=== PATIENT | female | born 1945 | race Caucasian/White ===

== ENCOUNTER 2017-11-10 22:49 | Inpatient (IN) ==
[2017-11-10] MEDS ORDERED: KETOROLAC 30 MG/ML INJECTION IVP ONE (22:56)
[2017-11-10] MEDS ORDERED: NS 1,000 ML IV ONE (22:57)
[2017-11-10] MEDS: SALINE FLUSH 10ml SYRINGE IVF PRN (23:38)
[2017-11-11] MEDS ORDERED: NS 100 ML ONE (00:04)
[2017-11-11] MEDS ORDERED: IOHEXOL 300mg/ml 75ml INJECTION ONE (00:04)
[2017-11-11] MEDS ORDERED: SALINE FLUSH 10ml SYRINGE ONE (00:05)
--- NOTE | 2017-11-11 00:33 | Emergency Department Report ---
General Adult HPI - General Chief complaint: Shortness of Breath/Dyspnea Stated complaint: sob, congestion Time Seen by Provider: 11/10/17 22:55 Source: patient Mode of arrival: ambulatory Limitations: no limitations - History of Present Illness HPI narrative: Mrs. Perez has been seen twice in the last 48 hours for sinusitis and generalized viral syndrome. Patient was seen by myself less than 24 hours ago, and was encouraged to drink plenty of fluids at home which she thought she could do. Patient admits that she has not been able to drink, decreased appetite , worsening body aches fatigue, and fevers and chills. Patient also presents for evaluation of abnormal chest x-ray as read by in has radiologist today as possible right perihilar mass. - Related Data Home Medications Medication Instructions Recorded Confirmed Ibuprofen [Advil] 3 tab PO Q4H PRN 11/10/17 11/10/17 Previous Rx's Medication Instructions Recorded amoxicillin 500 mg tablet 500 mg PO Q8H 10 Days #30 tab 11/08/17 Allergies Allergy/AdvReac Type Severity Reaction Status Date / Time amoxicillin [From Augmentin] Allergy Mild Nausea and Verified 11/10/17 23:13 Vomiting clavulanic acid Allergy Mild Nausea and Verified 11/10/17 23:13 [From Augmentin] Vomiting Review of Systems All systems: reviewed and negative except as stated PFSH Surgical History: *Teeth and gums removed. *D&C x7. *Total Abdominal Hysterectomy with Bilateral Salpingo-Oophorectomy with incidental Appendectomy due to prolapsed uterus at age 28. *Cyst Excision. *Colonoscopy. *Tubal Ligation Family History: Family History (Last Reviewed 11/08/17 @ 16:41 by JOE Trivedi) Father Cancer Brother Cancer Sister Cancer Paternal Grandmother Diabetes - Social History Smoking status: Current every day smoker Physical Exam - Limitations Limitations: no limitations - General General appearance: alert - Normal Exams: Head:: Normocephalic without trauma Eyes:: Pupils are PERRLA w/ EOMI, No scleral icterus, irritation, or foreign bodies noted ENMT:: No facial trauma (dry mouth), nasal exudates, pharyngeal erythema, or exudates are noted Neck:: Full range of motion, without adenopathy, JVD, bruits or thyromegaly Chest/Respirations:: Clear all [place], with good airflow, and symmetry bilaterally Cardiovascular:: Regular rate and rhythm, without murmur or gallop, Pulses 2+ all extremities, capillary refill, <2 seconds all extremities Abdomen:: Bowel sounds positive, soft, non-tender, non-distended, no hepatosplenomegaly, masses or bruits noted Lymphatic:: No lymphadenopathy, or lymphedema noted Musculoskeletal:: No tenderness, or deformity noted, good range of motion, all extremities Integumentary:: No rashes, hives, or bruising noted, hair and nails, without abnormality Neurological:: Patient is alert, and oriented, cranial nerves, motor/sensory/ cerebellar, exams w/o gross deficits, to observation Psychiatric:: Patient exhibits, appropriate attention, emotion and affect - ENT ENT exam: Present: other (patient has dry mouth, mild puffiness to the in the maxillas, and coarse breath sounds bilaterally.) Course Vital Signs Temperature 98.0 F 11/10/17 23:04 Pulse Rate 89 11/10/17 23:04 Respiratory Rate 20 11/10/17 23:04 Blood Pressure 172/79 H 11/10/17 23:04 Pulse Oximetry 96 11/10/17 23:04 Temperature 98.0 F 11/10/17 23:04 Pulse Rate 78 11/11/17 02:04 Respiratory Rate 20 11/10/17 23:04 Blood Pressure 171/79 H 11/11/17 02:04 Pulse Oximetry 94 11/11/17 02:04 Medical Decision Making - MDM Narrative Medical decision making narrative: Patient given Toradol IV with 1 L normal saline IV fluid bolus - CBC - n CMP - n CT sinuses/chest - CT is pending, chest CT shows 2 right upper and right middle lobe nodules one point for similar 2.0 cm respectively. Changes consistent with COPD, as well as extensive pulmonary lymphadenopathy including right paratracheal mass 7 x 5.5 cm, pericarinal soft tissue mass 4.5 x 5 cm, subcarinal soft tissue mass 4.5 x 6 in mirrors, and right hilar mass 5.4 x 4.8 cm most consistent with significant metastatic adenopathy lymphoma or sarcoid. Recheck of the patient reveals that she continues to have significant headache, cough, and still "feels like shit." Patient is given one albuterol treatment, and also morphine 4 mg to help with pain and cough. Case is discussed with Dr. Abdias Siddiqui will admit the patient observation for dehydration so seen with viral syndrome syndrome, we'll plan on CT abdomen and pelvis with contrast to further delineate the patient's static disease, and oncology consultation. - Lab Data Result diagrams: 11/10/17 23:35 11/10/17 23:35 Lab Results 11/10/17 11/10/17 11/10/17 Range/Units 23:35 23:35 23:35 WBC 3.7 L (4.5-11.0) T/MM3 RBC 4.24 (4.00-5.20) M/MM3 Hgb 12.6 (12-16) GM/DL Hct 37.9 (36-46) % MCV 89.4 (80-100) UM3 MCH 29.7 (26-34) UUG MCHC 33.2 (31-37) GM/DL RDW Std Deviation 43.8 (36.9-50.2) FL Plt Count 258 (130-400) T/MM3 MPV 9.0 L (9.4-12.4) UM3 Immature Gran % (Auto) 0.3 (0.0-0.5) % Neut % (Auto) 63.7 (33-66) % Lymph % (Auto) 27.9 (23-45) % Coal % (Auto) 6.8 (0-9.0) % Eos % (Auto) 0.5 (0-4) % Baso % (Auto) 0.8 (0-2) % Neut # (Auto) 2.3 (1.8-7.7) T/MM3 Lymph # (Auto) 1.0 (1-4.8) T/MM3 Coal # (Auto) 0.3 (0-0.8) T/MM3 Eos # (Auto) 0.0 (0-0.5) T/MM3 Baso # (Auto) 0.0 (0-0.2) T/MM3 Abs Immat Gran (auto) 0.01 (0.00-0.03) T/MM3 Turbidity < 20 (0-20) Sodium 141 (134-144) MEQ/L Potassium 4.1 (3.6-5) MEQ/L Chloride 107 (98-107) MEQ/L Carbon Dioxide 23 (22-30) MEQ/L Anion Gap 11 (5-15) MEQ/L BUN 9.0 (7-17) MG/DL Creatinine 0.8 (0.7-1.2) MG/DL GFR Calculation 71 BUN/Creatinine Ratio 11 (6-26) RATIO Glucose 90 (65-110) MG/DL Calculated Osmolality 270 (261-280) MOSM/KG Calcium 9.0 (8.4-10.2) MG/DL Total Bilirubin 0.50 (0.20-1.30) MG/DL Conjugated Bilirubin 0.00 (0.00-0.30) MG/DL Unconjugated Bilirubin 0.20 (0.00-1.1) MG/DL Icterus Index < 2 (0-7) AST 20 (14-36) U/L ALT 20 (9-52) U/L Alkaline Phosphatase 72 (38-126) U/L Total Protein 7.9 (6.3-8.2) G/DL Albumin 4.3 (3.5-5.0) G/DL Globulin 3.6 (2.4-3.6) G/DL Albumin/Globulin Ratio 1.2 (1.1-2.2) RATIO Plasma Lactate 1.0 (0.6-2.2) MMOL/L Procalcitonin < 0.05 NG/ML Specimen Hemolysis < 15 (0-25) Disposition Clinical Impression: Dehydration, Viral syndrome, Lung mass Disposition: [address] [facility] [place] Condition: Stable Prescriptions: No Action Ibuprofen [Advil] 3 tab PO Q4H PRN PRN Reason: Pain amoxicillin 500 mg tablet 500 mg PO Q8H 10 Days #30 tab Referrals: Nicholas Fernandez MD [Family Provider] - - Seen By: physician
[2017-11-11] MEDS ORDERED: MORPHINE SULFATE 4mg INJECTION IVP ONE (02:04)
[2017-11-11] MEDS ORDERED: ALBUTEROL 2.5mg/3ml (0.083%) NEB AEROSOL ONE (02:11)
[2017-11-11] MEDS ORDERED: HYDRALAZINE 20 MG/ML INJECTION IVP PRN (02:18)
[2017-11-11] MEDS: SALINE FLUSH 10ml SYRINGE IVF PRN ×3 (02:34→13:25)
[2017-11-11] MEDS ORDERED: DiphenhydrAMINE 50 MG/ML INJECTION IVP ONE ×2 (02:47→03:16)
[2017-11-11] MEDS ORDERED: ALBUTEROL 2.5mg/3ml (0.083%) NEB AEROSOL PRN (03:16)
[2017-11-11] MEDS ORDERED: DOCUSATE SODIUM 100 MG CAPSULE PO PRN (03:16)
[2017-11-11] MEDS ORDERED: MORPHINE SULFATE 2mg INJECTION IVP PRN (03:16)
[2017-11-11] MEDS: NS 1,000 ML IV SCH ×3 (03:18→23:21)
--- NOTE | 2017-11-11 04:10 | History & Physical Report ---
History of Present Illness Date: 11/11/17 Chief complaint: congestion HPI: This is a 71 y/o female who has no described past medical problems. The patient noticed about 1 week ago feeling bad with sinus congestion and right ear fullness. She went to an urgent care center this past Friday and was started on Amoxicillin. The patient continued to feel bad with dizziness, light headedness and mild shortness of breath. She presented to the ED yesterday and had a CXR that was thought to be unremarkable. She was treated with NsAID, felt better and was discharged to continue her Amoxicillin. The patient's CXR was over-read by radiologist and he contacted ED concerned that there was something going on in this patient's hilar regions bilaterally. The radiologist thought the patient should have a CT of her chest to better assess. The patient was contacted and she felt worse over the past 24 hours. The patient described a dry cough that was worse just after waking up. The patient continued with dizziness with any movement of her head. She had sinus congestion. The ED provider brought the patient back. Her labs were essentially reassuring. The patient was noted to be hypertensive. (no previous dx of this). A CT of the chest with IV contrast demonstrated remarkable hilar masses and pulm nodules. At this time the working diagnosis is metastatic lung tumor. The patient is brought into the hospital for dehydration, hypertension and further assessment of her presumed lung carcinoma. Of note the patient does not report weight loss recently. Generally not felt well with acute worsening over the past week Review of Systems Review of systems: patient describes frontal headache that is worse with coughing, no change in vision, no double vision, fullness to her right ear, sinus congestion. clear rhinorrhea. no sore throat. a dry cough that is worse after she wakes up. "dizziness" when she opens her eyes or turns her head. no fever but has had chills and sweats recently. Denies any weight loss. Decreased energy, VAZQUEZ, no PND, no orthopnea, no heart palpitations, no neck or jaw pain, no chest pain, no abdomen pain, slight nausea without emesis, no change in bm with no blood, no edema to legs, no focal neuro complaints. 12 point ROS otherwise neg except for outlined above. Past Medical History Patient Stated Medical History Bronchitis Yes Hx Urinary Tract Infection Yes: 2017 Surgical History: *Teeth and gums removed. *D&C x7. *Total Abdominal Hysterectomy with Bilateral Salpingo-Oophorectomy with incidental Appendectomy due to prolapsed uterus at age 28. *Cyst Excision. *Colonoscopy. *Tubal Ligation Family History: Family History (Last Reviewed 11/08/17 @ 16:41 by JOE Trivedi) Father Cancer Brother Cancer Sister Cancer Paternal Grandmother Diabetes Family History Updates: reviewed. mother from CAD. father from stomach cancer. brother from lung cancer - Social History Smoking status: Current every day smoker Substance use type: does not use Alcohol intake frequency: does not drink Housing: house Household members: none Current occupational status: retired Current residence: Apartment/Private Home Medications Home Medications Medication Instructions Recorded Confirmed Type Ibuprofen [Advil] 3 tab PO Q4H PRN 11/10/17 11/10/17 History Allergies Allergy/AdvReac Type Severity Reaction Status Date / Time amoxicillin [From Augmentin] Allergy Mild Nausea and Verified 11/10/17 23:13 Vomiting clavulanic acid Allergy Mild Nausea and Verified 11/10/17 23:13 [From Augmentin] Vomiting Exam Vital Signs: Temperature 97.9 F 11/11/17 03:06 Pulse Rate 71 11/11/17 03:53 Respiratory Rate 18 11/11/17 03:06 Blood Pressure 151/82 H 11/11/17 03:53 Pulse Oximetry 98 11/11/17 03:53 Telemetry Rhythm: Sinus Rhythm Height/Weight/BMI: Height 1.68 m Weight 56.4 kg Body Mass Index 20.0 - Constitutional Present: mild distress, average body habitus, cooperative - Routine HEENT Exam Head: Present: normocephalic, atraumatic Eye: Present: EOMI, conjunctivae pink ENT: Present: mucous membranes moist - Routine Neck Exam Present: supple, full ROM - Routine Respiratory Exam Comments: diminished breath sounds, no discrete wheezes, rhonchi. equal ant and posterior - Routine Cardiovascular Exam Present: RRR, no murmur - Routine Abdominal Exam Present: soft, normoactive bowel sounds, non distended - Routine Extremities Exam Present: no edema, non tender, full ROM - Routine Back/Spine/Pelvis Exam Back/Spine: Present: full ROM - Routine Skin Exam Present: intact, warm, normal turgor. Absent: cyanosis, erythema - Routine Neurological Exam Present: alert, oriented X3, CN II-XII intact, normal tone, vision grossly intact, hearing grossly intact, normal speech. Absent: motor deficit, altered mental status, facial asymmetry, tremors - Routine Psychiatric Exam Present: normal affect, normal thought process Results - Labs CBC & Chem 7: 11/10/17 23:35 11/10/17 23:35 Labs: reviewed and not significantly abnormal - Imaging and Cardiology CT scan - chest Additional comments: please see official report. verbal from ED describes pulm nodule right lung. hilar bilaterally abnormal with ? mass extending into abdomen cavity Assessment and Plan (1) Lung mass Current visit: Yes Status: Acute (2) Maxillary sinusitis Current visit: No Status: Acute (3) Dehydration Current visit: Yes Status: Acute (4) Tobacco abuse Current visit: No Status: Acute (5) Eustachian tube dysfunction Current visit: No Status: Acute Assessment and Plan: 1. lung mass acute POA: CT very abnormal. see report. pulm nodules reported right lung with bilateral hilar masses. This is tumor until proven otherwise. I have made the patient NPO in case a bx can be organized with radiology today. added INR. with tobacco history and family hx it is tumor most likely. Once tissue dx can cx oncology but in reality not worth cx until tissue is obtained. 2. maxillary sinusitis acute POA: continue keflex for now. additional coverage not indicated at this time. await results of CT sinus for further discussions. 3. HTN acute POA: pt never been told in the past but doesn't go to MD. hydralazine iv prn for starters. Might benefit from lam inhib with a diuretic 4. tobacco abuse chronic POA: counseling services manager to stop 5. dVT ppx; SCD 6. dehydration acute POA: hydrate and reassess 7. general disability acute POA: patient with dizziness. 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 if continue would r/c mri to exclude a metastatic process. DVT Prophylaxis: SCD's Resuscitation Status: Full Code - Time spent with patient Time with patient PN: 30 minutes - Physician Narrative Narrative: Date: 11/11/17 Time: 0405 Hospital Course Summary Disclaimer: The visit summary below is not to be considered part of the above Progress Note.
--- NOTE | 2017-11-11 07:57 | CT Scan Report ---
Indication: abnormal chest xray PROCEDURE: CT chest w con: Encounter: Initial Comparison: Chest x-ray from November 09, 2017 Technique: Axial CT images were performed through the chest after the administration of intravenous contrast. Coronal and sagittal two-dimensional reformats. Automated Exposure Control and Iterative Reconstruction dose reducing techniques were utilized. Contrast: Omnipaque 300 74 mL Findings: Chest: Emphysema. Irregular 1 cm right upper lobe nodule on image #30. There is a right hilar mass measuring 6 x 3 cm on axial image #33. Lobulated nodule along the minor fissure on image #40 measuring 2.1 cm in diameter. Smaller right upper lobe nodule on image #36 measuring 1.5 cm in diameter. There is also right paratracheal adenopathy with a bulky vanita mass on image #26 measuring 3.6 cm in short axis dimension. There is a precarinal node on image #32 measuring 3.9 cm in short axis and a subcarinal node on image #39 measuring 3.1 cm in short axis. There is a small right effusion. No axillary adenopathy. No pneumothorax. Heart size is normal. The right-sided masses cause mass effect upon the right middle lobe pulmonary artery and vein with possible occlusion. There is also significant mass effect upon the superior vena cava which is nearly occluded over a short segment. Subcutaneous edema. Bone windows show no obvious lytic or blastic bony lesions. Degenerative change in the spine with scoliosis in the lumbar spine. Upper abdomen: The liver shows no focal enhancing masses on this late arterial phase of contrast. The spleen, pancreas are within normal limits. Nodularity and slight enlargement of both adrenal glands. Right renal cyst. Kidneys are otherwise unremarkable. No abdominal adenopathy. Scattered arterial atherosclerotic plaque. No evidence of a bowel obstruction. Impression: Right hilar mass with associated mediastinal adenopathy and pulmonary nodularity could be due to primary lung malignancy, metastatic disease or lymphoma. Sarcoidosis and tuberculosis are possible but less likely. Bronchoscopic biopsy would probably be the easiest route to obtain a tissue diagnosis. There is a preliminary report by [email or web address]. .
--- NOTE | 2017-11-11 07:59 | CT Scan Report ---
Indication: "sinusitis" with questionable lung CA PROCEDURE: CT sinus w con: Encounter: Initial Comparison: None Technique: Axial CT images were performed through the sinuses after the administration of intravenous contrast. Coronal and sagittal two-dimensional reformats. Automated Exposure Control and Iterative Reconstruction dose reducing techniques were utilized. Contrast: Omnipaque 300 74 mL Findings: Small mucous retention cyst in the right maxillary sinus. Paranasal sinuses are otherwise clear. No acute air-fluid levels. Small right mastoid effusion. Small bilateral bullosa. Soft tissues are grossly unremarkable. Globes are intact. Lenses are located. No acute fractures. Impression: Negative sinus CT. There is a preliminary report by [employer] radiologic. .
[2017-11-11] MEDS ORDERED: ENOXAPARIN 40 MG/0.4 ML INJECTION SQ SCH (09:00)
[2017-11-11] MEDS: ACETAMINOPHEN 325 MG TABLET PO PRN (09:34)
[2017-11-11] MEDS: NICOTINE 14 MG PATCH TD SCH (12:07)
--- NOTE | 2017-11-11 13:25 | Pulmonology Consult Note ---
<Ishan,Erica Sinai - Last Filed: 11/11/17 13:17> History of Present Illness Consult date: 11/11/17 Reason for consult: cough, lung mass Chief complaint: cough, facial fullness History of present illness: This is a 71 yo female with no past medical Hx noted, likely with COPD secondary to Hx of smoking with 100pyh. the patient states that she noticed facial fullness a week ago with sinus congestion. She was seen at an urgent care and treated with amoxicilin. She states she continued to feel bad with dizziness, light headedness and mild shortness of breath but statesshe has had her dizziness from vertigo for several years. She presented to the ED on 11/10 due to her continued symptoms, CXR was thought to be unremarkable and she was treated with NSAID and her Amoxicillin and sent home. Her CXR was over-read by radiologist and there was thought to be bilat hilar mass. The ED contacted the patient who still felt bad at that time and was instructed to come back. CT on admit showed Right hilar mass obstructing the SVC and right main bronchus. We have been consulted for her mass which is likely cancerous in nature and appreciate the consult. Patient currently feels less facial congestion today but still noted with facial swelling and redness. Review of Systems - Constitutional Constitutional: Present: headache(s) - EENT Ears: Present: ear pain Nose: Present: other Mouth/Throat: Absent: mucosa moist, mucosa dry, normal dentition, poor dentition , enlarged tonsils, exudative tonsils, surgically absent tonsils, post-nasal discharge, other Additional comments: nasal congestion/fullness - Cardiovascular Cardiovascular: Present: dyspnea on exertion - Respiratory Respiratory: Present: cough, dyspnea on exertion - Gastrointestinal Gastrointestinal: Present: as per HPI - Genitourinary Genitourinary: Present: as per HPI - Musculoskeletal Musculoskeletal: Present: as per HPI - Integumentary/Breasts Integumentary: Present: as per HPI Breasts: as per HPI - Neurological Neurological: Present: as per HPI - Psychiatric Psychiatric: Present: as per HPI - Endocrine Endocrine: Present: as per HPI - Hematologic/Lymphatic Hematologic/Lymphatic: Present: as per HPI - Allergic/Immunologic Allergic/Immunologic: Present: as per HPI PFSH Patient Stated Medical History Bronchitis Yes Hx Urinary Tract Infection Yes: 2017 Surgical History: *Teeth and gums removed. *D&C x7. *Total Abdominal Hysterectomy with Bilateral Salpingo-Oophorectomy with incidental Appendectomy due to prolapsed uterus at age 28. *Cyst Excision. *Colonoscopy. *Tubal Ligation Family History: Family History (Last Reviewed 11/08/17 @ 16:41 by JOE Trivedi) Father Cancer Brother Cancer Sister Cancer Paternal Grandmother Diabetes - Social History Smoking status: Current every day smoker Packs per day: 2 Packs-years: 51 Housing: house Current residence: Apartment/Private Home Medications Home Medications Medication Instructions Recorded Confirmed Type Ibuprofen [Advil] 3 tab PO Q4H PRN 11/10/17 11/10/17 History Allergies Allergy/AdvReac Type Severity Reaction Status Date / Time amoxicillin [From Augmentin] Allergy Mild Nausea and Verified 11/10/17 23:13 Vomiting clavulanic acid Allergy Mild Nausea and Verified 11/10/17 23:13 [From Augmentin] Vomiting Exam Vital signs: Temperature 96.6 F L 11/11/17 08:00 Pulse Rate 63 11/11/17 10:10 Respiratory Rate 22 11/11/17 10:10 Blood Pressure 143/66 H 11/11/17 08:00 Pulse Oximetry 96 11/11/17 10:10 - Constitutional no acute distress, average body habitus - Routine HEENT Exam Head: Present: normocephalic, atraumatic Eye: Present: EOMI, PERRL ENT: Present: mucous membranes moist Nose: moist mucous membranes Comments: facial swelling and redness noted - Routine Neck Exam Present: supple, full ROM, trachea midline - Routine Respiratory Exam Present: decreased breath sounds - Routine Cardiovascular Exam Present: RRR, S1, S2, no murmur - Routine Abdominal Exam Present: soft, normoactive bowel sounds - Routine Extremities Exam Present: no edema, non tender, full ROM - Routine Back/Spine/Pelvis Exam Back/Spine: Present: full ROM - Routine Skin Exam Present: intact, dry - Routine Neurological Exam Present: alert, oriented X3, CN II-XII intact - Routine Psychiatric Exam Present: normal affect, normal thought process Results - Laboratory Findings CBC and BMP: 11/10/17 23:35 11/10/17 23:35 PT/INR, D-dimer INR 1.09 (0.99-1.21) 11/11/17 05:06 - Diagnostic Findings Chest x-ray: image reviewed (as noted in HPI) Assessment and Plan - Assessment and Plan Abnormal CT with R hilar mass obstructing SVC and R bronchus 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 CT reviewed, will need a bronchoscopy with biopsy for further evaluation. Unfortunately she had already recieved her lovenox today. Will stop the lovenox and proceed with the bronch as soon as we can. No infiltrates on CT noted on a/a QID prn. Some facial swelling and redness noted likely 2/2 SVC syndrome, onc already consulted. - Time Spent With Patient Total time spent is greater than 50% in coordination of care (as documented) at patient's floor/unit and/or counseling patient: less than 15 minutes <Ephraim Riggs - Last Filed: 11/11/17 16:29> [facility] Patient Stated Medical History Bronchitis Yes Hx Urinary Tract Infection Yes: 2016 Family History: Family History (Last Reviewed 11/08/17 @ 16:41 by JOE Trivedi) Father Cancer Brother Cancer Sister Cancer Paternal Grandmother Diabetes Exam Vital signs: Temperature 97.3 F 11/11/17 15:05 Pulse Rate 66 11/11/17 15:05 Respiratory Rate 16 11/11/17 15:05 Blood Pressure 149/73 H 11/11/17 15:05 Pulse Oximetry 97 11/11/17 15:05 Results - Laboratory Findings CBC and BMP: 11/10/17 23:35 11/10/17 23:35 PT/INR, D-dimer INR 1.09 (0.99-1.21) 11/11/17 05:06 Assessment and Plan (1) Abnormal finding on lung imaging Status: Acute Assessment and plan: RUL lung mass and mediastinal mass that appears to obstruct the SVC. 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 She will be made NPO after MN and will undergo bronchoscopy in AM with Biopsy, BAL, Brushing for diagnosis. Current Visit: Yes (2) SVC syndrome Status: Acute Assessment and plan: CT with contrast does show a mass in the superior mediastinum that appears to obstruct the SVC. This would explain her head and neck symptoms. Obviously malignant tumor is high on the list for this patient. Current Visit: Yes - Time Spent With Patient Total time spent is greater than 50% in coordination of care (as documented) at patient's floor/unit and/or counseling patient: 25 - 35 minutes
--- NOTE | 2017-11-11 14:09 | History & Physical Report ---
History of Present Illness Date: 11/11/17 HPI: Overnight HPI This is a 71 y/o female who has no described past medical problems. The patient noticed about 1 week ago feeling bad with sinus congestion and right ear fullness. She went to an urgent care center this past Friday and was started on Amoxicillin. The patient continued to feel bad with dizziness, light headedness and mild shortness of breath. She presented to the ED yesterday and had a CXR that was thought to be unremarkable. She was treated with NsAID, felt better and was discharged to continue her Amoxicillin. The patient's CXR was over-read by radiologist and he contacted ED concerned that there was something going on in this patient's hilar regions bilaterally. The radiologist thought the patient should have a CT of her chest to better assess. The patient was contacted and she felt worse over the past 24 hours. The patient described a dry cough that was worse just after waking up. The patient continued with dizziness with any movement of her head. She had sinus congestion. The ED provider brought the patient back. Her labs were essentially reassuring. The patient was noted to be hypertensive. (no previous dx of this). A CT of the chest with IV contrast demonstrated remarkable hilar masses and pulm nodules. At this time the working diagnosis is metastatic lung tumor. The patient is brought into the hospital for dehydration, hypertension and further assessment of her presumed lung carcinoma. Of note the patient does not report weight loss recently. Generally not felt well with acute worsening over the past week Follow up HPI Pt reports she feels "head fullness" and light headedness that has come on in the last few days to a week. Denies any fevers but does report some chills on and off. Denies any weight loss, reports some nausea but no vomiting. Reports sob that has also gotten worse in the last few days to a week. Denies any cp. Denies cough or any other URI type sx's. Denies sinus tenderness or ear ache/ discharge. Pt reports she smokes but otherwise is healthy and takes no chronic meds. She was seen recently in ER for these sx's and was thought to have sinus infection and was given amoxicillin which hasn't helped much. Past Medical History Patient Stated Medical History Bronchitis Yes Hx Urinary Tract Infection Yes: 2017 Surgical History: *Teeth and gums removed. *D&C x7. *Total Abdominal Hysterectomy with Bilateral Salpingo-Oophorectomy with incidental Appendectomy due to prolapsed uterus at age 28. *Cyst Excision. *Colonoscopy. *Tubal Ligation Family History: Family History (Last Reviewed 11/08/17 @ 16:41 by JOE Trivedi) Father Cancer Brother Cancer Sister Cancer Paternal Grandmother Diabetes Family History Updates: Reviewed - Social History Smoking status: Current every day smoker Current residence: Apartment/Private Home Medications Home Medications Medication Instructions Recorded Confirmed Type Ibuprofen [Advil] 3 tab PO Q4H PRN 11/10/17 11/10/17 History Allergies Allergy/AdvReac Type Severity Reaction Status Date / Time amoxicillin [From Augmentin] Allergy Mild Nausea and Verified 11/10/17 23:13 Vomiting clavulanic acid Allergy Mild Nausea and Verified 11/10/17 23:13 [From Augmentin] Vomiting Exam Vital Signs: Temperature 96.6 F L 11/11/17 08:00 Pulse Rate 63 11/11/17 10:10 Respiratory Rate 22 11/11/17 10:10 Blood Pressure 143/66 H 11/11/17 08:00 Pulse Oximetry 96 11/11/17 10:10 Height/Weight/BMI: Height 5 ft 6 in Weight 111.9 kg Body Mass Index 20.0 - Constitutional Present: no acute distress - Routine HEENT Exam Head: Present: facial swelling Eye: Present: EOMI, PERRL - Routine Neck Exam Present: supple, full ROM - Routine Respiratory Exam Present: CTA bilaterally. Absent: wheezes - Routine Cardiovascular Exam Present: RRR, no murmur - Routine Abdominal Exam Present: soft, non distended, non tender - Routine Skin Exam Present: intact, dry. 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 Lung cancer -Consult pulm for possible bonch with biopsy HTN -BPs in 170s systolic on admission -Pt has not been to MD in 6 years -Will start amlodipine 5mg Tobacco abuse -Nicotine patch Ppx -SCDs - Physician Narrative Narrative: Date: 11/11/17 Time: 1404 Hospital Course Summary Disclaimer: The visit summary below is not to be considered part of the above Progress Note.
[2017-11-11] MEDS: AMLODIPINE 5 MG TABLET PO SCH (15:41)
--- NOTE | 2017-11-12 08:08 | Consultation ---
DATE OF CONSULTATION 11/11/2017 CHIEF COMPLAINT Headache and sinus pressure. HISTORY OF PRESENT ILLNESS This is a 71-year-old female patient who has not been seen by a doctor for at least 6 years. She is not on any long-term medications. She is a heavy smoker. The patient presented with sinus congestion, right ear fullness and dull headache for a couple of weeks. Also, she has been dizzy with lightheadedness. She has chronic shortness of breath and cough. No hemoptysis. Her chest x-ray showed some hilar fullness. CT scan of the chest on 11/11/2017 with IV contrast showed a 6 x 3 cm right hilar mass and bulky paratracheal adenopathy 3.6 cm in size. Also, there is a precarinal lymph node 3.9 cm in size and a subcarinal lymph node 3.1 cm in size. There are lung nodules in the minor fissure 2.1 cm in size and a nodule in the right upper lobe 1.5 cm in size. There is a small right pleural effusion. The right-sided masses cause mass effect upon the right middle lobe pulmonary artery and vein with possible occlusion. There is also significant mass effect upon the superior vena cava which is nearly occluded over a short segment. Upper abdomen unremarkable. CT scan of the sinus negative. Lab unremarkable with CBC with white count of 3.7 and neutrophils 63%. Hemoglobin 12.6 and platelet count 258,000. Chemistry with a creatinine of 0.8 and normal liver enzymes. REVIEW OF SYSTEMS GENERAL: The patient denies fever. RESPIRATORY: Shortness of breath and cough, chronic. She denied hemoptysis. CARDIOVASCULAR: No chest pain. No history of heart disease. GI: No nausea or vomiting. Bowel habits normal. 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 She has headaches and dizziness. : No urinary symptoms. MUSCULOSKELETAL: No back pain. No joint pain. SKIN: No skin rash. ENDOCRINE: No history of diabetes or thyroid disease. PAST MEDICAL HISTORY 1. Bronchitis. 2. History of UTI. SOCIAL HISTORY She is a chronic smoker. PAST SURGICAL HISTORY Hysterectomy with bilateral salpingo-oophorectomy. FAMILY HISTORY Father with cancer. Brother with cancer. Sister with cancer - unknown kind of cancer. PHYSICAL EXAM VITAL SIGNS: Stable. Not in acute distress. HEAD AND NECK: The head is _puffy?_, slightly congested. CHEST: Upper chest with distended veins in the upper chest. LUNGS: Diminished air entry at the lung bases with a few crackles. Trachea is central. CARDIOVASCULAR: Normal sinus rhythm. No JVD. No murmur. ABDOMEN: Benign. No organomegaly. No masses. Bowel sounds positive. MUSCULOSKELETAL: Unremarkable. EXTREMITIES: No edema. LYMPH SYSTEM: No cervical, supraclavicular or axillary adenopathy. No inguinal adenopathy. BREAST EXAM: Normal breast exam. No breast masses. No nipple discharge. No nipple retraction. EXTREMITIES: No edema. SKIN: No rash. ASSESSMENT 1. Right hilar mass with bulky mediastinal adenopathy. Differential diagnosis includes: bronchogenic carcinoma, especially small cell lung cancer versus lymphoma. 2. Clinic picture of SVC syndrome. 3. Longstanding history of smoking. RECOMMENDATION AND PLAN 1. The patient already seen by Dr. Riggs, design painter, with the plan for bronchoscopy with transbronchial biopsy. 2. Await the biopsy result. 3. Further recommendations after the biopsy result. Thank you for allowing me to participate in the management and care of your patient. ZACK
[2017-11-12] MEDS ORDERED: LR 1,000 ML IV SCH (09:00)
--- NOTE | 2017-11-12 09:00 | Anesthesia Preoperative Report ---
Anesthesia Preoperative Record - Date and Time Date: 11/12/17 Preoperative Diagnosis: dehydration,weakness new pulonary tumor NPO Since Date: 11/11/17 NPO Since Time: 23:00 Allergies/Adverse Reactions: Allergies Allergy/AdvReac Type Severity Reaction Status Date / Time amoxicillin [From Augmentin] Allergy Mild Nausea and Verified 11/11/17 22:50 Vomiting clavulanic acid Allergy Mild Nausea and Verified 11/11/17 22:50 [From Augmentin] Vomiting - Vital Signs Vital Signs: Temperature 97.5 F 11/12/17 08:32 Pulse Rate 71 11/12/17 08:40 Respiratory Rate 15 11/12/17 08:32 Blood Pressure 169/77 H 11/12/17 08:32 Pulse Oximetry 96 11/12/17 08:32 Height and Weight: Height 1.68 m Weight 58.8 kg Body Mass Index 20.0 - Medications Inpatient Medications: Current Medications Acetaminophen (Tylenol) 325 - 650 mg PO Q5H PRN PRN Reason: Discomfort Last Admin: 11/11/17 09:34 Dose: 650 mg Hydrocodone Bitart/Acetaminophen ([place] 5/325) 1 tab PO Q6H PRN PRN Reason: Pain Albuterol Sulfate (Proventil Neb (0.083%)) 2.5 mg AEROSOL RTQID PRN Amlodipine Besylate (Norvasc) 5 mg PO DAILY [facility] Last Admin: 11/11/17 15:41 Dose: 5 mg Docusate Sodium (Colace) 100 mg PO BID PRN Hydralazine HCl (Apresoline) 10 mg IVP Q4H PRN PRN Reason: Hypertension Sodium Chloride (Normal Saline) 1,000 mls @ 100 mls/hr IV .Q10H [facility] Last Admin: 11/11/17 23:21 Dose: 100 mls/hr Lactated Ringer's (Lactated Ringers) 1,000 mls @ 50 mls/hr IV .Q20H [facility] Morphine Sulfate (Morphine Sulfate Inj) 1 - 2 mg IVP Q2H PRN PRN Reason: Pain Nicotine (Nicoderm) 14 mg TD DAILY [facility] Last Admin: 11/11/17 12:07 Dose: 14 mg Ondansetron HCl (Zofran) 4 mg IVP Q6H PRN PRN Reason: Nausea &/or vomiting Sodium Chloride (Iv Flush) 10 - 80 ml IVF PRN PRN PRN Reason: Flushing Last Admin: 11/11/17 13:25 Dose: 10 ml Home Medications: Home Medications Medication Instructions Recorded Confirmed Type Ibuprofen [Advil] 3 tab PO Q4H PRN 11/10/17 11/10/17 History - Medical History Respiratory: Reports: Bronchitis, Chronic Obstructive Pulmonary Disease (COPD) ( pressumptive with long history of tobacco abuse), Sleep Apnea, Other (lung mass) Cardiovascular: Reports: Hypertension Neuro/Musculoskeletal: Reports: Other (Redness and swelling of face) - Surgical History GI Surgery/Treatments: Reports: Appendectomy Reproductive Surgery/Treatment: Reports: Dilation and Curettage, Hysterectomy Anesthesia Reactions: None Hx Family Anesthesia Reaction: No History of Motion Sickness: No - Social History Smoking Status: Current every day smoker Packs per day: 2 Pack-years: 50 Hx Chewing Tobacco Use: No Second Hand Exposure: Yes Substance Use Type: does not use Alcohol Intake: never Alcohol Intake Frequency: does not drink - Pertinent Findings EKG: Sinus Rhythm - Physical Exam Respiratory Exam: Present: lungs clear Cardiovascular Exam: Present: regular rate and rhythm - Airway Assessment Mallampati Score: II TMD: 3 Fingerbreadths Neck Extension: fair Teeth: upper dentures, lower dentures Overall Assessment: no airway concerns - ASA ASA Score: 3 - Plan Anesthesia: General TIVA, General Inhalation Gases, MAC - Discussion Discussion: Discussed risks/options/alternatives of anesthesia and questions answered. Patient consents. Nursing pain assessment noted. Present for Discussion: family member Attestation Statement: Prior to the delivery of any anesthetic medication, I examined the patient, developed the plan, obtained the patient's consent and discussed the risk and benefits of the procedure with the patient/guardian. - Additional Information Seen by Anesthesia: Yes
[2017-11-12] MEDS ORDERED: KETAMINE 500 MG/10 ML INJECTION ONE (09:07)
[2017-11-12] MEDS ORDERED: MIDAZOLAM 2mg/2ml INJECTION ONE (09:07)
[2017-11-12] MEDS ORDERED: FentaNYL 100 MCG/2 ML INJECTION ONE (09:07)
[2017-11-12] MEDS ORDERED: PROPOFOL 500 MG/50 ML VIAL IV ONE (09:08)
[2017-11-12] MEDS ORDERED: LIDOCAINE 4% Laryng-O-Jet (160mg/4mL) KIT MM ONE ×2 (09:09→10:30)
[2017-11-12] MEDS ORDERED: LACRI-LUBE EYE OINT 3.5gm ONE (09:10)
[2017-11-12] MEDS ORDERED: PROPOFOL 20 ML ONE (10:09)
[2017-11-12] MEDS ORDERED: EPINEPHrine 1mg/ml PF INJ AMP OPSITE ONE (10:31)
--- NOTE | 2017-11-12 10:47 | Procedure Note ---
Date of procedure: 11/12/17 Pre-op diagnosis: lung mass, SVC syndrome Post-op diagnosis: same Procedure: bronchoscopy via LMA See anesthesia notes for detail Scope was passed to the larynx. laryngeal mucosa and true vocal cords were edematous and narrowed the airway significantly. With spontaneous respirations the patient's airway was patent and not critically obstructed. The scope was passed to the trachea. No tracheal lesions were noted. The scope was passed to the left main, IRIS, LLL. These structures were normal Main awa was mildly widened without mucosal abnormality Scope was passed to R main, RUL, BI, RML, RLL bronchi. There was a polypoid obstructing lesion in the RUL bronchus consistent with bronchogenic CA Endobronchial biopsies were performed from the mass in the RUL. Bleeding prevented further biopsies after #2, and endobronchial EPI, 2 ML was instilled into the airway and flushed with saline. The bleeding was controlled. RUL brush and BAL were sent for cytology. The scope was removed. Anesthesia: MAC Surgeon: Ephraim Riggs MD Estimated blood loss (mL): 5 Pathology: other (endobronchial biopsies RUL, [place] RUL for cytology, BAL RUL for cytology) Condition: Stable Disposition: ICU (for airway management and precautions. Dexamethasone given, 8 mg IV x 1)
[2017-11-12] MEDS: AMLODIPINE 5 MG TABLET PO SCH ×2 (11:53→16:01)
--- NOTE | 2017-11-12 11:54 | Anesthesia Postoperative Note ---
- Date and Time Date: 11/12/17 Time: 11:53 - Status Patient Participated in Evaluation: Patient Participated in Person Vital Signs: Temperature 97.3 F 11/12/17 11:48 Pulse Rate 80 11/12/17 11:45 Respiratory Rate 18 11/12/17 11:45 Blood Pressure 137/68 11/12/17 11:45 Pulse Oximetry 100 11/12/17 11:45 Respiratory Function: Airway Patent, Regular Respirations Cardiovascular Function: Regular Pulse Mental Status: Alert and Oriented Pain Intensity: 0 Hydration: IV Infusing Complications During Recover: None Apparent - Follow-Up Instructions Instructions: Per Surgeon
[2017-11-12] MEDS: NICOTINE 14 MG PATCH TD SCH (12:04)
--- NOTE | 2017-11-12 12:20 | Progress Note ---
- Date 11/12/17 Subjective: Pt is seen after bronch and she is currently somnolent but is oriented. Pt reports she doesn't feel well but denies any acute sx's. She denies any n/v. Objective Vital signs: Temperature 97.3 F 11/12/17 11:48 Pulse Rate 80 11/12/17 11:45 Respiratory Rate 18 11/12/17 11:45 Blood Pressure 137/68 11/12/17 11:45 Pulse Oximetry 100 11/12/17 11:45 Height/Weight/BMI: Height 5 ft 6 in Weight 58.8 kg Body Mass Index 20.0 - Constitutional Present: no acute distress - Routine HEENT Exam Head: Present: normocephalic, atraumatic Eye: Present: EOMI, PERRL - Routine Respiratory Exam Present: CTA bilaterally. Absent: respiratory distress - Routine Cardiovascular Exam Present: RRR, no murmur - Routine Abdominal Exam Present: soft, non distended, non tender - Routine Extremities Exam Present: no edema. Absent: cyanosis, clubbing - Routine Back/Spine/Pelvis Exam Back/Spine: Present: full ROM - Routine Skin Exam Present: intact, dry. Absent: erythema - Routine Neurological Exam Present: oriented X3. 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 Lung cancer -S/p bronch from pulm, mass extending into RUL bronchus, laryngeal edema with narrowed airway -Discussed case with -->Will do solumedrol 125mg q6H, lasix - will decide on radiation/chemo once he talks to pathology -Monitor airway carefully HTN -BPs in 170s systolic on admission -Pt has not been to [facility] in 6 years -Will start amlodipine 5mg Tobacco abuse -Nicotine patch Ppx -SCDs - Physician Narrative Narrative: Date: 11/12/17 Time: 1213 Hospital Course Summary Disclaimer: The visit summary below is not to be considered part of the above Progress Note. Hospital Course: 11/12/17 12:20 Pt admitted for sinustis sx's and hilar mass. Pt's sx's are likely SVC syndrome with mass compressing on SVC. Pt had bronch done to biopsy mass which showed mass extending into RUL bronchus and laryngeal edema. Will treat with steroids, lasix to help manage airway and svc syndrome. Discussed case with and he agreed with plan and noted he will discuss case with pathology before starting any therapy. Discussed case with and he also agreed with plan.
[2017-11-12] MEDS: NS 1,000 ML IV SCH (13:40)
[2017-11-12] MEDS: FUROSEMIDE 40 MG/4 ML INJECTION IVP SCH ×2 (14:05→21:17)
[2017-11-12] MEDS: METHYLPREDNISOLONE SOD SUCC 125mg/2ml INJECTION IVP SCH ×2 (14:55→21:07)
[2017-11-12] MEDS: ACETAMINOPHEN 325 MG TABLET PO PRN (15:06)
[2017-11-12] MEDS: ONDANSETRON 4 MG/2 ML INJECTION IVP PRN (15:10)
[2017-11-12] MEDS ORDERED: ENOXAPARIN 40 MG/0.4 ML INJECTION SQ SCH (20:00)
[2017-11-12] MEDS: SALINE FLUSH 10ml SYRINGE IVF PRN ×2 (21:12→21:18)
[2017-11-13] MEDS: SALINE FLUSH 10ml SYRINGE IVF PRN (03:43)
[2017-11-13] MEDS: METHYLPREDNISOLONE SOD SUCC 125mg/2ml INJECTION IVP SCH ×4 (03:43→20:52)
[2017-11-13] MEDS: FUROSEMIDE 40 MG/4 ML INJECTION IVP SCH ×2 (09:03→20:51)
--- NOTE | 2017-11-13 10:11 | Pulmonology Progress Note ---
<IshanEdie D - Last Filed: 11/13/17 10:08> Subjective Principal diagnosis: lung mass Interval history: Pt in bed, states her breathing is a little better and right side facial pressure/congestion is better. Still coughing with blood tinged sputum noted likely from bronch. Exam Vital signs: Temperature 97.6 F 11/13/17 03:55 Pulse Rate 69 11/13/17 08:00 Respiratory Rate 17 11/12/17 16:15 Blood Pressure 101/56 11/12/17 16:01 Pulse Oximetry 96 11/12/17 16:15 - Constitutional no acute distress, average body habitus - Routine HEENT Exam Head: Present: normocephalic, atraumatic, facial swelling Eye: Present: EOMI, PERRL ENT: Present: mucous membranes moist Comments: facial swelling R>L with redness noted - Routine Neck Exam Present: supple, full ROM, trachea midline - Routine Respiratory Exam Present: accessory muscle use - Routine Cardiovascular Exam Present: RRR, S1, S2, no murmur - Routine Abdominal Exam Present: soft, normoactive bowel sounds - Routine Extremities Exam Present: no edema, non tender, full ROM - Routine Back/Spine/Pelvis Exam Back/Spine: Present: full ROM - Routine Skin Exam Present: intact, dry - Routine Neurological Exam Present: alert, oriented X3, CN II-XII intact - Routine Psychiatric Exam Present: normal affect, normal thought process Assessment and Plan - Assessment and Plan Abnormal CT with R hilar mass obstructing SVC and R bronchus 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 s/p bronchoscopy 11/12 which is nondiagnostic per Onc. Unfortunately there was bleeding with the bx which complicated the procedure and a good biopsy wasn't achieved. Would recommend cont solumedrol 125mg q6 with lasix 20mg q12 to help with SVC syndrome and stopping the lovenox. She does have endobronchial lesions and could repeat a bronchoscopy as early as friday morning. Primary to talk with onc regarding their recommendations. No infiltrates on CT noted on a/a QID prn. Some facial swelling and redness noted likely 2/2 SVC syndrome on treatment as noted. - Time Spent With Patient Total time spent is greater than 50% in coordination of care (as documented) at patient's floor/unit and/or counseling patient: less than 15 minutes <Ephraim Riggs - Last Filed: 11/13/17 15:16> Exam Vital signs: Temperature 97.6 F 11/13/17 03:55 Pulse Rate 71 11/13/17 12:00 Respiratory Rate 18 11/13/17 12:00 Blood Pressure 122/60 11/13/17 12:00 Pulse Oximetry 94 11/13/17 12:00 Assessment and Plan (1) Abnormal finding on lung imaging Status: Acute Assessment and plan: endobronchial tumor noted RUL on bronchoscopy. Unfortunately bleeding and airway compromise prevented thorough biopsies. endobronchial biopsies are negative for malignancy. Webb and BAL cytology are still pending If the bronch specimens are negative, I would consider repeat bronchoscopy. In the meantime, treat her SVC syndrome with diuretics and iv steroids. Current Visit: Yes (2) SVC syndrome Status: Acute Current Visit: Yes - Time Spent With Patient Total time spent is greater than 50% in coordination of care (as documented) at patient's floor/unit and/or counseling patient:
[2017-11-13] MEDS: NICOTINE 14 MG PATCH TD SCH (10:26)
[2017-11-13] MEDS: BENZONATATE 200 MG CAPSULE PO PRN ×2 (11:13→20:51)
[2017-11-13] MEDS: NICOTINE PATCH REMOVAL TD SCH (11:13)
[2017-11-13] MEDS: AMLODIPINE 5 MG TABLET PO SCH (13:11)
[2017-11-13] MEDS: ACETAMINOPHEN 325 MG TABLET PO PRN ×2 (13:36→20:51)
--- NOTE | 2017-11-13 14:04 | Progress Note ---
- Date 11/13/17 Subjective: Pt reports she feels a bit better then yesterday, reports breathing is a bit easier. Denies any n/v/d, f/c, cp. Denies any dysphagia. Pt would like to stay at [facility] primarily and avoid going somewhere else if possible. Objective Vital signs: Temperature 97.6 F 11/13/17 03:55 Pulse Rate 71 11/13/17 12:00 Respiratory Rate 18 11/13/17 12:00 Blood Pressure 122/60 11/13/17 12:00 Pulse Oximetry 94 11/13/17 12:00 Height/Weight/BMI: Weight 46.6 kg - Constitutional Present: no acute distress - Routine HEENT Exam Head: Present: normocephalic, atraumatic - Routine Respiratory Exam Present: CTA bilaterally. Absent: wheezes, crackles - Routine Cardiovascular Exam Present: RRR, no murmur - Routine Abdominal Exam Present: soft, non distended, non tender - Routine Extremities Exam Present: no edema. Absent: cyanosis, clubbing - Routine Back/Spine/Pelvis Exam Back/Spine: Present: full ROM - Routine Skin Exam Present: intact, dry. 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 Lung cancer -S/p bronch from pulm, mass extending into RUL bronchus, laryngeal edema with narrowed airway -Discussed case with -->Will do solumedrol 125mg q6H, lasix -Biopsy from bronch is inconclusive, discussed benefits/risks of options, / agree with one more attempt at biopsy with bronch -Monitor airway closely Leukopenia -WBC 3.7-->2.4 -Possibly related to malignancy, lymphoma?? -Will do peripheral smear HTN -BPs in 170s systolic on admission -Pt has not been to [facility] in 6 years -Started amlodipine 5mg, BPs wnls since Tobacco abuse -Nicotine patch Ppx -SCDs - Physician Narrative Narrative: Date: 11/13/17 Time: 1344 Hospital Course Summary Disclaimer: The visit summary below is not to be considered part of the above Progress Note. Hospital Course: 11/12/17 12:20 Pt admitted for sinustis sx's and hilar mass. Pt's sx's are likely SVC syndrome with mass compressing on SVC. Pt had bronch done to biopsy mass which showed mass extending into RUL bronchus and laryngeal edema. Will treat with steroids, lasix to help manage airway and svc syndrome. Discussed case with and he agreed with plan and noted he will discuss case with pathology before starting any therapy. Discussed case with and he also agreed with plan. 11/13/17 14:04 Pt stable, biopsy from bronch is inconclusive, discussed case with and . believes their are bronchial lesions that would be high yield to biopsy but he will do it in 2 days d/t pt's recent lovenox and pt bleeding from last biopsy. agreed with this plan. Pt also preferred less invasive procedure(vs. mediastinoscopy or CT guided biopsy) and staying in [place]. Will cont. tx of SVC syndrome with lasix and steroids and monitor.
[2017-11-13] MEDS: GUAIFENESIN/CODEINE 5ml ORAL LIQUID PO PRN (20:51)
[2017-11-14] MEDS: METHYLPREDNISOLONE SOD SUCC 125mg/2ml INJECTION IVP SCH ×4 (04:22→21:21)
[2017-11-14] MEDS: GUAIFENESIN/CODEINE 5ml ORAL LIQUID PO PRN (04:30)
--- NOTE | 2017-11-14 09:45 | Pulmonology Progress Note ---
Subjective Principal diagnosis: lung mass Interval history: Pt in bed, states her breathing is better but still with a cough when she tries to sleep. Feels the cough medicine has helped. Also feels her facial pressure/ congestion is better with less swelling noted. Exam Vital signs: Temperature 97.9 F 11/14/17 00:00 Pulse Rate 57 L 11/14/17 04:00 Respiratory Rate 20 11/14/17 03:15 Blood Pressure 157/71 H 11/14/17 03:00 Pulse Oximetry 95 11/14/17 03:15 - Constitutional no acute distress, average body habitus - Routine HEENT Exam Head: Present: normocephalic, atraumatic Eye: Present: PERRL Comments: swelling and redness to face but overall improving from yesterday. - Routine Neck Exam Present: supple, full ROM - Routine Respiratory Exam Present: decreased breath sounds - Routine Cardiovascular Exam Present: RRR, S1, S2, no murmur - Routine Abdominal Exam Present: soft, normoactive bowel sounds - Routine Extremities Exam Present: edema, non tender, full ROM - Routine Back/Spine/Pelvis Exam Back/Spine: Present: full ROM - Routine Skin Exam Present: intact, dry - Routine Neurological Exam Present: alert, oriented X3, CN II-XII intact - Routine Psychiatric Exam Present: normal affect, normal thought process Assessment and Plan - Assessment and Plan Abnormal CT with R hilar mass obstructing SVC and R bronchus 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 s/p bronchoscopy 11/12 which is nondiagnostic per endobronchial bx, brush pending. Unfortunately there was bleeding with the bx which complicated the procedure and a good biopsy wasn't achieved. Would recommend cont solumedrol 125mg q6 with lasix 20mg q12 to help with SVC syndrome and lovenox stopped. She does have endobronchial lesions and will repeat a bronchoscopy in the morning unless further pathology proves to be positive. No infiltrates on CT noted on a/a QID prn. Some facial swelling and redness noted likely 2/2 SVC syndrome on treatment as noted with overall improvement. Will make NPO after MN. - Time Spent With Patient Total time spent is greater than 50% in coordination of care (as documented) at patient's floor/unit and/or counseling patient: less than 15 minutes
[2017-11-14] MEDS: AMLODIPINE 5 MG TABLET PO SCH ×2 (10:10→16:02)
[2017-11-14] MEDS: FUROSEMIDE 40 MG/4 ML INJECTION IVP SCH ×2 (10:11→21:21)
[2017-11-14] MEDS: NICOTINE 14 MG PATCH TD SCH (10:12)
[2017-11-14] MEDS: NICOTINE PATCH REMOVAL TD SCH (10:12)
--- NOTE | 2017-11-14 14:06 | Progress Note ---
- Date 11/14/17 Subjective: Mrs. Perez reports that sensation of sinus congestion and fullness or "plugging " in the right ear have improved progressively over the past couple of days. She additionally feels that facial swelling and swelling in both of her upper extremities have improved as have edema of her breasts. Dyspnea is less pronounced but she is coughing more and has clear secretions which are occasionally blood tinged. She denied nausea and hasn't had a bowel movement for for 5 days but reports that she generally has bowel movements only once a week. She is voiding without difficulty and denied dysuria. She is still lightheaded occasionally. She denied pain. Objective Vital signs: Temperature 97.9 F 11/14/17 00:00 Pulse Rate 70 11/14/17 12:00 Respiratory Rate 31 H 11/14/17 11:00 Blood Pressure 145/85 H 11/14/17 11:00 Pulse Oximetry 95-2L 11/14/17 11:00 I/O [id number] EXAM General-NAD, alert, fluent speech HEENT-EOMI, conjunctiva clear, sclera anicteric, oropharynx clear, oscar complexion; neck veins distended Lungs-respirations nonlabored, decreased breath sounds throughout breath sounds are clear Cardiac-regular rhythm, S1 and S2 Abd-soft, nontender, bowel sounds present/diminished Ext-no lower extremity edema, +1 edema upper extremities bilaterally Neuro-MAEW Psych-calm, cooperative - Rhythm: Normal Sinus Rhythm Height/Weight/BMI: Weight 46.6 kg Results - Labs CBC & Chem 7: 11/13/17 05:00 11/13/17 05:00 - Imaging and Cardiology CT scan - chest Status: image reviewed by me (right hilar mass/pulmonary nodules/adenopathy as previously described; sinus CT report also reviewed-negative for sinusitis.) Assessment and Plan (1) Lung mass Problem details: Right hilar mass obstructing SVC and right bronchus Current visit: Yes Status: Acute (2) SVC syndrome Current visit: Yes Status: Acute (3) Tobacco abuse Current visit: No Status: Acute Assessment and Plan: SVC syndrome 2/2 Hilar mass -Sx's pt is describing are likely SVC syndrome related with some facial swelling and redness noted on exam -CT shows hilar mass compressing on SVC -Onc on board, on lasix 20mg BID -Keflex discontinued; sinus CT negative. R-Hilar mass -CT shows pulm nodules, 6x3 cm R-hilar mass and mediastinal adenopathy -Lymphoma vs. Lung cancer -S/p bronch from pulm, mass extending into RUL bronchus, laryngeal edema with narrowed airway-cytology and 1/2 pathology specimens negative for cancer; second pathology report pending -Solumedrol 125mg q6H, lasix bid initiated 11/12 for SVC and laryngeal edema. Monitor Accu-Cheks on Solu-Medrol. -Biopsy from bronch is inconclusive, discussed benefits/risks of options, / agree with one more attempt at biopsy with bronch- tentatively scheduled for 11/15. Discussed with pulmonary. -Monitor airway closely Leukopenia -WBC 3.7-->2.4 -Possibly related to malignancy, lymphoma?? -Peripheral smear reports no evidence of dysplastic cells; moderate leukopenia due to lymphocytopenia described. -Continue to monitor HTN -BPs in 170s systolic on admission -Pt has not been to [facility] in 6 years -Started amlodipine 5mg, BPs wnls since Tobacco abuse -Nicotine patch Ppx -SCDs DVT Prophylaxis: SCD's - Physician Narrative Narrative: Date: 11/14/17 Time: 1402 Hospital Course Summary Disclaimer: The visit summary below is not to be considered part of the above Progress Note. Hospital Course: 11/12/17 12:20 Pt admitted for sinustis sx's and hilar mass. Pt's sx's are likely SVC syndrome with mass compressing on SVC. Pt had bronch done to biopsy mass which showed mass extending into RUL bronchus and laryngeal edema. Will treat with steroids, lasix to help manage airway and svc syndrome. Discussed case with and he agreed with plan and noted he will discuss case with pathology before starting any therapy. Discussed case with and he also agreed with plan. 11/13/17 14:04 Pt stable, biopsy from bronch is inconclusive, discussed case with and . believes their are bronchial lesions that would be high yield to biopsy but he will do it in 2 days d/t pt's recent lovenox and pt bleeding from last biopsy. agreed with this plan. Pt also preferred less invasive procedure(vs. mediastinoscopy or CT guided biopsy) and staying in [place]. Will cont. tx of SVC syndrome with lasix and steroids and monitor. 11/14/17 14:19 Symptoms improving with decreased facial edema/erythema; less sinus pressure and decreasing edema in the arms. Continue Lasix/Solu-Medrol for SVC syndrome and laryngeal edema. Pathology all negative to date with one bronchial washing still out. Tentatively scheduled for repeat bronchoscopy in a.m. Blood pressure stable on amlodipine.
[2017-11-14] MEDS ORDERED: INSULIN ASPART 100unit/ml INJECTION SQ PRN (14:17)
[2017-11-14] MEDS: ACETAMINOPHEN 325 MG TABLET PO PRN ×2 (16:17→22:43)
[2017-11-15] MEDS: METHYLPREDNISOLONE SOD SUCC 125mg/2ml INJECTION IVP SCH ×4 (03:59→20:37)
[2017-11-15] MEDS: AMLODIPINE 5 MG TABLET PO SCH (08:33)
[2017-11-15] MEDS: NICOTINE 14 MG PATCH TD SCH (08:33)
[2017-11-15] MEDS: NICOTINE PATCH REMOVAL TD SCH (08:34)
[2017-11-15] MEDS ORDERED: EPINEPHrine 1mg/ml PF INJ AMP ONE (08:49)
[2017-11-15] MEDS ORDERED: LIDOCAINE 4% Laryng-O-Jet (160mg/4mL) KIT MM ONE (08:49)
[2017-11-15] MEDS: FUROSEMIDE 40 MG/4 ML INJECTION IVP SCH (09:00)
[2017-11-15] MEDS: POLYETHYL GLYCOL 3350 17gm PACKET PO SCH (09:00)
[2017-11-15] MEDS ORDERED: FentaNYL 100 MCG/2 ML INJECTION ONE (09:06)
[2017-11-15] MEDS ORDERED: KETAMINE 500 MG/10 ML INJECTION ONE (09:06)
--- NOTE | 2017-11-15 10:08 | Procedure Note ---
Date of procedure: 11/15/17 Pre-op diagnosis: lung mass, abnormal CT chest, SVC syndrome Post-op diagnosis: same Procedure: bronchoscopy Under GETA scope was passed to trachea, main awa, left main, IRIS, LLL, right main, RUL, RML, RLL. 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 Endobronchial biopsies, Brushings and BAL were obtained from the Tumor. Mild bleeding was treated with 4 ML epi which achieved hemostasis. There were no complications Anesthesia: GETA Surgeon: Ephraim Riggs MD Estimated blood loss (mL): 10 Pathology: other (Pathology of biopsies, cyto cell block on BAL and [place]) Condition: Stable Disposition: ICU
[2017-11-15] MEDS ORDERED: NS 1,000 ML IV SCH (10:30)
--- NOTE | 2017-11-15 10:40 | Anesthesia Preoperative Report ---
Anesthesia Preoperative Record - Date and Time Date: 11/15/17 Preoperative Diagnosis: dehydration,weakness new pulonary tumor Proposed Procedure: Brochoscopy NPO Since Date: 11/15/17 NPO Since Time: 00:00 Allergies/Adverse Reactions: Allergies Allergy/AdvReac Type Severity Reaction Status Date / Time amoxicillin [From Augmentin] Allergy Mild Nausea and Verified 11/11/17 22:50 Vomiting clavulanic acid Allergy Mild Nausea and Verified 11/11/17 22:50 [From Augmentin] Vomiting - Vital Signs Vital Signs: Temperature 97.0 F 11/15/17 10:18 Pulse Rate 72 11/15/17 10:35 Respiratory Rate 16 11/15/17 10:35 Blood Pressure 157/71 H 11/15/17 10:35 Pulse Oximetry 94 11/15/17 10:35 Height and Weight: Weight 55.7 kg - Medications Inpatient Medications: Current Medications Acetaminophen (Tylenol) 325 - 650 mg PO Q5H PRN PRN Reason: Discomfort Last Admin: 11/14/17 22:43 Dose: 650 mg Hydrocodone Bitart/Acetaminophen ([place] 5/325) 1 tab PO Q6H PRN PRN Reason: Pain Albuterol Sulfate (Proventil Neb (0.083%)) 2.5 mg AEROSOL RTQID PRN Last Admin: 11/12/17 11:30 Dose: 2.5 mg Amlodipine Besylate (Norvasc) 5 mg PO DAILY [facility] Last Admin: 11/15/17 08:33 Dose: 5 mg Benzonatate (Tessalon Perles) 200 mg PO TID PRN Last Admin: 11/13/17 20:51 Dose: 200 mg Docusate Sodium (Colace) 100 mg PO BID PRN Furosemide (Lasix) 20 mg IVP Q12HR FELIX Last Admin: 11/14/17 21:21 Dose: 20 mg Guaifenesin/Codeine Phosphate (Robitussin Ac) 5 ml PO Q4H PRN PRN Reason: Cough /Congestion Last Admin: 11/14/17 04:30 Dose: 5 ml Hydralazine HCl (Apresoline) 10 mg IVP Q4H PRN PRN Reason: Hypertension Sodium Chloride (Normal Saline) 1,000 mls @ 100 mls/hr IV .Q10H [facility] Last Infusion: 11/12/17 21:25 Dose: Infused Lactated Ringer's (Lactated Ringers) 1,000 mls @ 50 mls/hr IV .Q20H FELIX Last Infusion: 11/12/17 21:26 Dose: Infused Sodium Chloride (Normal Saline) 1,000 mls @ 125 mls/hr IV .Q8H FELIX Last Admin: 11/15/17 09:35 Dose: 125 mls/hr Insulin Aspart (Novolog) 1 - 5 unit SQ SS PRN; Protocol PRN Reason: Hyperglycemia Methylprednisolone Sodium Succinate (Solu-Medrol) 125 mg IVP Q6HR FELIX Last Admin: 11/15/17 03:59 Dose: 125 mg Morphine Sulfate (Morphine Sulfate Inj) 1 - 2 mg IVP Q2H PRN PRN Reason: Pain Nicotine (Nicoderm) 14 mg TD DAILY [facility] Last Admin: 11/15/17 08:33 Dose: 14 mg Nicotine (Nicotine Patch Removal) 1 removal TD DAILY [facility] Last Admin: 11/15/17 08:34 Dose: 1 removal Ondansetron HCl (Zofran) 4 mg IVP Q6H PRN PRN Reason: Nausea &/or vomiting Last Admin: 11/12/17 15:10 Dose: 4 mg Polyethylene Glycol (Miralax) 17 gm PO DAILY [facility] Sodium Chloride (Iv Flush) 10 - 80 ml IVF PRN PRN PRN Reason: Flushing Last Admin: 11/13/17 03:43 Dose: 20 ml Home Medications: Home Medications Medication Instructions Recorded Confirmed Type Ibuprofen [Advil] 3 tab PO Q4H PRN 11/10/17 11/10/17 History Is Patient on Beta Natali?: No - Medical History Respiratory: Reports: Bronchitis, Chronic Obstructive Pulmonary Disease (COPD) ( pressumptive with long history of tobacco abuse), Other (lung mass-> SVC Syndrome) DENIES: Sleep Apnea Cardiovascular: Reports: Hypertension Gastrointestional: DENIES: Obstructive Bowel, Hepatitis, Cirrhosis, Nausea or Vomiting Present, Gastroesophageal Reflux Disease, Gastrointestinal Bleeding, Hiatal Hernia, Ulcer , Morbid Obesity, Other Neuro/Musculoskeletal: Reports: Other (Redness and swelling of face) Renal/Endocrine: DENIES: Diabetes Mellitus Type 1, Diabetes Mellitus Type 2, Renal Failure, Dialysis, Thyroid Disease, Weight Loss, Weight Gain, Other Other History: DENIES: Anesthesia Reactions, Now, Blood Transfusions, Chemotherapy , Cancer, Hemophilia, Malignant Hyperthermia, Sickle Cell Disease, Other - Surgical History GI Surgery/Treatments: Reports: Appendectomy Reproductive Surgery/Treatment: Reports: Dilation and Curettage, Hysterectomy Anesthesia Reactions: None Hx Family Anesthesia Reaction: No History of Motion Sickness: No - Social History Smoking Status: Current every day smoker Packs per day: 2 Pack-years: 50 Hx Chewing Tobacco Use: No Second Hand Exposure: Yes Substance Use Type: does not use Alcohol Intake: never Alcohol Intake Frequency: does not drink - Pertinent Findings Laboratory: CBC and BMP 11/15/17 04:31 11/15/17 04:31 BMP 11/15/17 04:31 Sodium 138 Potassium 3.9 Chloride 100 Carbon Dioxide 29 D BUN 23.0 H D Creatinine 0.9 Glucose 117 H Calcium 8.7 Liver Function 11/15/17 Range/Units 04:31 Albumin 4.1 (3.5-5.0) G/DL EKG: Sinus Rhythm - Physical Exam Respiratory Exam: Present: lungs clear, bilateral breath sounds equal Cardiovascular Exam: Present: regular rate and rhythm, no murmur - Airway Assessment Mallampati Score: II TMD: 3 Fingerbreadths Neck Extension: fair Teeth: upper dentures, lower dentures Overall Assessment: no airway concerns - ASA ASA Score: 3, E - Plan Anesthesia: General TIVA - Discussion Discussion: Discussed risks/options/alternatives of anesthesia and questions answered. Patient consents. Nursing pain assessment noted. Attestation Statement: Prior to the delivery of any anesthetic medication, I examined the patient, developed the plan, obtained the patient's consent and discussed the risk and benefits of the procedure with the patient/guardian. - Additional Information Seen by Anesthesia: Yes
--- NOTE | 2017-11-15 12:17 | Anesthesia Postoperative Note ---
- Date and Time Date: 11/15/17 Time: 12:17 - Status Patient Participated in Evaluation: Patient Participated in Person Vital Signs: Temperature 97.4 F 11/15/17 10:50 Pulse Rate 69 11/15/17 10:50 Respiratory Rate 20 11/15/17 10:50 Blood Pressure 173/78 H 11/15/17 10:50 Pulse Oximetry 94 11/15/17 10:50 Respiratory Function: Airway Patent Cardiovascular Function: Regular Pulse EKG: Sinus Rhythm Mental Status: Alert and Oriented Pain Intensity: 2 Unable to Assess Pain Due to: Patient Sleeping Hydration: Taking PO Fluids, IV Infusing Complications During Recover: None Apparent - Follow-Up Instructions Instructions: Per Surgeon
[2017-11-15] MEDS: ACETAMINOPHEN 325 MG TABLET PO PRN (14:16)
--- NOTE | 2017-11-15 14:31 | Progress Note ---
- Date 11/15/17 Subjective: Mrs. Perez was seen following bronchoscopy. She reports ongoing cough but improvement in facial/arm edema and pressure in her sinuses and ear. She denies nausea. She acknowledges having increased anxiety recently and attributes elevated blood pressures to anxiety about what the findings of testing will be. She reports that she is lightheaded when she lies flat describing chronic vertigo for a number of years when she is supine. She denies lightheadedness/ vertigo when she is upright or up to the bathroom. Objective Vital signs: Temperature 97.4 F 11/15/17 10:50 Pulse Rate 69 11/15/17 10:50 Respiratory Rate 20 11/15/17 10:50 Blood Pressure 173/78 H 11/15/17 10:50 Pulse Oximetry 94 - 2 L 11/15/17 10:50 NAD, alert Moderate erythema of face, neck veins remain distended, decreased facial edema compared to yesterday; oropharynx clear, EOMI, conjunctiva clear No edema of the upper or lower extremities Respirations nonlabored, good airflow, breath sounds clear Regular rhythm, S1-S2 Abdomen soft, nontender, bowel sounds present although diminished Calm, cooperative Rhythm: Normal Sinus Rhythm, Sinus Bradycardia Height/Weight/BMI: Weight 55.7 kg Results - Labs CBC & Chem 7: 11/15/17 04:31 11/15/17 04:31 Labs: S96, L4 Magnesium 2.4, phosphorus 3.4 Assessment and Plan (1) Lung mass Problem details: Right hilar mass obstructing SVC and right bronchus Current visit: Yes Status: Acute (2) SVC syndrome Current visit: Yes Status: Acute (3) Tobacco abuse Current visit: No Status: Acute Assessment and Plan: SVC syndrome 2/2 Hilar mass -Sx's pt presented with are c/w SVC syndrome with some facial swelling and redness noted on exam -CT shows hilar mass compressing on SVC -Onc on board, on lasix 20mg BID-converted from IV to oral today given good response and rising BUN. -Keflex discontinued; sinus CT negative. R-Hilar mass -CT shows pulm nodules, 6x3 cm R-hilar mass and mediastinal adenopathy -Lymphoma vs. Lung cancer -S/p bronch by pulm 11/12, mass extending into RUL bronchus, laryngeal edema with narrowed airway-cytology and 1/2 pathology specimens negative for cancer; second pathology report pending. -Repeat bronchoscopy 11/15 with improvement in laryngeal/bronchial edema, additional biopsies obtained-pending; bronchoscopy findings reviewed with Dr. Riggs following procedure. -Solumedrol 125mg q6H 11/12-11/15 when dose decreased to 62.5 q6H, lasix bid initiated 11/12 for SVC and laryngeal edema. -Accu-Cheks on Osbg-[id number] hyperglycemia, discontinue Accu-Cheks 11/15. Leukopenia/lymphocytopenia -WBC 3.7-->2.4--> 8.3 (after Solu-Medrol initiated) -Possibly related to malignancy, lymphoma?? -Peripheral smear reports no evidence of dysplastic cells; moderate leukopenia due to lymphocytopenia described. -Continue to monitor HTN -BPs in 170s systolic on admission -Pt has not been to [facility] in 6 years -Started amlodipine 5mg 11/11; lisinopril added 11/15. Tobacco abuse -Nicotine patch Ppx -SCDs - Physician Narrative Narrative: Date: 11/15/17 Time: 1423 Hospital Course Summary Disclaimer: The visit summary below is not to be considered part of the above Progress Note. Hospital Course: 11/12/17 12:20 Pt admitted for sinustis sx's and hilar mass. Pt's sx's are likely SVC syndrome with mass compressing on SVC. Pt had bronch done to biopsy mass which showed mass extending into RUL bronchus and laryngeal edema. Will treat with steroids, lasix to help manage airway and svc syndrome. Discussed case with and he agreed with plan and noted he will discuss case with pathology before starting any therapy. Discussed case with and he also agreed with plan. 11/13/17 14:04 Pt stable, biopsy from bronch is inconclusive, discussed case with and . believes their are bronchial lesions that would be high yield to biopsy but he will do it in 2 days d/t pt's recent lovenox and pt bleeding from last biopsy. agreed with this plan. Pt also preferred less invasive procedure(vs. mediastinoscopy or CT guided biopsy) and staying in [place]. Will cont. tx of SVC syndrome with lasix and steroids and monitor. 11/14/17 14:19 Symptoms improving with decreased facial edema/erythema; less sinus pressure and decreasing edema in the arms. Continue Lasix/Solu-Medrol for SVC syndrome and laryngeal edema. Pathology all negative to date with one bronchial washing still out. Tentatively scheduled for repeat bronchoscopy in a.m. Blood pressure stable on amlodipine. 11/15/17 14:42 Repeat bronchoscopy today with additional biopsies obtained; laryngeal edema significantly improved following steroids. Begin tapering steroids; facial and arm edema also significantly improved and Lasix converted to oral administration. Lisinopril added for improved blood pressure control.
[2017-11-15] MEDS ORDERED: SENNA + DOCUSATE TABLET PO PRN (14:41)
[2017-11-15] MEDS: LISINOPRIL 10 MG TABLET PO SCH (17:29)
[2017-11-15] MEDS: SALINE FLUSH 10ml SYRINGE IVF PRN (20:38)
[2017-11-16] MEDS: METHYLPREDNISOLONE SOD SUCC 125mg/2ml INJECTION IVP SCH ×4 (04:06→21:40)
[2017-11-16] MEDS: SALINE FLUSH 10ml SYRINGE IVF PRN (04:06)
[2017-11-16] MEDS: FUROSEMIDE 40 MG/4 ML ORAL LIQUID PO SCH ×2 (06:32→16:28)
[2017-11-16] MEDS: AMLODIPINE 5 MG TABLET PO SCH (08:24)
[2017-11-16] MEDS: LISINOPRIL 10 MG TABLET PO SCH (08:24)
[2017-11-16] MEDS: NICOTINE 14 MG PATCH TD SCH (08:25)
[2017-11-16] MEDS: NICOTINE PATCH REMOVAL TD SCH (08:25)
[2017-11-16] MEDS: POLYETHYL GLYCOL 3350 17gm PACKET PO SCH (08:25)
[2017-11-16] MEDS: CALMOSEPTINE OINTMENT 3.5gm PACKET TP PRN (09:32)
[2017-11-16] MEDS: ACETAMINOPHEN 325 MG TABLET PO PRN ×2 (09:32→15:00)
--- NOTE | 2017-11-16 10:38 | XRay Report ---
INDICATION: hypoxia, hilar mass, post bronchoscopy PROCEDURE: CHEST 2-VIEWS UPRIGHT (PA & LAT) Encounter: Initial COMPARISON: November 09, 2017 FINDINGS: New small bilateral pleural effusions, right greater than left. No pneumothorax. The heart size and pulmonary vascularity are normal. Right hilar masses are grossly stable. There is no significant skeletal abnormality. IMPRESSION: New pleural effusions. .
[2017-11-16] MEDS: DiphenhydrAMINE 25 MG CAPSULE PO PRN (12:03)
[2017-11-16] MEDS: ONDANSETRON 4 MG/2 ML INJECTION IVP PRN (12:18)
[2017-11-16] MEDS: FUROSEMIDE 20 MG TABLET PO SCH (14:35)
--- NOTE | 2017-11-16 14:53 | Pulmonology Progress Note ---
Subjective Principal diagnosis: lung mass Interval history: eating and drinking. swelling improved overall No shortness of breath reports mild headache and photophobia Exam Vital signs: Temperature 97.4 F 11/16/17 08:00 Pulse Rate 70 11/16/17 12:00 Respiratory Rate 27 H 11/16/17 08:00 Blood Pressure 151/80 H 11/16/17 06:02 Pulse Oximetry 96 11/16/17 08:00 - Constitutional no acute distress - Routine HEENT Exam Head: Present: normocephalic Comments: erythema of cheeks - Routine Neck Exam Present: supple - Routine Respiratory Exam Present: decreased breath sounds. Absent: accessory muscle use - Routine Cardiovascular Exam Present: RRR - Routine Extremities Exam Absent: cyanosis, clubbing Assessment and Plan (1) Abnormal finding on lung imaging Status: Acute Assessment and plan: RUL endobronchial lung mass with mediastinal invasion and SVC syndrome. Likely bronchogenic CA, await results of second set of biopsies, brush, BAL. Photophobia/CINTRON. Suggest MRI head to rule out intracranial metastases. 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 s/p bronchoscopy 11/12 which is nondiagnostic per endobronchial bx, brush pending. Unfortunately there was bleeding with the bx which complicated the procedure and a good biopsy wasn't achieved. Would recommend cont solumedrol 125mg q6 with lasix 20mg q12 to help with SVC syndrome and lovenox stopped. She does have endobronchial lesions and will repeat a bronchoscopy in the morning unless further pathology proves to be positive. No infiltrates on CT noted on a/a QID prn. Some facial swelling and redness noted likely 2/2 SVC syndrome on treatment as noted with overall improvement. Will make NPO after MN. - Time Spent With Patient Total time spent is greater than 50% in coordination of care (as documented) at patient's floor/unit and/or counseling patient: less than 15 minutes
--- NOTE | 2017-11-16 16:37 | Progress Note ---
- Date 11/16/17 Subjective: Mrs. Perez describes a number of concerns today including development of itching on her legs and back, mild nausea, headache (uncommon for the patient), and more lightheadedness today than she typically experiences. Lightheadedness/ vertigo worsened today after she went to radiology for chest x-ray and she attributes today's symptoms to being transported rapidly by wheelchair to and from radiology. She additionally thinks her face and arms are a little more swollen today than they were yesterday. She's had minimal activity in the unit but denies dyspnea at rest. She continues to cough intermittently and reports increased cough when she tries to sleep. Secretions are less bloody today than they were yesterday after bronchoscopy. Objective Vital signs: Temperature 97.2 F 11/16/17 16:00 Pulse Rate 71 11/16/17 16:00 Respiratory Rate 20 11/16/17 16:00 Blood Pressure 143/71 H 11/16/17 16:00 Pulse Oximetry 90 11/16/17 16:00 I/O 1100/1675 NAD, alert Mild facial edema and erythema, minor neck vein distention Respirations nonlabored, good airflow, breath sounds clear Regular cardiac rhythm, S1-S2 Abdomen soft, nontender Lower extremities without edema, +1 pitting edema in dependent portion of the elbows bilaterally No rash on the lower extremities or back although there are some superficial excoriations from scratching on her right leg MAEW; flat affect Rhythm: Normal Sinus Rhythm Height/Weight/BMI: Weight 54.4 kg Results - Labs CBC & Chem 7: 11/15/17 04:31 11/15/17 04:31 - Imaging and Cardiology Chest x-ray Status: image reviewed by me (right hilar mass, small bilateral pleural effusions R>L) Assessment and Plan (1) Lung mass Problem details: Right hilar mass obstructing SVC and right bronchus Current visit: Yes Status: Acute (2) SVC syndrome Current visit: Yes Status: Acute (3) Tobacco abuse Current visit: No Status: Acute Assessment and Plan: Impression: 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 -Discussed with Dr. Riggs, proceed with MRI of the brain given headache/ vertigo increased from baseline and probable pulmonary malignancy. -Pathology pending -Continue diuresis/steroids for SVC; will discuss further taper of Solu-Medrol with oncology in the next 1-2 days. -BPs in 170s systolic on admission, started amlodipine 5mg 11/11; lisinopril added 11/15. -Manage pruritus symptomatically. -Pepcid initiated due to high-dose steroids and vague nausea patient is described for several days. -Stable to transfer out of ICU; increased activity encouraged. Ppx -SCDs, Pepcid DVT Prophylaxis: SCD's GI Prophylaxis: Pepcid Resuscitation Status: Full Code - Physician Narrative Narrative: Date: 11/16/17 Time: 1632 Hospital Course Summary Disclaimer: The visit summary below is not to be considered part of the above Progress Note. Hospital Course: 11/12/17 12:20 Pt admitted for sinustis sx's and hilar mass. Pt's sx's are likely SVC syndrome with mass compressing on SVC. Pt had bronch done to biopsy mass which showed mass extending into RUL bronchus and laryngeal edema. Will treat with steroids, lasix to help manage airway and svc syndrome. Discussed case with and he agreed with plan and noted he will discuss case with pathology before starting any therapy. Discussed case with and he also agreed with plan. 11/13/17 14:04 Pt stable, biopsy from bronch is inconclusive, discussed case with and . believes their are bronchial lesions that would be high yield to biopsy but he will do it in 2 days d/t pt's recent lovenox and pt bleeding from last biopsy. agreed with this plan. Pt also preferred less invasive procedure(vs. mediastinoscopy or CT guided biopsy) and staying in [place]. Will cont. tx of SVC syndrome with lasix and steroids and monitor. 11/14/17 14:19 Symptoms improving with decreased facial edema/erythema; less sinus pressure and decreasing edema in the arms. Continue Lasix/Solu-Medrol for SVC syndrome and laryngeal edema. Pathology all negative to date with one bronchial washing still out. Tentatively scheduled for repeat bronchoscopy in a.m. Blood pressure stable on amlodipine. 11/15/17 14:42 Repeat bronchoscopy today with additional biopsies obtained; laryngeal edema significantly improved following steroids. Begin tapering steroids; facial and arm edema also significantly improved and Lasix converted to oral administration. Lisinopril added for improved blood pressure control. 11/16/17 Pathology pending, stable to transfer out of ICU. Mild headache, increased vertigo-MRI head to be obtained with/without contrast. New pruritus-manage symptomatically
[2017-11-16] MEDS: FAMOTIDINE 20 MG TABLET PO SCH (21:40)
[2017-11-17] MEDS: METHYLPREDNISOLONE SOD SUCC 125mg/2ml INJECTION IVP SCH ×4 (02:16→20:52)
[2017-11-17] MEDS: SALINE FLUSH 10ml SYRINGE IVF PRN (02:16)
[2017-11-17] MEDS: GUAIFENESIN/CODEINE 5ml ORAL LIQUID PO PRN ×2 (04:21→10:34)
[2017-11-17] MEDS: ACETAMINOPHEN 325 MG TABLET PO PRN ×2 (04:22→19:26)
[2017-11-17] MEDS: FUROSEMIDE 20 MG TABLET PO SCH ×2 (07:24→14:42)
[2017-11-17] MEDS: BENZONATATE 200 MG CAPSULE PO PRN ×2 (09:13→16:07)
[2017-11-17] MEDS: AMLODIPINE 5 MG TABLET PO SCH (09:14)
[2017-11-17] MEDS: NICOTINE PATCH REMOVAL TD SCH (09:14)
[2017-11-17] MEDS: NICOTINE 14 MG PATCH TD SCH (09:14)
[2017-11-17] MEDS: LISINOPRIL 10 MG TABLET PO SCH (09:14)
[2017-11-17] MEDS: POLYETHYL GLYCOL 3350 17gm PACKET PO SCH (09:14)
[2017-11-17] MEDS: FAMOTIDINE 20 MG TABLET PO SCH ×2 (09:14→20:52)
--- NOTE | 2017-11-17 09:57 | Progress Note ---
- Date 11/17/17 Subjective: Mrs. Perez is seen today in follow up for her pneumonia. She is seen while resting in bed and reports that she is feeling a little better today. She continues to have a productive cough with occasional pleuritic chest pain with cough which she reports was blood tinged last night but did not have blood this morning. She reports that her breathing is improved and is no longer needing supplemental oxygen. She complains of persistent frontal headache this morning but denies any visual changes, numbness or tingling in extremities or face. She admits to have some dizziness when sitting up after lying flat but denies any dizziness or lightheadedness on exam. Her skin itching has resolved and feels like her swelling is improving. Her appetite is stable though she admits its not as good as prior to her pneumonia. No bowel movement since 11/10 though she admits that she is passing gas and states that prolonged periods between bowel movements is not abnormal for her. Objective Vital signs: Temperature 96.9 F 11/17/17 07:37 Pulse Rate 65 11/17/17 08:57 Respiratory Rate 14 11/17/17 07:37 Blood Pressure 127/68 11/17/17 08:57 Pulse Oximetry 99 11/17/17 07:37 Rhythm: Normal Sinus Rhythm Height/Weight/BMI: Weight 128 lb 1.417 oz Comments: Patient resting in bed, A&O x 3, pleasant mood. - Constitutional Present: no acute distress, well nourished, well developed, thin, cooperative - Routine HEENT Exam Head: Present: normocephalic, atraumatic Eye: Present: PERRL. Absent: conjunctival icterus ENT: Present: mucous membranes moist, oropharynx clear Comments: mild tenderness with palpation of frontal sinuses; no photophobia; no nuchal rigidity or meningeal signs. - Routine Respiratory Exam Present: CTA bilaterally. Absent: rhonchi, stridor, wheezes, crackles - Routine Cardiovascular Exam Present: RRR, S1, S2 - Routine Abdominal Exam Present: soft, normoactive bowel sounds, non distended, non tender. Absent: rebound, guarding - Routine Extremities Exam Present: no edema, full ROM, pulses intact Comments: SCDs in place. - Routine Back/Spine/Pelvis Exam Back/Spine: Present: full ROM. Absent: vertebral tenderness - Routine Musculoskeletal Exam Musculoskeletal: Present: no tenderness, no erythema, moving extremities well - Routine Skin Exam Present: intact, dry, warm. Absent: jaundice Comments: afebrile - Routine Neurological Exam Present: alert, oriented X3, CN II-XII intact, moving all extremities, hearing grossly intact, normal speech. Absent: altered mental status, facial asymmetry - Routine Lymphatic Exam Lymphatic: Absent: lymphedema - Routine Psychiatric Exam Present: normal affect, cooperative, good insight Comments: pleasant mood. Results - Labs CBC & Chem 7: 11/17/17 04:11 11/17/17 04:11 Assessment and Plan (1) Lung mass Problem details: Right hilar mass obstructing SVC and right bronchus Current visit: Yes Status: Acute (2) SVC syndrome Current visit: Yes Status: Acute (3) Tobacco abuse Current visit: No Status: Acute Assessment and Plan: Impression: SVC syndrome 2/2 Hilar mass Right hilar mass-bronchoscopy 11/12 nondiagnostic, repeat bronchoscopy 11/15 Leukopenia/lymphocytopenia Laryngeal edema Hypertension Tobacco abuse Headache Vertigo, chronic Plan - 11/17/17: -Feeling better today. Persistent frontal headache without neurologic changes. -MRI of the brain pending for evaluation of headache/vertigo increased from baseline and probable pulmonary malignancy. Ativan PRN for anxiety prior to procedure. -Obtain orthostatic blood pressures - if normal, will try scopolamine patch for vertigo. -Pathology pending. -Continue diuresis/steroids for SVC; weight log variable and appears unreliable. Patient states she feels like swelling is improving. Monitor urinary output. -Blood pressure improved. BPs in 170s systolic on admission, started amlodipine 5mg 11/11; lisinopril added 11/15. Continue treatment and monitor closely. -Pruritus resolved. PRN medications as needed. -Pepcid initiated due to high-dose steroids, GERD and GI protection. -Encourage bowel motivation with scheduled miralax and senna +. Ppx -SCDs, Pepcid DVT Prophylaxis: SCD's GI Prophylaxis: Pepcid Resuscitation Status: Full Code - Time spent with patient Time with patient PN: 35 minutes - Physician Narrative Physician: Salome Logan MD Narrative: Date: 11/17/17 Time: 1900 I have independently evaluated and examined this patient. I reviewed the chart, the patient's history, and the VALET SERVICE ATTENDANT/PA's documented findings as above. We discussed and formulated the assessment and plan as above with additions as below: Mrs. Perez was seen earlier in the day. She reported persistent lightheadedness /vertigo with headache-all symptoms worsened after lying flat for MRI but were starting to improve after she was back in the room. Headache is primarily in the frontal region and she rubs over the frontal sinuses. She's had no nausea or vomiting and denies double vision. Nocturnal cough continues to be problematic with variable blood and sputum. NAD, very minor right esotropia present EOMI-patient appears uncomfortable with far right gaze and closes her eyes looking to the right but denies double vision Respirations nonlabored, good airflow, breath sounds clear MRI reviewed by myself-no obvious metastatic lesions by my review; subsequently formal report became available demonstrating no acute intracranial abnormality and no evidence of metastases. Additionally there is no evidence of frontal sinusitis. Pathology pending; will discuss steroid dose with Dr. Blackwood tomorrow. Continue supportive care. Laboratory data stable-do not believe repeat labs needed tomorrow. Hospital Course Summary Disclaimer: The visit summary below is not to be considered part of the above Progress Note. Hospital Course: 11/12/17 12:20 Pt admitted for sinustis sx's and hilar mass. Pt's sx's are likely SVC syndrome with mass compressing on SVC. Pt had bronch done to biopsy mass which showed mass extending into RUL bronchus and laryngeal edema. Will treat with steroids, lasix to help manage airway and svc syndrome. Discussed case with and he agreed with plan and noted he will discuss case with pathology before starting any therapy. Discussed case with and he also agreed with plan. 11/13/17 14:04 Pt stable, biopsy from bronch is inconclusive, discussed case with and . believes their are bronchial lesions that would be high yield to biopsy but he will do it in 2 days d/t pt's recent lovenox and pt bleeding from last biopsy. agreed with this plan. Pt also preferred less invasive procedure(vs. mediastinoscopy or CT guided biopsy) and staying in [place]. Will cont. tx of SVC syndrome with lasix and steroids and monitor. 11/14/17 14:19 Symptoms improving with decreased facial edema/erythema; less sinus pressure and decreasing edema in the arms. Continue Lasix/Solu-Medrol for SVC syndrome and laryngeal edema. Pathology all negative to date with one bronchial washing still out. Tentatively scheduled for repeat bronchoscopy in a.m. Blood pressure stable on amlodipine. 11/15/17 14:42 Repeat bronchoscopy today with additional biopsies obtained; laryngeal edema significantly improved following steroids. Begin tapering steroids; facial and arm edema also significantly improved and Lasix converted to oral administration. Lisinopril added for improved blood pressure control. 11/16/17 Pathology pending, stable to transfer out of ICU. Mild headache, increased vertigo-MRI head to be obtained with/without contrast. New pruritus-manage symptomatically Plan - 11/17/17: -MRI of the brain pending. Ativan PRN for anxiety prior to procedure. Obtain orthostatic blood pressures - if normal, will try scopolamine patch for vertigo. Pathology pending. Blood pressure improved. BPs in 170s systolic on admission, started amlodipine 5mg 11/11; lisinopril added 11/15. Pruritus resolved. PRN medications as needed. Pepcid initiated due to high-dose steroids , GERD and GI protection. Encourage bowel motivation with scheduled miralax and senna +.
[2017-11-17] MEDS: SENNA + DOCUSATE TABLET PO SCH ×2 (10:34→20:51)
[2017-11-17] MEDS ORDERED: GADOTERIDOL 279.3mg/ml - 15ml vial IVP ONE (10:54)
[2017-11-17] MEDS ORDERED: SALINE FLUSH 10ml SYRINGE ONE (10:54)
[2017-11-17] MEDS ORDERED: GADOTERIDOL 279.3mg/ml - 10ml vial IVP ONE (10:56)
[2017-11-17] MEDS ORDERED: MECLIZINE 25 MG TABLET PO PRN (14:51)
[2017-11-17] MEDS ORDERED: SCOPOLAMINE 1mg/3 days PATCH TD SCH (15:00)
--- NOTE | 2017-11-17 17:04 | Magnetic Resonance Report ---
Indication: headache, probable underlying lung cancer PROCEDURE: MR head/brain wo/w con: Encounter: Initial Comparisons: None Technique: Multiplanar, multisequence, MR imaging of the head with and without contrast was acquired. Contrast: 10 mL of ProHance FINDINGS: The ventricles are of normal size, shape, and contour for the patient's age. There are small nonspecific punctate areas of T2-weighted and T2 FLAIR weighted signal abnormality in the deep frontoparietal white matter that most likely represent small vessel ischemic disease. This is of a degree that is considered to be normal for the patient's age. The brain stem, cerebellum, and cerebral hemispheres otherwise have a normal morphologic appearance as well as MR signal intensity on all pulse sequences. Following intravenous administration of contrast, no areas of abnormal enhancement are evident. There are no areas of restricted diffusion to suggest an acute infarct. There is no evidence of an intracranial mass lesion, intracranial hemorrhage, or hydrocephalus. Bilateral mastoid effusions, right greater than left. IMPRESSION: No acute intracranial abnormality. No evidence of intracranial metastatic disease. .
[2017-11-18] MEDS: DiphenhydrAMINE 25 MG CAPSULE PO PRN (01:49)
[2017-11-18] MEDS: METHYLPREDNISOLONE SOD SUCC 125mg/2ml INJECTION IVP SCH ×4 (02:42→20:12)
[2017-11-18] MEDS: FUROSEMIDE 20 MG TABLET PO SCH ×2 (06:38→14:14)
[2017-11-18] MEDS: LISINOPRIL 10 MG TABLET PO SCH (09:02)
[2017-11-18] MEDS: BENZONATATE 200 MG CAPSULE PO PRN ×2 (09:02→20:00)
[2017-11-18] MEDS: AMLODIPINE 5 MG TABLET PO SCH (09:02)
[2017-11-18] MEDS: SENNA + DOCUSATE TABLET PO SCH ×2 (09:03→20:12)
[2017-11-18] MEDS: FAMOTIDINE 20 MG TABLET PO SCH ×2 (09:03→20:12)
[2017-11-18] MEDS: NICOTINE 14 MG PATCH TD SCH (09:04)
[2017-11-18] MEDS: POLYETHYL GLYCOL 3350 17gm PACKET PO SCH (09:04)
[2017-11-18] MEDS: NICOTINE PATCH REMOVAL TD SCH (09:04)
[2017-11-18] MEDS: SALINE FLUSH 10ml SYRINGE IVF PRN ×2 (09:05→15:52)
[2017-11-18] MEDS: CALMOSEPTINE OINTMENT 3.5gm PACKET TP PRN (09:20)
[2017-11-18] MEDS: HYDROCODONE/APAP 5mg/325mg TABLET PO PRN ×2 (09:20→20:12)
--- NOTE | 2017-11-18 09:35 | Progress Note ---
- Date 11/18/17 Subjective: Patient is seen sitting in bed eating breakfast. She complains of cough anytime she tries to fall asleep. States as soon as she starts to doze off, she starts "hacking." Reports she's only slept 10 minutes all night. She has severe vertigo which she has struggled with for the past 12 years. She has to sleep reclined and cannot lie flat. She continues to have a headache, but thinks it is a little less today. Her left arm started seeping overnight. No BM since . Objective Vital signs: Temperature 95.5 F L 11/18/17 07:55 Pulse Rate 65 11/18/17 07:55 Respiratory Rate 22 11/18/17 07:55 Blood Pressure 158/75 H 11/18/17 07:55 Pulse Oximetry 94 11/18/17 07:55 Rhythm: Normal Sinus Rhythm Height/Weight/BMI: Weight 60.1 kg - Constitutional Present: well nourished, well developed - Routine HEENT Exam Head: Present: facial swelling (and redness) - Routine Respiratory Exam Present: CTA bilaterally. Absent: wheezes - Routine Cardiovascular Exam Present: RRR. Absent: murmur - Routine Abdominal Exam Present: soft, normoactive bowel sounds, non distended. Absent: tenderness - Routine Extremities Exam Present: edema (b/l arms. L arm with mild seepage at present), normal capillary refill - Routine Skin Exam Present: dry, warm - Routine Neurological Exam Present: alert, oriented X3 - Routine Lymphatic Exam Lymphatic: Absent: adenopathy - Routine Psychiatric Exam Present: normal affect, cooperative Results - Labs CBC & Chem 7: 11/17/17 04:11 11/17/17 04:11 - Imaging and Cardiology MRI - head Additional comments: Date of Exam: 11/17/17 Type of Exam(s): MR head/brain wo/w con Reason for Exam(s): headache, probable underlying lung cancer FINDINGS: The ventricles are of normal size, shape, and contour for the patient's age. There are small nonspecific punctate areas of T2-weighted and T2 FLAIR weighted signal abnormality in the deep frontoparietal white matter that most likely represent small vessel ischemic disease. This is of a degree that is considered to be normal for the patient's age. The brain stem, cerebellum, and cerebral hemispheres otherwise have a normal morphologic appearance as well as MR signal intensity on all pulse sequences. Following intravenous administration of contrast, no areas of abnormal enhancement are evident. There are no areas of restricted diffusion to suggest an acute infarct. There is no evidence of an intracranial mass lesion, intracranial hemorrhage, or hydrocephalus. Bilateral mastoid effusions, right greater than left. IMPRESSION: No acute intracranial abnormality. No evidence of intracranial metastatic disease. Assessment and Plan (1) Tobacco abuse Current visit: No Status: Acute (2) Lung mass Problem details: Right hilar mass obstructing SVC and right bronchus Current visit: Yes Status: Acute (3) SVC syndrome Current visit: Yes Status: Acute Assessment and Plan: Impression: SVC syndrome 2/2 Hilar mass Right hilar mass-bronchoscopy 11/12 nondiagnostic, repeat bronchoscopy 11/15 Leukopenia/lymphocytopenia Laryngeal edema Hypertension Tobacco abuse Headache Vertigo, chronic Plan: -MRI of the brain neg for metastatic disease. -Scopolamine patch has helped some with her vertigo. -Pathology pending. -Will add Tussionex for her cough to see if this helps her get some rest. -MOM/prune juice for constipation. Continue Miralax and senna for bowel motivation. -Blood pressure improved. BPs in 170s systolic on admission, started amlodipine 5mg 11/11; lisinopril added 11/15. DVT Prophylaxis: SCD's GI Prophylaxis: Pepcid Resuscitation Status: Full Code - Physician Narrative Physician: Salome Logan MD Narrative: Date: 11/18/17 Time: 1620 I have independently evaluated and examined this patient. I reviewed the chart, the patient's history, and the LINE ASSEMBLER/PA's documented findings as above. We discussed and formulated the assessment and plan as above with additions as below: Ysabel reports that swelling in her forearms is a little worse and that there is ongoing serous drainage from the left forearm; vertigo and headache have improved somewhat this afternoon. NAD, alert. Residual facial erythema. Persistent neck vein distention. Slight increase edema in the dependent aspect of the forearms and elbows bilaterally; left forearm gauze wrapped. Respirations nonlabored, breath sounds clear, deep inspiration triggers cough. Cytology from bronchoscopy 11/15 negative for malignancy, biopsy right upper lobe pending All pathology/cytology specimens from 11/12 nondiagnostic. Await biopsy report 11/15. Current management. Discussed with Dr. Riggs/Dr. Blackwood. Hospital Course Summary Disclaimer: The visit summary below is not to be considered part of the above Progress Note. Hospital Course: 11/12/17 12:20 Pt admitted for sinustis sx's and hilar mass. Pt's sx's are likely SVC syndrome with mass compressing on SVC. Pt had bronch done to biopsy mass which showed mass extending into RUL bronchus and laryngeal edema. Will treat with steroids, lasix to help manage airway and svc syndrome. Discussed case with and he agreed with plan and noted he will discuss case with pathology before starting any therapy. Discussed case with and he also agreed with plan. 11/13/17 14:04 Pt stable, biopsy from bronch is inconclusive, discussed case with and . believes their are bronchial lesions that would be high yield to biopsy but he will do it in 2 days d/t pt's recent lovenox and pt bleeding from last biopsy. agreed with this plan. Pt also preferred less invasive procedure(vs. mediastinoscopy or CT guided biopsy) and staying in [place]. Will cont. tx of SVC syndrome with lasix and steroids and monitor. 11/14/17 14:19 Symptoms improving with decreased facial edema/erythema; less sinus pressure and decreasing edema in the arms. Continue Lasix/Solu-Medrol for SVC syndrome and laryngeal edema. Pathology all negative to date with one bronchial washing still out. Tentatively scheduled for repeat bronchoscopy in a.m. Blood pressure stable on amlodipine. 11/15/17 14:42 Repeat bronchoscopy today with additional biopsies obtained; laryngeal edema significantly improved following steroids. Begin tapering steroids; facial and arm edema also significantly improved and Lasix converted to oral administration. Lisinopril added for improved blood pressure control. 11/16/17 Pathology pending, stable to transfer out of ICU. Mild headache, increased vertigo-MRI head to be obtained with/without contrast. New pruritus-manage symptomatically Plan - 11/17/17: -MRI of the brain pending. Ativan PRN for anxiety prior to procedure. Obtain orthostatic blood pressures - if normal, will try scopolamine patch for vertigo. Pathology pending. Blood pressure improved. BPs in 170s systolic on admission, started amlodipine 5mg 11/11; lisinopril added 11/15. Pruritus resolved. PRN medications as needed. Pepcid initiated due to high-dose steroids , GERD and GI protection. Encourage bowel motivation with scheduled miralax and senna +. 11/18/17 MRI brain -neg. Pulm path still pending. Add Tussionex for cough. Add MOM/prune juice for constipation.
[2017-11-18] MEDS ORDERED: HYDROCODONE/CHLORPHENIRAMINE ER ORAL LIQ 5ml PO PRN (09:49)
--- NOTE | 2017-11-18 10:13 | Pulmonology Progress Note ---
<Edie Olmstead D - Last Filed: 11/18/17 10:10> Subjective Principal diagnosis: lung mass Interval history: Pt states her CINTRON is improving, less facial swelling and redness noted. Still with swelling to BUE with some drainage noted. Slight SOB with ambulation noted and still cough when trying to rest. Exam Vital signs: Temperature 95.5 F L 11/18/17 07:55 Pulse Rate 65 11/18/17 07:55 Respiratory Rate 22 11/18/17 07:55 Blood Pressure 158/75 H 11/18/17 07:55 Pulse Oximetry 94 11/18/17 07:55 - Constitutional no acute distress, average body habitus - Routine HEENT Exam Head: Present: normocephalic, atraumatic Eye: Present: EOMI, PERRL - Routine Neck Exam Present: supple, full ROM, trachea midline - Routine Respiratory Exam Present: wheezes - Routine Cardiovascular Exam Present: RRR, S1, S2, no murmur - Routine Abdominal Exam Present: soft, normoactive bowel sounds - Routine Extremities Exam Present: edema, full ROM - Routine Back/Spine/Pelvis Exam Back/Spine: Present: full ROM - Routine Skin Exam Present: intact - Routine Neurological Exam Present: alert, oriented X3, CN II-XII intact - Routine Psychiatric Exam Present: normal affect, normal thought process Assessment and Plan - Assessment and Plan Abnormal CT with R hilar mass obstructing SVC and R bronchus 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 s/p bronchoscopy 11/12 which is nondiagnostic, awaiting results from repeat bronch on 11/15. Still on solumedrol 60mg q6 with lasix 20mg q12 to help with SVC syndrome. MRI negative and symptoms improving. Noted with slight wheezing and SOB with ambulation. Will check CXR and start a/ a TID. - Time Spent With Patient Total time spent is greater than 50% in coordination of care (as documented) at patient's floor/unit and/or counseling patient: less than 15 minutes <Ephraim Riggs - Last Filed: 11/18/17 12:16> Exam Vital signs: Temperature 95.5 F L 11/18/17 07:55 Pulse Rate 65 11/18/17 07:55 Respiratory Rate 16 11/18/17 10:51 Blood Pressure 158/75 H 11/18/17 07:55 Pulse Oximetry 94 11/18/17 10:51 Assessment and Plan (1) Abnormal finding on lung imaging Status: Acute Assessment and plan: RUL endobronchial tumor. Expect path today. Dr Blackwood is going to manage treatments. On lasix/prednisone. will follow Current Visit: Yes (2) SVC syndrome Status: Acute Current Visit: Yes - Time Spent With Patient Total time spent is greater than 50% in coordination of care (as documented) at patient's floor/unit and/or counseling patient:
--- NOTE | 2017-11-18 10:32 | Progress Note ---
Oncology Subjective Patient remains stable. She underwent a second bronch with biopsy on 11/15, path is pending. Exam Vital signs: Temperature 95.5 F L 11/18/17 07:55 Pulse Rate 65 11/18/17 07:55 Respiratory Rate 22 11/18/17 07:55 Blood Pressure 158/75 H 11/18/17 07:55 Pulse Oximetry 94 11/18/17 07:55 - Constitutional no acute distress - Routine HEENT Exam Comments: Facial swelling, stable. - Routine Chest/Breast/Axilla Exam Comments: Distended veins. - Routine Respiratory Exam Absent: rales, respiratory distress, rhonchi, stridor, wheezes - Routine Cardiovascular Exam Present: RRR, no murmur. Absent: JVD - Routine Abdominal Exam Present: soft - Routine Skin Exam Present: intact. Absent: cyanosis, erythema, rash - Routine Neurological Exam Present: alert, oriented X3 Oncology Results - Labs CBC & Chem 7: 11/17/17 04:11 11/17/17 04:11 Assessment and Plan Assessment and Plan: A/: 1- RUL/hilar endobronchial tumor highly suspicious for bronchogenic cancer, s/p bronch with biopsy. Path is pending. 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 Will follow on biopsy hopefully will be available today or tomorrow. - Time Spent With Patient Total time spent is greater than 50% in coordination of care (as documented) at patient's floor/unit and/or counseling patient: less than 15 minutes
--- NOTE | 2017-11-18 11:25 | XRay Report ---
INDICATION: f/u PROCEDURE: CHEST 2-VIEWS UPRIGHT (PA & LAT) Encounter: Initial COMPARISON: November 16, 2017 FINDINGS: Persistent small right pleural effusion without significant change. Large right hilar and mediastinal masses are again noted. Left lung is stable and grossly clear. No pneumothorax. Heart size is unchanged. Pulmonary vascularity is stable. Impression: Stable appearance of the chest. .
[2017-11-18] MEDS: ALBUTEROL/IPRATROPIUM 2.5mg-0.5mg/3ml NEB AEROSOL SCH ×2 (15:22→19:49)
[2017-11-19] MEDS: DiphenhydrAMINE 25 MG CAPSULE PO PRN ×2 (00:42→21:25)
[2017-11-19] MEDS: SALINE FLUSH 10ml SYRINGE IVF PRN (03:44)
[2017-11-19] MEDS: METHYLPREDNISOLONE SOD SUCC 125mg/2ml INJECTION IVP SCH ×4 (03:44→21:24)
[2017-11-19] MEDS: FUROSEMIDE 20 MG TABLET PO SCH ×2 (07:40→14:05)
[2017-11-19] MEDS: ALBUTEROL/IPRATROPIUM 2.5mg-0.5mg/3ml NEB AEROSOL SCH ×3 (08:26→18:34)
--- NOTE | 2017-11-19 08:38 | Progress Note ---
Oncology Subjective The patient feels fine with only complaint is puffiness of her face which is getting better. She had mild shortness of breath with no changes since admission. The pathology came back small cell lung cancer as expected. Exam Vital signs: Temperature 95.9 F L 11/19/17 07:37 Pulse Rate 63 11/19/17 07:37 Respiratory Rate 18 11/19/17 07:37 Blood Pressure 165/76 H 11/19/17 07:37 Pulse Oximetry 93 11/19/17 07:37 - Constitutional no acute distress - Routine HEENT Exam Head: Present: normocephalic, atraumatic Comments: Mild fascial swelling. - Routine Neck Exam Present: supple. Absent: JVD, lymphadenopathy - Routine Chest/Breast/Axilla Exam Chest wall: Absent: mass Comments: Distended veins in the chest wall anteriorly, no changes. - Routine Respiratory Exam Present: decreased breath sounds. Absent: accessory muscle use, rales, respiratory distress, rhonchi, stridor - Routine Cardiovascular Exam Present: RRR. Absent: JVD - Routine Abdominal Exam Present: soft - Routine Exam External: Present: swelling. Absent: tenderness - Routine Neurological Exam Present: oriented X3, CN II-XII intact. 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 However I will obtain a bone scan and CT scan of the abdomen to rule out extensive/metastatic disease. 2. History of smoking. Recommendation and plan I explained to the patient the diagnosis, natural course of small cell lung cancer, diagnostic procedures, prognosis and treatment options. I explained to the patient the treatment is typically chemotherapy using nenana plus etoposide for 3 days every 3 weeks for total of 4-6 cycles depending on the stage of the cancer. Also explained to the patient with the next cycle we will add radiation therapy due to the superior vena cava syndrome. I discussed with the patient potential adverse effect of chemotherapy such as nausea vomiting, low blood counts, allergic reaction and hair loss. I answered all her questions to her satisfaction and we agreed for the following plan of care: 1. Carboplatin on day 1+ etoposide on day 1-3 every 3 days. 2. Radiation therapy starting with cycle 2 of chemotherapy. 3. We will continue prophylactic dose of Lovenox plus steroids for now. 4. May taper off the steroids. 5. Allopurinol 300 mg p.o. daily. 6. CEA level. 7. CT scan of the abdomen and pelvis. 8. Bone scan. 9. Port-A-Cath placement prior to cycle 2 due to the SVC. Hopefully in 2 weeks in the SVC improved significantly if not resolved. - Time Spent With Patient Total time spent is greater than 50% in coordination of care (as documented) at patient's floor/unit and/or counseling patient: 25 - 35 minutes
[2017-11-19] MEDS: AMLODIPINE 5 MG TABLET PO SCH (08:41)
[2017-11-19] MEDS: SENNA + DOCUSATE TABLET PO SCH ×2 (08:41→21:24)
[2017-11-19] MEDS: FAMOTIDINE 20 MG TABLET PO SCH ×2 (08:41→21:25)
[2017-11-19] MEDS: LISINOPRIL 10 MG TABLET PO SCH (08:41)
[2017-11-19] MEDS: NICOTINE PATCH REMOVAL TD SCH (08:42)
[2017-11-19] MEDS: NICOTINE 14 MG PATCH TD SCH (08:42)
[2017-11-19] MEDS: POLYETHYL GLYCOL 3350 17gm PACKET PO SCH (08:42)
[2017-11-19] MEDS ORDERED: METOCLOPRAMIDE 10mg/2ml INJECTION IVP PRN (08:52)
[2017-11-19] MEDS ORDERED: NS 100 ML ONE (09:22)
[2017-11-19] MEDS ORDERED: IOHEXOL 300mg/ml 100ml INJECTION ONE (09:22)
[2017-11-19] MEDS ORDERED: SALINE FLUSH 10ml SYRINGE ONE ×3 (09:22→09:54)
[2017-11-19] MEDS ORDERED: IOHEXOL 300mg/ml 75ml INJECTION ONE (09:39)
--- NOTE | 2017-11-19 09:52 | Pulmonology Progress Note ---
Subjective Principal diagnosis: lung mass Interval history: Pt in WC getting ready to get CT of abd/pelvis. States she still has a CINTRON, facial swelling stable but more rednes noted today. Still with swelling to BUE with some drainage noted. Slight SOB with ambulation noted and still cough when trying to rest. Exam Vital signs: Temperature 95.9 F L 11/19/17 07:37 Pulse Rate 63 11/19/17 07:37 Respiratory Rate 18 11/19/17 07:37 Blood Pressure 165/76 H 11/19/17 07:37 Pulse Oximetry 93 11/19/17 07:37 - Constitutional no acute distress, average body habitus - Routine HEENT Exam Head: Present: normocephalic, atraumatic Eye: Present: PERRL ENT: Present: mucous membranes moist - Routine Neck Exam Present: supple, full ROM, trachea midline - Routine Respiratory Exam Present: decreased breath sounds - Routine Cardiovascular Exam Present: RRR, S1, S2, no murmur - Routine Abdominal Exam Present: soft, normoactive bowel sounds - Routine Extremities Exam Present: edema, full ROM - Routine Back/Spine/Pelvis Exam Back/Spine: Present: full ROM - Routine Skin Exam Present: intact, dry - Routine Neurological Exam Present: alert, oriented X3, CN II-XII intact - Routine Psychiatric Exam Present: normal affect, normal thought process Assessment and Plan - Assessment and Plan Abnormal CT with R hilar mass obstructing SVC and R bronchus 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 s/p bronchoscopy 11/12 with repeat bronch on thats + for small cell lung cancer. Still on solumedrol 60mg q6 with lasix 20mg q12 to help with SVC syndrome. MRI negative, awaiting CT abd/pelvis and bone scan. On a/a TID, no wheezing, CXR 1/2 showed RLL small effusion, will need to follow otherwise no infiltrates seen. Onc plans to start chemo today with ramona plus etoposide for 3 days every 3 weeks for total of 4-6 cycles, would start weaning steroids tomorrow after chemo. - Time Spent With Patient Total time spent is greater than 50% in coordination of care (as documented) at patient's floor/unit and/or counseling patient: less than 15 minutes
[2017-11-19] MEDS: ALLOPURINOL 300 MG TABLET PO SCH (10:21)
--- NOTE | 2017-11-19 10:33 | CT Scan Report ---
Indication: staging for SCLC PROCEDURE: CT abdomen pelvis w con: Encounter: Initial Comparison: Chest CT dated November 11, 2017 Technique: Axial CT images were performed through the abdomen and pelvis after the administration of intravenous contrast. Coronal and sagittal two-dimensional reformats. Automated Exposure Control and Iterative Reconstruction dose reducing techniques were utilized. Contrast: Omnipaque 300 67 mL Findings: Right pleural effusion with right basilar consolidation. Minimal left basilar atelectasis. The liver enhances normally. No liver masses or bile duct dilatation. The gallbladder is normal. The spleen, pancreas and right adrenal gland are within normal limits. Slightly nodular left adrenal gland. Right renal superior pole cyst. No enhancing renal masses. Tiny left renal low-attenuation focus, too small to definitively characterize. Retroaortic left renal vein noted incidentally. No abdominal or pelvic lymphadenopathy. The bladder is decompressed. Uterus is absent. No free fluid. Moderate to large amount of stool throughout the colon. No evidence of a bowel obstruction. Bone windows show bilateral L5 spondylolysis and grade 1 spondylolisthesis of L5 on S1. Severe degenerative endplate changes at L4-L5 and L2-L3. Scoliosis. Bilateral sacroiliitis, greater on the left. No concerning lytic or blastic bony lesions. Synovial herniation pit noted incidentally in the right femoral neck. Impression: Mild nodularity and thickening of the left adrenal gland could be due to adenomatous hyperplasia or metastatic disease, otherwise no evidence of metastatic disease seen in the abdomen or pelvis. .
[2017-11-19] MEDS ORDERED: DiphenhydrAMINE 50 MG/ML INJECTION IVP PRN (12:00)
[2017-11-19] MEDS ORDERED: HYDROCORTISONE 100 MG/60 ML RECTALLY PRN (12:00)
[2017-11-19] MEDS ORDERED: METHYLPREDNISOLONE SOD SUCC 125mg/2ml INJECTION IVP PRN (12:01)
[2017-11-19] MEDS ORDERED: PALONOSETRON 0.25 MG/5 ML INJECTION IV ONE (14:00)
[2017-11-19] MEDS ORDERED: DEXAMETHASONE INJ 10 MG in NS 50 ML IV SCH (14:10)
[2017-11-19] MEDS ORDERED: NS IV ONE ×2 (14:30→15:30)
[2017-11-19] MEDS ORDERED: CARBOPLATIN IV ONE (14:30)
--- NOTE | 2017-11-19 15:11 | Progress Note ---
- Date 11/19/17 Subjective: Ysabel is seen today in follow up. She has just initiated her first round of chemotherapy just prior to examination. She reports briefly feeling short of breath today while being up and ambulating. This self resolved while at rest. She denies having any pain, however has continued swelling to bilateral upper extremities and face. She describes a "terrible" day in which nothing seems to be going right. Vital signs reviewed. Objective Vital signs: Temperature 98.0 F 11/19/17 14:45 Pulse Rate 80 11/19/17 14:45 Respiratory Rate 17 11/19/17 14:45 Blood Pressure 131/65 11/19/17 14:45 Pulse Oximetry 93 11/19/17 14:45 Rhythm: Normal Sinus Rhythm Height/Weight/BMI: Weight 59.3 kg - Constitutional Present: no acute distress, well nourished, well developed - Routine HEENT Exam Head: Present: facial swelling (erythema) Eye: Present: EOMI ENT: Present: mucous membranes moist, dentition normal - Routine Respiratory Exam Present: CTA bilaterally. Absent: wheezes Comments: diminished right side - Routine Cardiovascular Exam Present: RRR, S1, S2. Absent: murmur - Routine Abdominal Exam Present: soft, normoactive bowel sounds, non distended. Absent: tenderness - Routine Extremities Exam Present: edema (bilateral upper ext, facial and neck edema), full ROM, normal capillary refill - Routine Skin Exam Present: intact, dry, warm - Routine Neurological Exam Present: alert, oriented X3, CN II-XII intact, moving all extremities - Routine Lymphatic Exam Lymphatic: Absent: adenopathy - Routine Psychiatric Exam Present: normal affect, cooperative Results - Labs CBC & Chem 7: 11/19/17 04:18 11/19/17 04:18 Assessment and Plan (1) Tobacco abuse Current visit: No Status: Acute (2) Lung mass Problem details: Right hilar mass obstructing SVC and right bronchus Current visit: Yes Status: Acute (3) SVC syndrome Current visit: Yes Status: Acute Assessment and Plan: Impression: SVC syndrome 2/2 Hilar mass Small Cell Carcinoma Right hilar mass-bronchoscopy 11/12 nondiagnostic, repeat bronchoscopy 11/15 Leukopenia/lymphocytopenia Laryngeal edema Hypertension Tobacco abuse Headache Vertigo, chronic Plan: Started Chemotherapy today under the care of Dr Blackwood Scopolamine patch has helped some with her vertigo as she was able to lay flat for CT abdomen Ct revels mild nodularity and thickening of left adrenal gland no metastatic process Monitor Blood pressure, currently on amlodipine and lisinopril Wraps to bilateral upper extremities to help with compression and edema Lasix twice a day for edema Continue to work on bowel motivation DVT Prophylaxis: SCD's GI Prophylaxis: Pepcid Resuscitation Status: Full Code - Physician Narrative Physician: Salome Logan MD Narrative: Date: 11/19/17 Time: 2014 I have independently evaluated and examined this patient. I reviewed the chart, the patient's history, and the [employer]/PA's documented findings as above. We discussed and formulated the assessment and plan as above with additions as below: Bad day as described above although vertigo seems somewhat better with scopolamine and less nausea than prior days. Patient reports that facial swelling seems a little worse and she is now having serous drainage from both forearms with increased edema. Ambulating minimally in the room but denies lightheadedness when she stands, brief exertional dyspnea with ambulation. Patient reports having had a bowel movement today and yesterday. NAD, increased facial erythema and puffiness Respirations nonlabored and good airflow present; faint crackles at the bases posteriorly Persistent neck vein distention as before and dependent edema at the elbows. CT abdomen/pelvis reviewed-radiology describes some thickening of the left adrenal gland; right greater than left pleural effusions, right renal cyst. No blastic or lytic bone lesions. Chemotherapy initiated. Discussed with Dr. Blackwood and pulmonary. Plan Port-A- Cath prior to second course of chemotherapy. Hospital Course Summary Disclaimer: The visit summary below is not to be considered part of the above Progress Note. Hospital Course: 11/12/17 12:20 Pt admitted for sinustis sx's and hilar mass. Pt's sx's are likely SVC syndrome with mass compressing on SVC. Pt had bronch done to biopsy mass which showed mass extending into RUL bronchus and laryngeal edema. Will treat with steroids, lasix to help manage airway and svc syndrome. Discussed case with and he agreed with plan and noted he will discuss case with pathology before starting any therapy. Discussed case with and he also agreed with plan. 11/13/17 14:04 Pt stable, biopsy from bronch is inconclusive, discussed case with and . believes their are bronchial lesions that would be high yield to biopsy but he will do it in 2 days d/t pt's recent lovenox and pt bleeding from last biopsy. agreed with this plan. Pt also preferred less invasive procedure(vs. mediastinoscopy or CT guided biopsy) and staying in [place]. Will cont. tx of SVC syndrome with lasix and steroids and monitor. 11/14/17 14:19 Symptoms improving with decreased facial edema/erythema; less sinus pressure and decreasing edema in the arms. Continue Lasix/Solu-Medrol for SVC syndrome and laryngeal edema. Pathology all negative to date with one bronchial washing still out. Tentatively scheduled for repeat bronchoscopy in a.m. Blood pressure stable on amlodipine. 11/15/17 14:42 Repeat bronchoscopy today with additional biopsies obtained; laryngeal edema significantly improved following steroids. Begin tapering steroids; facial and arm edema also significantly improved and Lasix converted to oral administration. Lisinopril added for improved blood pressure control. 11/16/17 Pathology pending, stable to transfer out of ICU. Mild headache, increased vertigo-MRI head to be obtained with/without contrast. New pruritus-manage symptomatically Plan - 11/17/17: -MRI of the brain pending. Ativan PRN for anxiety prior to procedure. Obtain orthostatic blood pressures - if normal, will try scopolamine patch for vertigo. Pathology pending. Blood pressure improved. BPs in 170s systolic on admission, started amlodipine 5mg 11/11; lisinopril added 11/15. Pruritus resolved. PRN medications as needed. Pepcid initiated due to high-dose steroids , GERD and GI protection. Encourage bowel motivation with scheduled miralax and senna +. 11/18/17 MRI brain -neg. Pulm path still pending. Add Tussionex for cough. Add MOM/prune juice for constipation. 11/19/17 Started Chemotherapy today under the care of Dr Blackwood Scopolamine patch has helped some with her vertigo as she was able to lay flat for CT abdomen Ct revels mild nodularity and thickening of left adrenal gland no metastatic process Monitor Blood pressure, currently on amlodipine and lisinopril Wraps to bilateral upper extremities to help with compression and edema Lasix twice a day for edema Continue to work on bowel motivation
[2017-11-19] MEDS ORDERED: ETOPOSIDE IV ONE (15:30)
[2017-11-19] MEDS: BENZONATATE 200 MG CAPSULE PO PRN (15:43)
[2017-11-19] MEDS: HYDROCODONE/APAP 5mg/325mg TABLET PO PRN (21:25)
[2017-11-20] MEDS: METHYLPREDNISOLONE SOD SUCC 125mg/2ml INJECTION IVP SCH ×2 (04:20→09:19)
[2017-11-20] MEDS: SALINE FLUSH 10ml SYRINGE IVF PRN ×5 (04:21→21:17)
[2017-11-20] MEDS ORDERED: SALINE FLUSH 10ml SYRINGE ONE (07:35)
[2017-11-20] MEDS: ALBUTEROL/IPRATROPIUM 2.5mg-0.5mg/3ml NEB AEROSOL SCH ×3 (07:45→21:00)
[2017-11-20] MEDS: LISINOPRIL 10 MG TABLET PO SCH (09:18)
[2017-11-20] MEDS: ALLOPURINOL 300 MG TABLET PO SCH (09:18)
[2017-11-20] MEDS: FAMOTIDINE 20 MG TABLET PO SCH ×2 (09:18→21:17)
[2017-11-20] MEDS: FUROSEMIDE 20 MG TABLET PO SCH ×2 (09:18→14:52)
[2017-11-20] MEDS: AMLODIPINE 5 MG TABLET PO SCH (09:18)
[2017-11-20] MEDS: NICOTINE 14 MG PATCH TD SCH (09:19)
[2017-11-20] MEDS: SENNA + DOCUSATE TABLET PO SCH ×2 (09:20→21:16)
[2017-11-20] MEDS: POLYETHYL GLYCOL 3350 17gm PACKET PO SCH (09:20)
[2017-11-20] MEDS: NICOTINE PATCH REMOVAL TD SCH (09:20)
--- NOTE | 2017-11-20 09:43 | Pulmonology Progress Note ---
Subjective Principal diagnosis: lung mass Interval history: Pt in bed, states she slept good last night. Still with swelling to R arm but improved on L with less seeping noted. Still with facial swelling and redness noted. States she hillary the chemo yesterday but just felt weak and sluggish afterwards. Exam Vital signs: Temperature 98.4 F 11/20/17 07:52 Pulse Rate 65 11/20/17 07:52 Respiratory Rate 20 11/20/17 07:52 Blood Pressure 133/69 11/20/17 07:52 Pulse Oximetry 93 11/20/17 07:52 - Constitutional no acute distress, average body habitus - Routine HEENT Exam Head: Present: normocephalic, atraumatic Eye: Present: EOMI, PERRL ENT: Present: mucous membranes moist Comments: facial swelling and redness - Routine Neck Exam Present: supple, full ROM, trachea midline - Routine Respiratory Exam Present: CTA bilaterally - Routine Cardiovascular Exam Present: RRR, S1, S2, no murmur - Routine Abdominal Exam Present: soft, normoactive bowel sounds - Routine Extremities Exam Present: edema, non tender, full ROM - Routine Back/Spine/Pelvis Exam Back/Spine: Present: full ROM - Routine Skin Exam Present: intact - Routine Neurological Exam Present: alert, oriented X3, CN II-XII intact - Routine Psychiatric Exam Present: normal affect, normal thought process Assessment and Plan - Assessment and Plan Abnormal CT with R hilar mass obstructing SVC and R bronchus 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 s/p bronchoscopy 11/12 with repeat bronch on thats + for small cell lung cancer. Still on solumedrol 60mg q6 with lasix 20mg q12 to help with SVC syndrome. MRI negative, CT abd/pelvis showed Mild nodularity and thickening of the left adrenal gland and bone scan pending. On a/ a TID, no wheezing, CXR 11/18/17 showed RLL small effusion, will need to follow otherwise no infiltrates seen. On chemo 2 out of 3 on first cycle today with little traverse plus etoposide will be for 3 days every 3 weeks for total of 4-6 cycles , would start weaning steroids after 1st cycle chemo. - Time Spent With Patient Total time spent is greater than 50% in coordination of care (as documented) at patient's floor/unit and/or counseling patient: less than 15 minutes
--- NOTE | 2017-11-20 11:19 | Progress Note ---
<Noy Hand - Last Filed: 11/20/17 13:00> Oncology Subjective Reclining in hospital bed, son-in-law at bedside. Alert and oriented. Denies headache or vision changes. Infrequent nonproductive cough, denies shortness of air currently. Feels swelling in her face, mild rash is persistent, maybe a little worse today. Swelling and drainage from bilateral forearms, right greater than left, started yesterday. Feels like the left arm is better today, right continues to be swollen. Dressings are dry and intact to both arms. Taking food and fluids, denies nausea or vomiting. Tolerated chemotherapy well yesterday, except "I felt drained afterwords. Really tired." General: No fever, no night sweats Eyes: Facial edema/swelling ENT: No mouth sores, no trouble swallowing Cardiac: No chest pain no palpitations Pulmonary: Positive cough, nonproductive, denies shortness of breath, no wheezing Abdomen: No pain, no nausea vomiting, no diarrhea or constipation : No urgency, frequency, dysuria, or hematuria Musculoskeletal: No arthritis, no myalgias Neurological: No headaches, no focal weakness Skin: Swelling/drainage of fluid from bilateral forearms. Psychiatric: No anxiety, no depression Exam Vital signs: Temperature 98.4 F 11/20/17 07:52 Pulse Rate 65 11/20/17 07:52 Respiratory Rate 20 11/20/17 07:52 Blood Pressure 133/69 11/20/17 07:52 Pulse Oximetry 93 11/20/17 07:52 - Constitutional mild distress, well developed, cooperative - Routine HEENT Exam Head: Present: normocephalic, facial swelling Eye: Present: EOMI, periorbital swelling ENT: Present: mucous membranes moist Nose: dry mucous membranes - Routine Neck Exam Present: supple, lymphadenopathy (left anterior cervical.) - Routine Respiratory Exam Present: decreased breath sounds. Absent: wheezes - Routine Cardiovascular Exam Present: RRR. Absent: no murmur - Routine Abdominal Exam Present: soft, normoactive bowel sounds - Routine Extremities Exam Present: no edema, full ROM - Routine Back/Spine/Pelvis Exam Back/Spine: Absent: vertebral tenderness - Routine Skin Exam Present: dry, pallor Comments: Dressings to bilateral lower forearms dry/intact. - Routine Neurological Exam Present: alert, oriented X3 - Routine Psychiatric Exam Present: normal affect, normal thought process, cooperative Oncology Results - Labs CBC & Chem 7: 11/19/17 04:18 11/19/17 04:18 - Impressions Indication: staging for SCLC PROCEDURE: CT abdomen pelvis w con: Encounter: Initial Comparison: Chest CT dated November 11, 2017 Technique: Axial CT images were performed through the abdomen and pelvis after the administration of intravenous contrast. Coronal and sagittal two-dimensional reformats. Automated Exposure Control and Iterative Reconstruction dose reducing techniques were utilized. Contrast: Omnipaque 300 67 mL Findings: Right pleural effusion with right basilar consolidation. Minimal left basilar atelectasis. The liver enhances normally. No liver masses or bile duct dilatation. The gallbladder is normal. The spleen, pancreas and right adrenal gland are within normal limits. Slightly nodular left adrenal gland. Right renal superior pole cyst. No enhancing renal masses. Tiny left renal low-attenuation focus, too small to definitively characterize. Retroaortic left renal vein noted incidentally. No abdominal or pelvic lymphadenopathy. The bladder is decompressed. Uterus is absent. No free fluid. Moderate to large amount of stool throughout the colon. No evidence of a bowel obstruction. Bone windows show bilateral L5 spondylolysis and grade 1 spondylolisthesis of L5 on S1. Severe degenerative endplate changes at L4-L5 and L2-L3. Scoliosis. Bilateral sacroiliitis, greater on the left. No concerning lytic or blastic bony lesions. Synovial herniation pit noted incidentally in the right femoral neck. Impression: Mild nodularity and thickening of the left adrenal gland could be due to adenomatous hyperplasia or metastatic disease, otherwise no evidence of metastatic disease seen in the abdomen or pelvis. . 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 CT abdomen/pelvis done. No definitive metastasis appreciated, mild nodularity and thickening of left adrenal gland. Bone scan results pending 2. Tobacco addiction. Has a [id number] history. Last cigarette was day of admission to hospital. Expresses desire to remain abstinent, "I know I will need the patches." Reinforced to patient increased risk for heart disease, stroke, and decreased effectiveness of chemotherapy agents if continues to smoke. Plan 1. Carboplatin day 1+ etoposide on day 1-3 every 3 days. Cycle 1 day 1 was 01/2018. Tolerated chemotherapy fairly well with subjective complaint of weakness/fatigue. Denies nausea, diarrhea, rash, new signs or symptoms. Swelling in the face has been chronic. Swelling bilateral forearms started suddenly yesterday, 11/19/17. Will follow. 2. Detailed education provided on carboplatin/etoposide and copies of patient treatment information given to patient. Reviewed what do I need to know before starting treatment/starting carboplatin plus etoposide, the treatment can interact with other substances and she does not take any of the listed medications. Taught no grapefruit, grapefruit juice or star fruit day before, during, or day after chemotherapy. Do not take [id number] Wendy's wort. Reviewed when should I call my health care provider and the after hours central care phone number is provided to patient. Reviewed what are the possible side effects; I reviewed only the common side effects of infection, bleeding, nausea, vomiting, anemia, and hair loss and what measures to take to reduce those side effects. Asked patient to review the information of the less common and rare side effects and let us know if she has any questions. Patient is also given 'My Journey and contents briefly reviewed. 3. CBC, CMP, magnesium, LDH, phosphorus, uric acid ordered now. 4. Radiation therapy starting with cycle 2 of chemotherapy. 5. Will continue prophylactic dose of Lovenox plus steroids for now. 6. May taper off the steroids. 7. Allopurinol 300 mg p.o. daily. 8. CEA level. 9. Port-A-Cath placement prior to cycle 2 due to the SVC. Hopefully in 2 weeks in the SVC improved significantly if not resolved. - Time Spent With Patient Total time spent is greater than 50% in coordination of care (as documented) at patient's floor/unit and/or counseling patient: 25 - 35 minutes <Pato Zamudio - Last Filed: 11/20/17 17:00> Exam Vital signs: Temperature 98.8 F 11/20/17 16:36 Pulse Rate 84 11/20/17 16:36 Respiratory Rate 24 11/20/17 16:36 Blood Pressure 129/66 11/20/17 16:36 Pulse Oximetry 93 11/20/17 16:36 Oncology Results - Labs CBC & Chem 7: 11/20/17 12:57 11/20/17 12:57 Labs: Short CBC 11/20/17 Range/Units 12:57 WBC 12.3 H (4.5-11.0) T/MM3 Hgb 13.0 (12-16) GM/DL Hct 40.7 (36-46) % Plt Count 228 (130-400) T/MM3 BMP 11/20/17 12:57 Sodium 137 Potassium 3.6 Chloride 101 Carbon Dioxide 24 BUN 21.0 H Creatinine 0.8 Glucose 128 H Calcium 8.2 L Liver Function 11/20/17 Range/Units 12:57 Total Bilirubin 0.60 (0.20-1.30) MG/DL AST 41 H (14-36) U/L ALT 80 H (9-52) U/L Alkaline Phosphatase 55 (38-126) U/L Albumin 4.2 (3.5-5.0) G/DL - Impressions Bone scan negative for mets. Assessment and Plan Assessment and Plan: Patient examined Chart reviewed I participated in the development of his plan of care with Marielena Hand. SVC syndrome with slightly worse edema of face today. Getting Etoposide today. No evidence of tumor lysis syndrome. Will continue chemotherapy and supportive care. - Time Spent With Patient Total time spent is greater than 50% in coordination of care (as documented) at patient's floor/unit and/or counseling patient:
--- NOTE | 2017-11-20 13:37 | Nuclear Medicine Report ---
Indication: Staging for SCLC PROCEDURE: NM bone scan whole body: Encounter: Initial Comparison: CT abdomen and pelvis dated November 19, 2017 Technique: 26.4 mCi of Tc-99m MDP was administered intravenously. Anterior and posterior planar whole-body and spot images were obtained. FINDINGS: The scan demonstrates the expected normal biodistribution for the radiotracer. There is probable degenerative uptake seen in left knee, L4-L5 disk space on the left, both ankles and mid feet. There is no abnormal radiotracer uptake to suggest bony metastasis. IMPRESSION: No evidence of metastatic disease to the skeleton. .
--- NOTE | 2017-11-20 14:15 | Progress Note ---
- Date 11/20/17 Subjective: Ysabel is seen today in follow up while resting in bed. She reports having overall fatigued since chemo yesterday. She feels that she is having increased facial and eyelid swelling. Left arm swelling has improved however she feels that right arm swelling is worse. Continued bilateral cervical. Denies shortness of breath or chest pain. Appetite decreased today. Objective Vital signs: Temperature 98.0 F 11/20/17 13:18 Pulse Rate 89 11/20/17 13:18 Respiratory Rate 16 11/20/17 13:18 Blood Pressure 115/62 11/20/17 13:18 Pulse Oximetry 92 11/20/17 13:18 Rhythm: Normal Sinus Rhythm Height/Weight/BMI: Weight 60.7 kg - Constitutional Present: no acute distress, well nourished, well developed - Routine HEENT Exam Eye: Present: EOMI ENT: Present: mucous membranes moist, dentition normal - Routine Respiratory Exam Present: wheezes - Routine Cardiovascular Exam Present: RRR, S1, S2. Absent: murmur - Routine Abdominal Exam Present: soft, normoactive bowel sounds, non distended. Absent: tenderness - Routine Extremities Exam Present: normal capillary refill - Routine Skin Exam Present: intact, dry, warm - Routine Neurological Exam Present: alert, oriented X3, CN II-XII intact, moving all extremities - Routine Lymphatic Exam Lymphatic: Present: adenopathy - Routine Psychiatric Exam Present: normal affect, cooperative Results - Labs CBC & Chem 7: 11/20/17 12:57 11/20/17 12:57 Assessment and Plan (1) Small cell lung cancer Current visit: Yes Status: Acute (2) Lung mass Problem details: Right hilar mass obstructing SVC and right bronchus Current visit: Yes Status: Acute (3) SVC syndrome Current visit: Yes Status: Acute Assessment and Plan: Impression: SVC syndrome 2/2 Hilar mass Small Cell Carcinoma Right hilar mass-bronchoscopy 11/12 nondiagnostic, repeat bronchoscopy 11/15 Leukopenia/lymphocytopenia Laryngeal edema Hypertension Tobacco abuse Headache Vertigo, chronic Plan: She did tolerate chemotherapy. However, notes significant fatigue today. Appreciate oncology's consultation Left upper extremity swelling has improved. Continue with wraps for compression. Continue Lasix twice a day for gentle diuretic. Monitor blood pressure, continue current regimen, Norvasc and Lisinopril and PRN Hydralazine Continue with Tussionex for coughing as this is helping with sleeping. Delmita as needed for pain. Case discussed with attending Dr Logan DVT Prophylaxis: SCD's Resuscitation Status: Full Code - Physician Narrative Physician: Salome Logan MD Narrative: Date: 11/20/17 Time: 1730 Patient seen earlier today and primarily complains of fatigue with some difficulty seeing due to increased very orbital edema. Please note that above should read she has continued bilateral cervical discomfort. Decreased complaints of vertigo. There is increased periorbital edema and increased edema lateral to the eyes bilaterally. Edema in the right upper extremity/forearm has clearly worsened but the left forearm is improved although has been weeping and dressings are soaked. Respirations nonlabored. Crepitance present at left knee with extension. Discussed with oncology; continue chemotherapy/supportive care. Hemoglobin stable as are electrolytes. AST/ALT 41/80; LDH 725, uric acid 3.2. Bone scan reviewed by myself-minor uptake in left knee, right greater than left ankle, and right shoulder-radiology interprets all as compatible with DJD. Hospital Course Summary Disclaimer: The visit summary below is not to be considered part of the above Progress Note. Hospital Course: 11/12/17 12:20 Pt admitted for sinustis sx's and hilar mass. Pt's sx's are likely SVC syndrome with mass compressing on SVC. Pt had bronch done to biopsy mass which showed mass extending into RUL bronchus and laryngeal edema. Will treat with steroids, lasix to help manage airway and svc syndrome. Discussed case with and he agreed with plan and noted he will discuss case with pathology before starting any therapy. Discussed case with and he also agreed with plan. 11/13/17 14:04 Pt stable, biopsy from bronch is inconclusive, discussed case with and . believes their are bronchial lesions that would be high yield to biopsy but he will do it in 2 days d/t pt's recent lovenox and pt bleeding from last biopsy. agreed with this plan. Pt also preferred less invasive procedure(vs. mediastinoscopy or CT guided biopsy) and staying in [place]. Will cont. tx of SVC syndrome with lasix and steroids and monitor. 11/14/17 14:19 Symptoms improving with decreased facial edema/erythema; less sinus pressure and decreasing edema in the arms. Continue Lasix/Solu-Medrol for SVC syndrome and laryngeal edema. Pathology all negative to date with one bronchial washing still out. Tentatively scheduled for repeat bronchoscopy in a.m. Blood pressure stable on amlodipine. 11/15/17 14:42 Repeat bronchoscopy today with additional biopsies obtained; laryngeal edema significantly improved following steroids. Begin tapering steroids; facial and arm edema also significantly improved and Lasix converted to oral administration. Lisinopril added for improved blood pressure control. 11/16/17 Pathology pending, stable to transfer out of ICU. Mild headache, increased vertigo-MRI head to be obtained with/without contrast. New pruritus-manage symptomatically Plan - 11/17/17: -MRI of the brain pending. Ativan PRN for anxiety prior to procedure. Obtain orthostatic blood pressures - if normal, will try scopolamine patch for vertigo. Pathology pending. Blood pressure improved. BPs in 170s systolic on admission, started amlodipine 5mg 11/11; lisinopril added 11/15. Pruritus resolved. PRN medications as needed. Pepcid initiated due to high-dose steroids , GERD and GI protection. Encourage bowel motivation with scheduled miralax and senna +. 11/18/17 MRI brain -neg. Pulm path still pending. Add Tussionex for cough. Add MOM/prune juice for constipation. 11/19/17 Started Chemotherapy today under the care of Dr Blackwood Scopolamine patch has helped some with her vertigo as she was able to lay flat for CT abdomen Ct revels mild nodularity and thickening of left adrenal gland no metastatic process Monitor Blood pressure, currently on amlodipine and lisinopril Wraps to bilateral upper extremities to help with compression and edema Lasix twice a day for edema Continue to work on bowel motivation 11/20/17 -Plan: She did tolerate chemotherapy. However, notes significant fatigue today. Appreciate oncology's consultation Left upper extremity swelling has improved. Continue with wraps for compression. Continue Lasix twice a day for gentle diuretic. Monitor blood pressure, continue current regimen, Norvasc and Lisinopril and PRN Hydralazine Continue with Tussionex for coughing as this is helping with sleeping. Delmita as needed for pain. Case discussed with attending Dr Logan
[2017-11-20] MEDS ORDERED: DEXAMETHASONE INJ 10 MG in NS 50 ML IV SCH (15:00)
[2017-11-20] MEDS ORDERED: SCOPOLAMINE PATCH REMOVAL TD ONE (15:00)
[2017-11-20] MEDS ORDERED: NS IV ONE (15:30)
[2017-11-20] MEDS ORDERED: ETOPOSIDE IV ONE (15:30)
[2017-11-20] MEDS: HYDROCODONE/APAP 5mg/325mg TABLET PO PRN (21:16)
[2017-11-20] MEDS: DiphenhydrAMINE 25 MG CAPSULE PO PRN (21:17)
[2017-11-21] MEDS: ACETAMINOPHEN 325 MG TABLET PO PRN ×2 (05:20→14:39)
[2017-11-21] MEDS: FUROSEMIDE 20 MG TABLET PO SCH ×2 (07:06→14:19)
--- NOTE | 2017-11-21 09:21 | Pulmonology Progress Note ---
Subjective Principal diagnosis: lung mass Interval history: Pt in bed, still with swelling to R arm but improved on L with less seeping noted. Still with facial swelling and redness noted but redness slightly better. States she hillary the chemo but c/o sore mouth and throat along with CP noted as sharp in nature midsternum that is also noted under R breast. States the CP doesn't last long and doesn't radiate and not associated with eating and is not reproducible. Exam Vital signs: Temperature 97.2 F 11/21/17 07:47 Pulse Rate 69 11/21/17 07:47 Respiratory Rate 18 11/21/17 07:47 Blood Pressure 129/68 11/21/17 07:47 Pulse Oximetry 94 11/21/17 07:47 - Constitutional no acute distress, average body habitus - Routine HEENT Exam Head: Present: normocephalic, atraumatic Eye: Present: EOMI, PERRL Comments: thrush - Routine Neck Exam Present: supple, full ROM, trachea midline - Routine Respiratory Exam Present: decreased breath sounds - Routine Cardiovascular Exam Present: RRR, S1, S2, no murmur - Routine Abdominal Exam Present: soft, normoactive bowel sounds - Routine Extremities Exam Present: edema, full ROM - Routine Back/Spine/Pelvis Exam Back/Spine: Present: full ROM - Routine Skin Exam Present: intact, dry - Routine Neurological Exam Present: alert, oriented X3, CN II-XII intact - Routine Psychiatric Exam Present: normal affect, normal thought process Assessment and Plan - Assessment and Plan Abnormal CT with R hilar mass obstructing SVC and R bronchus 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 s/p bronchoscopy 11/12 with repeat bronch on thats + for small cell lung cancer. Still on solumedrol 60mg q6 with lasix 20mg q12 to help with SVC syndrome. MRI negative, CT abd/pelvis showed Mild nodularity and thickening of the left adrenal gland and bone scan negative. On a /a TID, CXR 11/18/17 showed RLL small effusion, will need to follow otherwise no infiltrates seen. On chemo 3 out of 3 today on first cycle with [place] plus etoposide will be for 3 days every 3 weeks for total of 4-6 cycles, would start weaning steroids after 1st cycle chemo. Spoke with primary regarding CP, they will get EKG. Will wean steroids and start nystatin for thrush. - Time Spent With Patient Total time spent is greater than 50% in coordination of care (as documented) at patient's floor/unit and/or counseling patient: less than 15 minutes
[2017-11-21] MEDS: FAMOTIDINE 20 MG TABLET PO SCH ×2 (09:39→21:01)
[2017-11-21] MEDS: LISINOPRIL 10 MG TABLET PO SCH (09:39)
[2017-11-21] MEDS: AMLODIPINE 5 MG TABLET PO SCH (09:39)
[2017-11-21] MEDS: SENNA + DOCUSATE TABLET PO SCH ×2 (09:40→21:00)
[2017-11-21] MEDS: NYSTATIN 500,000 units/5 ml ORAL LIQUID PO SCH ×4 (09:40→21:00)
[2017-11-21] MEDS: NICOTINE 14 MG PATCH TD SCH (09:40)
[2017-11-21] MEDS: ALLOPURINOL 300 MG TABLET PO SCH (09:40)
[2017-11-21] MEDS: POLYETHYL GLYCOL 3350 17gm PACKET PO SCH (09:40)
[2017-11-21] MEDS: NICOTINE PATCH REMOVAL TD SCH (09:41)
[2017-11-21] MEDS: ALBUTEROL/IPRATROPIUM 2.5mg-0.5mg/3ml NEB AEROSOL SCH ×3 (09:50→19:50)
--- NOTE | 2017-11-21 11:05 | Progress Note ---
- Date 11/21/17 Subjective: Ysabel is seen today in follow up this morning. It was reported by Pulmonary team that patient complained of chest pain. Upon examination sYabel reports she had 2 brief episodes this morning of substernal chest pain, also under the right breast. It was stabbing in nature and lasted only seconds to a minute seems to have self resolved. She denies feeling short of breath currently. Facial swelling feels to be slightly improved today. Continued bilateral cervical lymphadenopathy that is painful to the touch. Decreased appetite. Afebrile, Vitals normal. Objective Vital signs: Temperature 97.2 F 11/21/17 07:47 Pulse Rate 69 11/21/17 07:47 Respiratory Rate 20 11/21/17 09:50 Blood Pressure 129/68 11/21/17 07:47 Pulse Oximetry 96 11/21/17 09:50 Height/Weight/BMI: Weight 62.5 kg - Constitutional Present: well nourished, well developed - Routine HEENT Exam Eye: Present: EOMI ENT: Present: mucous membranes moist, dentition normal - Routine Respiratory Exam Present: CTA bilaterally, diminished air movement (right). Absent: wheezes - Routine Cardiovascular Exam Present: RRR, S1, S2. Absent: murmur - Routine Abdominal Exam Present: soft, normoactive bowel sounds, non distended. Absent: tenderness - Routine Extremities Exam Present: edema, pulses intact - Routine Skin Exam Present: intact, dry, warm - Routine Neurological Exam Present: alert, oriented X3, CN II-XII intact, moving all extremities - Routine Lymphatic Exam Lymphatic: Absent: adenopathy - Routine Psychiatric Exam Present: normal affect, cooperative Results - Labs CBC & Chem 7: 11/21/17 04:03 11/21/17 04:03 Assessment and Plan (1) Lung mass Problem details: Right hilar mass obstructing SVC and right bronchus Current visit: Yes Status: Acute (2) SVC syndrome Current visit: Yes Status: Acute (3) Small cell lung cancer Current visit: Yes Status: Acute Assessment and Plan: Impression: SVC syndrome 2/2 Hilar mass Small Cell Carcinoma Right hilar mass-bronchoscopy 11/12 nondiagnostic, repeat bronchoscopy 11/15 Leukopenia/lymphocytopenia Laryngeal edema Hypertension Tobacco abuse Headache Vertigo, chronic Plan: Suspect chest pain is chest wall in nature given location and description. Will obtain EKG. Overall dizziness is improved, continue with scopolamine patch. Continued upper extremity edema right more than left. Facial swelling seems improved Continue Lasix twice a day for gentle diuretic Blood pressure well controlled on current regimen, Norvasc and Lisinopril and PRN Hydralazine Continue with Tussionex for coughing Will need beatriz cath prior to second chemo tx. DVT Prophylaxis: SCD's GI Prophylaxis: Pepcid Resuscitation Status: Full Code - Physician Narrative Physician: Salome Logan MD Narrative: Date: 11/21/17 Time: 1800 Ysabel seen earlier today at which time she complained of sore mouth and reported that she can see a little bit better today and thinks her face is slightly less swollen. She described the chest pain as noted above reporting that it starts in the subxiphoid region and lasts only a couple of seconds. She cannot correlate it with cough or reflux. I concur that there is slightly less periorbital edema than there was yesterday and edema in her right forearm is improved from yesterday. There is tenderness on palpation in the subxiphoid region (" that's it "referencing the chest pain she described) There is generalized hyperemia of the tongue with suggestion of very early ulcerations. EKG reviewed by myself-sinus rhythm with low voltage and diffuse T-wave flattening but no acute ST/T-wave abnormalities. Complete initial course of chemotherapy today. Swizzle added to nystatin started earlier; Carafate suspension will be initiated as well for esophageal protection. Discussed with pulmonary. Hospital Course Summary Disclaimer: The visit summary below is not to be considered part of the above Progress Note. Hospital Course: 11/12/17 12:20 Pt admitted for sinustis sx's and hilar mass. Pt's sx's are likely SVC syndrome with mass compressing on SVC. Pt had bronch done to biopsy mass which showed mass extending into RUL bronchus and laryngeal edema. Will treat with steroids, lasix to help manage airway and svc syndrome. Discussed case with and he agreed with plan and noted he will discuss case with pathology before starting any therapy. Discussed case with and he also agreed with plan. 11/13/17 14:04 Pt stable, biopsy from bronch is inconclusive, discussed case with and . believes their are bronchial lesions that would be high yield to biopsy but he will do it in 2 days d/t pt's recent lovenox and pt bleeding from last biopsy. agreed with this plan. Pt also preferred less invasive procedure(vs. mediastinoscopy or CT guided biopsy) and staying in [place]. Will cont. tx of SVC syndrome with lasix and steroids and monitor. 11/14/17 14:19 Symptoms improving with decreased facial edema/erythema; less sinus pressure and decreasing edema in the arms. Continue Lasix/Solu-Medrol for SVC syndrome and laryngeal edema. Pathology all negative to date with one bronchial washing still out. Tentatively scheduled for repeat bronchoscopy in a.m. Blood pressure stable on amlodipine. 11/15/17 14:42 Repeat bronchoscopy today with additional biopsies obtained; laryngeal edema significantly improved following steroids. Begin tapering steroids; facial and arm edema also significantly improved and Lasix converted to oral administration. Lisinopril added for improved blood pressure control. 11/16/17 Pathology pending, stable to transfer out of ICU. Mild headache, increased vertigo-MRI head to be obtained with/without contrast. New pruritus-manage symptomatically Plan - 11/17/17: -MRI of the brain pending. Ativan PRN for anxiety prior to procedure. Obtain orthostatic blood pressures - if normal, will try scopolamine patch for vertigo. Pathology pending. Blood pressure improved. BPs in 170s systolic on admission, started amlodipine 5mg 11/11; lisinopril added 11/15. Pruritus resolved. PRN medications as needed. Pepcid initiated due to high-dose steroids , GERD and GI protection. Encourage bowel motivation with scheduled miralax and senna +. 11/18/17 MRI brain -neg. Pulm path still pending. Add Tussionex for cough. Add MOM/prune juice for constipation. 11/19/17 Started Chemotherapy today under the care of Dr Blackwood Scopolamine patch has helped some with her vertigo as she was able to lay flat for CT abdomen Ct revels mild nodularity and thickening of left adrenal gland no metastatic process Monitor Blood pressure, currently on amlodipine and lisinopril Wraps to bilateral upper extremities to help with compression and edema Lasix twice a day for edema Continue to work on bowel motivation 11/20/17 -Plan: She did tolerate chemotherapy. However, notes significant fatigue today. Appreciate oncology's consultation Left upper extremity swelling has improved. Continue with wraps for compression. Continue Lasix twice a day for gentle diuretic. Monitor blood pressure, continue current regimen, Norvasc and Lisinopril and PRN Hydralazine Continue with Tussionex for coughing as this is helping with sleeping. [place] as needed for pain. Case discussed with attending Dr Logan 11/21/17- Obtain EKG given substernal chest discomfort. Overall swelling seems to be improved today. Continue with current BP regimen.
[2017-11-21] MEDS: SUCRALFATE 1gm/10ml ORAL LIQUID PO SCH ×3 (12:11→21:00)
--- NOTE | 2017-11-21 13:29 | Progress Note ---
<Noy Hand - Last Filed: 11/21/17 14:40> Oncology Subjective Alone in room. Alert/oriented. Had 2 separate brief episodes mid-sternal chest pain this AM, lasted < 1 min. Denies radiation of pain, no SOA. c/o sore throat today. Denies fever/chills. Continues to c/o fatigue after chemo. Eating/ drinking fair. Denies N/V, diarrhea, constipation, dysuria. General: No fever, no night sweats Eyes: No redness, no pain, no diplopia ENT: + sore throat. no mouth sores,. Cardiac: 2 episodes chest pain this morning. no palpitations Pulmonary: No cough, no shortness of breath, no wheezing Abdomen: No pain, no nausea vomiting, no diarrhea or constipation : No urgency, frequency, dysuria, or hematuria Musculoskeletal: No arthritis, no myalgias Neurological: Interm. h/a. Skin: No rash, no sores Psychiatric: No anxiety, no depression Exam Vital signs: Temperature 97.6 F 11/21/17 11:57 Pulse Rate 90 11/21/17 11:57 Respiratory Rate 17 11/21/17 11:57 Blood Pressure 112/68 11/21/17 11:57 Pulse Oximetry 94 11/21/17 11:57 - Constitutional no acute distress, obese, cooperative - Routine HEENT Exam Head: Present: normocephalic (diffuse facial eema, but appears sl. decreased today.) Eye: Present: EOMI. Absent: conjunctival icterus ENT: Present: mucous membranes dry Throat: other Comments: tongue with discrete, small white patches. 1+ pharyngeal erythema/no exudate - Routine Neck Exam Present: supple, lymphadenopathy (anterior cerv. unchanged) - Routine Respiratory Exam Present: decreased breath sounds. Absent: wheezes, crackles - Routine Cardiovascular Exam Present: RRR. Absent: no murmur - Routine Abdominal Exam Present: soft, normoactive bowel sounds, non tender - Routine Extremities Exam Absent: no edema, tenderness - Routine Skin Exam Present: intact, dry, warm Comments: Diffuse facial erythema. No rash/redness noted on extremities/trunk - Routine Neurological Exam Present: alert, oriented X3 - Routine Psychiatric Exam Present: normal affect, normal thought process Oncology Results - Labs CBC & Chem 7: 11/21/17 04:03 11/21/17 04:03 Labs: Short CBC 11/20/17 11/21/17 Range/Units 12:57 04:03 WBC 12.3 H 11.1 H (4.5-11.0) T/MM3 Hgb 13.0 12.5 (12-16) GM/DL Hct 40.7 38.7 (36-46) % Plt Count 228 209 (130-400) T/MM3 BMP 11/20/17 11/21/17 12:57 04:03 Sodium 137 137 Potassium 3.6 4.0 Chloride 101 102 Carbon Dioxide 24 26 BUN 21.0 H 23.0 H Creatinine 0.8 0.7 Glucose 128 H 96 Calcium 8.2 L 8.0 L Liver Function 11/20/17 11/21/17 Range/Units 12:57 04:03 Total Bilirubin 0.60 0.50 (0.20-1.30) MG/DL AST 41 H 21 D (14-36) U/L ALT 80 H 66 H (9-52) U/L Alkaline Phosphatase 55 52 (38-126) U/L Albumin 4.2 3.9 (3.5-5.0) G/DL - Impressions EKG-unconfirmed report/results: sinus rhythym w/ short UT interval Assessment and Plan Assessment and Plan: 1- Locally advanced small cell lung cancer with SVC, probably limited disease. CT abdomen/pelvis done. No definitive metastasis appreciated, mild nodularity and thickening of left adrenal gland. Bone scan results w/o evidence of bony metastases. 2. Tobacco addiction. Not smoking; wants to stay quit. 3. Brief episodes mid sternal chest pain this AM. EKG unremarkable. No recurrence. 4. Yeast stomatitis. Plan Continue chemotherapy, today Cycle 1, day 3 Carbo/etoposide. Betty. chemotherapy fairly well. Subjective reports of fatigue, and now with yeast stomatitis; started Nystatin today. Reinforce importance of nutritional intake, drink 1 1/2- 2 quarts water/fluid daily. Be active/short walk daily, importance of sleeping well, stay abstinent from smoking. Let us know if new symptoms. - Time Spent With Patient Total time spent is greater than 50% in coordination of care (as documented) at patient's floor/unit and/or counseling patient: 25 - 35 minutes <Pato Zamudio - Last Filed: 11/21/17 18:12> Exam Vital signs: Temperature 97 F 11/21/17 15:52 Pulse Rate 89 11/21/17 15:52 Respiratory Rate 18 11/21/17 16:17 Blood Pressure 123/67 11/21/17 15:52 Pulse Oximetry 94 11/21/17 16:17 Oncology Results - Labs CBC & Chem 7: 11/21/17 04:03 11/21/17 04:03 Labs: Short CBC 11/21/17 Range/Units 04:03 WBC 11.1 H (4.5-11.0) T/MM3 Hgb 12.5 (12-16) GM/DL Hct 38.7 (36-46) % Plt Count 209 (130-400) T/MM3 BMP 11/21/17 04:03 Sodium 137 Potassium 4.0 Chloride 102 Carbon Dioxide 26 BUN 23.0 H Creatinine 0.7 Glucose 96 Calcium 8.0 L Liver Function 11/21/17 Range/Units 04:03 Total Bilirubin 0.50 (0.20-1.30) MG/DL AST 21 D (14-36) U/L ALT 66 H (9-52) U/L Alkaline Phosphatase 52 (38-126) U/L Albumin 3.9 (3.5-5.0) G/DL Assessment and Plan Assessment and Plan: Patient examined Chart reviewed. I participated in the development of the plan of care with this patient. Agree with documentation of Marielena Hand. Thrush. Will not give G CSF per Dr. Blackwood. Follow up after discharge with Dr. Blackwood. - Time Spent With Patient Total time spent is greater than 50% in coordination of care (as documented) at patient's floor/unit and/or counseling patient:
[2017-11-21] MEDS ORDERED: DEXAMETHASONE INJ 10 MG in NS 50 ML IV SCH (15:00)
[2017-11-21] MEDS ORDERED: ETOPOSIDE IV ONE (15:30)
[2017-11-21] MEDS ORDERED: NS IV ONE (15:30)
[2017-11-21] MEDS: HYDROCODONE/APAP 5mg/325mg TABLET PO PRN (23:11)
[2017-11-21] MEDS: DiphenhydrAMINE 25 MG CAPSULE PO PRN (23:11)
[2017-11-22] MEDS: METHYLPREDNISOLONE SOD SUCC 125mg/2ml INJECTION IVP SCH ×2 (03:22→10:16)
[2017-11-22] MEDS: SALINE FLUSH 10ml SYRINGE IVF PRN (03:23)
[2017-11-22] MEDS: SUCRALFATE 1gm/10ml ORAL LIQUID PO SCH ×4 (06:18→20:52)
[2017-11-22] MEDS: ALBUTEROL/IPRATROPIUM 2.5mg-0.5mg/3ml NEB AEROSOL SCH ×3 (08:08→21:20)
[2017-11-22] MEDS: FAMOTIDINE 20 MG TABLET PO SCH ×2 (10:15→20:52)
[2017-11-22] MEDS: LISINOPRIL 10 MG TABLET PO SCH (10:15)
[2017-11-22] MEDS: FUROSEMIDE 20 MG TABLET PO SCH ×2 (10:15→13:25)
[2017-11-22] MEDS: AMLODIPINE 5 MG TABLET PO SCH (10:15)
[2017-11-22] MEDS: ALLOPURINOL 300 MG TABLET PO SCH (10:15)
[2017-11-22] MEDS: NICOTINE 14 MG PATCH TD SCH (10:16)
[2017-11-22] MEDS: NYSTATIN 500,000 units/5 ml ORAL LIQUID PO SCH ×4 (10:17→20:52)
[2017-11-22] MEDS: POLYETHYL GLYCOL 3350 17gm PACKET PO SCH (10:17)
[2017-11-22] MEDS: NICOTINE PATCH REMOVAL TD SCH (10:17)
[2017-11-22] MEDS: SENNA + DOCUSATE TABLET PO SCH ×2 (10:17→20:53)
--- NOTE | 2017-11-22 13:21 | Progress Note ---
- Date 11/22/17 Subjective: 71 y/o female who has no described past medical problems. She has not been seen by a doctor for at least 6 years. She is not on any long-term medications. She is a heavy smoker. The patient presented with sinus congestion, right ear fullness and dull headache for a couple of weeks. Also, she has been dizzy with lightheadedness. She has chronic shortness of breath and cough. No hemoptysis. She was seen in urgent care about 1 week prior to presentation and was started on Amoxicillin. The patient continued to feel bad with dizziness, light headedness and mild shortness of breath. She presented to the ED 11/12/17 and had a CXR that was thought to be unremarkable. She was treated with NSAIDs and felt better. She was discharged to continue her Amoxicillin. The patient's CXR was over-read by radiologist and he contacted ED concerned that there was something going on in this patient's hilar regions bilaterally. The radiologist thought the patient should have a CT of her chest to better assess. CT scan of the chest on 11/11/2017 with IV contrast showed a 6 x 3 cm right hilar mass and bulky paratracheal adenopathy 3.6 cm in size. Also, there is a precarinal lymph node 3.9 cm in size and a subcarinal lymph node 3.1 cm in size. There are lung nodules in the minor fissure 2.1 cm in size and a nodule in the right upper lobe 1.5 cm in size. There is a small right pleural effusion. The right-sided masses cause mass effect upon the right middle lobe pulmonary artery and vein with possible occlusion. There is also significant mass effect upon the superior vena cava which is nearly occluded over a short segment. Upper abdomen unremarkable. CT scan of the sinus negative. Lab unremarkable with CBC with white count of 3.7 and neutrophils 63%. Hemoglobin 12.6 and platelet count 258,000. Chemistry with a creatinine of 0.8 and normal liver enzymes. Dr. Riggs was consulted. She underwent bronchoscopy on 11/12/17 that showed no tracheal lesions were noted. The left main, IRIS, LLL were normal. Main awa was mildly widened without mucosal abnormality. The R main, RUL, BI , RML, RLL bronchi showed a polypoid obstructing lesion in the RUL bronchus consistent with bronchogenic CA. Endobronchial biopsies were performed from the mass in the RUL. Bleeding prevented further biopsies and endobronchial EPI, 2 ML was instilled into the airway and flushed with saline. The bleeding was controlled. RUL brush and BAL were sent for cytology. A repeat bronchoscopy was done on 11/15/17 with additional biopsies obtained. This ultimately revealed Small cell carcinoma. Dr. Lowe was consulted. Bone scan and CT of abdomen were negative for evidence of mets. She underwent 3 days of chemotherapy completed on 11/21/17. She does have stomatitis and is getting nystatin for this. She has had some atypical CP in the Xiphoid region and was started on Carafate. Today she continues to complain of pain in her mouth and throat. She states this is making it difficult for her to eat. She is getting nystatin. She is getting up to the bathroom but states she is brother wobbly. She does not feel at this point that she could go back home and take care of herself. I suspect she's going to need more aggressive physical therapy. Bilateral upper arms are still wrapped in the right upper extremity is still weeping quiet bit. She no longer has any tenderness in the mastoid regions. She reports breathing okay. She is not currently on oxygen. Her son is in the room with her apparently lives with her as well. He does provide quite a bit care for her at home prior to this event. She denies any chest discomfort. She denies palpitations. She denies lightheadedness gestating that she's wobbly. She does not feel like she' s going to pass out. She denies abdominal pain. She denies nausea or vomiting. She did have a small bowel movement today. Objective Vital signs: Temperature 96.7 F L 11/22/17 11:43 Pulse Rate 81 11/22/17 11:43 Respiratory Rate 16 11/22/17 13:02 Blood Pressure 128/65 11/22/17 11:43 Pulse Oximetry 95 11/22/17 13:02 Rhythm: Normal Sinus Rhythm Height/Weight/BMI: Weight 61.9 kg Comments: Gen: alert and oriented. NAD Skin: warm and dry HEENT: NC/AT PERRL, EOMI, Sclera, lids and conjunctiva wnl. MMM. Erythema of OP. Mild facial swelling. Neck: No JVD, Carotids 2+ without bruits, Less swelling in the neck, + adenopathy present Lungs: Diminished but clear. No rales, rhonchi or wheezes CV: regular. No murmur, rub or gallop Abd: soft. +BS. NT/ND MS: SCDs. Good strength and ROM. Bilateral UEs with dressings in place due to weeping. Mild edema upper and lower ext. Neuro: No focal deficits Results - Labs CBC & Chem 7: 11/22/17 05:07 11/22/17 05:07 Assessment and Plan (1) Lung mass Problem details: Right hilar mass obstructing SVC and right bronchus Current visit: Yes Status: Acute (2) SVC syndrome Current visit: Yes Status: Acute (3) Small cell lung cancer Current visit: Yes Status: Acute Assessment and Plan: Impression: 1. SVC syndrome - 2/2 Hilar mass -On Steroids IV, will decrease dose. -Plan to change to po soon. 2. Small Cell Carcinoma -Dr. Lowe following. She has had 3 d of chemo (Carbo/etoposide) -Planned port a cath as out pt prior to next chemotherapy -She will follow up with Dr. Blackwood as outpt 3. Lymphocytopenia 4. Laryngeal edema -Thrush -On nystatin 5. Hypertension-Good control -Norvasc and lisinopril with prn hydralazine 6. Tobacco abuse -Encouraged cessation -Nicotine patch 7. Headache -Resolved this am. 8. Vertigo, chronic 9. CP-resolved. -Likely either muscular skeletal or esophageal -Carafate initiated. 10. Edema -Lasix 20mg BID 11. Cough -Tussionex 12. Weakness -PT -Needs to be walking more. 13. Prophylaxis -Pepcid -SCDs - Physician Narrative Narrative: Date: 11/22/17 Time: 1314 Hospital Course Summary Disclaimer: The visit summary below is not to be considered part of the above Progress Note. Hospital Course: 11/12/17 12:20 Pt admitted for sinustis sx's and hilar mass. Pt's sx's are likely SVC syndrome with mass compressing on SVC. Pt had bronch done to biopsy mass which showed mass extending into RUL bronchus and laryngeal edema. Will treat with steroids, lasix to help manage airway and svc syndrome. Discussed case with and he agreed with plan and noted he will discuss case with pathology before starting any therapy. Discussed case with and he also agreed with plan. 11/13/17 14:04 Pt stable, biopsy from bronch is inconclusive, discussed case with and . believes their are bronchial lesions that would be high yield to biopsy but he will do it in 2 days d/t pt's recent lovenox and pt bleeding from last biopsy. agreed with this plan. Pt also preferred less invasive procedure(vs. mediastinoscopy or CT guided biopsy) and staying in [place]. Will cont. tx of SVC syndrome with lasix and steroids and monitor. 11/14/17 14:19 Symptoms improving with decreased facial edema/erythema; less sinus pressure and decreasing edema in the arms. Continue Lasix/Solu-Medrol for SVC syndrome and laryngeal edema. Pathology all negative to date with one bronchial washing still out. Tentatively scheduled for repeat bronchoscopy in a.m. Blood pressure stable on amlodipine. 11/15/17 14:42 Repeat bronchoscopy today with additional biopsies obtained; laryngeal edema significantly improved following steroids. Begin tapering steroids; facial and arm edema also significantly improved and Lasix converted to oral administration. Lisinopril added for improved blood pressure control. 11/16/17 Pathology pending, stable to transfer out of ICU. Mild headache, increased vertigo-MRI head to be obtained with/without contrast. New pruritus-manage symptomatically Plan - 11/17/17: -MRI of the brain pending. Ativan PRN for anxiety prior to procedure. Obtain orthostatic blood pressures - if normal, will try scopolamine patch for vertigo. Pathology pending. Blood pressure improved. BPs in 170s systolic on admission, started amlodipine 5mg 11/11; lisinopril added 11/15. Pruritus resolved. PRN medications as needed. Pepcid initiated due to high-dose steroids , GERD and GI protection. Encourage bowel motivation with scheduled miralax and senna +. 11/18/17 MRI brain -neg. Pulm path still pending. Add Tussionex for cough. Add MOM/prune juice for constipation. 11/19/17 Started Chemotherapy today under the care of Dr Elamin Scopolamine patch has helped some with her vertigo as she was able to lay flat for CT abdomen Ct revels mild nodularity and thickening of left adrenal gland no metastatic process Monitor Blood pressure, currently on amlodipine and lisinopril Wraps to bilateral upper extremities to help with compression and edema Lasix twice a day for edema Continue to work on bowel motivation 11/20/17 -Plan: She did tolerate chemotherapy. However, notes significant fatigue today. Appreciate oncology's consultation Left upper extremity swelling has improved. Continue with wraps for compression. Continue Lasix twice a day for gentle diuretic. Monitor blood pressure, continue current regimen, Norvasc and Lisinopril and PRN Hydralazine Continue with Tussionex for coughing as this is helping with sleeping. [place] as needed for pain. Case discussed with attending Dr Logan 11/21/17- Obtain EKG given substernal chest discomfort. Overall swelling seems to be improved today. Continue with current BP regimen.
[2017-11-22] MEDS: METHYLPREDNISOLONE SOD SUCC 40mg/ml INJECTION IVP SCH (17:14)
[2017-11-23] MEDS: METHYLPREDNISOLONE SOD SUCC 40mg/ml INJECTION IVP SCH ×2 (01:04→09:24)
[2017-11-23] MEDS: GUAIFENESIN/CODEINE 5ml ORAL LIQUID PO PRN (03:17)
[2017-11-23] MEDS: SUCRALFATE 1gm/10ml ORAL LIQUID PO SCH ×4 (06:28→21:37)
[2017-11-23] MEDS: HYDROCODONE/APAP 5mg/325mg TABLET PO PRN ×2 (06:35→21:38)
[2017-11-23] MEDS: POLYETHYL GLYCOL 3350 17gm PACKET PO SCH (09:23)
[2017-11-23] MEDS: NYSTATIN 500,000 units/5 ml ORAL LIQUID PO SCH ×2 (09:23→14:58)
[2017-11-23] MEDS: BENZONATATE 200 MG CAPSULE PO PRN (09:23)
[2017-11-23] MEDS: SENNA + DOCUSATE TABLET PO SCH ×2 (09:23→21:38)
[2017-11-23] MEDS: LISINOPRIL 10 MG TABLET PO SCH (09:24)
[2017-11-23] MEDS: FAMOTIDINE 20 MG TABLET PO SCH ×2 (09:24→21:37)
[2017-11-23] MEDS: ALLOPURINOL 300 MG TABLET PO SCH (09:24)
[2017-11-23] MEDS: AMLODIPINE 5 MG TABLET PO SCH (09:24)
[2017-11-23] MEDS: NICOTINE 14 MG PATCH TD SCH (09:25)
[2017-11-23] MEDS: CALMOSEPTINE OINTMENT 3.5gm PACKET TP PRN (09:25)
[2017-11-23] MEDS: NICOTINE PATCH REMOVAL TD SCH (09:25)
[2017-11-23] MEDS: FUROSEMIDE 20 MG TABLET PO SCH ×2 (09:42→15:13)
[2017-11-23] MEDS: ALBUTEROL/IPRATROPIUM 2.5mg-0.5mg/3ml NEB AEROSOL SCH ×3 (09:59→22:35)
[2017-11-23] MEDS ORDERED: FLUCONAZOLE 150 MG TABLET PO ONE (11:03)
--- NOTE | 2017-11-23 11:05 | Progress Note ---
- Date 11/23/17 Subjective: 71 y/o female who has no described past medical problems. She has not been seen by a doctor for at least 6 years. She is not on any long-term medications. She is a heavy smoker. The patient presented with sinus congestion, right ear fullness and dull headache for a couple of weeks. Also, she has been dizzy with lightheadedness. She has chronic shortness of breath and cough. No hemoptysis. She was seen in urgent care about 1 week prior to presentation and was started on Amoxicillin. The patient continued to feel bad with dizziness, light headedness and mild shortness of breath. She presented to the ED 11/12/17 and had a CXR that was thought to be unremarkable. She was treated with NSAIDs and felt better. She was discharged to continue her Amoxicillin. The patient's CXR was over-read by radiologist and he contacted ED concerned that there was something going on in this patient's hilar regions bilaterally. The radiologist thought the patient should have a CT of her chest to better assess. CT scan of the chest on 11/11/2017 with IV contrast showed a 6 x 3 cm right hilar mass and bulky paratracheal adenopathy 3.6 cm in size. Also, there is a precarinal lymph node 3.9 cm in size and a subcarinal lymph node 3.1 cm in size. There are lung nodules in the minor fissure 2.1 cm in size and a nodule in the right upper lobe 1.5 cm in size. There is a small right pleural effusion. The right-sided masses cause mass effect upon the right middle lobe pulmonary artery and vein with possible occlusion. There is also significant mass effect upon the superior vena cava which is nearly occluded over a short segment. Upper abdomen unremarkable. CT scan of the sinus negative. Lab unremarkable with CBC with white count of 3.7 and neutrophils 63%. Hemoglobin 12.6 and platelet count 258,000. Chemistry with a creatinine of 0.8 and normal liver enzymes. Dr. Riggs was consulted. She underwent bronchoscopy on 11/12/17 that showed no tracheal lesions were noted. The left main, IRIS, LLL were normal. Main awa was mildly widened without mucosal abnormality. The R main, RUL, BI , RML, RLL bronchi showed a polypoid obstructing lesion in the RUL bronchus consistent with bronchogenic CA. Endobronchial biopsies were performed from the mass in the RUL. Bleeding prevented further biopsies and endobronchial EPI, 2 ML was instilled into the airway and flushed with saline. The bleeding was controlled. RUL brush and BAL were sent for cytology. A repeat bronchoscopy was done on 11/15/17 with additional biopsies obtained. This ultimately revealed Small cell carcinoma. Dr. Lowe was consulted. Bone scan and CT of abdomen were negative for evidence of mets. She underwent 3 days of chemotherapy completed on 11/21/17. She does have stomatitis and is getting nystatin for this. She has had some atypical CP in the Xiphoid region and was started on Carafate. Today, she states that she feels a little more swollen than she was yesterday. She also states she had a rough night. When she was eating supper last night she felt like a food wouldn't go down. She coughed and hacked and gagged. This caused her chest to hurt. It also caused her to be short of breath. She states that she is better this morning. She continues to complain of her mouth and throat being sore. She was getting nystatin but we are now out of it in the pharmacy. Will switch her over to Mycelex troches and give her shelby dose of Diflucan. She did walk quite a bit in the halls yesterday. She thinks she might even have overdone it. She still does not feel at this point that she could go back home and take care of herself. I suspect she's going to need more aggressive physical therapy. Bilateral upper arms are still wrapped and are still weeping. She reports breathing okay now. She is not currently on oxygen. She denies any chest discomfort. She denies palpitations. She denies lightheadedness. She does not feel like she's going to pass out. She denies nausea or vomiting. She did have a small bowel movement today. Objective Vital signs: Temperature 96.4 F L 11/23/17 09:06 Pulse Rate 78 11/23/17 09:06 Respiratory Rate 18 11/23/17 10:00 Blood Pressure 130/66 11/23/17 09:06 Pulse Oximetry 93 11/23/17 10:00 Rhythm: Normal Sinus Rhythm Height/Weight/BMI: Weight 61.5 kg Comments: Gen: alert and oriented. NAD Skin: warm and dry HEENT: NC/AT PERRL, EOMI, Sclera, lids and conjunctiva wnl. MMM. Erythema of OP. Mild facial swelling. Neck: No JVD, Carotids 2+ without bruits, Less swelling in the neck, + adenopathy present Lungs: Diminished but clear. No rales, rhonchi or wheezes CV: regular. No murmur, rub or gallop Abd: soft. +BS. NT/ND MS: SCDs. Good strength and ROM. Bilateral UEs with dressings in place due to weeping. Mild edema upper and lower ext. Neuro: No focal deficits Results - Labs CBC & Chem 7: 11/23/17 04:53 11/23/17 04:53 Assessment and Plan (1) Lung mass Problem details: Right hilar mass obstructing SVC and right bronchus Current visit: Yes Status: Acute (2) SVC syndrome Current visit: Yes Status: Acute (3) Small cell lung cancer Current visit: Yes Status: Acute Assessment and Plan: Impression/Plan: 1. SVC syndrome - 2/2 Hilar mass -On Steroids IV, will decrease dose. -Plan to change to po soon. 2. Small Cell Carcinoma -Dr. Zamudio following. She has had 3 d of chemo (Carbo/etoposide) -Planned port a cath as out pt prior to next chemotherapy -She will follow up with Dr. Blackwood as outpt 3. Lymphocytopenia 4. Laryngeal edema -Thrush -On Mycelex troches and gave a dose of Diflucan today 5. Hypertension-Good control -Norvasc and lisinopril with prn hydralazine 6. Tobacco abuse -Encouraged cessation -Nicotine patch 7. Headache -Resolved this am. 8. Vertigo, chronic 9. CP-resolved. -Likely either muscular skeletal or esophageal -Carafate initiated. 10. Edema -Lasix 20mg BID 11. Cough -Tussionex 12. Weakness -PT 13. Prophylaxis -Pepcid -SCDs DVT Prophylaxis: SCD's GI Prophylaxis: Pepcid Resuscitation Status: Full Code - Time spent with patient Time with patient PN: 15 minutes - Physician Narrative Physician: Patricia Tellez MD Narrative: Date: 11/23/17 Time: 1100 Hospital Course Summary Disclaimer: The visit summary below is not to be considered part of the above Progress Note. Hospital Course: 11/12/17 12:20 Pt admitted for sinustis sx's and hilar mass. Pt's sx's are likely SVC syndrome with mass compressing on SVC. Pt had bronch done to biopsy mass which showed mass extending into RUL bronchus and laryngeal edema. Will treat with steroids, lasix to help manage airway and svc syndrome. Discussed case with and he agreed with plan and noted he will discuss case with pathology before starting any therapy. Discussed case with and he also agreed with plan. 11/13/17 14:04 Pt stable, biopsy from bronch is inconclusive, discussed case with and . believes their are bronchial lesions that would be high yield to biopsy but he will do it in 2 days d/t pt's recent lovenox and pt bleeding from last biopsy. agreed with this plan. Pt also preferred less invasive procedure(vs. mediastinoscopy or CT guided biopsy) and staying in [place]. Will cont. tx of SVC syndrome with lasix and steroids and monitor. 11/14/17 14:19 Symptoms improving with decreased facial edema/erythema; less sinus pressure and decreasing edema in the arms. Continue Lasix/Solu-Medrol for SVC syndrome and laryngeal edema. Pathology all negative to date with one bronchial washing still out. Tentatively scheduled for repeat bronchoscopy in a.m. Blood pressure stable on amlodipine. 11/15/17 14:42 Repeat bronchoscopy today with additional biopsies obtained; laryngeal edema significantly improved following steroids. Begin tapering steroids; facial and arm edema also significantly improved and Lasix converted to oral administration. Lisinopril added for improved blood pressure control. 11/16/17 Pathology pending, stable to transfer out of ICU. Mild headache, increased vertigo-MRI head to be obtained with/without contrast. New pruritus-manage symptomatically Plan - 11/17/17: -MRI of the brain pending. Ativan PRN for anxiety prior to procedure. Obtain orthostatic blood pressures - if normal, will try scopolamine patch for vertigo. Pathology pending. Blood pressure improved. BPs in 170s systolic on admission, started amlodipine 5mg 11/11; lisinopril added 11/15. Pruritus resolved. PRN medications as needed. Pepcid initiated due to high-dose steroids , GERD and GI protection. Encourage bowel motivation with scheduled miralax and senna +. 11/18/17 MRI brain -neg. Pulm path still pending. Add Tussionex for cough. Add MOM/prune juice for constipation. 11/19/17 Started Chemotherapy today under the care of Dr Blackwood Scopolamine patch has helped some with her vertigo as she was able to lay flat for CT abdomen Ct revels mild nodularity and thickening of left adrenal gland no metastatic process Monitor Blood pressure, currently on amlodipine and lisinopril Wraps to bilateral upper extremities to help with compression and edema Lasix twice a day for edema Continue to work on bowel motivation 11/20/17 -Plan: She did tolerate chemotherapy. However, notes significant fatigue today. Appreciate oncology's consultation Left upper extremity swelling has improved. Continue with wraps for compression. Continue Lasix twice a day for gentle diuretic. Monitor blood pressure, continue current regimen, Norvasc and Lisinopril and PRN Hydralazine Continue with Tussionex for coughing as this is helping with sleeping. [place] as needed for pain. Case discussed with attending Dr Logan 11/21/17- Obtain EKG given substernal chest discomfort. Overall swelling seems to be improved today. Continue with current BP regimen.
[2017-11-23] MEDS: CLOTRIMAZOLE 10 MG TROCHE MM SCH ×4 (12:14→21:38)
[2017-11-23] MEDS: DiphenhydrAMINE 25 MG CAPSULE PO PRN (21:38)
[2017-11-23] MEDS: ONDANSETRON 4 MG/2 ML INJECTION IVP PRN (22:59)
[2017-11-24] MEDS: SALINE FLUSH 10ml SYRINGE IVF PRN ×3 (05:42→21:47)
[2017-11-24] MEDS: SUCRALFATE 1gm/10ml ORAL LIQUID PO SCH ×4 (05:42→21:46)
[2017-11-24] MEDS: ALBUTEROL/IPRATROPIUM 2.5mg-0.5mg/3ml NEB AEROSOL SCH ×3 (07:41→20:29)
[2017-11-24] MEDS: ALLOPURINOL 300 MG TABLET PO SCH (09:35)
[2017-11-24] MEDS: PredniSONE 20 MG TABLET PO SCH (09:35)
[2017-11-24] MEDS: AMLODIPINE 5 MG TABLET PO SCH (09:35)
[2017-11-24] MEDS: FUROSEMIDE 20 MG TABLET PO SCH ×2 (09:35→14:53)
[2017-11-24] MEDS: LISINOPRIL 10 MG TABLET PO SCH (09:36)
[2017-11-24] MEDS: CLOTRIMAZOLE 10 MG TROCHE MM SCH ×5 (09:36→21:46)
[2017-11-24] MEDS: FAMOTIDINE 20 MG TABLET PO SCH ×2 (09:36→21:46)
[2017-11-24] MEDS: SENNA + DOCUSATE TABLET PO SCH (09:37)
[2017-11-24] MEDS: NICOTINE 14 MG PATCH TD SCH (09:37)
[2017-11-24] MEDS: POLYETHYL GLYCOL 3350 17gm PACKET PO SCH (09:37)
[2017-11-24] MEDS: NICOTINE PATCH REMOVAL TD SCH (09:37)
[2017-11-24] MEDS: ACETAMINOPHEN 325 MG TABLET PO PRN ×2 (10:42→18:32)
--- NOTE | 2017-11-24 13:47 | Pulmonology Progress Note ---
Subjective Principal diagnosis: lung mass Interval history: Pt in bed, states she is doing ok. Less redness and swelling to face but still noticing fullness on R and weeping of BUE. Exam Vital signs: Temperature 97.3 F 11/24/17 11:00 Pulse Rate 81 11/24/17 11:00 Respiratory Rate 16 11/24/17 11:00 Blood Pressure 116/66 11/24/17 11:00 Pulse Oximetry 91 11/24/17 11:00 - Constitutional no acute distress, average body habitus - Routine HEENT Exam Head: Present: normocephalic, atraumatic Eye: Present: EOMI, PERRL - Routine Neck Exam Present: supple, full ROM - Routine Respiratory Exam Present: decreased breath sounds - Routine Cardiovascular Exam Present: RRR, S1, S2, no murmur - Routine Abdominal Exam Present: soft, normoactive bowel sounds - Routine Extremities Exam Present: edema, non tender, full ROM - Routine Back/Spine/Pelvis Exam Back/Spine: Present: full ROM - Routine Skin Exam Present: intact, dry - Routine Neurological Exam Present: alert, oriented X3, CN II-XII intact - Routine Psychiatric Exam Present: normal affect, normal thought process Assessment and Plan - Assessment and Plan Abnormal CT with R hilar mass obstructing SVC and R bronchus 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 s/p bronchoscopy 11/12 with repeat bronch on thats + for small cell lung cancer. On Prednisone 40mg, wean with lasix 20mg q12 to help with SVC syndrome. MRI negative, CT abd/pelvis showed Mild nodularity and thickening of the left adrenal gland and bone scan negative. On a /a TID, last CXR 11/18/17 showed RLL small effusion, noted with more decreased breath sounds on R, will recheck. S/p first cycle with nisqually plus etoposide will be for 3 days every 3 weeks for total of 4-6 cycles. Cont to wean steroids , will need to cont on Anoro 1 puff daily and f/u OP with Dr. Riggs, likely home today. - Time Spent With Patient Total time spent is greater than 50% in coordination of care (as documented) at patient's floor/unit and/or counseling patient: less than 15 minutes
--- NOTE | 2017-11-24 14:00 | Progress Note ---
Oncology Subjective Patient is having less swelling of the face and less swelling of the upper arms. She had vomiting last evening. But does not feel nauseated today. She relates last evening's nausea and vomiting related to stress. He is otherwise doing well and wanting to go home. Exam Vital signs: Temperature 97.3 F 11/24/17 11:00 Pulse Rate 81 11/24/17 11:00 Respiratory Rate 16 11/24/17 11:00 Blood Pressure 116/66 11/24/17 11:00 Pulse Oximetry 91 11/24/17 11:00 - Constitutional no acute distress, other (Less facial and upper arm swelling) - Routine HEENT Exam Head: Present: normocephalic. Absent: facial swelling Eye: Present: EOMI, PERRL Throat: normal inspection, other (No thrush) - Routine Neck Exam Present: supple. Absent: lymphadenopathy - Routine Respiratory Exam Present: CTA bilaterally, rales (right base). Absent: accessory muscle use - Routine Cardiovascular Exam Present: RRR, no murmur - Routine Abdominal Exam Present: soft, normoactive bowel sounds, non distended, non tender - Routine Extremities Exam Present: edema (Markedly decreased edema upper extremities. Kerlex on both lower arms. ). Absent: cyanosis, clubbing - Routine Neurological Exam Present: alert, oriented X3, CN II-XII intact Oncology Results - Labs CBC & Chem 7: 11/24/17 04:33 11/24/17 04:33 Labs: Short CBC 11/24/17 Range/Units 04:33 WBC 8.8 (4.5-11.0) T/MM3 Hgb 11.5 L (12-16) GM/DL Hct 35.5 L (36-46) % Plt Count 189 (130-400) T/MM3 BMP 11/24/17 04:33 Sodium 134 Potassium 4.7 Chloride 102 Carbon Dioxide 27 BUN 22.0 H Creatinine 0.7 Glucose 85 Calcium 8.1 L Urine 11/23/17 Range/Units 19:04 Urine Color Yellow (YELLOW) Urine Clarity Clear Urine pH 7.0 (5.0-8.0) Ur Specific [place] 1.010 L (1.015-1.025) Urine Protein Negative (NEGATIVE) Urine Glucose (UA) Negative (NEGATIVE) Laboratory Tests 11/24/17 11/24/17 04:33 04:33 WBC 8.8 Hgb 11.5 L Hct 35.5 L Plt Count 189 Neut % (Auto) 82.3 H Creatinine 0.7 Assessment and Plan Assessment and Plan: Patient to be discharged today. Will schedule elieser visit with Marielena Hand on 10/04 withCBC, CMP, LDH, Mg. Patient will need to have Port a cath scheduled with Dr. Larios on about 12/[address] Kar Queen for XRT as limited stage lung cancer and follow up with Dr. Blackwood on 12/10/17 for cycle 2 of therapy with CBC, CMP, LDH, Mg and CXR with that visit. - Time Spent With Patient Total time spent is greater than 50% in coordination of care (as documented) at patient's floor/unit and/or counseling patient: less than 15 minutes
--- NOTE | 2017-11-24 15:52 | XRay Report ---
Indication: effusion XR chest 2V: Comparison: 11/18/2017 Technique: PA and lateral chest Findings: Patient demonstrates slight worsening in the right side of the chest with slightly more fluid and infiltrative changes in the lungs. Patient still shows the increased soft tissue density along the right mediastinum at the level the aortic arch. Some hilar prominence is also similar to the prior study. Mild chronic changes are stable on the left side. No marked change in the heart size. Impression: 1. Since patient's previous study slightly more fluid and increased alveolar and interstitial density in the right mid and lower chest. 2. Continued sizable right paratracheal and hilar soft tissue masses. .
--- NOTE | 2017-11-24 19:55 | Progress Note ---
- Date 11/24/17 Subjective: Mrs. Perez was seen with intent of discharging home however it was learned she could not obtain medications until Friday as case management were helping her set up a home nebulizer. Multiple new medications are being started several of which should not be skipped for 36 hours. Consequently discharges been put on hold. The patient reports that she slept well last night after taking combination of Benadryl and [place] and that cough overall is improved but still comes paroxysmally. She's no longer having hemoptysis but reports increased frontal sinus congestion. She continues to have some weeping from the arm edema in the forearms. She denies dyspnea or lightheadedness at this time and reports that she is eating well. She's having several bowel movements daily. Objective Vital signs: Temperature 99.4 F 11/24/17 15:00 Pulse Rate 86 11/24/17 15:00 Respiratory Rate 20 11/24/17 15:00 Blood Pressure 114/62 11/24/17 15:00 Pulse Oximetry 94 -RA 11/24/17 15:00 NAD, alert, fluent speech Decreased facial edema but persistent edema in the forearms both which are gauze wrap due to serous drainage Respirations nonlabored, decreased breath sounds at the bases R>L Regular rhythm, S1-S2 Abdomen soft, nontender +1 edema forearms Tearful morning she cannot go home today until medications can be coordinated. Rhythm: Normal Sinus Rhythm Height/Weight/BMI: Weight 58.8 kg Results - Labs CBC & Chem 7: 11/24/17 04:33 11/24/17 04:33 - Imaging and Cardiology Chest x-ray Status: image reviewed by me (right greater than left pleural effusions-right slightly increased from prior study; soft tissue density at the right hilum. Atelectasis versus infiltrate right middle lobe or right lower lobe) Assessment and Plan (1) Small cell lung cancer Current visit: Yes Status: Acute (2) SVC syndrome Current visit: Yes Status: Acute (3) Lung mass Problem details: Right hilar mass obstructing SVC and right bronchus Current visit: Yes Status: Acute Assessment and Plan: Impression/Plan: 1. SVC syndrome - 2/2 Hilar mass -On prednisone, taper as an outpatient 2. Small Cell Carcinoma -Dr. Blackwood following. She has had 3 d of chemo (Carbo/etoposide) -Planned port a cath as out pt prior to next chemotherapy -To follow-up in the office on 11/27 and again 12/10 when next chemotherapy was scheduled 3. Lymphocytopenia 4. Laryngeal edema -Improved with IV steroids/edema 5. Hypertension -Good control -Norvasc and lisinopril with prn hydralazine 6. Tobacco abuse -Encouraged cessation -Nicotine patch 7. Headache -Intermittent, treat symptomatically; MRI head negative for metastases. 8. Vertigo, chronic 9. CP-resolved. -Likely either muscular skeletal or esophageal -Carafate initiated. 10. Edema -Lasix 20mg BID 11. Cough -Tussionex 12. Weakness -PT, improving 13. Thrush -On Mycelex troches and had a dose of Diflucan yesterday Discharge postponed until case management can make arrangements for nebulizer and assistance with medications as patient has multiple meds for discharge and currently cannot get any of them. Will discuss discharge medications with pulmonary and oncology tomorrow to see if anything can be eliminated. Dr. Riggs will provide samples of Anoro. Discussed with Dr. Riggs and Dr. Zamudio. DVT Prophylaxis: SCD's GI Prophylaxis: Pepcid Resuscitation Status: Full Code - Physician Narrative Narrative: Date: 11/24/17 Time: 1950 Hospital Course Summary Disclaimer: The visit summary below is not to be considered part of the above Progress Note. Hospital Course: 11/12/17 12:20 Pt admitted for sinustis sx's and hilar mass. Pt's sx's are likely SVC syndrome with mass compressing on SVC. Pt had bronch done to biopsy mass which showed mass extending into RUL bronchus and laryngeal edema. Will treat with steroids, lasix to help manage airway and svc syndrome. Discussed case with and he agreed with plan and noted he will discuss case with pathology before starting any therapy. Discussed case with and he also agreed with plan. 11/13/17 14:04 Pt stable, biopsy from bronch is inconclusive, discussed case with and . believes their are bronchial lesions that would be high yield to biopsy but he will do it in 2 days d/t pt's recent lovenox and pt bleeding from last biopsy. agreed with this plan. Pt also preferred less invasive procedure(vs. mediastinoscopy or CT guided biopsy) and staying in [place]. Will cont. tx of SVC syndrome with lasix and steroids and monitor. 11/14/17 14:19 Symptoms improving with decreased facial edema/erythema; less sinus pressure and decreasing edema in the arms. Continue Lasix/Solu-Medrol for SVC syndrome and laryngeal edema. Pathology all negative to date with one bronchial washing still out. Tentatively scheduled for repeat bronchoscopy in a.m. Blood pressure stable on amlodipine. 11/15/17 14:42 Repeat bronchoscopy today with additional biopsies obtained; laryngeal edema significantly improved following steroids. Begin tapering steroids; facial and arm edema also significantly improved and Lasix converted to oral administration. Lisinopril added for improved blood pressure control. 11/16/17 Pathology pending, stable to transfer out of ICU. Mild headache, increased vertigo-MRI head to be obtained with/without contrast. New pruritus-manage symptomatically Plan - 11/17/17: -MRI of the brain pending. Ativan PRN for anxiety prior to procedure. Obtain orthostatic blood pressures - if normal, will try scopolamine patch for vertigo. Pathology pending. Blood pressure improved. BPs in 170s systolic on admission, started amlodipine 5mg 11/11; lisinopril added 11/15. Pruritus resolved. PRN medications as needed. Pepcid initiated due to high-dose steroids , GERD and GI protection. Encourage bowel motivation with scheduled miralax and senna +. 11/18/17 MRI brain -neg. Pulm path still pending. Add Tussionex for cough. Add MOM/prune juice for constipation. 11/19/17 Started Chemotherapy today under the care of Dr Blackwood Scopolamine patch has helped some with her vertigo as she was able to lay flat for CT abdomen Ct revels mild nodularity and thickening of left adrenal gland no metastatic process Monitor Blood pressure, currently on amlodipine and lisinopril Wraps to bilateral upper extremities to help with compression and edema Lasix twice a day for edema Continue to work on bowel motivation 11/20/17 -Plan: She did tolerate chemotherapy. However, notes significant fatigue today. Appreciate oncology's consultation Left upper extremity swelling has improved. Continue with wraps for compression. Continue Lasix twice a day for gentle diuretic. Monitor blood pressure, continue current regimen, Norvasc and Lisinopril and PRN Hydralazine Continue with Tussionex for coughing as this is helping with sleeping. [place] as needed for pain. Case discussed with attending Dr Logan 11/21/17- Obtain EKG given substernal chest discomfort. Overall swelling seems to be improved today. Continue with current BP regimen. 11/23/17 Discharge anticipated today however patient reported inability to obtain any medications until at least 11/25. Discharge delayed to allow case management to assist in helping coordinate discharge medications and arrange nebulizer for home breathing treatments.
[2017-11-24] MEDS ORDERED: SENNA + DOCUSATE TABLET PO PRN (20:07)
[2017-11-25] MEDS: SUCRALFATE 1gm/10ml ORAL LIQUID PO SCH ×2 (07:38→11:27)
[2017-11-25] MEDS ORDERED: LISINOPRIL 20 MG TABLET PO SCH (09:00)
[2017-11-25] MEDS: PredniSONE 20 MG TABLET PO SCH (09:42)
[2017-11-25] MEDS: CLOTRIMAZOLE 10 MG TROCHE MM SCH ×3 (09:43→17:21)
[2017-11-25] MEDS: ALLOPURINOL 300 MG TABLET PO SCH (09:43)
[2017-11-25] MEDS: FAMOTIDINE 20 MG TABLET PO SCH (09:43)
[2017-11-25] MEDS: FUROSEMIDE 20 MG TABLET PO SCH ×2 (09:43→16:37)
[2017-11-25] MEDS: NICOTINE 14 MG PATCH TD SCH (09:44)
[2017-11-25] MEDS ORDERED: FLUCONAZOLE 100 MG TABLET PO SCH (09:45)
[2017-11-25] MEDS: POLYETHYL GLYCOL 3350 17gm PACKET PO SCH (09:48)
[2017-11-25] MEDS: NICOTINE PATCH REMOVAL TD SCH (09:48)
[2017-11-25] MEDS: BENZONATATE 200 MG CAPSULE PO PRN ×2 (10:00→16:40)
[2017-11-25] MEDS: ALBUTEROL/IPRATROPIUM 2.5mg-0.5mg/3ml NEB AEROSOL SCH ×2 (10:26→13:41)
--- NOTE | 2017-11-25 11:58 | Pulmonology Progress Note ---
<Ishan,Erica Sinai - Last Filed: 11/25/17 11:55> Subjective Principal diagnosis: lung mass Interval history: Pt up to EOB, states she is doing ok, has some minimal SOB at times with ambulation. Less redness and swelling to face, awaiting to get meds before she can be dismissed, still weeping of BUE. Exam Vital signs: Temperature 97.2 F 11/25/17 07:52 Pulse Rate 68 11/25/17 07:52 Respiratory Rate 16 11/25/17 10:26 Blood Pressure 152/69 H 11/25/17 07:52 Pulse Oximetry 95 11/25/17 10:26 - Constitutional no acute distress, average body habitus - Routine HEENT Exam Head: Present: normocephalic, atraumatic Eye: Present: EOMI, PERRL ENT: Present: mucous membranes moist - Routine Neck Exam Present: supple, full ROM - Routine Respiratory Exam Present: decreased breath sounds - Routine Cardiovascular Exam Present: RRR, S1, S2, no murmur - Routine Abdominal Exam Present: soft, normoactive bowel sounds - Routine Extremities Exam Present: edema, non tender, full ROM - Routine Back/Spine/Pelvis Exam Back/Spine: Present: full ROM - Routine Skin Exam Present: intact, dry - Routine Neurological Exam Present: alert, oriented X3, CN II-XII intact - Routine Psychiatric Exam Present: normal affect, normal thought process Assessment and Plan - Assessment and Plan Abnormal CT with R hilar mass obstructing SVC and R bronchus 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 s/p bronchoscopy 11/12 with repeat bronch on thats + for small cell lung cancer. On Prednisone 40mg, wean with lasix 20mg q12 to help with SVC syndrome. MRI negative, CT abd/pelvis showed Mild nodularity and thickening of the left adrenal gland and bone scan negative. On a /a TID, last CXR 11/24/17 showed RLL small effusion with slight increase, will need to follow OP, likely malignant and would need drained if increase in SOB noted. S/p first cycle with [place] plus etoposide will be for 3 days every 3 weeks for total of 4-6 cycles, awaiting beatriz cath next week. Cont to wean steroids, will need to cont on Anoro 1 puff daily and f/u OP with Dr. Riggs with CXr in 2-3 weeks, likely home today. Will sample Anoro - Time Spent With Patient Total time spent is greater than 50% in coordination of care (as documented) at patient's floor/unit and/or counseling patient: less than 15 minutes <Ephraim Riggs - Last Filed: 11/25/17 12:53> Exam Vital signs: Temperature 97.2 F 11/25/17 07:52 Pulse Rate 80 11/25/17 12:01 Respiratory Rate 16 11/25/17 10:26 Blood Pressure 129/83 11/25/17 12:01 Pulse Oximetry 95 11/25/17 10:26 Assessment and Plan (1) SVC syndrome Status: Acute Assessment and plan: much improved since admission. responded well to steroids, diuretics and is now on ChemoTx. Recommend FU CT with contrast as an outpatient to ensure that the process is resolving. Current Visit: Yes (2) COPD (chronic obstructive pulmonary disease) Status: Acute Assessment and plan: Anoro once daily. She will be followed as an outpatient in pulm clinic Current Visit: Yes (3) Small cell lung cancer Status: Acute Assessment and plan: on ChemoTx per Dr Blackwood. Current Visit: Yes - Time Spent With Patient Total time spent is greater than 50% in coordination of care (as documented) at patient's floor/unit and/or counseling patient:
[2017-11-25] MEDS: ACETAMINOPHEN 325 MG TABLET PO PRN (13:51)
[2017-11-25 15:09] VITALS: BP 120/59; PULSE 90; RESP 16; TEMP 98.5; O2SAT 94
[2017-11-25] MEDS: GUAIFENESIN/CODEINE 5ml ORAL LIQUID PO PRN (16:37)
[2017-11-25] MEDS: HYDROCODONE/APAP 5mg/325mg TABLET PO PRN (16:38)
[2017-11-25] MEDS ORDERED: FAMOTIDINE 20 MG TABLET PO SCH (21:00)
--- NOTE | 2017-11-25 22:53 | Discharge Summary ---
Discharge Summary- Blank Discharge Summary: Mrs. Perez was seen several times throughout the day while coordinating discharge medications to permit discharge home safely. She denied dyspnea and reported that her anxiety related to discharge being delayed yesterday has subsided. Forearm edema persists and is still draining at times per patient report. Her blood pressure was moderately elevated early in the morning but subsequently improved at 129/83 and 120/59 prior to discharge. She has no facial edema on exam and respirations are nonlabored with good airflow and clear breath sounds although breath sounds are diminished at the bases. Discharge medications were reviewed with Dr. Blackwood and several medications were modified from yesterday's list to simplify medications for the patient and minimize expense. These were further reviewed with case management and the patient. She was given a dose of Diflucan to treat thrush prior to discharge so ongoing treatment will not be needed. She is asked to follow-up in the oncology office in 2 days for reassessment. A follow-up appoint with Dr. Larios has been scheduled to coordinate placement of Port-A-Cath and follow-up appointments with Dr. Blackwood and Dr. Riggs have been scheduled. Stable for discharge. Full discharge summary to follow. 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
--- NOTE | 2017-11-26 19:00 | Discharge Summary ---
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 Bronchoscopy 11/15/17 with endobronchial bx, brushings, and BAL obtained without difficulty; bx positive for small cell carcinoma. - Laboratory Labs: On admission WBC 3.7, Hbg 12.6, INR 1.09, and chemistries unremarkable with nl Cr and LFTs. 11/24/17 04:33 11/24/17 04:33 - Microbiology Resp Viral Panel negative - Radiology Radiology: CXR 11/11/17 Right hilar masses, small bilateral pleural effusions, R>L f/u CXR on 11/18/17 was unchanged and film on 11/24/17 demonstrated stable right hilar/paratracheal masses and slightly more fluid and increased alveolar and interstitial density in the right mid and lower chest. Chest CT with contrast 11/11/17 Chest: Emphysema. Irregular 1 cm right upper lobe nodule on image #30. There is a right hilar mass measuring 6 x 3 cm on axial image #33. Lobulated nodule along the minor fissure on image #40 measuring 2.1 cm in diameter. Smaller right upper lobe nodule on image #36 measuring 1.5 cm in diameter. There is also right paratracheal adenopathy with a bulky vanita mass on image #26 measuring 3.6 cm in short axis dimension. There is a precarinal node on image #32 measuring 3.9 cm in short axis and a subcarinal node on image #39 measuring 3.1 cm in short axis. There is a small right effusion. No axillary adenopathy. No pneumothorax. Heart size is normal. The right-sided masses cause mass effect upon the right middle lobe pulmonary artery and vein with possible occlusion. There is also significant mass effect upon the superior vena cava which is nearly occluded over a short segment. Subcutaneous edema. Bone windows show no obvious lytic or blastic bony lesions. Degenerative change in the spine with scoliosis in the lumbar spine. Upper abdomen: The liver shows no focal enhancing masses on this late arterial phase of contrast. The spleen, pancreas are within normal limits. Nodularity and slight enlargement of both adrenal glands. Right renal cyst. Kidneys are otherwise unremarkable. No abdominal adenopathy. Scattered arterial atherosclerotic plaque. No evidence of a bowel obstruction. Impression: Right hilar mass with associated mediastinal adenopathy and pulmonary nodularity could be due to primary lung malignancy, metastatic disease or lymphoma. Sarcoidosis and tuberculosis are possible but less likely. Bronchoscopic biopsy would probably be the easiest route to obtain a tissue diagnosis. Sinus CT with contrast 11/11/17 Small mucous retention cyst in the right maxillary sinus. Paranasal sinuses are otherwise clear. No acute air-fluid levels. Small right mastoid effusion. Small bilateral bullosa. Soft tissues are grossly unremarkable. Globes are intact. Lenses are located. No acute fractures. Impression: Negative sinus CT. MRI head/brain w/wo contrast 11/17/17 The ventricles are of normal size, shape, and contour for the patient's age. There are small nonspecific punctate areas of T2-weighted and T2 FLAIR weighted signal abnormality in the deep frontoparietal white matter that most likely represent small vessel ischemic disease. This is of a degree that is considered to be normal for the patient's age. The brain stem, cerebellum, and cerebral hemispheres otherwise have a normal morphologic appearance as well as MR signal intensity on all pulse sequences. Following intravenous administration of contrast, no areas of abnormal enhancement are evident. There are no areas of restricted diffusion to suggest an acute infarct. There is no evidence of an intracranial mass lesion, intracranial hemorrhage, or hydrocephalus. Bilateral mastoid effusions, right greater than left. IMPRESSION: No acute intracranial abnormality. No evidence of intracranial metastatic disease. CT Abdomen/pelvis with contrast 11/19/17 Right pleural effusion with right basilar consolidation. Minimal left basilar atelectasis. The liver enhances normally. No liver masses or bile duct dilatation. The gallbladder is normal. The spleen, pancreas and right adrenal gland are within normal limits. Slightly nodular left adrenal gland. Right renal superior pole cyst. No enhancing renal masses. Tiny left renal low-attenuation focus, too small to definitively characterize. Retroaortic left renal vein noted incidentally. No abdominal or pelvic lymphadenopathy. The bladder is decompressed. Uterus is absent. No free fluid. Moderate to large amount of stool throughout the colon. No evidence of a bowel obstruction. Bone windows show bilateral L5 spondylolysis and grade 1 spondylolisthesis of L5 on S1. Severe degenerative endplate changes at L4-L5 and L2-L3. Scoliosis. Bilateral sacroiliitis, greater on the left. No concerning lytic or blastic bony lesions. Synovial herniation pit noted incidentally in the right femoral neck. Impression: Mild nodularity and thickening of the left adrenal gland could be due to adenomatous hyperplasia or metastatic disease, otherwise no evidence of metastatic disease seen in the abdomen or pelvis. Bone Scan 11/20/17 The scan demonstrates the expected normal biodistribution for the radiotracer. There is probable degenerative uptake seen in left knee, L4-L5 disk space on the left, both ankles and mid feet. There is no abnormal radiotracer uptake to suggest bony metastasis. IMPRESSION: No evidence of metastatic disease to the skeleton. - Pathology Surgical bx 11/12 ,cytology 11/12, and cytology 11/15-no definite malignancy Surgical bx 11/15-small cell ca History of Present Illness HPI: Overnight HPI This is a 71 y/o female who has no described past medical problems. The patient noticed about 1 week ago feeling bad with sinus congestion and right ear fullness. She went to an urgent care center this past Friday and was started on Amoxicillin. The patient continued to feel bad with dizziness, light headedness and mild shortness of breath. She presented to the ED yesterday and had a CXR that was thought to be unremarkable. She was treated with NsAID, felt better and was discharged to continue her Amoxicillin. The patient's CXR was over-read by radiologist and he contacted ED concerned that there was something going on in this patient's hilar regions bilaterally. The radiologist thought the patient should have a CT of her chest to better assess. The patient was contacted and she felt worse over the past 24 hours. The patient described a dry cough that was worse just after waking up. The patient continued with dizziness with any movement of her head. She had sinus congestion. The ED provider brought the patient back. Her labs were essentially reassuring. The patient was noted to be hypertensive. (no previous dx of this). A CT of the chest with IV contrast demonstrated remarkable hilar masses and pulm nodules. At this time the working diagnosis is metastatic lung tumor. The patient is brought into the hospital for dehydration, hypertension and further assessment of her presumed lung carcinoma. Of note the patient does not report weight loss recently. Generally not felt well with acute worsening over the past week Follow up HPI Pt reports she feels "head fullness" and light headedness that has come on in the last few days to a week. Denies any fevers but does report some chills on and off. Denies any weight loss, reports some nausea but no vomiting. Reports sob that has also gotten worse in the last few days to a week. Denies any cp. Denies cough or any other URI type sx's. Denies sinus tenderness or ear ache/ discharge. Pt reports she smokes but otherwise is healthy and takes no chronic meds. She was seen recently in ER for these sx's and was thought to have sinus infection and was given amoxicillin which hasn't helped much. Hospital Course This is a general summary of the patient's hospital course. For more details refer to the complete medical record. Hospital course: 11/12/17 12:20 Pt admitted for sinustis sx's and hilar mass. Pt's sx's are likely SVC syndrome with mass compressing on SVC. Pt had bronch done to biopsy mass which showed mass extending into RUL bronchus and laryngeal edema. Will treat with steroids, lasix to help manage airway and svc syndrome. Discussed case with and he agreed with plan and noted he will discuss case with pathology before starting any therapy. Discussed case with and he also agreed with plan. 11/13/17 14:04 Pt stable, biopsy from bronch is inconclusive, discussed case with and . believes their are bronchial lesions that would be high yield to biopsy but he will do it in 2 days d/t pt's recent lovenox and pt bleeding from last biopsy. agreed with this plan. Pt also preferred less invasive procedure(vs. mediastinoscopy or CT guided biopsy) and staying in [place]. Will cont. tx of SVC syndrome with lasix and steroids and monitor. 11/14/17 14:19 Symptoms improving with decreased facial edema/erythema; less sinus pressure and decreasing edema in the arms. Continue Lasix/Solu-Medrol for SVC syndrome and laryngeal edema. Pathology all negative to date with one bronchial washing still out. Tentatively scheduled for repeat bronchoscopy in a.m. Blood pressure stable on amlodipine. 11/15/17 14:42 Repeat bronchoscopy today with additional biopsies obtained; laryngeal edema significantly improved following steroids. Begin tapering steroids; facial and arm edema also significantly improved and Lasix converted to oral administration. Lisinopril added for improved blood pressure control. 11/16/17 Pathology pending, stable to transfer out of ICU. Mild headache, increased vertigo-MRI head to be obtained with/without contrast. New pruritus-manage symptomatically Plan - 11/17/17: -MRI of the brain pending. Ativan PRN for anxiety prior to procedure. Obtain orthostatic blood pressures - if normal, will try scopolamine patch for vertigo. Pathology pending. Blood pressure improved. BPs in 170s systolic on admission, started amlodipine 5mg 11/11; lisinopril added 11/15. Pruritus resolved. PRN medications as needed. Pepcid initiated due to high-dose steroids , GERD and GI protection. Encourage bowel motivation with scheduled miralax and senna +. 11/18/17 MRI brain -neg. Pulm path still pending. Add Tussionex for cough. Add MOM/prune juice for constipation. 11/19/17 Started Chemotherapy today under the care of Dr Blackwood Scopolamine patch has helped some with her vertigo as she was able to lay flat for CT abdomen Ct revels mild nodularity and thickening of left adrenal gland no metastatic process Monitor Blood pressure, currently on amlodipine and lisinopril Wraps to bilateral upper extremities to help with compression and edema Lasix twice a day for edema Continue to work on bowel motivation 11/20/17 -Plan: She did tolerate chemotherapy. However, notes significant fatigue today. Appreciate oncology's consultation Left upper extremity swelling has improved. Continue with wraps for compression. Continue Lasix twice a day for gentle diuretic. Monitor blood pressure, continue current regimen, Norvasc and Lisinopril and PRN Hydralazine Continue with Tussionex for coughing as this is helping with sleeping. [place] as needed for pain. Case discussed with attending Dr Logan 11/21/17 Day 3 Carbo/etoposide therapy. Tolerating well. Substernal chest discomfort without ECG changes, discomfort in the subxiphoid region on exam. Swizzle and carafate initated in addition to nystatin suspension for thrush. Facial swelling improved today. Persistent arm edema with serous fluid weeping from forearms. 11/22/17-11/23/17 No significant change in status 11/24/17 Discharge anticipated today however patient reported inability to obtain any medications until at least 11/25. Discharge delayed to allow case management to assist in helping coordinate discharge medications and arrange nebulizer for home breathing treatments. 11/25/17 Case management has coordinate medication assistance and arranged for a nebulizer for the patient through [facility]. Samples of maintenance resp inhaler made available by [facility]. Stable for discharge with medications in place. Mrs. Perez denied dyspnea and reported that her anxiety related to discharge being delayed yesterday has subsided. Forearm edema persists and is still draining at times per patient report. Her blood pressure was moderately elevated early in the morning but subsequently improved at 129/83 and 120/59 prior to discharge. She has no facial edema on exam and respirations are nonlabored with good airflow and clear breath sounds although breath sounds are diminished at the bases. Discharge medications were reviewed with Dr. Blackwood and several medications were modified from yesterday's list to simplify medications for the patient and minimize expense. These were further reviewed with case management and the patient. She was given a dose of Diflucan to treat thrush prior to discharge so ongoing treatment will not be needed. She is asked to follow-up in the oncology office in 2 days for reassessment. A follow-up appoint with Dr. Larios has been scheduled to coordinate placement of Port-A-Cath prior to next course of chemotherapy and follow-up appointments with Dr. Blackwood and Dr. Riggs have been scheduled. Time spent with patient: discharge greater than 30 minutes Discharge Plan - Med Rec/Dispo Referrals/Follow Up: Romain Blackwood MD [Physician] - 2 Days (Appointment with Marielena Hand this in Dr. Blackwood's office to be rechecked; see Dr. Blackwood on 12/10 prior to next chemotherapy. Discussed scheduling follow-up appointment with Dr. Larios when you see Marielena on .) Ephraim Riggs MD [Physician] - 2 Weeks (Follow-up appointment in about 2 weeks at which time repeat chest x-ray will be needed.) Reynaldo Larios MD [Physician] - 1 Week Michael Instructions: Dehydration (GEN), Superior Vena Cava Syndrome (DC) Prescriptions: New Benzonatate [Tessalon Perles] 200 mg PO TID PRN #20 cap PRN Reason: Cough Guaifenesin/Codeine Phosphate [Guaifenesin-Codeine Syrup] 5 ml PO Q4H PRN #4 oz PRN Reason: Cough /Congestion Hydrocodone/APAP 5/325 [[place] 5/325] 1 tab PO Q6H PRN #15 tab PRN Reason: Pain Nicotine Patch [Nicoderm] 14 mg TD DAILY #14 patch PEG 3350 17gm PACKET [Miralax] 17 gm PO DAILY packet PredniSONE [Deltasone] 40 mg PO WB #20 tab DiphenhydrAMINE [Benadryl] 25 mg PO Q4H PRN cap PRN Reason: Itching Furosemide [Lasix] 20 mg PO DAILY #30 tab Sucralfate [Carafate] 1 gm PO [id number] #120 tab Albuterol Neb (0.083%) [Proventil Neb (0.083%)] 2.5 mg AEROSOL Q4HR PRN #60 each PRN Reason: Shortness Of Air/Wheezing Ipratropium [place] 1 dose AEROSOL Q4HR PRN #60 tube PRN Reason: Shortness Of Air/Wheezing Acetaminophen [Tylenol] 325 - 650 mg PO QID PRN tab PRN Reason: Discomfort Meclizine [Antivert] 25 mg PO Q6H PRN #30 tab PRN Reason: Vertigo Umeclidinium Brm/Vilanterol Tr [Anoro Ellipta 62.5-25 Mcg INH] 1 each IH DAILY #1 blst.w.dev Lisinopril [Prinivil] 20 mg PO DAILY #30 tab Changed Ibuprofen [Advil] 3 tab PO QID PRN #0 PRN Reason: Pain - Disposition 01 Discharged Home, Self-Care
== END 2017-11-25 17:50 | disposition home or self-care (01) | DRG 167 ==
LOC: ED 22:49 → MED 22:49 → SUATTDRO 11-11 02:07 → MED 11-11 03:00 → CCU 11-12 10:59 → SUATTDRO 11-12 11:50 → MED 11-16 15:56
PROVIDERS: ADMIT Emergency Medicine; ATTEND Internal Medicine

== ENCOUNTER 2017-12-16 17:10 | Inpatient (IN) ==
--- NOTE | 2017-12-16 18:24 | History & Physical Report ---
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 She had a port-a-cath placed and had her 2nd round of chemo on 12/12/17, and developed thrush soon after. Her thrush was so severe that she really hasn't been able to eat/drink anything secondary to severe discomfort, and she actually lost 10 lbs in the last 6 days. She has had a cough since Sara but it's been worse since her last round of chemo. Her cough has been more productive. She's been having fever up to 100.5 and chills. She has only smoked 1 cigarette since her last discharge, and that was b/c she ran out of the patch. She's intent on staying tobacco-free. She denies any sinus congestion/drainage lately. She c/o headache, backache, and her sides hurt from coughing so much. She reports chest pain yesterday while sitting in the clinic yesterday -- it hit her midsternal and then went all the way across. She felt more short of breath at that time but denies nausea or diaphoresis. She denies leg swelling. She has a history of vertigo, and has been dizzy but not spinning. She denies nausea/vomiting but had "a lot" of diarrhea last night , for which she took an Imodium. She denies hematochezia. No difficulties or pain with urination. She was seen in Dr. Blackwood's office on 12/16/16 and was noted to be orthostatic, even after a liter of IVF. Labs done in the office were unremarkable. However, she was diagnosed with RSV when seen in the ED on for dizziness and weakness. With her persistent orthostasis, Dr. Blackwood contacted the hospitalist service and Ysabel was admitted to observation status. Review of Systems All systems PM: 10-point ROS was reviewed, no additional remarkable complaints except - Constitutional Constitutional: Present: as per HPI, chills, fever(s), headache(s), weight loss - EENMT Eyes: Present: requires corrective lenses Nose: Present: as per HPI Mouth/Throat: Present: as per HPI - Cardiovascular Cardiovascular: Present: as per HPI Vascular: Absent: pedal edema - Respiratory Respiratory: Present: as per HPI - Gastrointestinal Gastrointestinal: Present: as per HPI - Genitourinary Genitourinary: Present: as per HPI - Musculoskeletal Musculoskeletal: Present: as per HPI, back pain - Integumentary/Breasts Integumentary: Present: alopecia, change in hair. 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 Dilation and curettage nine times prior to 1971. The first dilation and curettage procedure was performed at [place], [place]. The patient then had one or two additional dilation and curettage operations at [place], [place]. The last dilation and curettage operation was performed at [facility] at [place], [place]. 2. Removal of all teeth in 1971 at [place], [place]. 3. Total abdominal hysterectomy, bilateral salpingo- oophorectomy and incidental appendectomy in 1976 at [facility] at [place], [place]. 4. Removal of cyst at right breast in 1984 at [facility] at [place], [place]. 5. Sinus operation in 1993 at [facility] at [place], [place]. 6. Modified Macario bunionectomy with K-wire fixation at left foot and extensor capsulotomy of the left second toe metatarsophalangeal joint with an arthroplasty of the left second toe at the PIP joint on 01/07/[address] Ramos at the day surgery center at [facility] at [place], [place]. Postoperative diagnosis was hallux valgus at the left foot with left second hammertoe and left fifth hammertoe. 7. Total colonoscopy with polypectomy on 12/23/[address] Larios at [facility] at [place], [place]. Postoperative diagnoses were desire for screening for colon and rectal carcinoma, colon polyp and internal and external hemorrhoids. 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 8. Bronchoscopy with biopsies on 11/12/[address] Ephraim Riggs at [facility] at [place], [place]. The patient did have a right upper lobe pulmonary mass. Bronchial biopsies were inconclusive from this procedure. 9. Bronchoscopy with washings, brushings and endobronchial biopsies on 11/15/[address] Ephraim Riggs at [facility] at [place], [place]. The patient had a right upper lobe pulmonary mass. Pathology report on endobronchial biopsies from this operation did show a diagnosis of small-cell lung cancer. The patient was discharged from this hospitalization with diagnoses of superior vena cava syndrome due to right hilar mass, small-cell lung cancer, laryngeal edema, hypertension, chronic obstructive pulmonary disease, tobacco abuse, chronic vertigo and thrush. 10. PowerPort placed on 12/09/[address] Larios. Family History: Family History Father Cancer Brother Cancer Sister Cancer Paternal Grandmother Diabetes Family History Updates: Reviewed. - Social History Smoking status: Former smoker (quit about 4 weeks ago.) Packs-years: 50 Substance use type: does not use Alcohol intake frequency: does not drink Current occupational status: retired Social history: She has 11 dogs and 5 cats at home. Medications Home Medications Medication Instructions Recorded Confirmed Type Acetaminophen [Tylenol] 325 - 650 mg PO Q6HR PRN 12/16/17 12/16/17 History Benzonatate [Tessalon Perles] 100 mg PO TID PRN 12/16/17 12/16/17 History Meclizine HCl [Dramamine Less 25 mg PO BID PRN 12/16/17 12/16/17 History Drowsy] Nystatin Oral Liq. [Mycostatin] 5 ml PO QID 12/16/17 12/16/17 History PEG 3350 17gm PACKET [Miralax] 17 gm PO DAILY 12/16/17 12/16/17 History Sucralfate [Carafate] 1 g PO [id number] 12/16/17 12/16/17 History Umeclidinium Brm/Vilanterol Tr 1 puff IH DAILY 12/16/17 12/16/17 History [Anoro Ellipta 62.5-25 Mcg INH] Allergies Allergy/AdvReac Type Severity Reaction Status Date / Time amoxicillin [From Augmentin] AdvReac Mild Nausea and Verified 12/09/17 09:12 Vomiting clavulanic acid AdvReac Mild Nausea and Verified 12/09/17 09:12 [From Augmentin] Vomiting Exam Vital Signs: Temperature 99.0 F 12/16/17 17:25 Pulse Rate 108 H 12/16/17 17:25 Respiratory Rate 18 12/16/17 17:25 Blood Pressure 99/63 12/16/17 17:25 Pulse Oximetry 95 12/16/17 17:25 - Constitutional Present: no acute distress, well nourished, well developed - Routine HEENT Exam Head: Present: normocephalic Eye: Present: PERRL. Absent: conjunctival icterus, scleral injection ENT: Present: oropharynx clear (minimal thrush). Absent: dentition normal - Routine Neck Exam Present: supple. Absent: lymphadenopathy - Routine Respiratory Exam Present: decreased breath sounds - Routine Cardiovascular Exam Present: RRR, S1, S2 - Routine Abdominal Exam Present: soft, normoactive bowel sounds, non distended, non tender - Routine Extremities Exam Present: no edema, pulses intact - Routine Back/Spine/Pelvis Exam Back/Spine: Present: full ROM - Routine Skin Exam Present: intact, dry, warm - Routine Neurological Exam Present: alert, oriented X3, normal speech - Routine Psychiatric Exam Present: normal affect, normal thought process, cooperative Assessment and Plan (1) Dehydration Current visit: No Status: Acute Assessment and Plan: IMPRESSION Orthostasis RSV Chest pain, resolved Thrush, improving Diarrhea 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 IVF: NS at 125 ml/hr. Monitor orthostatics BID. Hold Lasix, Lisinopril Chest pain x15 min yesterday -- check EKG and troponin x1. Precautions for RSV. Send stool for GI panel. Code status: full code. Discussed with Dr. Logan. DVT Prophylaxis: SCD's Resuscitation Status: Full Code - Physician Narrative Physician: Salome Logan MD Narrative: Date: 12/16/17 Time: 1899 I have independently evaluated and examined this patient. I reviewed the chart, the patient's history, and the ASSISTANT PLANT CONTROL OPERATOR/PA's documented findings as above. We discussed and formulated the assessment and plan as above with additions as below: Mrs. Perez is well known from prior hospitalization. She describes increasing difficulty with oral intake following her second course of chemotherapy, low- grade fever, diarrhea, and dizziness which is distinctly different than her chronic vertigo. There is been associated weight loss as noted. She has increased cough with diagnosis of RSV 2 days ago. Blood pressure remained marginal despite fluid administration in the office and she is now hospitalized for further care. Her blood pressure on admission was relatively low for this patient. Labs obtained in Dr. Blackwood's office have been reviewed revealing improvement in her creatinine from 1.6 to 0.9 in the past 2 days with stable hemoglobin of 11.2 today and normal white count of 5.9. Electrolytes were unremarkable earlier today. Chest x-ray obtained 12/14 has been reviewed by myself and was unremarkable with marked improvement in the previously seen right hilar mass. Ysabel appears fatigued and is beginning to demonstrate hair loss after 2 courses of chemotherapy Thrush is present Respirations are nonlabored although inspiration triggers some cough, breath sounds are clear Abdomen benign No lower extremity edema present Continue IV fluids; blood pressure low normal supine and she is tachycardic. Do not believe she is able to maintain hydration adequately at this point to permit discharge home. Discussed with Dr. Capps who discussed with Dr. Blackwood. Hospital Course Summary Disclaimer: The visit summary below is not to be considered part of the above Progress Note. Hospital Course: 12/16/17 Admit, observation status, under the hospitalist service. IVF: NS at 125 ml/hr. Monitor orthostatics BID. Hold Lasix, Lisinopril Chest pain x15 min yesterday -- check EKG and troponin x1. Precautions for RSV. Send stool for GI panel.
[2017-12-16 18:29] VITALS: BMI 18.6
[2017-12-16] MEDS ORDERED: Ipratropium Inh NEB 0.02% (0.5mg/2.5ml) AEROSOL PRN (18:46)
[2017-12-16] MEDS ORDERED: MECLIZINE 25 MG TABLET PO PRN (18:46)
[2017-12-16] MEDS ORDERED: BENZONATATE 200 MG CAPSULE PO PRN (18:46)
[2017-12-16] MEDS ORDERED: ONDANSETRON 4 MG/2 ML INJECTION IVP PRN (18:52)
[2017-12-16] MEDS ORDERED: HYDROCODONE/APAP 5mg/325mg TABLET PO PRN (19:31)
[2017-12-16] MEDS: NS 1,000 ML IV SCH (19:52)
[2017-12-16] MEDS: ACETAMINOPHEN 325 MG TABLET PO PRN (20:40)
[2017-12-17] MEDS: BENZONATATE 200 MG CAPSULE PO PRN (01:33)
[2017-12-17] MEDS: GUAIFENESIN/CODEINE 5ml ORAL LIQUID PO PRN ×3 (03:29→16:22)
[2017-12-17] MEDS: NS 1,000 ML IV SCH ×3 (03:55→20:24)
[2017-12-17] MEDS: ACETAMINOPHEN 325 MG TABLET PO PRN (07:57)
[2017-12-17] MEDS: SUCRALFATE 1 GM TABLET PO SCH ×2 (09:13→18:37)
[2017-12-17] MEDS: FLUCONAZOLE 100 MG TABLET PO SCH (09:14)
[2017-12-17] MEDS ORDERED: BENZONATATE 100 MG CAPSULE PO PRN (09:15)
[2017-12-17] MEDS: NICOTINE 14 MG PATCH TD SCH (09:15)
--- NOTE | 2017-12-17 13:04 | Progress Note ---
- Date 12/17/17 Subjective: Patient is seen lying in bed. She does not feel well. Has no appetite. Reports throat and mouth are improving some. Feels very lightheaded when sitting up. No stool since diarrhea the day before yesterday. Had a fever of 101.2 this am. Continues to cough. No vomiting. Feels very weak. Objective Vital signs: Temperature 98.7 F 12/17/17 11:24 Pulse Rate 100 12/17/17 11:24 Respiratory Rate 18 12/17/17 09:38 Blood Pressure 91/57 12/17/17 11:24 Pulse Oximetry 91 12/17/17 09:38 Height/Weight/BMI: Height 1.68 m Weight 54.8 kg Body Mass Index 18.6 - Constitutional Present: mild distress, well nourished, well developed, disheveled - Routine HEENT Exam Head: Present: normocephalic, atraumatic - Routine Respiratory Exam Present: CTA bilaterally. Absent: wheezes - Routine Cardiovascular Exam Present: RRR, no murmur - Routine Abdominal Exam Present: soft, non distended, non tender - Routine Extremities Exam Present: no edema, normal capillary refill - Routine Skin Exam Present: dry, warm - Routine Neurological Exam Present: alert, moving all extremities, normal speech - Routine Lymphatic Exam Lymphatic: Absent: adenopathy - Routine Psychiatric Exam Present: normal affect, cooperative, depressed Results - Labs CBC & Chem 7: 12/17/17 04:53 12/17/17 04:53 Assessment and Plan (1) Dehydration Current visit: No Status: Acute Assessment and Plan: IMPRESSION Orthostasis RSV Hyponatremia - not POA Chest pain, resolved Thrush, improving Diarrhea- resolved 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 Likely dilutional - repeat in am. Sodium down from yesterday 134-->132. Follow- repeat in am. Continues on NS at 125 mls/hr. - Physician Narrative Physician: Salome Logan MD Narrative: Date: 12/17/17 Time: 1944 I have independently evaluated and examined this patient. I reviewed the chart, the patient's history, and the WALL COVERING INSTALLER/PA's documented findings as above. We discussed and formulated the assessment and plan as above with additions as below: Mrs. Perez reports persistent sore throat. She tried to eat a small amount of cereal this morning with minimal success. Drinking is painful and she has minimal oral intake of fluids. Mild orthostasis and she describes lightheadedness when she is up. Should fever overnight with diaphoresis but there is been no recurrence after fever broke. Weight is up 2.5 kg with hydration provided since admission. Fatigued-appearing female, faint white exudate over tongue, no adenopathy palpable in the neck Scratchy voice, nasal congestion present Respirations nonlabored, decreased airflow but breath sounds clear Abdomen benign Hemoglobin down with hydration, BUN slightly improved. White count dropping following recent chemotherapy. Remains at high risk for dehydration due to poor oral intake. Continue Diflucan , monitor WBC daily. Known RSV URI/bronchitis. Do not believe antibiotics needed at present but if white count drops further may need empiric antibiotics for neutropenia. Consult Dr. Blackwood. Hospital Course Summary Disclaimer: The visit summary below is not to be considered part of the above Progress Note. Hospital Course: 12/16/17 Admit, observation status, under the hospitalist service. IVF: NS at 125 ml/hr. Monitor orthostatics BID. Hold Lasix, Lisinopril Chest pain x15 min yesterday -- EKG shows sinus tach with occ PVC. Troponin neg Precautions for RSV. Send stool for GI panel. 12/17/17 No further stools. GI panel not yet performed. Hgb dropped since yesterday 11.2-->9.5. Likely dilutional - repeat in am. Sodium down from yesterday 134-->132. Follow- repeat in am. Continues on NS at 125 mls/hr. Isolated fever early this morning, known RSV URI/bronchitis-do not believe antibiotics needed at this point but if white count drops further will require empiric antibiotics for neutropenia.
[2017-12-18] MEDS: NS 1,000 ML IV SCH ×4 (03:48→19:37)
[2017-12-18] MEDS: NICOTINE 14 MG PATCH TD SCH (08:30)
[2017-12-18] MEDS: FLUCONAZOLE 100 MG TABLET PO SCH (08:31)
[2017-12-18] MEDS: ACETAMINOPHEN 325 MG TABLET PO PRN (08:31)
[2017-12-18] MEDS ORDERED: LORATADINE 10 MG TABLET PO ONE (10:00)
--- NOTE | 2017-12-18 10:03 | Consult Note ---
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 Action required.) Father Cancer Brother Cancer Sister Cancer Paternal Grandmother Diabetes Medications Home Medications Medication Instructions Recorded Confirmed Type Acetaminophen [Tylenol] 325 - 650 mg PO Q6HR PRN 12/16/17 12/16/17 History Benzonatate [Tessalon Perles] 100 mg PO TID PRN 12/16/17 12/16/17 History Meclizine HCl [Dramamine Less 25 mg PO BID PRN 12/16/17 12/16/17 History Drowsy] Nystatin Oral Liq. [Mycostatin] 5 ml PO QID 12/16/17 12/16/17 History PEG 3350 17gm PACKET [Miralax] 17 gm PO DAILY 12/16/17 12/16/17 History Sucralfate [Carafate] 1 g PO [id number] 12/16/17 12/16/17 History Umeclidinium Brm/Vilanterol Tr 1 puff IH DAILY 12/16/17 12/16/17 History [Anoro Ellipta 62.5-25 Mcg INH] Allergies Allergy/AdvReac Type Severity Reaction Status Date / Time amoxicillin [From Augmentin] AdvReac Mild Nausea and Verified 12/09/17 09:12 Vomiting clavulanic acid AdvReac Mild Nausea and Verified 12/09/17 09:12 [From Augmentin] Vomiting Exam Vital signs: Temperature 97.9 F 12/18/17 08:18 Pulse Rate 106 H 12/18/17 08:36 Respiratory Rate 20 12/18/17 08:18 Blood Pressure 102/63 12/18/17 08:36 Pulse Oximetry 94 12/18/17 08:36 Oncology Results - Labs CBC & Chem 7: 12/18/17 04:28 12/18/17 04:28 Labs: Short CBC 12/18/17 Range/Units 04:28 WBC 1.5 L* D (4.5-11.0) T/MM3 Hgb 8.7 L (12-16) GM/DL Hct 26.4 L (36-46) % Plt Count 131 (130-400) T/MM3 BMP 12/18/17 04:28 Sodium 134 Potassium 3.7 Chloride 104 Carbon Dioxide 22 BUN 10.0 Creatinine 0.6 L D Glucose 93 Calcium 7.7 L Liver Function 12/18/17 Range/Units 04:28 Albumin 3.1 L (3.5-5.0) G/DL Assessment and Plan Assessment and Plan: Pateint examined chart reviewed. I developed the plan of care with Marielena Hand. 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 Now with RSV, Thrush, and is now neutropenic. Will add granix, Discussed Levoquein with Dr. Logan. Continue to provide supportive care. <Noy Hand - Last Filed: 12/18/17 16:57> Oncology HPI - Data of Consult Patient: new to practice (alone in room/reclining in bed at time of intake) Consult date: 12/18/17 Requesting Physician: Salome Logan MD Primary Care Provider: Gabriele Kulkarni II, MD Family Provider: Gabriele Kulkarni II, MD - Consult Narrative Reason for consult: small cell lung cancer History of present illness: Alone in room/reclining in bed at time of intake. Biggest complaint is sore throat, states "maybe a little better today. " Denies fever, chills. Feels hot at times today. Continues with productive cough, states is thick, clear mucus. Denies chest pain or shortness of air currently. Continues with decreased appetite, intermittent nausea. States emesis one time yesterday; took Zofran and that helped. Chronic headaches, denies worsening. Relieved with Tylenol. Voiding normally. Last BM was loose stool at home 2 days ago. History of present illness 71-year-old female presented with facial swelling, cough, shortness of breath, also had dizziness and lightheadedness. CT scan of the chest 11/11/17 showed a 6.0 x 3.0 cm right hilar mass, bulky paratracheal adenopathy 3.6 cm in size, also precarinal lymph node 3.9 cm and subcarinal lymph node 3.1 cm in size. There are lung nodules in the minor fissure 2.1 cm size and nodule in the right upper lobe 1.5 cm in size. There is a small right pleural effusion. Right-sided masses cause mass effect upon the right middle lobe pulmonary artery and vein with possible occlusion. There is also significant mass effect upon the superior vena cava which was nearly occluded over a short segment. Patient underwent bronchoscopy by Dr. Riggs on 11/15/2017, noted to have an endobronchial lesion. Biopsy revealed small cell carcinoma. Metastatic workup bone scan and MRI of the brain, negative for metastasis. CT scan of the abdomen and pelvis showed nodularity in the left adrenal gland suspicious for early metastasis. While inpatient at [facility], received first cycle of chemotherapy with carboplatin/etoposide with good tolerance and response. Review of Systems - Constitutional Constitutional: Present: fatigue, weakness, weight loss - EENT Eyes: Absent: diplopia Mouth/Throat: Present: sore throat, painful swallowing - Cardiovascular Cardiovascular: Present: dyspnea on exertion. Absent: chest pain - Respiratory Respiratory: Present: cough, dyspnea on exertion - Gastrointestinal Gastrointestinal: Present: nausea. 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 Hypertension. Lymphocytopenia. Laryngeal edema. COPD. Tobacco abuse. Vertigo, chronic. Thrush Surgical History: 1. Dilation and curettage nine times prior to 1971. The first dilation and curettage procedure was performed at [place], [place]. The patient then had one or two additional dilation and curettage operations at [place], [place]. The last dilation and curettage operation was performed at [facility] at [place], [place]. 2. Removal of all teeth in 1971 at [place], [place]. 3. Total abdominal hysterectomy, bilateral salpingo- oophorectomy and incidental appendectomy in 1976 at [place], [place]. 4. Removal of cyst at right breast in 1984 at [place], [place]. 5. Sinus operation in [address] [facility] at [place], [place]. 6. Modified Macario bunionectomy with K-wire fixation at left foot and extensor capsulotomy of the left second toe metatarsophalangeal joint with an arthroplasty of the left second toe at the PIP joint on 01/07/[address] Ramos at the day surgery center at [facility] at [place], [place]. Postoperative diagnosis was hallux valgus at the left foot with left second hammertoe and left fifth hammertoe. 7. Total colonoscopy with polypectomy on 12/23/[address] Larios at [facility] at [place], [place]. Postoperative diagnoses were desire for screening for colon and rectal carcinoma, colon polyp and internal and external hemorrhoids. 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 8. Bronchoscopy with biopsies on 11/12/[address] Ephraim Riggs at [facility] at [place], [place]. The patient did have a right upper lobe pulmonary mass. Bronchial biopsies were inconclusive from this procedure. 9. Bronchoscopy with washings, brushings and endobronchial biopsies on 11/15/[address] Ephraim Riggs at [facility] at [place], [place]. The patient had a right upper lobe pulmonary mass. Pathology report on endobronchial biopsies from this operation did show a diagnosis of small-cell lung cancer. The patient was discharged from this hospitalization with diagnoses of superior vena cava syndrome due to right hilar mass, small-cell lung cancer, laryngeal edema, hypertension, chronic obstructive pulmonary disease, tobacco abuse, chronic vertigo and thrush. 10. PowerPort placed on 12/09/[address] Larios. Family History: Family History (This Medical Record has been edited. Action required.) Father Cancer Brother Cancer Sister Cancer Paternal Grandmother Diabetes - Social History Smoking status: Former smoker (quit about 4 weeks ago.) Exam Vital signs: Temperature 97.9 F 12/18/17 08:18 Pulse Rate 106 H 12/18/17 08:36 Respiratory Rate 20 12/18/17 08:18 Blood Pressure 102/63 12/18/17 08:36 Pulse Oximetry 94 12/18/17 08:36 - Constitutional no acute distress, well nourished, well developed - Routine HEENT Exam Head: Present: normocephalic Eye: Present: EOMI, conjunctivae pink ENT: Present: mucous membranes moist (slight 8 coating on tongue. No discrete lesions appreciated) Throat: tonsillar erythema (1+ erythema, no exudate) - Routine Neck Exam Present: supple. Absent: lymphadenopathy - Routine Respiratory Exam Present: decreased breath sounds. Absent: wheezes, crackles - Routine Cardiovascular Exam Present: RRR, no murmur - Routine Abdominal Exam Present: soft, normoactive bowel sounds, non distended, non tender - Routine Extremities Exam Present: full ROM. Absent: no edema - Routine Back/Spine/Pelvis Exam Back/Spine: Absent: vertebral tenderness - Routine Skin Exam Present: intact, dry - Routine Neurological Exam Present: alert, oriented X3 - Routine Psychiatric Exam Present: normal affect, normal thought process Oncology Results - Labs CBC & Chem 7: 12/18/17 04:28 12/18/17 04:28 Labs: Short CBC 12/18/17 Range/Units 04:28 WBC 1.5 L* D (4.5-11.0) T/MM3 Hgb 8.7 L (12-16) GM/DL Hct 26.4 L (36-46) % Plt Count 131 (130-400) T/MM3 BMP 12/18/17 04:28 Sodium 134 Potassium 3.7 Chloride 104 Carbon Dioxide 22 BUN 10.0 Creatinine 0.6 L D Glucose 93 Calcium 7.7 L Liver Function 12/18/17 Range/Units 04:28 Albumin 3.1 L (3.5-5.0) G/DL Assessment and Plan Assessment and Plan: Assessment 1. Locally advanced limited disease small cell lung cancer, on carboplatin/ etoposide, received cycle 1 as inpatient at [facility]. 2. Recent RSV infection. Now with neutropenia, likely chemotherapy-induced. 3. Yeast stomatitis. Subjectively reports "maybe just a little better." On Diflucan. Plan Reviewed neutropenic precautions with patient. Informed would be starting Granix today, plan to give for 4 days. Taught indications for Granix/potential side effects. Reviewed importance of getting adequate nutritional intake/ fluids. Continue supportive care. Spoke with Dr. Logan; will begin prophylactic Levaquin.
[2017-12-18] MEDS: LEVOFLOXACIN 750 MG TABLET PO SCH (11:02)
--- NOTE | 2017-12-18 13:35 | Progress Note ---
- Date 12/18/17 Subjective: Ysabel is seen today in follow up with family at her bedside. She reports that she is feeling "terrible" today. She is unable to describe exactly why she feels bad. She complains of having more pain at the beatriz cath site. This was replaced on 12/09/17. Noted to be neutropenic this morning with ANC- 1200. She has been afebrile overnight however is noted to be mild tachycardia 105-110. Objective Vital signs: Temperature 97.9 F 12/18/17 08:18 Pulse Rate 106 H 12/18/17 08:36 Respiratory Rate 20 12/18/17 08:18 Blood Pressure 102/63 12/18/17 08:36 Pulse Oximetry 94 12/18/17 08:36 Height/Weight/BMI: Height 1.68 m Weight 54 kg Body Mass Index 18.6 - Constitutional Present: no acute distress, well nourished, well developed - Routine HEENT Exam Eye: Present: EOMI ENT: Present: mucous membranes moist, dentition normal - Routine Respiratory Exam Present: diminished air movement. Absent: wheezes - Routine Cardiovascular Exam Present: RRR, S1, S2, tachycardia (105). Absent: murmur - Routine Abdominal Exam Present: soft, normoactive bowel sounds, non distended. Absent: tenderness - Routine Extremities Exam Present: pulses intact - Routine Skin Exam Present: intact, dry, warm - Routine Neurological Exam Present: alert, oriented X3, CN II-XII intact, moving all extremities - Routine Lymphatic Exam Lymphatic: Absent: adenopathy - Routine Psychiatric Exam Present: normal affect, cooperative Results - Labs CBC & Chem 7: 12/18/17 04:28 12/18/17 04:28 Assessment and Plan (1) Dehydration Current visit: No Status: Acute Assessment and Plan: Impression Orthostasis RSV Hyponatremia - not POA Chest pain, resolved Thrush, improving Diarrhea- resolved Small Cell Carcinoma 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 WBC count decreased to 1.5. Granix ordered daily for 4 days by Oncology team. Will continue to monitor CBC daily Today Ysabel complains of having discomfort at beatriz cath site. Incision appears to be healing well without erythema or drainage. Continues on Diflucan for PO thrush Hyponatremia improving Case discussed with attending Dr Logan - Physician Narrative Physician: Salome Logan MD Narrative: Date: 12/18/17 Time: 2209 I have independently evaluated and examined this patient. I reviewed the chart, the patient's history, and the IMPROVEMENT LEADER/PA's documented findings as above. We discussed and formulated the assessment and plan as above with additions as below: Mrs. Perez continues to have difficulty swallowing and is tolerating little oral intake, pills have to be cut or crushed to permit her to swallow them and no oral intake was reported yesterday although I know the patient sipped on small-volume liquids. She denies nausea and is not short of breath. No further diarrhea. NAD, alert, moderate erythema and faint white plaque over the tongue No cervical adenopathy, anterior breath sounds are slightly coarse but respirations are nonlabored Neutropenia present following recent chemotherapy; discussed with oncology- empiric Levaquin initiated in conjunction with Granix. Ysabel remains unable to maintain oral intake and is dependent on her IV fluids. Discussed alternate dietary options including pured diet to enhance oral intake and she was noncommittal. Nutritional supplements added although the patient generally doesn't like them and probably won't eat them. Hospital Course Summary Disclaimer: The visit summary below is not to be considered part of the above Progress Note. Hospital Course: 12/16/17- admission Admit, observation status, under the hospitalist service. IVF: NS at 125 ml/hr. Monitor orthostatics BID. Hold Lasix, Lisinopril Chest pain x15 min yesterday -- EKG shows sinus tach with occ PVC. Troponin neg Precautions for RSV. Send stool for GI panel. 12/17 No further stools. GI panel not yet performed. Hgb dropped since yesterday 11.2-->9.5. Likely dilutional - repeat in am. Sodium down from yesterday 134-->132. Follow- repeat in am. Continues on NS at 125 mls/hr. Isolated fever early this morning, known RSV URI/bronchitis-do not believe antibiotics needed at this point but if white count drops further will require empiric antibiotics for neutropenia. 12/18 ANC today is 1200 indicating moderate neutropenia. WBC count decreased to 1.5. Granix ordered daily for 4 days by Oncology team. Will continue to monitor CBC daily Today Ysabel complains of having discomfort at beatriz cath site. Incision appears to be healing well without erythema or drainage. Continues on Diflucan for PO thrush Hyponatremia improving Case discussed with attending Dr Logan
[2017-12-18] MEDS: GUAIFENESIN/CODEINE 5ml ORAL LIQUID PO PRN (19:37)
[2017-12-19] MEDS: BENZONATATE 200 MG CAPSULE PO PRN ×2 (01:57→19:52)
[2017-12-19] MEDS: NS 1,000 ML IV SCH ×2 (03:37→11:23)
[2017-12-19] MEDS ORDERED: DiphenhydrAMINE 25 MG CAPSULE PO ONE (03:46)
[2017-12-19] MEDS: LEVOFLOXACIN 750 MG TABLET PO SCH (06:26)
[2017-12-19] MEDS: FLUCONAZOLE 100 MG TABLET PO SCH (09:24)
[2017-12-19] MEDS: LORATADINE 10 MG TABLET PO SCH (09:24)
[2017-12-19] MEDS: NICOTINE 14 MG PATCH TD SCH (09:25)
[2017-12-19] MEDS: NICOTINE PATCH REMOVAL TD SCH (09:25)
[2017-12-19] MEDS: NS with KCL 20 mEq 1,000 ML IV SCH (13:01)
--- NOTE | 2017-12-19 16:42 | Progress Note ---
Oncology Subjective Alone in room at time of intake. Chief complaint is sore throat and difficulty swallowing that persist, feels may be slightly improved but not much. Chronic headaches intermittently, relieved with Tylenol. Denies worsening symptoms. Continues with intermittent cough, denies worsening. Denies shortness of air. Continues to feel weak. General: No fever, no night sweats Eyes: No redness, no pain, no diplopia ENT: Sore throat, difficulty swallowing Cardiac: No chest pain no palpitations Pulmonary: Positive nonproductive cough, no shortness of breath, no wheezing Abdomen: No pain, no nausea vomiting, no diarrhea or constipation : No urgency, frequency, dysuria, or hematuria Musculoskeletal: No arthritis, no myalgias Neurological: Chronic headaches, no focal weakness Skin: No rash, no sores Exam Vital signs: Temperature 98.1 F 12/19/17 07:00 Pulse Rate 100 12/19/17 14:09 Respiratory Rate 14 12/19/17 07:00 Blood Pressure 133/74 12/19/17 07:00 Pulse Oximetry 92 12/19/17 07:00 - Constitutional no acute distress, well nourished, well developed - Routine HEENT Exam Head: Present: normocephalic ENT: Present: mucous membranes dry Throat: tonsillar erythema (mild tonsillar edema, no exudate. Mild white coating on tongue) - Routine Neck Exam Present: supple. Absent: lymphadenopathy, swelling - Routine Respiratory Exam Present: decreased breath sounds. Absent: wheezes, crackles - Routine Cardiovascular Exam Present: RRR, no murmur - Routine Abdominal Exam Present: soft, normoactive bowel sounds. Absent: non tender - Routine Extremities Exam Present: non tender. Absent: no edema - Routine Back/Spine/Pelvis Exam Back/Spine: Absent: vertebral tenderness - Routine Skin Exam Present: intact, dry, pallor - Routine Neurological Exam Present: alert, oriented X3 - Routine Psychiatric Exam Present: normal affect, cooperative Oncology Results - Labs CBC & Chem 7: 12/19/17 04:24 12/19/17 04:24 Labs: Short CBC 12/19/17 Range/Units 04:24 WBC 1.5 L* (4.5-11.0) T/MM3 Hgb 8.6 L (12-16) GM/DL Hct 26.3 L (36-46) % Plt Count 91 L (130-400) T/MM3 BMP 12/19/17 04:24 Sodium 135 Potassium 3.5 L Chloride 105 Carbon Dioxide 22 BUN 8.0 Creatinine 0.5 L Glucose 88 Calcium 7.9 L Assessment and Plan Assessment and Plan: Assessment 1. Locally advanced limited stage small cell lung cancer, on carboplatin/ etoposide, received cycle 1 as inpatient at [facility]. On chest XRT. 2. Recent RSV infection. Now with neutropenia, likely chemotherapy-induced. WBC 12/18/17 1.5, ANC 1.1. WBC today, 12/19/17 is 1.5, ANC 0.9 3. Yeast stomatitis. Subjectively reports "maybe just a little better." On Diflucan. Plan Continue supportive care. Continue Granix and neutropenic precautions. Encouraged patient sit in chair, ambulate in room as tolerates. Consider physical therapy for strengthening. - Time Spent With Patient Total time spent is greater than 50% in coordination of care (as documented) at patient's floor/unit and/or counseling patient: less than 15 minutes
[2017-12-19] MEDS: ACETAMINOPHEN 325 MG TABLET PO PRN (17:31)
--- NOTE | 2017-12-19 21:25 | Progress Note ---
- Date 12/19/17 Subjective: Ysabel reports persistent nocturnal cough that interferes with sleep and sore throat. She describes feeling like she's got a "golf ball in her throat". Nursing reported a normal bowel movement today and she has had no diarrhea since admission-subsequently contact precautions have been discontinued. She reports having minor sweats overnight but has not had fever. Oral intake remains very poor. She is out of bed minimally but has not been lightheaded. She denied pain other than her throat. Objective Vital signs: Temperature 98.1 F 12/19/17 07:00 Pulse Rate 100 12/19/17 14:09 Respiratory Rate 14 12/19/17 07:00 Blood Pressure 133/74 12/19/17 07:00 Pulse Oximetry 92 -RA 12/19/17 07:00 Fatigued-appearing female, NAD Oropharynx with faint white exudates on the tongue, conjunctiva clear No supraclavicular adenopathy palpable Respirations nonlabored, decreased airflow throughout breath sounds clear Regular cardiac rhythm, S1-S2, low-grade tachycardia Abdomen soft, nontender, bowel sounds present Extremities without edema Height/Weight/BMI: Height 1.68 m Weight 54.2 kg Body Mass Index 18.6 Results - Labs CBC & Chem 7: 12/19/17 04:24 12/19/17 04:24 Labs: S58 B18 L15 M6 Baso2 Meta1 Assessment and Plan (1) Dehydration Current visit: No Status: Acute Assessment and Plan: Impression Orthostasis RSV Hyponatremia - POA, resolved Chest pain, resolved Thrush Neutropenia due to chemotherapy Diarrhea- resolved Small Cell Carcinoma 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 Differential suggests early response with presence of monocytes and metamyelocytes. Persistent oral pain-swizzle initiated, will add nystatin suspension to Diflucan. Tussionex added for cough control as patient finds Robitussin with codeine ineffective. Borderline hypokalemia-IV fluids changed to NS with KCl at 75 mL per hour. Continue supportive care - Physician Narrative Narrative: Date: 12/19/17 Time: 2120 Hospital Course Summary Disclaimer: The visit summary below is not to be considered part of the above Progress Note. Hospital Course: 12/16/17- admission Admit, observation status, under the hospitalist service. IVF: NS at 125 ml/hr. Monitor orthostatics BID. Hold Lasix, Lisinopril Chest pain x15 min yesterday -- EKG shows sinus tach with occ PVC. Troponin neg Precautions for RSV. Send stool for GI panel. 12/17 No further stools. GI panel not yet performed. Hgb dropped since yesterday 11.2-->9.5. Likely dilutional - repeat in am. Sodium down from yesterday 134-->132. Follow- repeat in am. Continues on NS at 125 mls/hr. Isolated fever early this morning, known RSV URI/bronchitis-do not believe antibiotics needed at this point but if white count drops further will require empiric antibiotics for neutropenia. 12/18 ANC today is 1200 indicating moderate neutropenia. WBC count decreased to 1.5. Granix ordered daily for 4 days by Oncology team. Will continue to monitor CBC daily Today Ysabel complains of having discomfort at beatriz cath site. Incision appears to be healing well without erythema or drainage. Continues on Diflucan for PO thrush Hyponatremia improving Case discussed with attending Dr Logan 12/19/17 ANC 1140, continue Granix-day 2. Differential suggests early response with presence of monocytes and metamyelocytes. Persistent oral pain-swizzle initiated, will add nystatin suspension to Diflucan. Tussionex added for cough control as patient finds Robitussin with codeine ineffective. Borderline hypokalemia-IV fluids changed to NS with KCl at 75 mL per hour.
[2017-12-20] MEDS: HYDROCODONE/CHLORPHENIRAMINE ER ORAL LIQ 5ml PO PRN (00:55)
[2017-12-20] MEDS: NS with KCL 20 mEq 1,000 ML IV SCH ×2 (03:11→16:26)
[2017-12-20] MEDS: LEVOFLOXACIN 750 MG TABLET PO SCH (06:34)
[2017-12-20] MEDS: NYSTATIN 500,000 units/5 ml ORAL LIQUID PO SCH ×4 (08:42→20:11)
[2017-12-20] MEDS: LORATADINE 10 MG TABLET PO SCH (08:42)
[2017-12-20] MEDS: FLUCONAZOLE 100 MG TABLET PO SCH (08:42)
[2017-12-20] MEDS: NICOTINE 14 MG PATCH TD SCH (08:43)
[2017-12-20] MEDS: NICOTINE PATCH REMOVAL TD SCH (08:44)
--- NOTE | 2017-12-20 15:40 | Progress Note ---
Oncology Subjective improved mouth sores. not dyspneic. doing better. Not smoking. case d/w RN. Not eating much. ON therapy for sclc. Intake & Output 12/18/17 12/19/17 12/20/17 12/21/17 06:59 06:59 06:59 06:59 Intake Total 3000 / 3000 2993.751 / 2993.751 2275.000 / 2275.000 Output Total 2300 / 2300 2275 / 2275 1900 / 1900 800 / 800 Balance 700 / 700 718.751 / 718.751 375.000 / 375.000 -800 / -800 Weight 54.8 kg 54 kg 54.2 kg 53 kg Laboratory Results - last 48 hr 12/19/17 12/19/17 12/20/17 04:24 04:24 05:12 WBC 1.5 L* 1.4 L* RBC 3.06 L 3.16 L Hgb 8.6 L 9.2 L Hct 26.3 L 27.0 L MCV 85.9 85.4 MCH 28.1 29.1 MCHC 32.7 34.1 RDW Std Deviation 42.2 41.0 Plt Count 91 L 64 L MPV 8.4 L 9.0 L Immature Gran % (Auto) Not performed Neut % (Auto) Not performed Lymph % (Auto) Not performed Holt % (Auto) Not performed Eos % (Auto) Not performed Baso % (Auto) Not performed Neut # (Auto) Not performed Lymph # (Auto) Not performed Holt # (Auto) Not performed Eos # (Auto) Not performed Baso # (Auto) Not performed Abs Immat Gran (auto) Not performed Neutrophils % (Manual) 58.0 70.0 H Band Neutrophils % 18.0 H D 5.0 D Lymphocytes % (Manual) 15.0 L 18.0 L Reactive Lymphs % 1.0 H Monocytes % (Manual) 6.0 6.0 Basophils % (Manual) 2.0 Metamyelocytes % 1.0 H Neutrophils # (Manual) 0.9 L 1.0 L Band Neutrophils # 0.3 0.1 Lymphocytes # (Manual) 0.2 L 0.3 L Abs React Lymphs (Man) 0.0 Monocytes # (Manual) 0.1 0.1 Basophils # (Manual) 0.0 Metamyelocytes # 0.0 Poikilocytosis 1+ Schistocytes 1+ RBC Morph Comment Abnormal Normal Turbidity < 20 Sodium 135 Potassium 3.5 L Chloride 105 Carbon Dioxide 22 Anion Gap 8 BUN 8.0 Creatinine 0.5 L GFR Calculation 122 BUN/Creatinine Ratio 16 Glucose 88 Calculated Osmolality 257 L Calcium 7.9 L Phosphorus Magnesium Icterus Index < 2 Albumin Specimen Hemolysis < 15 12/20/17 05:12 WBC RBC Hgb Hct MCV MCH MCHC RDW Std Deviation Plt Count MPV Immature Gran % (Auto) Neut % (Auto) Lymph % (Auto) Holt % (Auto) Eos % (Auto) Baso % (Auto) Neut # (Auto) Lymph # (Auto) Holt # (Auto) Eos # (Auto) Baso # (Auto) Abs Immat Gran (auto) Neutrophils % (Manual) Band Neutrophils % Lymphocytes % (Manual) Reactive Lymphs % Monocytes % (Manual) Basophils % (Manual) Metamyelocytes % Neutrophils # (Manual) Band Neutrophils # Lymphocytes # (Manual) Abs React Lymphs (Man) Monocytes # (Manual) Basophils # (Manual) Metamyelocytes # Poikilocytosis Schistocytes RBC Morph Comment Turbidity < 20 Sodium 137 Potassium 3.8 Chloride 107 Carbon Dioxide 23 Anion Gap 7 BUN 5.0 L Creatinine 0.5 L GFR Calculation 122 BUN/Creatinine Ratio 10 Glucose 82 Calculated Osmolality 260 L Calcium 8.2 L Phosphorus 3.0 Magnesium 1.9 Icterus Index < 2 Albumin 3.1 L Specimen Hemolysis < 15 Acetaminophen (Tylenol) 325 - 650 mg PO Q6HR PRN PRN Reason: Discomfort Last Admin: 12/19/17 17:31 Dose: 650 mg Hydrocodone Bitart/Acetaminophen ([place] 5/325) 1 tab PO Q6H PRN PRN Reason: Pain Last Admin: 12/17/17 16:22 Dose: 1 tab Benzonatate (Tessalon Perles) 200 mg PO TID PRN PRN Reason: cough Last Admin: 12/19/17 19:52 Dose: 200 mg Chlorphenir/Hydrocodone Polistirex (Tussionex) 5 ml PO Q12H PRN PRN Reason: Cough Last Admin: 12/20/17 00:55 Dose: 5 ml Fluconazole (Diflucan 100 Mg Tablet) 100 mg PO DAILY [facility] Last Admin: 12/20/17 08:42 Dose: 100 mg Potassium Chloride/Sodium Chloride (Ns With Kcl 20 Meq) 1,000 mls @ 75 mls/hr IV .[id number] [facility] Last Admin: 12/20/17 03:11 Dose: 75 mls/hr Ipratropium [place] (Atrovent (0.02%)) 0.5 mg AEROSOL Q4H PRN PRN Reason: Shortness of air/wheezing Last Admin: 12/17/17 09:37 Dose: 0.5 mg Levofloxacin (Levaquin) 750 mg PO ACB [facility] Last Admin: 12/20/17 06:34 Dose: 750 mg Loratadine (Claritin) 10 mg PO 0830 [facility] Stop: 12/21/17 08:31 Last Admin: 12/20/17 08:42 Dose: 10 mg Meclizine HCl (Antivert) 25 mg PO BID PRN PRN Reason: nausea/vomiting Nicotine (Nicoderm) 14 mg TD DAILY [facility] Last Admin: 12/20/17 08:43 Dose: 14 mg Nicotine (Nicotine Patch Removal) 1 removal TD DAILY [facility] Last Admin: 12/20/17 08:44 Dose: 1 removal (Umeclidinium Brm/Vilanterol Tr [Anoro Ellipta 62.5-2 1 puff PO DAILY [facility] Last Admin: 12/20/17 15:24 Dose: 1 puff Nystatin (Mycostatin) 5 ml PO QID [facility] Stop: 12/30/17 08:59 Last Admin: 12/20/17 12:29 Dose: 5 ml Ondansetron HCl (Zofran) 4 mg IVP Q6H PRN PRN Reason: Nausea &/or vomiting Last Admin: 12/17/17 21:14 Dose: 4 mg Pharmacy Profile Note (Lidocaine/Maalox/Benadryl Soln) 5 ml PO Q4H PRN Last Admin: 12/19/17 14:31 Dose: 5 ml Sucralfate (Carafate) 1 gm PO [id number] [facility] Last Admin: 12/17/17 18:37 Dose: 1 gm Tbo-Filgrastim (Granix) 300 mcg SQ DAILY [facility] Stop: 12/21/17 09:01 Last Admin: 12/20/17 09:28 Dose: 300 mcg Active Orders 24 hr Category Date Time Status CBC w Manual Diff-[facility] AM Laboratory 12/21/17 04:00 Ordered CBC w Manual Diff-[facility] AM Laboratory 12/22/17 04:00 Ordered Nystatin Oral Liq. [Mycostatin] Medication 12/20/17 09:00 Active 5 ml PO QID Vital Signs - 24 hr 12/19/17 22:00 12/20/17 06:40 12/20/17 07:00 Temperature 98 F Pulse Rate 106 H 94 98 Respiratory Rate 18 Blood Pressure 162/74 H 130/69 145/71 H Pulse Oximetry 95 96 95 12/20/17 08:00 12/20/17 15:34 Temperature 98.4 F 98 F Pulse Rate 100 104 H Respiratory Rate 20 20 Blood Pressure 144/78 H 149/69 H Pulse Oximetry 92 94 Exam Vital signs: Temperature 98 F 12/20/17 15:34 Pulse Rate 104 H 12/20/17 15:34 Respiratory Rate 20 12/20/17 15:34 Blood Pressure 149/69 H 12/20/17 15:34 Pulse Oximetry 94 12/20/17 15:34 - Constitutional no acute distress, thin - Routine HEENT Exam Head: Present: normocephalic, atraumatic Eye: Present: EOMI, PERRL ENT: Present: mucous membranes moist, oropharynx clear - Routine Respiratory Exam Present: CTA bilaterally. Absent: wheezes - Routine Cardiovascular Exam Present: RRR, no murmur - Routine Abdominal Exam Present: soft, non tender - Routine Extremities Exam Absent: cyanosis, clubbing - Routine Neurological Exam Present: alert, oriented X3 - Routine Psychiatric Exam Present: normal affect, normal thought process Oncology Results - Labs CBC & Chem 7: 12/20/17 05:12 12/20/17 05:12 Labs: Short CBC 12/20/17 Range/Units 05:12 WBC 1.4 L* (4.5-11.0) T/MM3 Hgb 9.2 L (12-16) GM/DL Hct 27.0 L (36-46) % Plt Count 64 L (130-400) T/MM3 BMP 12/20/17 05:12 Sodium 137 Potassium 3.8 Chloride 107 Carbon Dioxide 23 BUN 5.0 L Creatinine 0.5 L Glucose 82 Calcium 8.2 L Liver Function 12/20/17 Range/Units 05:12 Albumin 3.1 L (3.5-5.0) G/DL Assessment and Plan Assessment and Plan: Assessment 1. 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 On chest XRT. 2. Recent RSV infection. Now with neutropenia, likely chemotherapy-induced. WBC 12/18/17 1.5, ANC 1.1. WBC today, 12/19/17 is 1.5, ANC 0.9 3. Yeast stomatitis. Subjectively reports "maybe just a little better." On Diflucan. Plan Continue supportive care. Continue Granix and neutropenic precautions. Encouraged patient sit in chair, ambulate in room as tolerates. Consider physical therapy for strengthening. 12/20/2017 SCLC RSV Neutropenia [place] stomatitis Plan continue current meds granix supportive care futher chemo discussions as outpatient levaquin nystatin - Time Spent With Patient Total time spent is greater than 50% in coordination of care (as documented) at patient's floor/unit and/or counseling patient: less than 15 minutes
--- NOTE | 2017-12-20 18:10 | Progress Note ---
- Date 12/20/17 Subjective: 72 year old lady recently diagnosed with small cell-lung cancer earlier in November. She had a port-a-cath placed and had her 2nd round of chemo on 12/12/17 , and developed thrush soon after. Her thrush was so severe that she really hasn 't been able to eat/drink anything secondary to severe discomfort, and she actually lost 10 lbs in the last 6 days. She has had a cough since [place] but it's been worse since her last round of chemo. Her cough has been more productive. She's been having fever up to 100.5 and chills. She has only smoked 1 cigarette since her last discharge, and that was b/c she ran out of the patch. She's intent on staying tobacco-free. She denies any sinus congestion/ drainage lately. She c/o headache, backache, and her sides hurt from coughing so much. She reports chest pain yesterday while sitting in the clinic yesterday -- it hit her midsternal and then went all the way across. She felt more short of breath at that time but denies nausea or diaphoresis. She denies leg swelling. She has a history of vertigo, and has been dizzy but not spinning. She denies nausea/vomiting but had "a lot" of diarrhea last night, for which she took an Imodium. She denies hematochezia. No difficulties or pain with urination. She was seen in Dr. Blackwood's office on 12/16/16 and was noted to be orthostatic, even after a liter of IVF. Labs done in the office were unremarkable. However, she was diagnosed with RSV when seen in the ED on for dizziness and weakness. With her persistent orthostasis, Dr. Blackwood contacted the hospitalist service and Ysabel was admitted to observation status. She has been neutropenia likely due to her chemotherapy. She is on Granix. This am she is up in the bed sitting. She thinks that she is doing a bit better. Her mouth is feeling better. She denies shortness of breath. She denies chest discomfort. She does not have much of an appetite. She reports she is trying to eat and did a bit better today. She denies nausea or vomiting. She denies diarrhea, no BM since admission. Objective Vital signs: Temperature 98 F 12/20/17 15:34 Pulse Rate 104 H 12/20/17 15:34 Respiratory Rate 20 12/20/17 15:34 Blood Pressure 149/69 H 12/20/17 15:34 Pulse Oximetry 94 12/20/17 15:34 Height/Weight/BMI: Height 1.68 m Weight 53 kg Body Mass Index 18.6 Comments: Gen: alert and oriented. NAD. Appears depressed. Skin: warm and dry. HEENT: NC/AT PERRL, EOMI, Sclera,lids and conjunctiva wnl. MMM. OP clear. Neck: supple. No JVD. Carotids 2+ without bruits Lungs: clear. No rales, rhonchi or wheezes CV: regular but mildly tachycardic. No murmur, rub or gallop No edema. Pedal pulses are good Abd: soft. +BS. NT/ND MS: Good strength and ROM. Neuro: no focal deficit. Results - Labs CBC & Chem 7: 12/20/17 05:12 12/20/17 05:12 Assessment and Plan (1) Dehydration Current visit: No Status: Acute Assessment and Plan: Impression and Plan: 1. Orthostasis-improved -Mild, denies lightheadedness -Continues on IVF at 75/hr 2. RSV on 12/14 -On RA 3. Hyponatremia - POA, resolved 4. Chest pain, resolved 5. Thrush -Improving on Diflucan and Nystatin 6. Neutropenia due to chemotherapy -Seen by Dr. Rice today, Pt on Granix 7. Diarrhea- resolved 8. 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 Hypertension -Blood pressures are creeping up, she has been off her antihypertensives -Will resume PANCHO I at lower dose than home dose for now. 10. COPD -Resp therapy 11. Tobacco abuse -On nicotine patch 12. Vertigo, chronic -On meclizine 13. Prophylaxis -PPI and Lovenox - Physician Narrative Narrative: Date: 12/20/17 Time: 1801 Hospital Course Summary Disclaimer: The visit summary below is not to be considered part of the above Progress Note. Hospital Course: 12/16/17- admission Admit, observation status, under the hospitalist service. IVF: NS at 125 ml/hr. Monitor orthostatics BID. Hold Lasix, Lisinopril Chest pain x15 min yesterday -- EKG shows sinus tach with occ PVC. Troponin neg Precautions for RSV. Send stool for GI panel. 12/17 No further stools. GI panel not yet performed. Hgb dropped since yesterday 11.2-->9.5. Likely dilutional - repeat in am. Sodium down from yesterday 134-->132. Follow- repeat in am. Continues on NS at 125 mls/hr. Isolated fever early this morning, known RSV URI/bronchitis-do not believe antibiotics needed at this point but if white count drops further will require empiric antibiotics for neutropenia. 12/18 ANC today is 1200 indicating moderate neutropenia. WBC count decreased to 1.5. Granix ordered daily for 4 days by Oncology team. Will continue to monitor CBC daily Today Ysabel complains of having discomfort at beatriz cath site. Incision appears to be healing well without erythema or drainage. Continues on Diflucan for PO thrush Hyponatremia improving Case discussed with attending Dr Logan 12/19/17 ANC 1140, continue Granix-day 2. Differential suggests early response with presence of monocytes and metamyelocytes. Persistent oral pain-swizzle initiated, will add nystatin suspension to Diflucan. Tussionex added for cough control as patient finds Robitussin with codeine ineffective. Borderline hypokalemia-IV fluids changed to NS with KCl at 75 mL per hour.
[2017-12-20] MEDS: BENZONATATE 200 MG CAPSULE PO PRN (21:57)
[2017-12-21] MEDS: NS with KCL 20 mEq 1,000 ML IV SCH ×3 (03:15→19:50)
[2017-12-21] MEDS: LEVOFLOXACIN 750 MG TABLET PO SCH (05:58)
[2017-12-21] MEDS: NYSTATIN 500,000 units/5 ml ORAL LIQUID PO SCH ×4 (08:42→20:48)
[2017-12-21] MEDS: NICOTINE 14 MG PATCH TD SCH (08:42)
[2017-12-21] MEDS: NICOTINE PATCH REMOVAL TD SCH (08:43)
[2017-12-21] MEDS: ACETAMINOPHEN 325 MG TABLET PO PRN (08:44)
[2017-12-21] MEDS: LISINOPRIL 5 MG TABLET PO SCH (08:44)
[2017-12-21] MEDS: LORATADINE 10 MG TABLET PO SCH (08:45)
[2017-12-21] MEDS: FLUCONAZOLE 100 MG TABLET PO SCH (08:45)
--- NOTE | 2017-12-21 12:21 | Progress Note ---
- Date 12/21/17 Subjective: 72 year old lady recently diagnosed with small cell-lung cancer earlier in November. She had a port-a-cath placed and had her 2nd round of chemo on 12/12/17 , and developed thrush soon after. Her thrush was so severe that she really hasn 't been able to eat/drink anything secondary to severe discomfort, and she actually lost 10 lbs in the last 6 days. She has had a cough since [place] but it's been worse since her last round of chemo. Her cough has been more productive. She's been having fever up to 100.5 and chills. She has only smoked 1 cigarette since her last discharge, and that was b/c she ran out of the patch. She's intent on staying tobacco-free. She denies any sinus congestion/ drainage lately. She c/o headache, backache, and her sides hurt from coughing so much. She reports chest pain yesterday while sitting in the clinic yesterday -- it hit her midsternal and then went all the way across. She felt more short of breath at that time but denies nausea or diaphoresis. She denies leg swelling. She has a history of vertigo, and has been dizzy but not spinning. She denies nausea/vomiting but had "a lot" of diarrhea last night, for which she took an Imodium. She denies hematochezia. No difficulties or pain with urination. She was seen in Dr. Blackwood's office on 12/16/16 and was noted to be orthostatic, even after a liter of IVF. Labs done in the office were unremarkable. However, she was diagnosed with RSV when seen in the ED on for dizziness and weakness. With her persistent orthostasis, Dr. Blackwood contacted the hospitalist service and Ysabel was admitted to observation status. She has been neutropenic likely due to her chemotherapy. She is on Granix. This am she is up in the bed sitting. She thinks she is getting a cold. She is having nasal stuffiness and having to blower notes frequently. She has a slight cough but no sputum production. Her mouth continues to improve. She denies shortness of breath. She denies chest discomfort. She does not have much of an appetite but she is trying to eat better. She denies nausea or vomiting. She denies diarrhea, no BM since admission. She is passing gas. She is trying to remain active in the room. Objective Vital signs: Temperature 98.5 F 12/21/17 08:00 Pulse Rate 93 12/21/17 08:00 Respiratory Rate 20 12/21/17 08:00 Blood Pressure 151/77 H 12/21/17 08:00 Pulse Oximetry 95 12/21/17 08:00 Height/Weight/BMI: Height 1.68 m Weight 53 kg Body Mass Index 18.6 Comments: Gen: alert and oriented. NAD. Appears depressed. Skin: warm and dry. HEENT: NC/AT PERRL, EOMI, Sclera,lids and conjunctiva wnl. MMM. OP clear. Chemo hair loss. Neck: supple. No JVD. Carotids 2+ without bruits Lungs: clear. No rales, rhonchi or wheezes CV: regular. No murmur, rub or gallop No edema. Pedal pulses are good Abd: soft. +BS. NT/ND MS: Good strength and ROM. Neuro: no focal deficit. Results - Labs CBC & Chem 7: 12/21/17 04:14 12/21/17 04:14 Assessment and Plan (1) Dehydration Current visit: No Status: Acute Assessment and Plan: Impression and Plan: 1. Orthostasis-improved -Mild, denies lightheadedness -Continues on IVF at 75/hr 2. RSV on 12/14 -On RA 3. Hyponatremia - POA, resolved 4. Chest pain, resolved 5. Thrush -Improving on Diflucan and Nystatin 6. Neutropenia due to chemotherapy -Seen by Dr. Rice 12/20/17. Pt on Granix -WBC only slightly up today, abs neutrophils are down, Bands up today 7. Diarrhea- resolved 8. 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 Hypertension -Blood pressures are creeping up, she has been off her antihypertensives -Will increase her PANCHO I today. 10. COPD -Resp therapy 11. Tobacco abuse -On nicotine patch 12. Vertigo, chronic -On meclizine 13. "cold" symptoms -With her neutropenia, I am going to get a resp viral cx -Start nasonex -Encourage po intake. -She is on Levaquin and has been so doubt anything bacterial 13. Prophylaxis -PPI and Lovenox - Physician Narrative Narrative: Date: 12/21/17 Time: 1217 Hospital Course Summary Disclaimer: The visit summary below is not to be considered part of the above Progress Note. Hospital Course: 12/16/17- admission Admit, observation status, under the hospitalist service. IVF: NS at 125 ml/hr. Monitor orthostatics BID. Hold Lasix, Lisinopril Chest pain x15 min yesterday -- EKG shows sinus tach with occ PVC. Troponin neg Precautions for RSV. Send stool for GI panel. 12/17 No further stools. GI panel not yet performed. Hgb dropped since yesterday 11.2-->9.5. Likely dilutional - repeat in am. Sodium down from yesterday 134-->132. Follow- repeat in am. Continues on NS at 125 mls/hr. Isolated fever early this morning, known RSV URI/bronchitis-do not believe antibiotics needed at this point but if white count drops further will require empiric antibiotics for neutropenia. 12/18 ANC today is 1200 indicating moderate neutropenia. WBC count decreased to 1.5. Granix ordered daily for 4 days by Oncology team. Will continue to monitor CBC daily Today Ysabel complains of having discomfort at beatriz cath site. Incision appears to be healing well without erythema or drainage. Continues on Diflucan for PO thrush Hyponatremia improving Case discussed with attending Dr Logan 12/19/17 ANC 1140, continue Granix-day 2. Differential suggests early response with presence of monocytes and metamyelocytes. Persistent oral pain-swizzle initiated, will add nystatin suspension to Diflucan. Tussionex added for cough control as patient finds Robitussin with codeine ineffective. Borderline hypokalemia-IV fluids changed to NS with KCl at 75 mL per hour.
[2017-12-21] MEDS ORDERED: GUAIFENESIN 200MG TABLET PO PRN (12:28)
[2017-12-21] MEDS: FLUTICASONE NASAL SPRAY 50mcg EA NOSTRIL SCH (14:34)
[2017-12-21] MEDS: HYDROCODONE/CHLORPHENIRAMINE ER ORAL LIQ 5ml PO PRN (18:35)
[2017-12-22] MEDS: LEVOFLOXACIN 750 MG TABLET PO SCH (06:15)
[2017-12-22] MEDS: NS with KCL 20 mEq 1,000 ML IV SCH ×2 (06:22→09:49)
[2017-12-22] MEDS: NYSTATIN 500,000 units/5 ml ORAL LIQUID PO SCH ×4 (09:37→22:54)
[2017-12-22] MEDS: FLUTICASONE NASAL SPRAY 50mcg EA NOSTRIL SCH (09:37)
[2017-12-22] MEDS: NICOTINE 14 MG PATCH TD SCH (09:38)
[2017-12-22] MEDS: FLUCONAZOLE 100 MG TABLET PO SCH (09:38)
[2017-12-22] MEDS: LISINOPRIL 5 MG TABLET PO SCH (09:38)
[2017-12-22] MEDS: NICOTINE PATCH REMOVAL TD SCH (09:47)
--- NOTE | 2017-12-22 13:39 | Progress Note ---
- Date 12/22/17 Subjective: Ysabel is seen today in follow up. She overall states that she is feeling much better today. Denies having chest pain, shortness of breath or GI complains. She is passing flatus, however no bowel movements. PO thrush continues to improve. Appetite remains diminished but improved. Objective Vital signs: Temperature 97.9 F 12/22/17 07:00 Pulse Rate 104 H 12/22/17 07:00 Respiratory Rate 18 12/22/17 13:27 Blood Pressure 129/73 12/22/17 07:00 Pulse Oximetry 94 12/22/17 07:00 Height/Weight/BMI: Height 1.68 m Weight 52.4 kg Body Mass Index 18.6 - Constitutional Present: no acute distress, well nourished, well developed - Routine HEENT Exam Eye: Present: EOMI ENT: Present: mucous membranes moist, dentition normal - Routine Respiratory Exam Present: CTA bilaterally. Absent: wheezes - Routine Cardiovascular Exam Present: RRR, S1, S2. Absent: murmur - Routine Abdominal Exam Present: soft, normoactive bowel sounds, non distended. Absent: tenderness - Routine Extremities Exam Present: no edema - Routine Skin Exam Present: intact, dry, warm - Routine Neurological Exam Present: alert, oriented X3, CN II-XII intact, moving all extremities - Routine Lymphatic Exam Lymphatic: Absent: adenopathy - Routine Psychiatric Exam Present: normal affect, cooperative Results - Labs CBC & Chem 7: 12/22/17 04:19 12/21/17 04:14 Assessment and Plan (1) Dehydration Current visit: No Status: Acute Assessment and Plan: Impression Orthostasis- Improved RSV- Resolved Hyponatremia - POA, resolved Chest pain, resolved Thrush- Improved Neutropenia, due to chemotherapy Thrombocytopenia, due to chemotherapy-RLL 12/22/17 Diarrhea- resolved 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 ANC - 1363 (mildly neutropenia) WBC did improve to 2.9. Continues on Neutropenic precautions Continue with daily Granix Oral thrush continues to improve on Diflucan and nystatin Respiratory panel was negative yesterday Case discussed with attending Resuscitation Status: Full Code - Physician Narrative Physician: Salome Logan MD Narrative: Date: 12/22/17 Time: 2029 I have independently evaluated and examined this patient. I reviewed the chart, the patient's history, and the [employer]/PA's documented findings as above. We discussed and formulated the assessment and plan as above with additions as below: Ysabel appears much more comfortable than she did late last week. She reports mild intermittent headache and nasal congestion but is tolerating some oral intake and walked in the room with physical therapy earlier today. She denied any bleeding. NAD, alert Respirations nonlabored with decreased breath sounds throughout but no crackles or wheezing Regular cardiac rhythm White count 2.9 with 47% neutrophils/bands. Platelet count continues to drop- 28K today. Counts discussed with Dr. Zamudio and patient received Granix again today; anticipate that neutropenia will resolve by tomorrow however thrombocytopenia may worsen and require ongoing inpatient monitoring for bleeding/transfusing need. Hospital Course Summary Disclaimer: The visit summary below is not to be considered part of the above Progress Note. Hospital Course: 12/16/17- admission Admit, observation status, under the hospitalist service. IVF: NS at 125 ml/hr. Monitor orthostatics BID. Hold Lasix, Lisinopril Chest pain x15 min yesterday -- EKG shows sinus tach with occ PVC. Troponin neg Precautions for RSV. Send stool for GI panel. 12/17 No further stools. GI panel not yet performed. Hgb dropped since yesterday 11.2-->9.5. Likely dilutional - repeat in am. Sodium down from yesterday 134-->132. Follow- repeat in am. Continues on NS at 125 mls/hr. Isolated fever early this morning, known RSV URI/bronchitis-do not believe antibiotics needed at this point but if white count drops further will require empiric antibiotics for neutropenia. 12/18 ANC today is 1200 indicating moderate neutropenia. WBC count decreased to 1.5. Granix ordered daily for 4 days by Oncology team. Will continue to monitor CBC daily Today Ysabel complains of having discomfort at beatriz cath site. Incision appears to be healing well without erythema or drainage. Continues on Diflucan for PO thrush Hyponatremia improving Case discussed with attending Dr Logan 12/19 ANC 1140, continue Granix-day 2. Differential suggests early response with presence of monocytes and metamyelocytes. Persistent oral pain-swizzle initiated, will add nystatin suspension to Diflucan. Tussionex added for cough control as patient finds Robitussin with codeine ineffective. Borderline hypokalemia-IV fluids changed to NS with KCl at 75 mL per hour. 2/3 Remains on neutropenic precautions with IV fluids due to poor oral intake. Lisinopril resumed at 5 mg/d for increasing blood pressure. 2/4 Minimal improvement in total white count, continue Granix. Patient describes URI symptoms-respiratory viral panel repeated and is negative at this time. Appetite remains poor but making an effort to improve oral intake. 2/5 Overall looking clinically much better Feels like she is getting stronger. ANC - 1363 (mildly neutropenia) WBC did improve to 2.9. Continues on Neutropenic precautions Continue with daily Granix Oral thrush continues to improve on Diflucan and nystatin Platelet count has dropped progressively since admission-currently 28K.
--- NOTE | 2017-12-22 16:54 | Progress Note ---
Oncology Subjective Patient continues to cough. She has not had fever. Her cough is productive. She is ALSO slowly improving. Review of systems: Gen.: Negative for fever or chills, positive malaise Eyes: Negative eye discharge, eye pain ENT: Negative for nosebleeds, present but improving mouth sores Lymph: Negative enlarged lymph nodes, no night sweats Respiratory: Positive for cough, shortness of breath, negative hemoptysis, Cardiac: Negative for chest pain, palpitations, or swelling GI: Negative for nausea, negative for vomiting, negative for diarrhea Genitourinary: No urgency, no dysuria, no hematuria Musculoskeletal: Positive for weakness, no joint pain Neurologic: Negative for headache, negative for focal weakness, negative for numbness Exam Vital signs: Temperature 97.9 F 12/22/17 07:00 Pulse Rate 104 H 12/22/17 07:00 Respiratory Rate 18 12/22/17 13:27 Blood Pressure 129/73 12/22/17 07:00 Pulse Oximetry 94 12/22/17 07:00 - Constitutional no acute distress - Routine HEENT Exam Head: Present: normocephalic Eye: Present: EOMI, PERRL Throat: normal inspection (slight amount of redness but thrush is markedly improved) - Routine Neck Exam Present: supple. Absent: lymphadenopathy - Routine Respiratory Exam Present: decreased breath sounds. Absent: rales - Routine Cardiovascular Exam Present: RRR, no murmur - Routine Abdominal Exam Present: soft, non distended, non tender. Absent: organomegaly - Routine Extremities Exam Absent: cyanosis, clubbing, edema - Routine Neurological Exam Present: alert, CN II-XII intact - Routine Psychiatric Exam Present: normal affect Oncology Results - Labs CBC & Chem 7: 12/22/17 04:19 12/21/17 04:14 Labs: Short CBC 12/22/17 Range/Units 04:19 WBC 2.9 L D (4.5-11.0) T/MM3 Hgb 9.2 L (12-16) GM/DL Hct 27.2 L (36-46) % Plt Count 28 L* (130-400) T/MM3 Laboratory Tests 12/19/17 12/20/17 12/21/17 04:24 05:12 04:14 WBC 1.4 L* 1.5 L* Hgb Plt Count 64 L 43 L Neutrophils # (Manual) 0.9 L 1.0 L 0.6 L Sodium 12/21/17 12/22/17 04:14 04:19 WBC 2.9 L D Hgb 9.2 L Plt Count 28 L* Neutrophils # (Manual) 1.1 L Sodium 138 Assessment and Plan Assessment and Plan: Assessment 1. Locally advanced limited stage small cell lung cancer, on carboplatin/ etoposide, received cycle 1 as inpatient at [facility]. Cycle 2 in the office. On chest XRT. 2. Recent RSV infection. Now with neutropenia, likely chemotherapy-induced. WBC 12/18/17 1.5, ANC 1.1. WBC today, 12/19/17 is 1.5, ANC 0.9 12/22/17: Laboratory Tests 12/22/17 04:19 WBC 2.9 L D Plt Count 28 L* Neutrophils % (Manual) 38.0 Band Neutrophils % 9.0 H D Neutrophils # (Manual) 1.1 L Still neutropenic. Will continue G-CSF. Platelets are now starting to drop and currently 28K. 3. Yeast stomatitis. Subjectively reports "maybe just a little better." On Diflucan. Mouth less red. We'll continue supportive care Plan Continue supportive care. Continue Granix and neutropenic precautions. Consider physical therapy for strengthening. - Time Spent With Patient Total time spent is greater than 50% in coordination of care (as documented) at patient's floor/unit and/or counseling patient: 25 - 35 minutes
[2017-12-22] MEDS: BENZONATATE 200 MG CAPSULE PO PRN (17:26)
[2017-12-22] MEDS: ACETAMINOPHEN 325 MG TABLET PO PRN (17:26)
[2017-12-22] MEDS: HYDROCODONE/CHLORPHENIRAMINE ER ORAL LIQ 5ml PO PRN (22:54)
[2017-12-23] MEDS: NS with KCL 20 mEq 1,000 ML IV SCH ×2 (00:11→13:40)
[2017-12-23] MEDS: LEVOFLOXACIN 750 MG TABLET PO SCH (06:42)
[2017-12-23 07:41] VITALS: BP 128/71; PULSE 109; TEMP 98.1; O2SAT 93
[2017-12-23 07:57] VITALS: RESP 20
[2017-12-23] MEDS: NICOTINE 14 MG PATCH TD SCH (09:54)
[2017-12-23] MEDS: FLUCONAZOLE 100 MG TABLET PO SCH (09:55)
[2017-12-23] MEDS: FLUTICASONE NASAL SPRAY 50mcg EA NOSTRIL SCH (09:55)
[2017-12-23] MEDS: NICOTINE PATCH REMOVAL TD SCH (09:55)
[2017-12-23] MEDS: LISINOPRIL 5 MG TABLET PO SCH (09:55)
[2017-12-23] MEDS: NYSTATIN 500,000 units/5 ml ORAL LIQUID PO SCH ×2 (09:55→14:08)
--- NOTE | 2017-12-23 10:48 | Progress Note ---
- Date 12/23/17 Subjective: Ysabel is seen in follow up today. Overall she reprots that she feels about the same. She denies feeling short of breath or having chest pain. No GI complaints. States she is sick of the food and there is nothing "worth eating". Vital signs remain stable. PLT count remains low at 27. Objective Vital signs: Temperature 98.1 F 12/23/17 07:40 Pulse Rate 109 H 12/23/17 07:40 Respiratory Rate 20 12/23/17 07:50 Blood Pressure 128/71 12/23/17 07:40 Pulse Oximetry 93 12/23/17 07:40 Height/Weight/BMI: Height 1.68 m Weight 51.1 kg Body Mass Index 18.6 - Constitutional Present: no acute distress, well nourished, well developed - Routine HEENT Exam Eye: Present: EOMI ENT: Present: mucous membranes moist, dentition normal - Routine Respiratory Exam Present: CTA bilaterally. Absent: wheezes - Routine Cardiovascular Exam Present: RRR, S1, S2. Absent: murmur - Routine Abdominal Exam Present: soft, normoactive bowel sounds, non distended. Absent: tenderness - Routine Extremities Exam Present: normal capillary refill - Routine Skin Exam Present: dry, warm - Routine Neurological Exam Present: alert, oriented X3, CN II-XII intact - Routine Lymphatic Exam Lymphatic: Absent: adenopathy - Routine Psychiatric Exam Present: normal affect Results - Labs CBC & Chem 7: 12/23/17 04:59 12/21/17 04:14 Assessment and Plan (1) Dehydration Status: Acute Assessment and Plan: Impression Orthostasis- Improved RSV- Resolved Hyponatremia - POA, resolved Chest pain, resolved Thrush- Improved Neutropenia, due to chemotherapy Thrombocytopenia, due to chemotherapy Diarrhea- resolved Small Cell Carcinoma 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 unfortunately PLT count does remain low at 27 Oral thrush continues to improve on Diflucan and nystatin Overall appears stable Will speak with oncology and attending to discuss further plans - Physician Narrative Physician: Salome Logan MD Narrative: Date: 12/23/17 Time: 1999 Please refer to discharge summary for my comments. Hospital Course Summary Disclaimer: The visit summary below is not to be considered part of the above Progress Note. Hospital Course: 12/16/17- admission Admit, observation status, under the hospitalist service. IVF: NS at 125 ml/hr. Monitor orthostatics BID. Hold Lasix, Lisinopril Chest pain x15 min yesterday -- EKG shows sinus tach with occ PVC. Troponin neg Precautions for RSV. Send stool for GI panel. 12/17 No further stools. GI panel not yet performed. Hgb dropped since yesterday 11.2-->9.5. Likely dilutional - repeat in am. Sodium down from yesterday 134-->132. Follow- repeat in am. Continues on NS at 125 mls/hr. Isolated fever early this morning, known RSV URI/bronchitis-do not believe antibiotics needed at this point but if white count drops further will require empiric antibiotics for neutropenia. 12/18 ANC today is 1200 indicating moderate neutropenia. WBC count decreased to 1.5. Granix ordered daily for 4 days by Oncology team. Will continue to monitor CBC daily Today Ysabel complains of having discomfort at beatriz cath site. Incision appears to be healing well without erythema or drainage. Continues on Diflucan for PO thrush Hyponatremia improving Case discussed with attending Dr Logan 2/ ANC 1140, continue Granix-day 2. Differential suggests early response with presence of monocytes and metamyelocytes. Persistent oral pain-swizzle initiated, will add nystatin suspension to Diflucan. Tussionex added for cough control as patient finds Robitussin with codeine ineffective. Borderline hypokalemia-IV fluids changed to NS with KCl at 75 mL per hour. 2/3 Remains on neutropenic precautions with IV fluids due to poor oral intake. Lisinopril resumed at 5 mg/d for increasing blood pressure. 2/4 Minimal improvement in total white count, continue Granix. Patient describes URI symptoms-respiratory viral panel repeated and is negative at this time. Appetite remains poor but making an effort to improve oral intake. 2/5 Overall looking clinically much better Feels like she is getting stronger. ANC - 1363 (mildly neutropenia) WBC did improve to 2.9. Continues on Neutropenic precautions Continue with daily Granix Oral thrush continues to improve on Diflucan and nystatin Platelet count has dropped progressively since admission-currently 28K. 2/6 Neutropenia has resolved as ANC count is over 4000. unfortunately PLT count does remain low at 27 Oral thrush continues to improve on Diflucan and nystatin Overall appears stable Will speak with oncology and attending to discuss further plans
--- NOTE | 2017-12-23 13:13 | Progress Note ---
Oncology Subjective Patient is doing better. She still having dry cough. No bleeding. No fever. Her white counts back to normal. Platelets still low at 27,000. However no bleeding. No skin rash. Exam Vital signs: Temperature 98.1 F 12/23/17 07:40 Pulse Rate 109 H 12/23/17 07:40 Respiratory Rate 20 12/23/17 07:50 Blood Pressure 128/71 12/23/17 07:40 Pulse Oximetry 93 12/23/17 07:40 Narrative: -Vital signs remained stable. - Constitutional no acute distress - Routine HEENT Exam Comments: Physician swallowing, resolved. - Routine Respiratory Exam Present: rales, rhonchi, crackles. Absent: respiratory distress, wheezes Comments: Chest sound a lot better. - Routine Cardiovascular Exam Present: RRR. Absent: JVD - Routine Abdominal Exam Present: soft Oncology Results - Labs CBC & Chem 7: 12/23/17 04:59 12/21/17 04:14 Labs: Short CBC 12/23/17 Range/Units 04:59 WBC 7.2 D (4.5-11.0) T/MM3 Hgb 9.6 L (12-16) GM/DL Hct 28.4 L (36-46) % Plt Count 27 L* (130-400) T/MM3 Assessment and Plan Assessment and Plan: Assessment 1. Locally advanced limited stage small cell lung cancer, on carboplatin/ etoposide, completed 2 cycles. Radiation was given during the second cycle. 2. Chemotherapy-induced myelosuppression with neutropenia, resolved. 3. Chemotherapy-induced thrombocytopenia without bleeding. 4. Dehydration, resolved. 5. Chronic cough, stable. May discharge home with follow-up CBC as an outpatient. Chemotherapy and radiation will be on hold until blood counts recover. May consider finishing radiation first and then resume the rest of chemotherapy. - Time Spent With Patient Total time spent is greater than 50% in coordination of care (as documented) at patient's floor/unit and/or counseling patient: 25 - 35 minutes
--- NOTE | 2017-12-23 19:59 | Discharge Summary ---
Discharge Information Date of admission: 12/17/17 20:17 Anticipated date of discharge: 12/23/17 Attending Physician: Salome Logan MD Primary care physician: Gabriele Kulkarni II, MD Consults: Consulting Provider: Romain Blackwood Reason For Exam: small cell lung cancer - Discharge Diagnosis (1) Dehydration Status: Acute Dehydration Orthostasis-improved RSV- Resolved Hyponatremia - POA, resolved Chest pain, resolved Thrush-resolved Neutropenia, due to chemotherapy Thrombocytopenia, due to chemotherapy Diarrhea- resolved Small Cell Carcinoma presenting with right hilar mass and superior vena cava syndrome Hypertension COPD Vertigo, chronic - Procedures Procedures: None - Laboratory Labs: On 12/17/17 white count was 3.1 with 95% neutrophils and 2% bands. Hemoglobin was 9.5 and platelet count 172K. Sodium 132, troponin nondetectable 12/23/17 04:59 Differential on the date of discharge: 46% neutrophils, 15% bands, 25% lymphocytes, 12% monocytes, 2% metamyelocytes. ANC 4.4K 12/21/17 04:14 History of Present Illness HPI: Ysabel Perez is a 72 year old lady recently diagnosed with small cell-lung cancer earlier in November. She had a port-a-cath placed and had her 2nd round of chemo on 12/12/17, and developed thrush soon after. Her thrush was so severe that she really hasn't been able to eat/drink anything secondary to severe discomfort, and she actually lost 10 lbs in the last 6 days. She has had a cough since Sara but it's been worse since her last round of chemo. Her cough has been more productive. She's been having fever up to 100.5 and chills. She has only smoked 1 cigarette since her last discharge, and that was b/c she ran out of the patch. She's intent on staying tobacco-free. She denies any sinus congestion/drainage lately. She c/o headache, backache, and her sides hurt from coughing so much. She reports chest pain yesterday while sitting in the clinic yesterday -- it hit her midsternal and then went all the way across. She felt more short of breath at that time but denies nausea or diaphoresis. She denies leg swelling. She has a history of vertigo, and has been dizzy but not spinning. She denies nausea/vomiting but had "a lot" of diarrhea last night , for which she took an Imodium. She denies hematochezia. No difficulties or pain with urination. She was seen in Dr. Blackwood's office on 12/16/16 and was noted to be orthostatic, even after a liter of IVF. Labs done in the office were unremarkable. However, she was diagnosed with RSV when seen in the ED on for dizziness and weakness. With her persistent orthostasis, Dr. Blackwood contacted the hospitalist service and Ysabel was admitted to observation status. Objective Vital signs: Temperature 98.1 F 12/23/17 07:40 Pulse Rate 109 H 12/23/17 07:40 Respiratory Rate 20 12/23/17 07:50 Blood Pressure 128/71 12/23/17 07:40 Pulse Oximetry 93-RA 12/23/17 07:40 NAD, alert, fatigued Oropharynx clear-no evidence of thrush Respirations nonlabored, diminished air flow throughout but breath sounds clear Regular cardiac rhythm, S1-S2 Abdomen benign, extremities without edema No petechiae on arms, legs, or thorax. Height/Weight/BMI: Height 1.68 m Weight 51.1 kg Body Mass Index 18.6 Hospital Course This is a general summary of the patient's hospital course. For more details refer to the complete medical record. Hospital course: 12/16/17- admission Admit, observation status, under the hospitalist service. IVF: NS at 125 ml/hr. Monitor orthostatics BID. Hold Lasix, Lisinopril Chest pain x15 min yesterday -- EKG shows sinus tach with occ PVC. Troponin neg Precautions for RSV. Send stool for GI panel. 12/17 No further stools. GI panel not yet performed. Hgb dropped since yesterday 11.2-->9.5. Likely dilutional - repeat in am. Sodium down from yesterday 134-->132. Follow- repeat in am. Continues on NS at 125 mls/hr. Isolated fever early this morning, known RSV URI/bronchitis-do not believe antibiotics needed at this point but if white count drops further will require empiric antibiotics for neutropenia. 12/18 ANC today is 1200 indicating moderate neutropenia. WBC count decreased to 1.5. Granix ordered daily for 4 days by Oncology team. Will continue to monitor CBC daily Today Ysabel complains of having discomfort at beatriz cath site. Incision appears to be healing well without erythema or drainage. Continues on Diflucan for PO thrush Hyponatremia improving Case discussed with attending Dr Logan 2/ ANC 1140, continue Granix-day 2. Differential suggests early response with presence of monocytes and metamyelocytes. Persistent oral pain-swizzle initiated, will add nystatin suspension to Diflucan. Tussionex added for cough control as patient finds Robitussin with codeine ineffective. Borderline hypokalemia-IV fluids changed to NS with KCl at 75 mL per hour. 2/3 Remains on neutropenic precautions with IV fluids due to poor oral intake. Lisinopril resumed at 5 mg/d for increasing blood pressure. 2/ Minimal improvement in total white count, continue Granix. Patient describes URI symptoms-respiratory viral panel repeated and is negative at this time. Appetite remains poor but making an effort to improve oral intake. 2/ Overall looking clinically much better Feels like she is getting stronger. ANC - 1363 (mildly neutropenia) WBC did improve to 2.9. Continues on Neutropenic precautions Continue with daily Granix Oral thrush continues to improve on Diflucan and nystatin Platelet count has dropped progressively since admission-currently 28K. 2/6 Neutropenia has resolved as ANC count is over 4000. Granix discontinued. Platelet count does remain low at 27 but minimally changed from yesterday when platelets were 28K. Oral thrush continues to improve on Diflucan and nystatin-discontinue both. Ysabel reports persistent difficulty with lack of interest in food because nothing tastes good but she is not having as much difficulty swallowing as she did initially. She denies dyspnea or any bleeding. She doesn't feel she walked as well today as she did yesterday when she was cleared for discharge home by PT. She appears apprehensive about discharge home even after discussing plans with Dr. Blackwood. Medically stable for discharge; medications reviewed with the patient in detail- lisinopril dose decreased from 20 mg daily to 10 mg daily-patient advised to cut tablets in half; prescription written for Tussionex which patient finds more effective for cough control than codeine containing syrup, and prescription provided for Zofran if she requires something for nausea. Respiratory regimen is unchanged from prior discharge. She is to have blood work repeated and Dr. Blackwood's office on Friday. Her son-in-law is aware of this plan as well and will provide transportation. Time spent with patient: discharge greater than 30 minutes Resuscitation Status: Do Not Resuscitate Discharge Plan - Discharge Disposition Discharge Date: 12/23/17 Disposition: 01 Discharged Home, Self-Care *Condition: Stable Reason For Visit (Visit label in EMR): Dehydration and thrush - Discharge Medications *Discharge Medications: New Hydrocodone/Chlorphen Oral Liq [Tussionex] 5 ml PO BID PRN #4 oz PRN Reason: Cough Ondansetron Tab [Zofran Po] 4 mg PO QID PRN #30 tab PRN Reason: Nausea Fluticasone Nasal [place] [Flonase] 2 spray EA NOSTRIL DAILY bottle Continue Hydrocodone/APAP 5/325 [[place] 5/325] 1 tab PO Q6H PRN #15 tab PRN Reason: Pain Nicotine Patch [Nicoderm] 14 mg TD DAILY #14 patch DiphenhydrAMINE [Benadryl] 25 mg PO Q4H PRN cap PRN Reason: Itching Ipratropium [place] 1 dose AEROSOL Q4HR PRN #60 tube PRN Reason: Shortness Of Air/Wheezing PEG 3350 17gm PACKET [Miralax] 17 gm PO DAILY Meclizine HCl [Dramamine Less Drowsy] 25 mg PO BID PRN PRN Reason: nausea/vomiting Benzonatate [Tessalon Perles] 100 mg PO TID PRN PRN Reason: Cough Sucralfate [Carafate] 1 g PO [id number] Umeclidinium Brm/Vilanterol Tr [Anoro Ellipta 62.5-25 Mcg INH] 1 puff IH DAILY Acetaminophen [Tylenol] 325 - 650 mg PO Q6HR PRN PRN Reason: Discomfort Changed Lisinopril [Prinivil] 10 mg PO DAILY #30 tab Discontinued Guaifenesin/Codeine Phosphate [Guaifenesin-Codeine Syrup] 5 ml PO Q4H PRN #4 oz PRN Reason: Cough /Congestion Furosemide [Lasix] 20 mg PO DAILY #30 tab Nystatin Oral Liq. [Mycostatin] 5 ml PO QID - Discharge Packet/Instructions *Diet: As tolerates-try to get some protein in your diet daily and plenty of liquids, preferably with some calories in the liquid *Activity: As tolerates *Pain Management/Treatment: Tylenol or [place] as needed *Wound Care: Not applicable Additional Instructions: Decrease lisinopril dose to 10 mg daily-take 1/2 of 20 mg tablet previously prescribed. Stop taking furosemide-the water pill you are on when he left the hospital last time. Continue Tessalon Perles or Tussionex for your cough as needed. Flonase/fluticasone nasal spray 2 sprays per nostril daily-can purchase [id number] if you need to refill it soon. Ondansetron 4 mg 4 times daily for nausea as needed-case management is getting you a coupon to decrease the cost that can be used at [facility] where the little appears to be most affordable. Stop nystatin suspension for thrush, has been adequately treated in the hospital. *Expected Signs/Symptoms: Fatigue, weakness *Notify Physician if: You have any bleeding or falls *During Business Hours Contact: Dr. Kulkarni's office or Dr. Blackwood's office *After Business Hours Contact: Call [facility] at [phone] and ask that the on-call physician be paged for Dr. Kulkarni or Dr. Blackwood *Pending Lab/Results: No Pending Lab - Referrals/Follow Up *Referrals/Follow Up: Romain Blackwood MD [Physician] - (Blood work on Friday, contact his office regarding appointment time and if he wants to actually see you on Friday or next week) - Patient Handouts Patient Handouts: Hypotension (GEN) - Dismissal Complete Discharge Instructions are:: Complete Physician Narrative - Narrative Attestation Narrative: Date: 12/23/17 Time: 1953
== END 2017-12-23 15:26 | disposition home or self-care (01) | DRG 641 ==
LOC: MED → OBSVTOIN 17:10
PROVIDERS: ADMIT Internal Medicine; ATTEND Internal Medicine

== ENCOUNTER 2018-01-17 20:13 | Inpatient (IN) ==
--- NOTE | 2018-01-17 20:39 | Emergency Department Report ---
Weakness HPI - General Chief complaint: Weakness Stated complaint: weakness can't eat Time Seen by Provider: 01/17/18 20:38 Source: patient Mode of arrival: ambulatory - History of Present Illness HPI Narrative: 72 YO F presents to ED with generalized weakness and decreased appetite. Patient states that she is undergoing radiation and chemotherapy for lung cancer. Reports feeling weak and run down after treatments. Did not go to her scheduled radiation appointment on due to weakness. Patient reports having something in her throat that is enlarged which makes "my food taste bad and it difficulty to swallow". Patient says she was told that what ever "this is in her throat" will go down. Patient has been able to take her oral medications. Admits chronic sometimes productive cough. Patient denies fever, chills, CP, nausea, vomiting, abdominal pain or dysuria. MD Complaint: generalized weakness - Related Data Home Medications Medication Instructions Recorded Confirmed Acetaminophen [Tylenol] 325 - 650 mg PO Q6HR PRN 12/16/17 01/17/18 Benzonatate [Tessalon Perles] 100 mg PO TID PRN 12/16/17 01/17/18 PEG 3350 17gm PACKET [Miralax] 17 gm PO DAILY 12/16/17 01/17/18 Sucralfate [Carafate] 1 g PO [id number] 12/16/17 01/17/18 Umeclidinium Brm/Vilanterol Tr 1 puff IH DAILY 12/16/17 01/17/18 [Anoro Ellipta 62.5-25 Mcg INH] Codeine Phosphate/Guaifenesin 10 ml PO Q6H PRN 01/17/18 01/17/18 [Guaifenesin-Codeine Syrup] Previous Rx's Medication Instructions Recorded DiphenhydrAMINE [Benadryl] 25 mg PO Q4H PRN cap 11/24/17 Hydrocodone/APAP 5/325 [[place] 1 tab PO Q6H PRN #15 tab 11/24/17 5/325] Ipratropium [place] 1 dose AEROSOL Q4HR PRN #60 tube 11/24/17 Fluticasone Nasal [place] [Flonase] 2 spray EA NOSTRIL DAILY bottle 12/23/17 Ondansetron Tab [Zofran Po] 4 mg PO QID PRN #30 tab 12/23/17 Famotidine [Pepcid] 20 mg PO BID #20 tab 01/26/18 Nystatin Oral Liq. [Mycostatin] 5 ml PO QID PRN #150 ml 01/26/18 Senna + Docusate [Senna Plus 2 tab PO HS PRN tab 01/26/18 Tablet] Allergies Allergy/AdvReac Type Severity Reaction Status Date / Time amoxicillin [From Augmentin] AdvReac Mild Nausea and Verified 01/17/18 20:45 Vomiting clavulanic acid AdvReac Mild Nausea and Verified 01/17/18 20:45 [From Augmentin] Vomiting Review of Systems All systems: reviewed and negative except as stated Constitutional: Reports: as per HPI, weakness, other (decreased appetite) Respiratory: Reports: cough (chronic) PFSH Patient Stated Medical History Syncope Yes Hypertension Yes Bronchitis Yes Chronic Obstructive Pulmonary Yes: pressumptive with long history of tobacco Disease (COPD) abuse Sleep Apnea No Other Respiratory Yes: 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 Hypertension. Lymphocytopenia. Laryngeal edema. COPD. Tobacco abuse. Vertigo, chronic. Thrush Surgical History: 1. Dilation and curettage nine times prior to 1971. The first dilation and curettage procedure was performed at [place], [place]. The patient then had one or two additional dilation and curettage operations at [place], [place]. The last dilation and curettage operation was performed at [facility] [place], [place]. 2. Removal of all teeth in 1971 at [place], [place]. 3. Total abdominal hysterectomy, bilateral salpingo- oophorectomy and incidental appendectomy in 1976 at [facility] [place], [place]. 4. Removal of cyst at right breast in 1984 at [facility] [place], [place]. 5. Sinus operation in 1993 at [facility] at [place], [place]. 6. Modified Macario bunionectomy with K-wire fixation at left foot and extensor capsulotomy of the left second toe metatarsophalangeal joint with an arthroplasty of the left second toe at the PIP joint on 01/07/[address] Ramos at the day surgery center at [facility] at [place], [place]. Postoperative diagnosis was hallux valgus at the left foot with left second hammertoe and left fifth hammertoe. 7. Total colonoscopy with polypectomy on 12/23/[address] Larios at [facility] at [place], [place]. Postoperative diagnoses were desire for screening for colon and rectal carcinoma, colon polyp and internal and external hemorrhoids. 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 8. Bronchoscopy with biopsies on 11/12/[address] Ephraim Riggs at [facility] at [place], [place]. The patient did have a right upper lobe pulmonary mass. Bronchial biopsies were inconclusive from this procedure. 9. Bronchoscopy with washings, brushings and endobronchial biopsies on 11/15/[address] Ephraim Riggs at [facility] at [place], [place]. The patient had a right upper lobe pulmonary mass. Pathology report on endobronchial biopsies from this operation did show a diagnosis of small-cell lung cancer. The patient was discharged from this hospitalization with diagnoses of superior vena cava syndrome due to right hilar mass, small-cell lung cancer, laryngeal edema, hypertension, chronic obstructive pulmonary disease, tobacco abuse, chronic vertigo and thrush. 10. PowerPort placed on 12/09/[address] Larios. Family History: Family History (This Medical Record has been edited. Action required.) Father Cancer Brother Cancer Sister Cancer Paternal Grandmother Diabetes Family History Updates: Reviewed. - Social History Smoking status: Former smoker (quit about 4 weeks ago.) Packs-years: 50 second hand exposure: Yes Substance use type: does not use Alcohol intake: never Alcohol intake frequency: does not drink Housing: house Household members: none Current occupational status: retired Does patient use chewing tobacco?: No Current residence: Apartment/Private Home Physical Exam - Limitations Limitations: no limitations - General General appearance: alert - Normal Exams: Head:: Normocephalic without trauma ENMT:: No facial trauma, nasal exudates, pharyngeal erythema, or exudates are noted Neck:: Full range of motion Abdomen:: Bowel sounds positive, soft, non-tender, non-distended Musculoskeletal:: good range of motion, all extremities Neurological:: Patient is alert, and oriented, cranial nerves, motor/sensory/ cerebellar, exams w/o gross deficits, to observation Psychiatric:: Patient exhibits, appropriate attention, emotion and affect - Eye Eye exam: Present: EOMI - Neck Neck exam: Present: trachea midline. Absent: lymphadenopathy - Cardiovascular Cardiovascular exam: Present: normal rhythm (HR 120 bpm) - Abdominal Exam Abdominal exam: Present: soft, hypoactive bowel sounds (x4). Absent: distention , tenderness - Skin Skin exam: Present: warm, dry Course - Consultations Consultation #1: I discussed patient's HPI, PMH, labs, VS, exam findings and treatment in the ER with Dr. Lowe taking call for Dr. Blackwood. Dr. Lowe would like patient admitted and he will follow patient tomorrow. He would like patient to have Granix 300mg SQ now. Consultation #2: I discussed patient's HPI, PMH, labs, VS, exam findings, treatment in the ER and conversation with Dr. Lowe with Dr. Kim who will admit observation. Vital Signs Temperature 98.1 F 01/17/18 20:17 Pulse Rate 123 H 01/17/18 20:17 Respiratory Rate 20 01/17/18 20:17 Blood Pressure 151/63 H 01/17/18 20:17 Pulse Oximetry 99 01/17/18 20:17 Temperature 98.7 F 01/26/18 07:38 Pulse Rate 104 H 01/26/18 08:10 Respiratory Rate 18 01/26/18 07:38 Blood Pressure 139/71 01/26/18 07:38 Pulse Oximetry 92 01/26/18 07:38 Weakness - [facility] Narrative Medical decision making narrative: WBC 0.6 Hgb 7.2 Platelets 68 Absolute neutrophils 0.4 Chemistries unremarkable I discussed labs and admission which patient and her family. Patient admitted observation status for pancytopenia and generalized weakness. - Differential Diagnosis Differential diagnosis: Likely: anemia, hypoglycemia, dehydration - Medical Records Attestation: I reviewed the patient's medical records. - Lab Data Attestation: I reviewed the patient's lab results. Result diagrams: 01/26/18 04:27 01/26/18 04:27 Lab Results 01/17/18 01/17/18 01/17/18 Range/Units 21:35 21:35 23:24 WBC 0.6 L* (4.5-11.0) T/MM3 RBC 2.43 L (4.00-5.20) M/MM3 Hgb 7.2 L (12-16) GM/DL Hct 21.7 L (36-46) % MCV 89.3 (80-100) UM3 MCH 29.6 (26-34) UUG MCHC 33.2 (31-37) GM/DL RDW Std Deviation 55.4 H (36.9-50.2) FL Plt Count 68 L D (130-400) T/MM3 MPV 8.3 L (9.4-12.4) UM3 Immature Gran % (Auto) Not performed Neut % (Auto) Not performed Lymph % (Auto) Not performed [place] % (Auto) Not performed Eos % (Auto) Not performed Baso % (Auto) Not performed Neut # (Auto) Not performed Lymph # (Auto) Not performed [place] # (Auto) Not performed Eos # (Auto) Not performed Baso # (Auto) Not performed Abs Immat Gran (auto) Not performed Neutrophils % (Manual) 66.0 (33-66) % Band Neutrophils % (0-6) % Lymphocytes % (Manual) 24.0 (23-45) % Reactive Lymphs % (0-0) % Monocytes % (Manual) 10.0 H (0-9.0) % Basophils % (Manual) (0-2) % Neutrophils # (Manual) 0.4 L (1.8-7.7) T/MM3 Band Neutrophils # T/MM3 Lymphocytes # (Manual) 0.1 L (1-4.8) T/MM3 Abs React Lymphs (Man) (0-0) T/MM3 Monocytes # (Manual) 0.1 (0-0.8) T/MM3 Basophils # (Manual) (0-0.2) T/MM3 Poikilocytosis 1+ Anisocytosis 1+ Macrocytosis RBC Morph Comment Abnormal Absolute Retic (0.0300-0.0900) T/MM3 Percent Retic (0.6-1.7) % Immature Retic Fraction (3.3-14.5) % Retic Hgb Content CHr (30.8-36.6) PG Haptoglobin (36-195) mg/dL Turbidity < 20 (0-20) Sodium 137 (134-144) MEQ/L Potassium 3.9 (3.6-5) MEQ/L Chloride 101 (98-107) MEQ/L Carbon Dioxide 24 (22-30) MEQ/L Anion Gap 12 (5-15) MEQ/L BUN 18.0 H (7-17) MG/DL Creatinine 0.8 (0.7-1.2) mg/dL GFR Calculation 71 BUN/Creatinine Ratio 23 (6-26) RATIO Glucose 99 (65-110) MG/DL Calculated Osmolality 266 (261-280) MOSM/KG Calcium 9.3 (8.4-10.2) MG/DL Magnesium (1.6-2.3) MG/DL Iron (37-170) UG/DL TIBC (261-497) ug/dL % Saturation (9-55) % Erythropoietin mIU/mL Ferritin (11-264) ng/mL Total Bilirubin 1.00 (0.20-1.30) MG/DL Icterus Index < 2 (0-7) AST 16 (14-36) U/L ALT 23 (9-52) U/L Alkaline Phosphatase 65 (38-126) U/L Lactate Dehydrogenase (313-618) U/L Total Protein 7.2 (6.3-8.2) G/DL Albumin 4.1 (3.5-5.0) g/dL Globulin 3.1 (2.4-3.6) G/DL Albumin/Globulin Ratio 1.3 (1.1-2.2) RATIO Vitamin B12 (239-931) PG/ML Methylmalonic Acid (<=0.40) nmol/mL Folate (2.76-20) ng/mL Homocysteine (4.0-14.0) umol/L Specimen Hemolysis < 15 (0-25) Ur Collection Type Urine Color (YELLOW) Urine Clarity Urine pH (5.0-8.0) Ur Specific [place] (1.015-1.025) Urine Protein (NEGATIVE) Urine Glucose (UA) (NEGATIVE) Urine Ketones (NEGATIVE) Urine Occult Blood (NEGATIVE) Urine Nitrate (NEGATIVE) Urine Bilirubin (NEGATIVE) Urine Urobilinogen (NORMAL) EU/DL Ur Leukocyte Esterase (NEGATIVE) Urinalysis Comment Adenovirus (PCR) (Negative) B.parapertussis DNA PCR (Negative) C. pneumoniae DNA (PCR) (Negative) Coronavirus OC43 (PCR) (Negative) Coronavirus HKU1 (PCR) (Negative) Coronavirus 229E (PCR) (Negative) Coronavirus NL63 (PCR) (Negative) Human Metapneumovir PCR (Negative) Influenza Type A (PCR) (Negative) Influenza Type B (PCR) (Negative) M. pneumoniae (PCR) (Negative) Parainfluenza 1 (PCR) (Negative) Parainfluenza 2 (PCR) (Negative) Parainfluenza 3 (PCR) (Negative) Parainfluenza 4 (PCR) (Negative) RSV (PCR) (Negative) Entero/Rhino (PCR) (Negative) Blood Type O Positive Antibody Screen Negative Crossmatch (AHG) See Detail Blood Product Request 01/18/18 01/18/18 01/18/18 Range/Units 01:24 01:29 04:25 WBC 0.7 L* (4.5-11.0) T/MM3 RBC 2.12 L (4.00-5.20) M/MM3 Hgb 6.3 L D (12-16) GM/DL Hct 19.0 L D (36-46) % MCV 89.6 (80-100) UM3 MCH 29.7 (26-34) UUG MCHC 33.2 (31-37) GM/DL RDW Std Deviation 55.6 H (36.9-50.2) FL Plt Count 47 L (130-400) T/MM3 MPV 8.0 L (9.4-12.4) UM3 Immature Gran % (Auto) Not performed Neut % (Auto) Not performed Lymph % (Auto) Not performed [place] % (Auto) Not performed Eos % (Auto) Not performed Baso % (Auto) Not performed Neut # (Auto) Not performed Lymph # (Auto) Not performed [place] # (Auto) Not performed Eos # (Auto) Not performed Baso # (Auto) Not performed Abs Immat Gran (auto) Not performed Neutrophils % (Manual) 57.0 (33-66) % Band Neutrophils % 2.0 (0-6) % Lymphocytes % (Manual) 31.0 (23-45) % Reactive Lymphs % 6.0 H (0-0) % Monocytes % (Manual) 4.0 (0-9.0) % Basophils % (Manual) (0-2) % Neutrophils # (Manual) 0.4 L (1.8-7.7) T/MM3 Band Neutrophils # 0.0 T/MM3 Lymphocytes # (Manual) 0.2 L (1-4.8) T/MM3 Abs React Lymphs (Man) 0.0 (0-0) T/MM3 Monocytes # (Manual) 0.0 (0-0.8) T/MM3 Basophils # (Manual) (0-0.2) T/MM3 Poikilocytosis 1+ Anisocytosis 1+ Macrocytosis RBC Morph Comment Abnormal Absolute Retic (0.0300-0.0900) T/MM3 Percent Retic (0.6-1.7) % Immature Retic Fraction (3.3-14.5) % Retic Hgb Content CHr (30.8-36.6) PG Haptoglobin (36-195) mg/dL Turbidity (0-20) Sodium (134-144) MEQ/L Potassium (3.6-5) MEQ/L Chloride (98-107) MEQ/L Carbon Dioxide (22-30) MEQ/L Anion Gap (5-15) MEQ/L BUN (7-17) MG/DL Creatinine (0.7-1.2) mg/dL GFR Calculation BUN/Creatinine Ratio (6-26) RATIO Glucose (65-110) MG/DL Calculated Osmolality (261-280) MOSM/KG Calcium (8.4-10.2) MG/DL Magnesium (1.6-2.3) MG/DL Iron (37-170) UG/DL TIBC (261-497) ug/dL % Saturation (9-55) % Erythropoietin mIU/mL Ferritin (11-264) ng/mL Total Bilirubin (0.20-1.30) MG/DL Icterus Index (0-7) AST (14-36) U/L ALT (9-52) U/L Alkaline Phosphatase (38-126) U/L Lactate Dehydrogenase (313-618) U/L Total Protein (6.3-8.2) G/DL Albumin (3.5-5.0) g/dL Globulin (2.4-3.6) G/DL Albumin/Globulin Ratio (1.1-2.2) RATIO Vitamin B12 (239-931) PG/ML Methylmalonic Acid (<=0.40) nmol/mL Folate (2.76-20) ng/mL Homocysteine (4.0-14.0) umol/L Specimen Hemolysis (0-25) Ur Collection Type Urine, void-cc/notcc Urine Color Yellow (YELLOW) Urine Clarity Clear Urine pH 6.5 (5.0-8.0) Ur Specific [place] 1.015 (1.015-1.025) Urine Protein Negative (NEGATIVE) Urine Glucose (UA) Negative (NEGATIVE) Urine Ketones Negative (NEGATIVE) Urine Occult Blood Negative (NEGATIVE) Urine Nitrate Negative (NEGATIVE) Urine Bilirubin Negative (NEGATIVE) Urine Urobilinogen 1.0 (NORMAL) EU/DL Ur Leukocyte Esterase Negative (NEGATIVE) Urinalysis Comment Microscopic not ind. Adenovirus (PCR) Negative (Negative) B.parapertussis DNA PCR Negative (Negative) C. pneumoniae DNA (PCR) Negative (Negative) Coronavirus OC43 (PCR) Negative (Negative) Coronavirus HKU1 (PCR) Negative (Negative) Coronavirus 229E (PCR) Negative (Negative) Coronavirus NL63 (PCR) Negative (Negative) Human Metapneumovir PCR Negative (Negative) Influenza Type A (PCR) Negative (Negative) Influenza Type B (PCR) Negative (Negative) M. pneumoniae (PCR) Negative (Negative) Parainfluenza 1 (PCR) Negative (Negative) Parainfluenza 2 (PCR) Negative (Negative) Parainfluenza 3 (PCR) Negative (Negative) Parainfluenza 4 (PCR) Negative (Negative) RSV (PCR) Negative (Negative) Entero/Rhino (PCR) Negative (Negative) Blood Type Antibody Screen Crossmatch (AHG) Blood Product Request 01/18/18 01/18/18 01/18/18 Range/Units 04:25 06:35 13:43 WBC (4.5-11.0) T/MM3 RBC (4.00-5.20) M/MM3 Hgb 8.0 L D (12-16) GM/DL Hct (36-46) % MCV (80-100) UM3 MCH (26-34) UUG MCHC (31-37) GM/DL RDW Std Deviation (36.9-50.2) FL Plt Count (130-400) T/MM3 MPV (9.4-12.4) UM3 Immature Gran % (Auto) Neut % (Auto) Lymph % (Auto) [place] % (Auto) Eos % (Auto) Baso % (Auto) Neut # (Auto) Lymph # (Auto) [place] # (Auto) Eos # (Auto) Baso # (Auto) Abs Immat Gran (auto) Neutrophils % (Manual) (33-66) % Band Neutrophils % (0-6) % Lymphocytes % (Manual) (23-45) % Reactive Lymphs % (0-0) % Monocytes % (Manual) (0-9.0) % Basophils % (Manual) (0-2) % Neutrophils # (Manual) (1.8-7.7) T/MM3 Band Neutrophils # T/MM3 Lymphocytes # (Manual) (1-4.8) T/MM3 Abs React Lymphs (Man) (0-0) T/MM3 Monocytes # (Manual) (0-0.8) T/MM3 Basophils # (Manual) (0-0.2) T/MM3 Poikilocytosis Anisocytosis Macrocytosis RBC Morph Comment Absolute Retic (0.0300-0.0900) T/MM3 Percent Retic (0.6-1.7) % Immature Retic Fraction (3.3-14.5) % Retic Hgb Content CHr (30.8-36.6) PG Haptoglobin (36-195) mg/dL Turbidity < 20 (0-20) Sodium 136 (134-144) MEQ/L Potassium 4.0 (3.6-5) MEQ/L Chloride 104 (98-107) MEQ/L Carbon Dioxide 22 (22-30) MEQ/L Anion Gap 10 (5-15) MEQ/L BUN 17.0 (7-17) MG/DL Creatinine 0.7 (0.7-1.2) mg/dL GFR Calculation 82 BUN/Creatinine Ratio 24 (6-26) RATIO Glucose 90 (65-110) MG/DL Calculated Osmolality 264 (261-280) MOSM/KG Calcium 8.8 (8.4-10.2) MG/DL Magnesium (1.6-2.3) MG/DL Iron (37-170) UG/DL TIBC (261-497) ug/dL % Saturation (9-55) % Erythropoietin mIU/mL Ferritin (11-264) ng/mL Total Bilirubin (0.20-1.30) MG/DL Icterus Index < 2 (0-7) AST (14-36) U/L ALT (9-52) U/L Alkaline Phosphatase (38-126) U/L Lactate Dehydrogenase (313-618) U/L Total Protein (6.3-8.2) G/DL Albumin (3.5-5.0) g/dL Globulin (2.4-3.6) G/DL Albumin/Globulin Ratio (1.1-2.2) RATIO Vitamin B12 (239-931) PG/ML Methylmalonic Acid (<=0.40) nmol/mL Folate (2.76-20) ng/mL Homocysteine (4.0-14.0) umol/L Specimen Hemolysis < 15 (0-25) Ur Collection Type Urine Color (YELLOW) Urine Clarity Urine pH (5.0-8.0) Ur Specific [place] (1.015-1.025) Urine Protein (NEGATIVE) Urine Glucose (UA) (NEGATIVE) Urine Ketones (NEGATIVE) Urine Occult Blood (NEGATIVE) Urine Nitrate (NEGATIVE) Urine Bilirubin (NEGATIVE) Urine Urobilinogen (NORMAL) EU/DL Ur Leukocyte Esterase (NEGATIVE) Urinalysis Comment Adenovirus (PCR) (Negative) B.parapertussis DNA PCR (Negative) C. pneumoniae DNA (PCR) (Negative) Coronavirus OC43 (PCR) (Negative) Coronavirus HKU1 (PCR) (Negative) Coronavirus 229E (PCR) (Negative) Coronavirus NL63 (PCR) (Negative) Human Metapneumovir PCR (Negative) Influenza Type A (PCR) (Negative) Influenza Type B (PCR) (Negative) M. pneumoniae (PCR) (Negative) Parainfluenza 1 (PCR) (Negative) Parainfluenza 2 (PCR) (Negative) Parainfluenza 3 (PCR) (Negative) Parainfluenza 4 (PCR) (Negative) RSV (PCR) (Negative) Entero/Rhino (PCR) (Negative) Blood Type Antibody Screen Crossmatch (AHG) Blood Product Request 1 unit pc issued 01/19/18 01/19/18 01/19/18 Range/Units 04:11 04:11 04:11 WBC 0.7 L* (4.5-11.0) T/MM3 RBC 2.65 L (4.00-5.20) M/MM3 Hgb 7.9 L (12-16) GM/DL Hct 23.4 L D (36-46) % MCV 88.3 (80-100) UM3 MCH 29.8 (26-34) UUG MCHC 33.8 (31-37) GM/DL RDW Std Deviation 51.6 H (36.9-50.2) FL Plt Count 29 L* D (130-400) T/MM3 MPV 9.4 (9.4-12.4) UM3 Immature Gran % (Auto) Not performed Neut % (Auto) Not performed Lymph % (Auto) Not performed [place] % (Auto) Not performed Eos % (Auto) Not performed Baso % (Auto) Not performed Neut # (Auto) Not performed Lymph # (Auto) Not performed [place] # (Auto) Not performed Eos # (Auto) Not performed Baso # (Auto) Not performed Abs Immat Gran (auto) Not performed Neutrophils % (Manual) 44.0 (33-66) % Band Neutrophils % 4.0 (0-6) % Lymphocytes % (Manual) 24.0 (23-45) % Reactive Lymphs % 4.0 H (0-0) % Monocytes % (Manual) 16.0 H (0-9.0) % Basophils % (Manual) 8.0 H (0-2) % Neutrophils # (Manual) 0.3 L (1.8-7.7) T/MM3 Band Neutrophils # 0.0 T/MM3 Lymphocytes # (Manual) 0.2 L (1-4.8) T/MM3 Abs React Lymphs (Man) 0.0 (0-0) T/MM3 Monocytes # (Manual) 0.1 (0-0.8) T/MM3 Basophils # (Manual) 0.1 (0-0.2) T/MM3 Poikilocytosis Anisocytosis 1+ Macrocytosis 1+ RBC Morph Comment Abnormal Absolute Retic 0.0321 (0.0300-0.0900) T/MM3 Percent Retic 1.2 (0.6-1.7) % Immature Retic Fraction 15.4 H (3.3-14.5) % Retic Hgb Content CHr 41.2 H (30.8-36.6) PG Haptoglobin (36-195) mg/dL Turbidity < 20 (0-20) Sodium 138 (134-144) MEQ/L Potassium 3.9 (3.6-5) MEQ/L Chloride 106 (98-107) MEQ/L Carbon Dioxide 22 (22-30) MEQ/L Anion Gap 10 (5-15) MEQ/L BUN 13.0 (7-17) MG/DL Creatinine 0.6 L (0.7-1.2) mg/dL GFR Calculation 99 BUN/Creatinine Ratio 22 (6-26) RATIO Glucose 90 (65-110) MG/DL Calculated Osmolality 266 (261-280) MOSM/KG Calcium 8.7 (8.4-10.2) MG/DL Magnesium 2.2 (1.6-2.3) MG/DL Iron 109 (37-170) UG/DL TIBC 231 L (261-497) ug/dL % Saturation 47 (9-55) % Erythropoietin mIU/mL Ferritin 830 H (11-264) ng/mL Total Bilirubin 1.40 H (0.20-1.30) MG/DL Icterus Index < 2 (0-7) AST 15 (14-36) U/L ALT 19 (9-52) U/L Alkaline Phosphatase 51 (38-126) U/L Lactate Dehydrogenase 383 (313-618) U/L Total Protein 6.7 (6.3-8.2) G/DL Albumin 3.7 (3.5-5.0) g/dL Globulin 3.0 (2.4-3.6) G/DL Albumin/Globulin Ratio 1.2 (1.1-2.2) RATIO Vitamin B12 673 (239-931) PG/ML Methylmalonic Acid (<=0.40) nmol/mL Folate 11.0 (2.76-20) ng/mL Homocysteine (4.0-14.0) umol/L Specimen Hemolysis < 15 (0-25) Ur Collection Type Urine Color (YELLOW) Urine Clarity Urine pH (5.0-8.0) Ur Specific [place] (1.015-1.025) Urine Protein (NEGATIVE) Urine Glucose (UA) (NEGATIVE) Urine Ketones (NEGATIVE) Urine Occult Blood (NEGATIVE) Urine Nitrate (NEGATIVE) Urine Bilirubin (NEGATIVE) Urine Urobilinogen (NORMAL) EU/DL Ur Leukocyte Esterase (NEGATIVE) Urinalysis Comment Adenovirus (PCR) (Negative) B.parapertussis DNA PCR (Negative) C. pneumoniae DNA (PCR) (Negative) Coronavirus OC43 (PCR) (Negative) Coronavirus HKU1 (PCR) (Negative) Coronavirus 229E (PCR) (Negative) Coronavirus NL63 (PCR) (Negative) Human Metapneumovir PCR (Negative) Influenza Type A (PCR) (Negative) Influenza Type B (PCR) (Negative) M. pneumoniae (PCR) (Negative) Parainfluenza 1 (PCR) (Negative) Parainfluenza 2 (PCR) (Negative) Parainfluenza 3 (PCR) (Negative) Parainfluenza 4 (PCR) (Negative) RSV (PCR) (Negative) Entero/Rhino (PCR) (Negative) Blood Type Antibody Screen Crossmatch (AHG) Blood Product Request 01/19/18 Range/Units 04:11 WBC (4.5-11.0) T/MM3 RBC (4.00-5.20) M/MM3 Hgb (12-16) GM/DL Hct (36-46) % MCV (80-100) UM3 MCH (26-34) UUG MCHC (31-37) GM/DL RDW Std Deviation (36.9-50.2) FL Plt Count (130-400) T/MM3 MPV (9.4-12.4) UM3 Immature Gran % (Auto) Neut % (Auto) Lymph % (Auto) [place] % (Auto) Eos % (Auto) Baso % (Auto) Neut # (Auto) Lymph # (Auto) [place] # (Auto) Eos # (Auto) Baso # (Auto) Abs Immat Gran (auto) Neutrophils % (Manual) (33-66) % Band Neutrophils % (0-6) % Lymphocytes % (Manual) (23-45) % Reactive Lymphs % (0-0) % Monocytes % (Manual) (0-9.0) % Basophils % (Manual) (0-2) % Neutrophils # (Manual) (1.8-7.7) T/MM3 Band Neutrophils # T/MM3 Lymphocytes # (Manual) (1-4.8) T/MM3 Abs React Lymphs (Man) (0-0) T/MM3 Monocytes # (Manual) (0-0.8) T/MM3 Basophils # (Manual) (0-0.2) T/MM3 Poikilocytosis Anisocytosis Macrocytosis RBC Morph Comment Absolute Retic (0.0300-0.0900) T/MM3 Percent Retic (0.6-1.7) % Immature Retic Fraction (3.3-14.5) % Retic Hgb Content CHr (30.8-36.6) PG Haptoglobin 168 (36-195) mg/dL Turbidity (0-20) Sodium (134-144) MEQ/L Potassium (3.6-5) MEQ/L Chloride (98-107) MEQ/L Carbon Dioxide (22-30) MEQ/L Anion Gap (5-15) MEQ/L BUN (7-17) MG/DL Creatinine (0.7-1.2) mg/dL GFR Calculation BUN/Creatinine Ratio (6-26) RATIO Glucose (65-110) MG/DL Calculated Osmolality (261-280) MOSM/KG Calcium (8.4-10.2) MG/DL Magnesium (1.6-2.3) MG/DL Iron (37-170) UG/DL TIBC (261-497) ug/dL % Saturation (9-55) % Erythropoietin 293 H mIU/mL Ferritin (11-264) ng/mL Total Bilirubin (0.20-1.30) MG/DL Icterus Index (0-7) AST (14-36) U/L ALT (9-52) U/L Alkaline Phosphatase (38-126) U/L Lactate Dehydrogenase (313-618) U/L Total Protein (6.3-8.2) G/DL Albumin (3.5-5.0) g/dL Globulin (2.4-3.6) G/DL Albumin/Globulin Ratio (1.1-2.2) RATIO Vitamin B12 (239-931) PG/ML Methylmalonic Acid 0.15 (<=0.40) nmol/mL Folate (2.76-20) ng/mL Homocysteine 6.3 (4.0-14.0) umol/L Specimen Hemolysis (0-25) Ur Collection Type Urine Color (YELLOW) Urine Clarity Urine pH (5.0-8.0) Ur Specific [place] (1.015-1.025) Urine Protein (NEGATIVE) Urine Glucose (UA) (NEGATIVE) Urine Ketones (NEGATIVE) Urine Occult Blood (NEGATIVE) Urine Nitrate (NEGATIVE) Urine Bilirubin (NEGATIVE) Urine Urobilinogen (NORMAL) EU/DL Ur Leukocyte Esterase (NEGATIVE) Urinalysis Comment Adenovirus (PCR) (Negative) B.parapertussis DNA PCR (Negative) C. pneumoniae DNA (PCR) (Negative) Coronavirus OC43 (PCR) (Negative) Coronavirus HKU1 (PCR) (Negative) Coronavirus 229E (PCR) (Negative) Coronavirus NL63 (PCR) (Negative) Human Metapneumovir PCR (Negative) Influenza Type A (PCR) (Negative) Influenza Type B (PCR) (Negative) M. pneumoniae (PCR) (Negative) Parainfluenza 1 (PCR) (Negative) Parainfluenza 2 (PCR) (Negative) Parainfluenza 3 (PCR) (Negative) Parainfluenza 4 (PCR) (Negative) RSV (PCR) (Negative) Entero/Rhino (PCR) (Negative) Blood Type Antibody Screen Crossmatch (AH) Blood Product Request Disposition Clinical Impression: Pancytopenia, Small cell carcinoma of lung, Generalized weakness Disposition: 02 To OBS [facility] [place] Condition: Stable - Seen By: midlevel
[2018-01-17] MEDS ORDERED: NS 1,000 ML IV ONE (21:13)
--- NOTE | 2018-01-17 23:21 | History & Physical Report ---
History of Present Illness Date: 01/18/18 Chief complaint: weakness, trouble swallowing HPI: 72 YO F presents to ED with generalized weakness and decreased appetite. Patient states that she is undergoing radiation and chemotherapy for lung cancer. Reports feeling weak and run down after treatments. Did not go to her scheduled radiation appointment on due to weakness. Patient reports having something in her throat Starting maybe Friday or Friday. that is enlarged which makes "my food taste bad and it difficulty to swallow". Says that she has had thrush in the past. Patient says she was told that what ever "this is in her throat" will go down. Patient has been able to take her oral medications. She has been able to drink liquids but not much solid food. She says she finished her latest round of chemotherapy last week, most the time she gets quite fatigued because of the radiation chemo in conjunction. She's been having some chills and had a temperature of 99 for in the hospital room. She denies recently being on antibiotics. Admits chronic sometimes productive cough. She is also mildly short of breath she's been unable to sleep because of a hacking cough. She does have some chest and back pain when she coughs deeply. She does state that her last bowel movement was yesterday and formed. She denies any skin breakdown bustos or any peripheral edema. Patient denies, nausea, vomiting, abdominal pain or dysuria. 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 Hypertension. Lymphocytopenia. Laryngeal edema. COPD. Tobacco abuse. Vertigo, chronic. Thrush Surgical History: 1. Dilation and curettage nine times prior to 1971. The first dilation and curettage procedure was performed at [place], [place]. The patient then had one or two additional dilation and curettage operations at [place], [place]. The last dilation and curettage operation was performed at [facility] at [place], [place]. Port placement. Total hysterectomy bilateral salpingo-oophorectomy. 2. Removal of all teeth in 1971 at [place], [place]. 3. Total abdominal hysterectomy, bilateral salpingo- oophorectomy and incidental appendectomy in 1976 at [facility] at [place], [place]. 4. Removal of cyst at right breast in 1984 at [facility] at [place], [place]. 5. Sinus operation in 1993 at [facility] at [place], [place]. 6. Modified Macario bunionectomy with K-wire fixation at left foot and extensor capsulotomy of the left second toe metatarsophalangeal joint with an arthroplasty of the left second toe at the PIP joint on 01/07/[address] Ramos at the day surgery center at [facility] at [place], [place]. Postoperative diagnosis was hallux valgus at the left foot with left second hammertoe and left fifth hammertoe. 7. Total colonoscopy with polypectomy on 12/23/[address] Larios at [facility] at [place], [place]. Postoperative diagnoses were desire for screening for colon and rectal carcinoma, colon polyp and internal and external hemorrhoids. 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 8. Bronchoscopy with biopsies on 11/12/[address] Ephraim Riggs at [facility] at [place], [place]. The patient did have a right upper lobe pulmonary mass. Bronchial biopsies were inconclusive from this procedure. 9. Bronchoscopy with washings, brushings and endobronchial biopsies on 11/15/[address] Ephraim Riggs at [facility] at [place], [place]. The patient had a right upper lobe pulmonary mass. Pathology report on endobronchial biopsies from this operation did show a diagnosis of small-cell lung cancer. The patient was discharged from this hospitalization with diagnoses of superior vena cava syndrome due to right hilar mass, small-cell lung cancer, laryngeal edema, hypertension, chronic obstructive pulmonary disease, tobacco abuse, chronic vertigo and thrush. 10. PowerPort placed on 12/09/[address] Larios. Family History: Family History (This Medical Record has been edited. Action required.) Father Cancer Brother Cancer Sister Cancer Paternal Grandmother Diabetes Family History Updates: NC based on age - Social History Smoking status: Former smoker (quit about 4 weeks ago. [id number] history) Alcohol intake frequency: does not drink Housing: house Household members: children, none Current occupational status: retired Does patient use chewing tobacco?: No Current residence: Apartment/Private Home Medications Home Medications Medication Instructions Recorded Confirmed Type DiphenhydrAMINE [Benadryl] 25 mg PO Q4H PRN cap 11/24/17 01/17/18 Rx Hydrocodone/APAP 5/325 [[place] 1 tab PO Q6H PRN #15 tab 11/24/17 01/17/18 Rx 5/325] Ipratropium [place] 1 dose AEROSOL Q4HR PRN #60 tube 11/24/17 01/17/18 Rx Acetaminophen [Tylenol] 325 - 650 mg PO Q6HR PRN 12/16/17 01/17/18 History Benzonatate [Tessalon Perles] 100 mg PO TID PRN 12/16/17 01/17/18 History PEG 3350 17gm PACKET [Miralax] 17 gm PO DAILY 12/16/17 01/17/18 History Sucralfate [Carafate] 1 g PO [id number] 12/16/17 01/17/18 History Umeclidinium Brm/Vilanterol Tr 1 puff IH DAILY 12/16/17 01/17/18 History [Anoro Ellipta 62.5-25 Mcg INH] Fluticasone Nasal [place] [Flonase] 2 spray EA NOSTRIL DAILY bottle 12/23/1702/01 Rx Ondansetron Tab [Zofran Po] 4 mg PO QID PRN #30 tab 12/23/17 01/17/18 Rx Codeine Phosphate/Guaifenesin 10 ml PO Q6H PRN 01/17/18 01/17/18 History [Guaifenesin-Codeine Syrup] Allergies Allergy/AdvReac Type Severity Reaction Status Date / Time amoxicillin [From Augmentin] AdvReac Mild Nausea and Verified 01/17/18 20:45 Vomiting clavulanic acid AdvReac Mild Nausea and Verified 01/17/18 20:45 [From Augmentin] Vomiting Exam Vital Signs: Temperature 98.1 F 01/17/18 20:17 Pulse Rate 112 H 01/17/18 22:30 Respiratory Rate 17 01/17/18 22:30 Blood Pressure 145/66 H 01/17/18 22:30 Pulse Oximetry 95 01/17/18 22:30 Height/Weight/BMI: Height 1.68 m Weight 57 kg - Constitutional Present: no acute distress Comments: in general she is pleasant she appears chronically ill distress Oropharynx no whitish exudate Neck is supple Lungs some mild rhonchi bilaterally Cardiovascular is regular without murmur gallop or rub Abdomen soft nontender Extremities no edema Results - Labs CBC & Chem 7: 01/18/18 13:43 01/18/18 04:25 Assessment and Plan (1) Pancytopenia Current visit: Yes Status: Acute (2) Generalized weakness Current visit: Yes Status: Acute (3) Small cell lung cancer Current visit: Yes Status: Acute (4) Abnormal finding on lung imaging Current visit: No Status: Acute (5) COPD (chronic obstructive pulmonary disease) Current visit: No Status: Acute (6) Dehydration Current visit: No Status: Acute (7) Viral syndrome Current visit: No Status: Acute (8) Dysphagia Current visit: Yes Status: Acute Assessment and Plan: 1. pancytopenia d/t chemotherapy with low grade temp. 2. Dysphagia 3. Small cell lung cancer with recent chemo and radiation 4. Relative dehydration 5. Relative malnutrition 6. COPD 7. Hypertension Plans 1. observation 2. Granix 3. Dr. Zamudio consult 4. blood urine cx, resp panel, IV levaquin while pancytpenic, 5. PT eval 6. nystatin swish swallow In-house hospitalist addendum: Seen and examined patient on same day as the above note. Agree with history, physical, assessment and plan. Comprehensive physical findings correlate to the above note. HPI: patient on consolidative chemo and radiotherapy developed steadily worsening weakness and fatigue with sense malaise. No new medications and brought herself into the emergency room ROS: agree with the greater than 10 system review performed Past medical, surgical, social, family history: as stated above. No additional information to supply Physical exam: appears moderately ill. May have a right posterior crackle to auscultation of lung Labs in imaging: chest x-ray does not corroborate to pneumonia however. Patient has pancytopenia and absolute neutrophil count qualifies patient is neutropenic Assessment and plan. Reverse isolation added to the nystatin and Levaquin have added cefepime as patient is not have a true allergy to penicillins and crossover is not likely with modern cephalosporins. Awaiting blood culture Documented on Dragon speech to text. Efforts to correct speech recognition errors performed, but variation may exist - Physician Narrative Narrative: Date: 01/17/18 Time: 2319 Hospital Course Summary Disclaimer: The visit summary below is not to be considered part of the above Progress Note.
[2018-01-17] MEDS ORDERED: MORPHINE SULFATE 2mg INJECTION IVP PRN (23:50)
[2018-01-18] MEDS ORDERED: NS FLUSH BAG 500ml IV PRN (01:47)
[2018-01-18] MEDS: NYSTATIN 500,000 units/5 ml ORAL LIQUID PO SCH ×5 (02:23→21:00)
[2018-01-18] MEDS: LEVOFLOXACIN PB 750 MG/150 ML BAG IV SCH (02:23)
[2018-01-18] MEDS: GUAIFENESIN/DM 5ml ORAL LIQUID PO PRN ×3 (02:23→21:00)
[2018-01-18] MEDS: SALINE FLUSH 10ml SYRINGE IV PRN ×3 (02:31→23:20)
[2018-01-18] MEDS: NS FLUSH BAG 500ml IV PRN ×2 (09:21→15:43)
--- NOTE | 2018-01-18 10:46 | Consult Note ---
Oncology HPI - Data of Consult Patient: known to practice within the last 3 years Consult date: 01/18/18 Requesting Physician: Cliff Frances MD Primary Care Provider: Gabriele Kulkarni II, MD Family Provider: Gabriele Kulkarni II, MD - Consult Narrative Reason for consult: neutropenia History of present illness: (Amended)Chief complaint Light headedness when she stands up. Dry cough History of present illness This is a 72 year old, female patient with a history of heavy smoking who presented with facial swelling, cough and shortness of breath. Also she had dizziness and lightheadedness. CT scan of the chest on 11/11/2017 showed a 6.0 x 3.0 cm right hilar mass, bulky paratracheal adenopathy 3.6 cm in size, also there is precarinal lymph node 3.9 cm and subcarinal lymph node 3.1 cm in size. There are lung nodules in the minor fissure 2.1 cm in size and nodule in the right upper lobe 1.5 cm in size. There is a small right pleural effusion. The right-sided masses cause mass-effect upon the right middle lobe pulmonary artery and vein with possible occlusion. There is also significant mass-effect upon the superior vena cava which was nearly occluded over a short segment. She underwent bronchoscopy by Dr. Riggs on 11/15/2017, noted to have an endobronchial lesion. Biopsy revealed small cell carcinoma. Metastatic workup bone scan and MRI of the brain, negative for metastasis. CT scan of the abdomen and pelvis showed nodularity in the left adrenal gland suspicious for early metastasis. She is currently on consolidative radiation therapy to the chest and had cycle 3 of carboplatin and etoposide on 01/07/18. She presented to the ER on 01/17/18 with increasing weakness, fatigue, painful swallowing and was found to be neutropenic and thrombocytopenic. She was admitted for antibiotic coverage and for the increased weakness. She's been having difficulty with esophagitis but has not had fevers or chills. She has been not able to consume adequate oral fluids. She is been on Florinef because of hypotension and weakness. Review of Systems Review of systems: Review of systems: Gen.: Positive for malaise, weakness, negative for fever or chills, Eyes: Negative eye discharge, eye pain ENT: Negative for nosebleeds, mouth sores, positive for trouble swallowing Lymph: Negative enlarged lymph nodes, no night sweats Respiratory: Positive for cough, shortness of breath, negative hemoptysis, Cardiac: Negative for chest pain, palpitations, or swelling GI: Negative for nausea, negative for vomiting, positive for diarrhea this morning Genitourinary: No urgency, no dysuria, no hematuria Musculoskeletal: Positive for weakness, no joint pain Neurologic: Positive for headache, negative for focal weakness, negative for numbness [facility] Patient Stated Medical History Syncope Yes Hypertension Yes Bronchitis Yes Chronic Obstructive Pulmonary Yes: pressumptive with long history of tobacco Disease (COPD) abuse Sleep Apnea No Other Respiratory Yes: lung mass-> SVC Syndrome Diabetes Mellitus Type 1 No Diabetes Mellitus Type 2 No Cirrhosis No Gastroesophageal Reflux No Disease Gastrointestinal Bleeding No Hepatitis No Hiatal Hernia No Obstructive Bowel No Ulcer No Other GI No Hx Renal Disease No Hx Urinary Tract Infection Yes: 2017 Anesthesia Reactions No Blood Transfusions No Chemotherapy No Malignant Hyperthermia No Other No Post Menopausal Yes Now No Medical History Updates: 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 Hypertension. Lymphocytopenia. Neutropenia. Laryngeal edema. COPD. Tobacco abuse. Vertigo, chronic. Thrush Surgical History: 1. Dilation and curettage nine times prior to 1971. The first dilation and curettage procedure was performed at [place], [place]. The patient then had one or two additional dilation and curettage operations at [place], [place]. The last dilation and curettage operation was performed at [facility] at [place], [place]. Port placement. Total hysterectomy bilateral salpingo-oophorectomy. 2. Removal of all teeth in 1971 at [place], [place]. 3. Total abdominal hysterectomy, bilateral salpingo- oophorectomy and incidental appendectomy in 1976 at [facility] at [place], [place]. 4. Removal of cyst at right breast in 1984 at [facility] at [place], [place]. 5. Sinus operation in [address] [facility] at [place], [place]. 6. Modified Macario bunionectomy with K-wire fixation at left foot and extensor capsulotomy of the left second toe metatarsophalangeal joint with an arthroplasty of the left second toe at the PIP joint on 01/07/[address] Ramos at the day surgery center at [facility] at [place], [place]. Postoperative diagnosis was hallux valgus at the left foot with left second hammertoe and left fifth hammertoe. 7. Total colonoscopy with polypectomy on 12/23/[address] Larios at [facility] at [place], [place]. Postoperative diagnoses were desire for screening for colon and rectal carcinoma, colon polyp and internal and external hemorrhoids. 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 8. Bronchoscopy with biopsies on 11/12/[address] Ephraim Riggs at [facility] at [place], [place]. The patient did have a right upper lobe pulmonary mass. Bronchial biopsies were inconclusive from this procedure. 9. Bronchoscopy with washings, brushings and endobronchial biopsies on 11/15/[address] Ephraim Riggs at [facility] at [place], [place]. The patient had a right upper lobe pulmonary mass. Pathology report on endobronchial biopsies from this operation did show a diagnosis of small-cell lung cancer. The patient was discharged from this hospitalization with diagnoses of superior vena cava syndrome due to right hilar mass, small-cell lung cancer, laryngeal edema, hypertension, chronic obstructive pulmonary disease, tobacco abuse, chronic vertigo and thrush. 10. PowerPort placed on 12/09/[address] Larios. Family History: Family History (This Medical Record has been edited. Action required.) Father Cancer, liver Brother Cancer Sister Cancer, stomach Paternal Grandmother Diabetes Family History Updates: NC based on age - Social History Smoking status: Former smoker (quit about 4 weeks ago. [id number] history) Packs-years: 50 second hand exposure: Yes Substance use type: does not use Alcohol intake: never Alcohol intake frequency: does not drink Housing: house Household members: children, none Current occupational status: retired Does patient use chewing tobacco?: No Current residence: Apartment/Private Home Medications Home Medications Medication Instructions Recorded Confirmed Type DiphenhydrAMINE [Benadryl] 25 mg PO Q4H PRN cap 11/24/17 01/17/18 Rx Hydrocodone/APAP 5/325 [[place] 1 tab PO Q6H PRN #15 tab 11/24/17 01/17/18 Rx 5/325] Ipratropium [place] 1 dose AEROSOL Q4HR PRN #60 tube 11/24/17 01/17/18 Rx Acetaminophen [Tylenol] 325 - 650 mg PO Q6HR PRN 12/16/17 01/17/18 History Benzonatate [Tessalon Perles] 100 mg PO TID PRN 12/16/17 01/17/18 History PEG 3350 17gm PACKET [Miralax] 17 gm PO DAILY 12/16/17 01/17/18 History Sucralfate [Carafate] 1 g PO [id number] 12/16/17 01/17/18 History Umeclidinium Brm/Vilanterol Tr 1 puff IH DAILY 12/16/17 01/17/18 History [Anoro Ellipta 62.5-25 Mcg INH] Fluticasone Nasal [place] [Flonase] 2 spray EA NOSTRIL DAILY bottle 12/23/1702/01 Rx Ondansetron Tab [Zofran Po] 4 mg PO QID PRN #30 tab 12/23/17 01/17/18 Rx Codeine Phosphate/Guaifenesin 10 ml PO Q6H PRN 01/17/18 01/17/18 History [Guaifenesin-Codeine Syrup] Allergies Allergy/AdvReac Type Severity Reaction Status Date / Time amoxicillin [From Augmentin] AdvReac Mild Nausea and Verified 01/17/18 20:45 Vomiting clavulanic acid AdvReac Mild Nausea and Verified 01/17/18 20:45 [From Augmentin] Vomiting Exam Vital signs: Temperature 97.9 F 01/18/18 07:18 Pulse Rate 94 01/18/18 08:03 Respiratory Rate 18 01/18/18 07:18 Blood Pressure 117/73 01/18/18 07:18 Pulse Oximetry 96 01/18/18 07:18 - Constitutional no acute distress, thin - Routine HEENT Exam Head: Present: normocephalic ENT: Present: mucous membranes moist Comments: No thrush - Routine Neck Exam Present: supple. Absent: lymphadenopathy - Routine Respiratory Exam Present: decreased breath sounds. Absent: accessory muscle use, rales - Routine Cardiovascular Exam Present: RRR, no murmur - Routine Abdominal Exam Present: soft, non distended, non tender. Absent: rebound - Routine Extremities Exam Absent: cyanosis, edema - Routine Skin Exam Present: dry, warm - Routine Neurological Exam Present: alert, oriented X3, CN II-XII intact - Routine Psychiatric Exam Present: normal affect Oncology Results - Labs CBC & Chem 7: 01/18/18 04:25 01/18/18 04:25 Labs: Short CBC 01/18/18 Range/Units 04:25 WBC 0.7 L* (4.5-11.0) T/MM3 Hgb 6.3 L D (12-16) GM/DL Hct 19.0 L D (36-46) % Plt Count 47 L (130-400) T/MM3 BMP 01/18/18 04:25 Sodium 136 Potassium 4.0 Chloride 104 Carbon Dioxide 22 BUN 17.0 Creatinine 0.7 Glucose 90 Calcium 8.8 Urine 01/18/18 Range/Units 01:24 Urine Color Yellow (YELLOW) Urine Clarity Clear Urine pH 6.5 (5.0-8.0) Ur Specific [place] 1.015 (1.015-1.025) Urine Protein Negative (NEGATIVE) Urine Glucose (UA) Negative (NEGATIVE) Laboratory Tests 01/17/18 01/18/18 21:35 04:25 WBC 0.6 L* 0.7 L* Hgb 7.2 L 6.3 L D Plt Count 68 L D 47 L Neutrophils % (Manual) 57.0 Band Neutrophils % 2.0 Neutrophils # (Manual) 0.4 L Assessment and Plan Assessment and Plan: Limited stage small cell with question of left adrenal nodularity currently on chemotherapy with etoposide and carboplatinum and radiation therapy. Because of radiation therapy growth factors been held. She did not have radiation last week she has had significant amount difficulty with esophagitis. She is neutropenic and thrombocytopenic today. She received G-CSF in the emergency room last evening. Will continue with 1 more dose of G-CSF today. Currently on Levaquin and cultures are pending. We will start Carafate for esophagitis and also use nystatin as there is probably a component of murray. 2. Chemotherapy-induced neutropenia WBC 703/03/04 3. Thrombocytopenia platelets 47,000 on 01/18/18 and decreasing. We'll follow 4. Anemia hemoglobin 6.3 on 01/18/18 receiving blood. Will do anemia workup 5. Orthostatic hypotension currently on Florinef 0.1 mg daily 6. Radiation esophagitis with painful swallowing and decreased fluid intake Recommendations: 1. Anemia workup 2. Carafate liquid to coat the esophagus 3. Nystatin empiric 4. G-CSF today. 5. Receiving blood transfusion. 6. Follow CBC
[2018-01-18] MEDS: ALBUTEROL/IPRATROPIUM 2.5mg-0.5mg/3ml NEB AEROSOL PRN (11:22)
[2018-01-18] MEDS: ALBUTEROL 2.5mg/3ml (0.083%) NEB AEROSOL SCH ×2 (11:23→19:52)
[2018-01-18] MEDS: SUCRALFATE 1gm/10ml ORAL LIQUID PO SCH ×3 (12:55→21:00)
[2018-01-18] MEDS: CEFEPIME 1 GM in NS 50 ML IV SCH ×2 (15:43→23:16)
[2018-01-19] MEDS: GUAIFENESIN/DM 5ml ORAL LIQUID PO PRN ×3 (01:59→16:55)
[2018-01-19] MEDS: LEVOFLOXACIN PB 750 MG/150 ML BAG IV SCH (02:02)
[2018-01-19] MEDS: SALINE FLUSH 10ml SYRINGE IV PRN (04:14)
[2018-01-19] MEDS: SUCRALFATE 1gm/10ml ORAL LIQUID PO SCH ×4 (06:32→21:58)
[2018-01-19] MEDS: CEFEPIME 1 GM in NS 50 ML IV SCH ×3 (06:32→22:00)
[2018-01-19] MEDS: NYSTATIN 500,000 units/5 ml ORAL LIQUID PO SCH ×4 (09:33→21:58)
[2018-01-19 09:36] VITALS: BMI 17.9
[2018-01-19] MEDS: ALBUTEROL/IPRATROPIUM 2.5mg-0.5mg/3ml NEB AEROSOL PRN (10:08)
--- NOTE | 2018-01-19 17:09 | Progress Note ---
Oncology Subjective New complaints. Continues with cough. Has slight trouble with swallowing and discomfort esophagus with swallowing.Review of systems: Gen.: Negative for fever or chills, malaise Eyes: Negative eye discharge, eye pain ENT: Negative for nosebleeds, mouth sores Lymph: Negative enlarged lymph nodes, no night sweats Respiratory: Positive for cough, shortness of breath, negative hemoptysis, Cardiac: Negative for chest pain, palpitations, or swelling GI: Negative for nausea, negative for vomiting, negative for diarrhea Genitourinary: No urgency, no dysuria, no hematuria Musculoskeletal: Positive for weakness, no joint pain Neurologic: Positive for a mild headache , negative for focal weakness, negative for numbness Exam Vital signs: Temperature 96.1 F L 01/19/18 15:00 Pulse Rate 96 01/19/18 15:00 Respiratory Rate 18 01/19/18 15:00 Blood Pressure 134/75 01/19/18 15:00 Pulse Oximetry 97 01/19/18 15:00 - Constitutional no acute distress, thin - Routine HEENT Exam Head: Present: normocephalic Eye: Present: EOMI, PERRL ENT: Present: mucous membranes moist - Routine Neck Exam Present: supple. Absent: lymphadenopathy - Routine Respiratory Exam Present: decreased breath sounds, rhonchi (few) - Routine Cardiovascular Exam Present: RRR, no murmur - Routine Abdominal Exam Present: soft, non distended, non tender - Routine Extremities Exam Absent: cyanosis, clubbing, edema - Routine Skin Exam Present: dry, warm - Routine Neurological Exam Present: alert, oriented X3, CN II-XII intact - Routine Psychiatric Exam Present: normal affect Oncology Results - Labs CBC & Chem 7: 01/19/18 04:11 01/19/18 04:11 Assessment and Plan Assessment and Plan: Limited stage small cell with question of left adrenal nodularity currently on chemotherapy with etoposide and carboplatinum and radiation therapy. Because of radiation therapy growth factors been held. She did not have radiation last week she has had significant amount difficulty with esophagitis. She is neutropenic and thrombocytopenic today. She received G-CSF in the emergency room on 01/17 and also on 01/18. WBC is still low. Will continue on 01/19/18. Will continue with 1 more dose of G-CSF today. Currently on Levaquin and cultures are negative at 24 hours. We will continue Carafate for esophagitis and also use nystatin as there is probably a component of murray. 2. Chemotherapy-induced neutropenia WBC 0.7 01/18/18 and 01/19/18 3. Thrombocytopenia platelets 47,000 on 01/18/18, 29,000 on 01/19/18 and decreasing. We'll follow 4. Anemia hemoglobin 6.3 on 01/18/18 received blood. 7.9 on 01/19/18 anemia workup is negative so far. Will do anemia workup serum iron 100, ferritin 873, B-12 673 folate 11 5. Orthostatic hypotension currently on Florinef 0.1 mg daily 6. Radiation esophagitis with painful swallowing and decreased fluid intake Recommendations: 1. Anemia workup pending 2. Carafate liquid to coat the esophagus 3. Nystatin empiric 4. G-CSF continued for third dose 5. Follow CBC - Time Spent With Patient Total time spent is greater than 50% in coordination of care (as documented) at patient's floor/unit and/or counseling patient: less than 15 minutes
--- NOTE | 2018-01-19 19:22 | Progress Note ---
- Date 01/19/18 Subjective: Patient complains of poor appetite due to the bad taste in her mouth., She is feeling slightly less ill than yesterday however. No fevers chills vomiting or diarrhea Objective Vital signs: Temperature 96.1 F L 01/19/18 15:00 Pulse Rate 90 01/19/18 16:00 Respiratory Rate 18 01/19/18 15:00 Blood Pressure 134/75 01/19/18 15:00 Pulse Oximetry 97 01/19/18 15:00 - Constitutional Present: mild distress, well developed - Routine HEENT Exam Head: Present: normocephalic, atraumatic Eye: Present: EOMI ENT: Present: mucous membranes moist, dentition normal - Routine Respiratory Exam Present: CTA bilaterally. Absent: wheezes - Routine Cardiovascular Exam Present: RRR. Absent: murmur - Routine Abdominal Exam Present: soft, normoactive bowel sounds, non distended. Absent: tenderness - Routine Extremities Exam Present: normal capillary refill - Routine Skin Exam Present: dry, warm - Routine Neurological Exam Present: alert, oriented X3, CN II-XII intact - Routine Lymphatic Exam Lymphatic: Absent: adenopathy - Routine Psychiatric Exam Present: normal affect Results - Labs CBC & Chem 7: 01/19/18 04:11 01/19/18 04:11 Assessment and Plan (1) Pancytopenia Current visit: Yes Status: Acute (2) Generalized weakness Current visit: Yes Status: Acute (3) Small cell lung cancer Current visit: Yes Status: Acute (4) Abnormal finding on lung imaging Current visit: No Status: Acute (5) COPD (chronic obstructive pulmonary disease) Current visit: No Status: Acute (6) Dehydration Current visit: No Status: Acute (7) Viral syndrome Current visit: No Status: Acute (8) Dysphagia Current visit: Yes Status: Acute Assessment and Plan: 1. pancytopenia d/t chemotherapy with low grade temp and persistent tachycardia. Arguable that she meet SIRS criteria secondary to this neutropenia with absolute neutrophil count below 500(actual value calculated 366 ) 2. Dysphagia 3. Small cell lung cancer with recent chemo and radiation 4. Relative dehydration improving 5. Relative malnutrition ongoing 6. COPD stable 7. Hypertension within normal limits Plans converting to Inpatient for ongoing treatment of neutropenia with tachycardia in addition to Levaquin we've added cefepime. Dr. Zamudio is following and is continuing patient's dose of Granix. My Appreciation for his input. Patient appears euvolemic this time and would consider discontinuing continuous infusion or at least reducing to maintenance to keep the an open. Continuing nystatin swish and swallow, as her throat reportedly feels improvement. Albuterol nebulizers breathing treatments PRN symptoms DISPOSITION: inpatient status for continue treatment - Physician Narrative Narrative: Date: 01/19/18 Time: 1918 Hospital Course Summary Disclaimer: The visit summary below is not to be considered part of the above Progress Note.
[2018-01-19] MEDS: ALBUTEROL 2.5mg/3ml (0.083%) NEB AEROSOL SCH (21:41)
[2018-01-19] MEDS: PROMETHAZINE VC PO PRN (22:29)
[2018-01-19] MEDS: CODEINE PO PRN (22:29)
[2018-01-20] MEDS: LEVOFLOXACIN PB 750 MG/150 ML BAG IV SCH (00:44)
[2018-01-20] MEDS: PROMETHAZINE VC PO PRN ×4 (04:57→23:04)
[2018-01-20] MEDS: CODEINE PO PRN ×4 (04:57→23:04)
[2018-01-20] MEDS: CEFEPIME 1 GM in NS 50 ML IV SCH ×3 (06:16→22:57)
[2018-01-20] MEDS: SUCRALFATE 1gm/10ml ORAL LIQUID PO SCH ×4 (06:17→21:44)
[2018-01-20] MEDS: NYSTATIN 500,000 units/5 ml ORAL LIQUID PO SCH ×4 (09:12→21:44)
[2018-01-20] MEDS: ALBUTEROL 2.5mg/3ml (0.083%) NEB AEROSOL SCH ×3 (09:33→19:43)
--- NOTE | 2018-01-20 13:43 | Progress Note ---
Exam Vital signs: Temperature 96.9 F 01/20/18 07:41 Pulse Rate 95 01/20/18 11:12 Respiratory Rate 16 01/20/18 11:12 Blood Pressure 108/69 01/20/18 11:12 Pulse Oximetry 96 01/20/18 11:12 Oncology Results - Labs CBC & Chem 7: 01/20/18 10:47 01/19/18 04:11 Labs: Short CBC 01/20/18 Range/Units 10:47 WBC 0.9 L* (4.5-11.0) T/MM3 Hgb 8.8 L D (12-16) GM/DL Hct 25.5 L (36-46) % Plt Count 22 L* (130-400) T/MM3 Assessment and Plan Assessment and Plan: 1. 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 Because of radiation therapy, growth factors been held. She did not have radiation last week; had significant amount difficulty with esophagitis. Is neutropenic and thrombocytopenic. She received G-CSF in the emergency room on 01/17, as in- patient 01/18 and 01/19. WBC is still low. Will continue on 01/20/18. 2. Chemotherapy-induced neutropenia WBC 0.7 on 01/18/18 and 01/19/18. Today, 05/04, WBC is 0.9 3. Thrombocytopenia platelets 47,000 on 01/18/18, 29,000 on 01/19/18, and 22,000 on 01/20/18. 4. Anemia hemoglobin 6.3 on 01/18/18 received blood. 7.9 on 01/19/18 anemia workup is negative so far. Will do anemia workup serum iron 100, ferritin 873, B-12 673 folate 11 5. Orthostatic hypotension currently on Florinef 0.1 mg daily 6. Radiation esophagitis with painful swallowing and decreased fluid intake Plan Continue supportive care, antibiotics, and G-CSF. Follow counts. Continue Carafate liquid to coat the esophagus and empiric Nystatin. Encouraged patient to be up walking as much as tolerates. Will order protein snack BID. - Time Spent With Patient Total time spent is greater than 50% in coordination of care (as documented) at patient's floor/unit and/or counseling patient:
[2018-01-20] MEDS: NS FLUSH BAG 500ml IV PRN (15:25)
[2018-01-20] MEDS: ACETAMINOPHEN 325 MG TABLET PO PRN (18:43)
[2018-01-20] MEDS: ALBUTEROL/IPRATROPIUM 2.5mg-0.5mg/3ml NEB AEROSOL PRN (19:43)
--- NOTE | 2018-01-20 21:25 | Progress Note ---
- Date 01/20/18 Subjective: Patient stating that she feels perhaps a little less sick again today. But these are small incremental improvements according to her. No fevers chills nausea vomiting just ongoing weakness in difficulty swallowing although even this is improving Objective Vital signs: Temperature 97.7 F 01/20/18 15:33 Pulse Rate 89 01/20/18 16:00 Respiratory Rate 18 01/20/18 19:45 Blood Pressure 110/66 01/20/18 15:33 Pulse Oximetry 98 01/20/18 15:33 Height/Weight/BMI: Weight 49.5 kg - Constitutional Present: no acute distress, well nourished, well developed - Routine HEENT Exam Eye: Present: EOMI, PERRL ENT: Present: mucous membranes moist, dentition normal - Routine Respiratory Exam Present: CTA bilaterally. Absent: wheezes - Routine Cardiovascular Exam Present: RRR. Absent: murmur - Routine Abdominal Exam Present: soft, normoactive bowel sounds, non distended. Absent: tenderness - Routine Extremities Exam Present: normal capillary refill - Routine Skin Exam Present: dry, warm - Routine Neurological Exam Present: alert, oriented X3, CN II-XII intact - Routine Lymphatic Exam Lymphatic: Absent: adenopathy - Routine Psychiatric Exam Present: normal affect Results - Labs CBC & Chem 7: 01/20/18 10:47 01/19/18 04:11 Assessment and Plan (1) Pancytopenia Current visit: Yes Status: Acute (2) Generalized weakness Current visit: Yes Status: Acute (3) Small cell lung cancer Current visit: Yes Status: Acute (4) Abnormal finding on lung imaging Current visit: No Status: Acute (5) COPD (chronic obstructive pulmonary disease) Current visit: No Status: Acute (6) Dehydration Current visit: No Status: Acute (7) Viral syndrome Current visit: No Status: Acute (8) Dysphagia Current visit: Yes Status: Acute Assessment and Plan: pancytopenia d/t chemotherapy with low grade temp and persistent tachycardia. Arguable that she meet SIRS criteria secondary to this neutropenia with absolute neutrophil count below 500 Dysphagia thrombocytopenia Small cell lung cancer with recent chemo and radiation Relative dehydration improving Relative malnutrition ongoing COPD stable dysgeusia Hypertension within normal limits Plans noting the platelets continue to fall and she will be into threshold for platelet transfusion tomorrow on this current trajectory. Continuing cefepime and Levaquin as well as oral nystatin. Patient continues to complain of dysgeusia since chemo treatment. Patient remains on granulocyte colony stimulating factors. Patient remains in reverse isolation for immunosuppression DISPOSITION: inpatient status - Physician Narrative Narrative: Date: 01/20/18 Time: 2112 Hospital Course Summary Disclaimer: The visit summary below is not to be considered part of the above Progress Note.
[2018-01-21] MEDS: GUAIFENESIN/DM 5ml ORAL LIQUID PO PRN (01:55)
[2018-01-21] MEDS: LEVOFLOXACIN PB 750 MG/150 ML BAG IV SCH (01:57)
[2018-01-21] MEDS: SUCRALFATE 1gm/10ml ORAL LIQUID PO SCH ×4 (06:09→21:16)
[2018-01-21] MEDS: CEFEPIME 1 GM in NS 50 ML IV SCH ×3 (06:09→22:52)
[2018-01-21] MEDS: NYSTATIN 500,000 units/5 ml ORAL LIQUID PO SCH ×4 (09:02→21:16)
[2018-01-21] MEDS: ALBUTEROL 2.5mg/3ml (0.083%) NEB AEROSOL SCH ×2 (11:13→19:47)
[2018-01-21] MEDS ORDERED: DiphenhydrAMINE 25 MG CAPSULE PO ONE (12:34)
[2018-01-21] MEDS ORDERED: NS FLUSH BAG 500ml IV PRN (12:34)
--- NOTE | 2018-01-21 16:09 | Progress Note ---
Oncology Subjective Chief complaint is cough. She has no fever. She remained stable. She is receiving platelet transfusion today. Exam Vital signs: Temperature 98.0 F 01/21/18 15:08 Pulse Rate 98 01/21/18 15:08 Respiratory Rate 14 01/21/18 15:08 Blood Pressure 117/63 01/21/18 14:11 Pulse Oximetry 93 01/21/18 15:08 - Constitutional no acute distress - Routine Respiratory Exam Absent: rhonchi, wheezes, crackles - Routine Cardiovascular Exam Present: RRR, no murmur - Routine Abdominal Exam Present: soft - Routine Neurological Exam Present: alert, oriented X3 Oncology Results - Labs CBC & Chem 7: 01/21/18 11:03 01/19/18 04:11 Labs: Short CBC 01/21/18 Range/Units 11:03 WBC 1.8 L* D (4.5-11.0) T/MM3 Hgb 8.3 L (12-16) GM/DL Hct 24.4 L (36-46) % Plt Count 15 L* (130-400) T/MM3 Assessment and Plan Assessment and Plan: Assessment 1. 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 SVC syndrome resolved. 2. Pancytopenia/severe neutropenia and thrombocytopenia due to chemotherapy. Neutropenia is improving. Status post blood and platelet transfusions. 3. Dry cough. 4. Neutropenic fever, cultures negative. Recommendation and plan 1. Continue G-CSF until ANC more than 1.5. 2. Platelet transfusion as needed. 3. Continue antibiotics until neutropenia rate resolved. 4. Chemotherapy and radiation on hold. - Time Spent With Patient Total time spent is greater than 50% in coordination of care (as documented) at patient's floor/unit and/or counseling patient: less than 15 minutes
[2018-01-21] MEDS: ACETAMINOPHEN 325 MG TABLET PO PRN (17:03)
[2018-01-21] MEDS: PROMETHAZINE VC PO PRN (17:04)
[2018-01-21] MEDS: CODEINE PO PRN (17:04)
--- NOTE | 2018-01-21 19:47 | Progress Note ---
- Date 01/21/18 Subjective: Patient's biggest complaint at this point is a headache that radiates along the left pentecostal. It flashes and goes away. Objective Vital signs: Temperature 98.0 F 01/21/18 15:08 Pulse Rate 98 01/21/18 15:08 Respiratory Rate 14 01/21/18 15:08 Blood Pressure 117/63 01/21/18 14:11 Pulse Oximetry 93 01/21/18 15:08 Height/Weight/BMI: Weight 49.5 kg - Constitutional Present: well nourished, well developed - Routine HEENT Exam Eye: Present: EOMI ENT: Present: mucous membranes moist, dentition normal - Routine Respiratory Exam Present: CTA bilaterally. Absent: wheezes - Routine Cardiovascular Exam Present: RRR. Absent: murmur - Routine Abdominal Exam Present: soft, normoactive bowel sounds, non distended. Absent: tenderness - Routine Extremities Exam Present: normal capillary refill - Routine Skin Exam Present: dry, warm - Routine Neurological Exam Present: alert, oriented X3, CN II-XII intact - Routine Lymphatic Exam Lymphatic: Absent: adenopathy - Routine Psychiatric Exam Present: normal affect Results - Labs CBC & Chem 7: 01/21/18 16:59 01/19/18 04:11 Assessment and Plan (1) Pancytopenia Current visit: Yes Status: Acute (2) Generalized weakness Current visit: Yes Status: Acute (3) Small cell lung cancer Current visit: Yes Status: Acute (4) Abnormal finding on lung imaging Current visit: No Status: Acute (5) COPD (chronic obstructive pulmonary disease) Current visit: No Status: Acute (6) Dehydration Current visit: No Status: Acute (7) Viral syndrome Current visit: No Status: Acute (8) Dysphagia Current visit: Yes Status: Acute Assessment and Plan: pancytopenia d/t chemotherapy with low grade temp and persistent tachycardia. Arguable that she meet SIRS criteria secondary to this neutropenia with absolute neutrophil count below 500 Dysphagia thrombocytopenia Small cell lung cancer with recent chemo and radiation Relative dehydration improving Relative malnutrition ongoing COPD stable dysgeusia Hypertension within normal limits Plans patient's absolute neutrophil count has climbed to 720 and I will discuss with Dr. Zamudio if he would like her removed from reverse isolation due to her improving neutropenia. Platelets have fallen to 15 and I've ordered a bag of irradiated platelets to be given and patience level can be checked again after that. Ongoing antibiotics this time. DISPOSITION: inpatient status - Physician Narrative Narrative: Date: 01/21/18 Time: 1943 Hospital Course Summary Disclaimer: The visit summary below is not to be considered part of the above Progress Note.
[2018-01-22] MEDS: LEVOFLOXACIN PB 750 MG/150 ML BAG IV SCH ×2 (00:59→06:43)
[2018-01-22] MEDS: PROMETHAZINE VC PO PRN ×3 (00:59→18:09)
[2018-01-22] MEDS: CODEINE PO PRN ×3 (00:59→18:09)
[2018-01-22] MEDS: SUCRALFATE 1gm/10ml ORAL LIQUID PO SCH ×4 (06:37→21:24)
[2018-01-22] MEDS: ALBUTEROL 2.5mg/3ml (0.083%) NEB AEROSOL SCH ×2 (06:55→19:51)
[2018-01-22] MEDS: CEFEPIME 1 GM in NS 50 ML IV SCH ×3 (08:35→23:48)
[2018-01-22] MEDS: NYSTATIN 500,000 units/5 ml ORAL LIQUID PO SCH ×4 (08:37→21:24)
--- NOTE | 2018-01-22 11:36 | Progress Note ---
<Noy Hand - Last Filed: 01/22/18 13:03> Oncology Subjective Alone in room. Continues with positive cough, shortness of air with exertion, denies worsening symptoms. Reports intermittent headache, denies vision changes or dizziness. Relief with as needed medications yesterday, has not asked for any medicines today. Continues to complain of decreased appetite, denies nausea or vomiting. No BM since Friday. Doesn't feel she is constipated. Normal voiding General: No fever, no night sweats Eyes: No redness, no pain, no diplopia ENT: No mouth sores, no trouble swallowing Cardiac: No chest pain no palpitations Pulmonary: + cough, + shortness of breath with exertion, unchanged. Abdomen: No pain, no nausea vomiting, last BM 4 days ago. : No urgency, frequency, dysuria, or hematuria Musculoskeletal: No arthritis, no myalgias Neurological: + headaches, no focal weakness or vision changes Skin: No rash, no sores Psychiatric: No anxiety, no depression Exam Vital signs: Temperature 96.2 F L 01/22/18 08:00 Pulse Rate 102 H 01/22/18 08:00 Respiratory Rate 17 01/22/18 08:00 Blood Pressure 126/68 01/22/18 08:00 Pulse Oximetry 93 01/22/18 08:00 - Constitutional no acute distress, well nourished, well developed - Routine HEENT Exam Head: Present: normocephalic Eye: Present: EOMI, conjunctivae pink. Absent: nystagmus ENT: Present: mucous membranes moist - Routine Neck Exam Present: supple. Absent: lymphadenopathy - Routine Respiratory Exam Present: decreased breath sounds. Absent: wheezes, crackles - Routine Cardiovascular Exam Present: RRR. Absent: no murmur - Routine Abdominal Exam Present: soft, normoactive bowel sounds, non tender - Routine Extremities Exam Present: no edema - Routine Skin Exam Present: intact, dry, pallor - Routine Neurological Exam Present: alert, oriented X3 - Routine Psychiatric Exam Present: normal affect, cooperative Oncology Results - Labs CBC & Chem 7: 01/22/18 10:54 01/22/18 10:54 Labs: Short CBC 01/21/18 01/22/18 Range/Units 16:59 10:54 WBC 6.1 D (4.5-11.0) T/MM3 Hgb 8.0 L (12-16) GM/DL Hct 23.4 L (36-46) % Plt Count 37 L D 33 L (130-400) T/MM3 [facility] 01/22/18 10:54 Sodium 142 Potassium 3.4 L Chloride 105 Carbon Dioxide 23 BUN 8.0 Creatinine 0.6 L Glucose 92 Calcium 9.2 Assessment and Plan Assessment and Plan: Assessment 1. 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 SVC syndrome resolved. 2. Pancytopenia/severe neutropenia and thrombocytopenia due to chemotherapy. Neutropenia is improving. Status post blood and platelet transfusions. 3. Dry cough. 4. Neutropenic fever, cultures negative. Recommendation and plan Continue supportive care. WBCs 6.1 today, ANC 3.0, will discontinue G- CSF. Continue to follow platelets. Instructed be aggressive with asking for when necessary pain medication for complaint of headache. Consider brain MRI; November 17, 2017 brain MRI negative for metastatic disease or acute findings. - Time Spent With Patient Total time spent is greater than 50% in coordination of care (as documented) at patient's floor/unit and/or counseling patient: 25 - 35 minutes <Pato Zamudio - Last Filed: 01/22/18 17:13> Exam Vital signs: Temperature 97.8 F 01/22/18 14:55 Pulse Rate 107 H 01/22/18 14:55 Respiratory Rate 17 01/22/18 14:55 Blood Pressure 95/65 01/22/18 14:55 Pulse Oximetry 93 01/22/18 14:55 Oncology Results - Labs CBC & Chem 7: 01/22/18 10:54 01/22/18 10:54 Labs: Short CBC 01/21/18 01/22/18 Range/Units 16:59 10:54 WBC 6.1 D (4.5-11.0) T/MM3 Hgb 8.0 L (12-16) GM/DL Hct 23.4 L (36-46) % Plt Count 37 L D 33 L (130-400) T/MM3 [facility] 01/22/18 10:54 Sodium 142 Potassium 3.4 L Chloride 105 Carbon Dioxide 23 BUN 8.0 Creatinine 0.6 L Glucose 92 Calcium 9.2 Assessment and Plan Assessment and Plan: Patient examined, chart reviewed, hypertension in the development of the plan of care of this patient. She continues on Granix or neutropenia. WBC has improved to 6.1 today. We are reaching the time to look at stopping the Granix. Continues to have headache. Strongly consider MRI. Laboratory Tests 01/19/18 01/22/18 04:11 10:54 WBC 6.1 D Hgb 8.0 L Plt Count 33 L Band Neutrophils % 12.0 H D Total Bilirubin 1.40 H I participated with Marielena Hand and the development of the plan of care of this patient. - Time Spent With Patient Total time spent is greater than 50% in coordination of care (as documented) at patient's floor/unit and/or counseling patient:
[2018-01-22] MEDS: ACETAMINOPHEN 325 MG TABLET PO PRN ×2 (11:56→20:45)
--- NOTE | 2018-01-22 19:57 | Progress Note ---
- Date 01/22/18 Subjective: Jennifer Beard was helping. She still has flashes of pain and nothing prevents that from happening but they are less profound. She is still having significant issues with all foods having a bad taste to them. Objective Vital signs: Temperature 97.8 F 01/22/18 14:55 Pulse Rate 107 H 01/22/18 14:55 Respiratory Rate 16 01/22/18 19:51 Blood Pressure 95/65 01/22/18 14:55 Pulse Oximetry 95 01/22/18 19:51 Height/Weight/BMI: Weight 50.5 kg - Constitutional Present: well developed, thin - Routine HEENT Exam Eye: Present: EOMI ENT: Present: mucous membranes moist, dentition normal - Routine Respiratory Exam Present: CTA bilaterally. Absent: wheezes - Routine Cardiovascular Exam Present: RRR. Absent: murmur - Routine Abdominal Exam Present: soft, normoactive bowel sounds, non distended. Absent: tenderness - Routine Extremities Exam Present: normal capillary refill - Routine Skin Exam Present: dry, warm - Routine Neurological Exam Present: alert, oriented X3, CN II-XII intact - Routine Lymphatic Exam Lymphatic: Absent: adenopathy - Routine Psychiatric Exam Present: normal affect Results - Labs CBC & Chem 7: 01/22/18 10:54 01/22/18 10:54 Assessment and Plan (1) Pancytopenia Current visit: Yes Status: Acute (2) Generalized weakness Current visit: Yes Status: Acute (3) Small cell lung cancer Current visit: Yes Status: Acute (4) Abnormal finding on lung imaging Current visit: No Status: Acute (5) COPD (chronic obstructive pulmonary disease) Current visit: No Status: Acute (6) Dehydration Current visit: No Status: Acute (7) Viral syndrome Current visit: No Status: Acute (8) Dysphagia Current visit: Yes Status: Acute Assessment and Plan: pancytopenia d/t chemotherapy with low grade temp and persistent tachycardia. Dysphagia thrombocytopenia Small cell lung cancer with recent chemo and radiation Relative dehydration improving Relative malnutrition ongoing COPD stable dysgeusia Hypertension within normal limits Plans patient's absolute neutrophil count is now at 3000. Removing her from reverse isolation. Continuing antibiotics but will de-escalate. Up platelet count has been low but holding steady in not requiring transfusion at this point. DISPOSITION: inpatient status - Physician Narrative Narrative: Date: 01/22/18 Time: 1953 Hospital Course Summary Disclaimer: The visit summary below is not to be considered part of the above Progress Note.
[2018-01-22] MEDS: SALINE FLUSH 10ml SYRINGE IV PRN (23:48)
[2018-01-22] MEDS: NS FLUSH BAG 500ml IV PRN (23:53)
[2018-01-23] MEDS: SALINE FLUSH 10ml SYRINGE IV PRN (05:30)
[2018-01-23] MEDS: CODEINE PO PRN (05:42)
[2018-01-23] MEDS: PROMETHAZINE VC PO PRN (05:42)
[2018-01-23] MEDS ORDERED: LEVOFLOXACIN PB 750 MG/150 ML BAG IV SCH (06:30)
[2018-01-23] MEDS: SUCRALFATE 1gm/10ml ORAL LIQUID PO SCH ×4 (06:58→20:12)
[2018-01-23] MEDS: LEVOFLOXACIN PB 750 MG/150 ML BAG IV SCH (07:13)
[2018-01-23] MEDS: CEFEPIME 1 GM in NS 50 ML IV SCH (07:15)
[2018-01-23] MEDS: ACETAMINOPHEN 325 MG TABLET PO PRN ×2 (08:10→20:11)
[2018-01-23] MEDS: ALBUTEROL 2.5mg/3ml (0.083%) NEB AEROSOL SCH ×2 (08:10→19:03)
[2018-01-23] MEDS: ONDANSETRON 4 MG/2 ML INJECTION IVP PRN (09:54)
[2018-01-23] MEDS: NYSTATIN 500,000 units/5 ml ORAL LIQUID PO SCH ×4 (09:54→20:12)
--- NOTE | 2018-01-23 10:34 | Progress Note ---
- Date 01/23/18 Subjective: Ysabel states that she's feeling "queasy" today and didn't feel like eating breakfast. She has a left sided, sharp, shooting headache. Earlier it was 8/10 but after Tylenol it's down to 5-6/10. She feels weak and a little lightheaded. She denies paresthesias, visual changes, or focal deficits. No shortness of breath or chest pain. Objective Vital signs: Temperature 97.3 F 01/23/18 07:33 Pulse Rate 104 H 01/23/18 08:00 Respiratory Rate 24 01/23/18 08:10 Blood Pressure 120/71 01/23/18 07:33 Pulse Oximetry 94 01/23/18 08:10 Height/Weight/BMI: Weight 50.1 kg - Constitutional Present: well nourished, well developed, thin - Routine HEENT Exam Eye: Absent: conjunctival icterus, scleral injection ENT: Present: oropharynx clear - Routine Respiratory Exam Present: CTA bilaterally - Routine Cardiovascular Exam Present: RRR, S1, S2 - Routine Abdominal Exam Present: soft, normoactive bowel sounds, non distended, non tender - Routine Extremities Exam Present: no edema, pulses intact - Routine Musculoskeletal Exam Musculoskeletal: Absent: joint swelling - Routine Skin Exam Present: intact, dry, warm - Routine Neurological Exam Present: alert, oriented X3, CN II-XII intact, moving all extremities, vision grossly intact, hearing grossly intact, normal speech. Absent: sensory deficit , motor deficit - Routine Psychiatric Exam Present: normal thought process, cooperative Results - Labs CBC & Chem 7: 01/23/18 09:43 01/23/18 09:43 Assessment and Plan (1) Dehydration Current visit: No Status: Acute (2) Viral syndrome Current visit: No Status: Acute (3) Abnormal finding on lung imaging Current visit: No Status: Acute (4) Small cell lung cancer Current visit: Yes Status: Acute (5) COPD (chronic obstructive pulmonary disease) Current visit: No Status: Acute (6) Pancytopenia Current visit: Yes Status: Acute (7) Generalized weakness Current visit: Yes Status: Acute (8) Dysphagia Current visit: Yes Status: Acute Assessment and Plan: IMPRESSION pancytopenia d/t chemotherapy with low grade temp and persistent tachycardia. Hypokalemia (not POA) Headache Dysphagia thrombocytopenia Small cell lung cancer with recent chemo and radiation Relative dehydration improving Relative malnutrition ongoing COPD stable dysgeusia Hypertension within normal limits PLAN Headaches: MRI brain w/ & w/o contrast as recommended by Dr. Zamudio. Granix dc'd. ANC >3000. WBC 7.7. Hgb 8.3, plt 37. K 3.1; will give IV bolus since pt c/o nausea. Zofran PRN. Check mg level. Abx: DC IV Levaquin, Cefepime and instead start PO Levaquin. Afebrile. Poor oral intake, nausea = may need to restart IVF if nausea is uncontrolled with Zofran Orders discussed and plan formulated with Dr. Frances. Addendum hospitalist note: Seen and examined patient on same day as the above note by nurse practitioner Isa Kwon. Agree with history, physical, assessment and plan. Comprehensive physical findings correlate to the above note. Subjective: no new complaints. Continues to dislike food due to the dysgeusia. Objective: no apparent distress. Clear to auscultation bilaterally. Cardiovascular rate rhythm normal. No significant edema. No tenderness along the temporal artery Assessment and plan: de-escalating antibiotics. Ongoing headache: Ordering MRI of the brain to rule out potential metastasis Documented on [email or web address] speech to text. Efforts to correct speech recognition errors performed, but variation may DVT Prophylaxis: SCD's Resuscitation Status: Full Code - Physician Narrative Narrative: Date: 01/23/18 Time: 1031 Hospital Course Summary Disclaimer: The visit summary below is not to be considered part of the above Progress Note. Hospital Course: 01/17: Admit 1. pancytopenia d/t chemotherapy with low grade temp. 2. Dysphagia 3. Small cell lung cancer with recent chemo and radiation 4. Relative dehydration 5. Relative malnutrition 6. COPD 7. Hypertension Plans 1. observation 2. Granix 3. Dr. Zamudio consult 4. blood urine cx, resp panel, IV levaquin while pancytpenic, 5. PT eval 6. nystatin swish swallow 3/4: In-house hospitalist addendum: Seen and examined patient on same day as the above note. Agree with history, physical, assessment and plan. Comprehensive physical findings correlate to the above note. HPI: patient on consolidative chemo and radiotherapy developed steadily worsening weakness and fatigue with sense malaise. No new medications and brought herself into the emergency room ROS: agree with the greater than 10 system review performed Past medical, surgical, social, family history: as stated above. No additional information to supply Physical exam: appears moderately ill. May have a right posterior crackle to auscultation of lung Labs in imaging: chest x-ray does not corroborate to pneumonia however. Patient has pancytopenia and absolute neutrophil count qualifies patient is neutropenic Assessment and plan. Reverse isolation added to the nystatin and Levaquin have added cefepime as patient is not have a true allergy to penicillins and crossover is not likely with modern cephalosporins. Awaiting blood culture 01/19 converting to Inpatient for ongoing treatment of neutropenia with tachycardia in addition to Levaquin we've added cefepime. Dr. Zamudio is following and is continuing patient's dose of Granix. My Appreciation for his input. Patient appears euvolemic this time and would consider discontinuing continuous infusion or at least reducing to maintenance to keep the an open. Continuing nystatin swish and swallow, as her throat reportedly feels improvement. Albuterol nebulizers breathing treatments PRN symptoms 01/20 noting the platelets continue to fall and she will be into threshold for platelet transfusion tomorrow on this current trajectory. Continuing cefepime and Levaquin as well as oral nystatin. Patient continues to complain of dysgeusia since chemo treatment. Patient remains on granulocyte colony stimulating factors. Patient remains in reverse isolation for immunosuppression 01/21 patient's absolute neutrophil count has climbed to 720 and I will discuss with Dr. Zamudio if he would like her removed from reverse isolation due to her improving neutropenia. Platelets have fallen to 15 and I've ordered a bag of irradiated platelets to be given. Ongoing antibiotics this time. 01/22 patient's absolute neutrophil count is now at 3000. Removing her from reverse isolation. Up platelet count has been low but holding steady in not requiring transfusion at this point. 01/23 Headaches: MRI brain w/ & w/o contrast as recommended by Dr. Zamudio. Granix dc'd. ANC >3000. WBC 7.7. Hgb 8.3, plt 37. K 3.1; will give IV bolus since pt c/o nausea. Zofran PRN. Check mg level. Abx: DC IV Levaquin, Cefepime and instead start PO Levaquin. Afebrile. Poor oral intake, nausea = may need to restart IVF if nausea is uncontrolled with Zofran
[2018-01-23] MEDS ORDERED: SALINE FLUSH 10ml SYRINGE ONE (11:42)
[2018-01-23] MEDS ORDERED: GADOTERIDOL 279.3mg/ml - 10ml vial IVP ONE (11:43)
--- NOTE | 2018-01-23 13:06 | Magnetic Resonance Report ---
Indication: left sided headache, r/o metastasis PROCEDURE: MR head/brain wo/w con: Encounter: Initial Comparisons: Brain MRI dated November 17, 2017 Technique: Multiplanar, multisequence, MR imaging of the head with and without contrast was acquired. Contrast: 10 mL of ProHance FINDINGS: Motion artifact degrades some of the sequences. Mild generalized atrophy. The ventricles are of normal size, shape, and contour for the patient's age. There are small nonspecific punctate areas of T2-weighted and T2 FLAIR weighted signal abnormality in the deep frontoparietal white matter that most likely represent small vessel ischemic disease. This is of a degree that is considered to be normal for the patient's age. The brain stem, cerebellum, and cerebral hemispheres otherwise have a normal morphologic appearance as well as MR signal intensity on all pulse sequences. Following intravenous administration of contrast, no areas of abnormal enhancement are evident. There are no areas of restricted diffusion to suggest an acute infarct. There is no evidence of an intracranial mass lesion, intracranial hemorrhage, or hydrocephalus. The visualized portions of the orbits, calvarium, paranasal sinuses, and skull base demonstrate no significant abnormality. IMPRESSION: Stable exam without evidence of acute intracranial abnormality. No evidence of intracranial metastatic disease. .
--- NOTE | 2018-01-23 14:03 | Progress Note ---
<Noy Hand - Last Filed: 01/23/18 15:15> Oncology Subjective Alone in room. Cont. w/ interm. h/a, chronic cough, SOA w/ exertion, decreased appetite, nausea, no emesis. No B/M since Friday-" I don't feel constipated." General: No fever, no night sweats Eyes: No redness, no pain, no diplopia ENT: No mouth sores, no trouble swallowing Cardiac: No chest pain no palpitations Pulmonary: + prod. cough thick white sputum, + shortness of breath w/ exertion, no wheezing Abdomen: No pain, + nausea, no vomiting, no diarrhea or constipation. Last BM 5 days ago. : No urgency, frequency, dysuria, or hematuria Musculoskeletal: No arthritis, no myalgias Neurological: No headaches, no focal weakness Skin: No rash, no sores Psychiatric: No anxiety, no depression Exam Vital signs: Temperature 97.3 F 01/23/18 07:33 Pulse Rate 100 01/23/18 12:28 Respiratory Rate 18 01/23/18 12:28 Blood Pressure 112/69 01/23/18 12:28 Pulse Oximetry 94 01/23/18 12:28 - Constitutional no acute distress, well nourished, well developed - Routine HEENT Exam Head: Present: normocephalic Eye: Present: EOMI ENT: Present: mucous membranes moist - Routine Neck Exam Present: supple. Absent: lymphadenopathy - Routine Respiratory Exam Present: decreased breath sounds. Absent: wheezes, crackles - Routine Cardiovascular Exam Present: RRR, no murmur - Routine Abdominal Exam Present: soft, normoactive bowel sounds. Absent: mass - Routine Extremities Exam Present: no edema, full ROM - Routine Skin Exam Present: intact, dry - Routine Neurological Exam Present: alert, oriented X3 - Routine Psychiatric Exam Present: normal affect, cooperative Oncology Results - Labs CBC & Chem 7: 01/23/18 09:43 01/23/18 09:43 Labs: Short CBC 01/23/18 Range/Units 09:43 WBC 7.7 (4.5-11.0) T/MM3 Hgb 8.3 L (12-16) GM/DL Hct 24.5 L (36-46) % Plt Count 37 L (130-400) T/MM3 BMP 01/23/18 09:43 Sodium 141 Potassium 3.1 L Chloride 104 Carbon Dioxide 26 BUN 8.0 Creatinine 0.6 L Glucose 122 H Calcium 9.2 - Impressions Date of Exam: 01/23/18 Ordering Provider: Isa Kwon APRN Type of Exam(s): MR head/brain wo/w con Reason for Exam(s): left sided headache, r/o metastasis Indication: left sided headache, r/o metastasis PROCEDURE: MR head/brain wo/w con: Encounter: Initial Comparisons: Brain MRI dated November 17, 2017 Technique: Multiplanar, multisequence, MR imaging of the head with and without contrast was acquired. Contrast: 10 mL of ProHance FINDINGS: Motion artifact degrades some of the sequences. Mild generalized atrophy. The ventricles are of normal size, shape, and contour for the patient's age. There are small nonspecific punctate areas of T2-weighted and T2 FLAIR weighted signal abnormality in the deep frontoparietal white matter that most likely represent small vessel ischemic disease. This is of a degree that is considered to be normal for the patient's age. The brain stem, cerebellum, and cerebral hemispheres otherwise have a normal morphologic appearance as well as MR signal intensity on all pulse sequences. Following intravenous administration of contrast, no areas of abnormal enhancement are evident. There are no areas of restricted diffusion to suggest an acute infarct. There is no evidence of an intracranial mass lesion, intracranial hemorrhage, or hydrocephalus. The visualized portions of the orbits, calvarium, paranasal sinuses, and skull base demonstrate no significant abnormality. IMPRESSION: Stable exam without evidence of acute intracranial abnormality. No evidence of intracranial metastatic disease. . Assessment and Plan Assessment and Plan: Assessment 1. 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 SVC syndrome resolved. 2. Pancytopenia/severe neutropenia and thrombocytopenia due to chemotherapy. Neutropenia is improving. Status post blood and platelet transfusions. WBCs 6.1 01/22/17, ANC 3.0, will discontinue G- CSF. WBC 01/23/18 is 7.7/ANC 5.5. Platelets 33K on 01/22/17 and 37K on 01/23/18. 3. Neutropenic fever, cultures negative. No further fevers. 4. Chronic headaches; increased frequency past 2 days. MRI brain repeated today, 01/23/18; no acute findings. Recommendation and plan Continue supportive care. Continue to follow CBC. Reviewed importance of daily walking, nutritious intake, and adequate fluids. - Time Spent With Patient Total time spent is greater than 50% in coordination of care (as documented) at patient's floor/unit and/or counseling patient: 25 - 35 minutes <Pato Zamudio - Last Filed: 01/23/18 17:22> Exam Vital signs: Temperature 96.8 F 01/23/18 16:45 Pulse Rate 97 01/23/18 16:45 Respiratory Rate 22 01/23/18 16:45 Blood Pressure 119/67 01/23/18 16:45 Pulse Oximetry 96 01/23/18 16:45 Oncology Results - Labs CBC & Chem 7: 01/23/18 09:43 01/23/18 09:43 Labs: Short CBC 01/23/18 Range/Units 09:43 WBC 7.7 (4.5-11.0) T/MM3 Hgb 8.3 L (12-16) GM/DL Hct 24.5 L (36-46) % Plt Count 37 L (130-400) T/MM3 BMP 01/23/18 09:43 Sodium 141 Potassium 3.1 L Chloride 104 Carbon Dioxide 26 BUN 8.0 Creatinine 0.6 L Glucose 122 H Calcium 9.2 Assessment and Plan Assessment and Plan: Patient examined, chart reviewed, I participated with Marielena Hand in the development of the plan of care of this patient. WBC was up to 7.7 with an ANC of 5.5 therefore Granix was stopped today. MRI of the brain was negative. Platelets are slowly improving. Should be able to go home soon. - Time Spent With Patient Total time spent is greater than 50% in coordination of care (as documented) at patient's floor/unit and/or counseling patient:
--- NOTE | 2018-01-23 18:34 | Progress Note ---
- Date 01/23/18 Subjective: Patient is denying any new problems. Still having occasional headaches on the left temporal portion of the head. Still not liking food. Not feeling constipated Objective Vital signs: Temperature 96.8 F 01/23/18 16:45 Pulse Rate 97 01/23/18 16:45 Respiratory Rate 22 01/23/18 16:45 Blood Pressure 119/67 01/23/18 16:45 Pulse Oximetry 96 01/23/18 16:45 Height/Weight/BMI: Weight 50.1 kg - Constitutional Present: well nourished, well developed - Routine HEENT Exam Eye: Present: EOMI ENT: Present: mucous membranes moist, dentition normal - Routine Respiratory Exam Present: CTA bilaterally. Absent: wheezes - Routine Cardiovascular Exam Present: RRR. Absent: murmur - Routine Abdominal Exam Present: soft, normoactive bowel sounds, non distended. Absent: tenderness - Routine Extremities Exam Present: normal capillary refill - Routine Skin Exam Present: dry, warm - Routine Neurological Exam Present: alert, oriented X3, CN II-XII intact - Routine Lymphatic Exam Lymphatic: Absent: adenopathy - Routine Psychiatric Exam Present: normal affect Results - Labs CBC & Chem 7: 01/23/18 09:43 01/23/18 09:43 Assessment and Plan (1) Pancytopenia Current visit: Yes Status: Acute (2) Generalized weakness Current visit: Yes Status: Acute (3) Small cell lung cancer Current visit: Yes Status: Acute (4) Abnormal finding on lung imaging Current visit: No Status: Acute (5) COPD (chronic obstructive pulmonary disease) Current visit: No Status: Acute (6) Dehydration Current visit: No Status: Acute (7) Viral syndrome Current visit: No Status: Acute (8) Dysphagia Current visit: Yes Status: Acute Assessment and Plan: IMPRESSION pancytopenia d/t chemotherapy with low grade temp and persistent tachycardia. Hypokalemia (not POA) Headache Dysphagia thrombocytopenia Small cell lung cancer with recent chemo and radiation Relative dehydration improving Relative malnutrition ongoing COPD stable dysgeusia Hypertension within normal limits PLAN Headaches: MRI brain w/ & w/o contrast as recommended by Dr. Zamudio. Yobany dc'd. ANC >3000. WBC 7.7. Hgb 8.3, plt 37. K 3.1; will give IV bolus since pt c/o nausea. Zofran PRN. Check mg level. Abx: DC IV Levaquin, Cefepime and instead start PO Levaquin. Afebrile. Poor oral intake, nausea = may need to restart IVF if nausea is uncontrolled with Zofran Orders discussed and plan formulated with Dr. Frances. - Physician Narrative Narrative: Date: 01/23/18 Time: 1831 Hospital Course Summary Disclaimer: The visit summary below is not to be considered part of the above Progress Note. Hospital Course: 01/17: Admit 1. pancytopenia d/t chemotherapy with low grade temp. 2. Dysphagia 3. Small cell lung cancer with recent chemo and radiation 4. Relative dehydration 5. Relative malnutrition 6. COPD 7. Hypertension Plans 1. observation 2. Granix 3. Dr. Zamudio consult 4. blood urine cx, resp panel, IV levaquin while pancytpenic, 5. PT eval 6. nystatin swish swallow 01/18: In-house hospitalist addendum: Seen and examined patient on same day as the above note. Agree with history, physical, assessment and plan. Comprehensive physical findings correlate to the above note. HPI: patient on consolidative chemo and radiotherapy developed steadily worsening weakness and fatigue with sense malaise. No new medications and brought herself into the emergency room ROS: agree with the greater than 10 system review performed Past medical, surgical, social, family history: as stated above. No additional information to supply Physical exam: appears moderately ill. May have a right posterior crackle to auscultation of lung Labs in imaging: chest x-ray does not corroborate to pneumonia however. Patient has pancytopenia and absolute neutrophil count qualifies patient is neutropenic Assessment and plan. Reverse isolation added to the nystatin and Levaquin have added cefepime as patient is not have a true allergy to penicillins and crossover is not likely with modern cephalosporins. Awaiting blood culture 01/19 converting to Inpatient for ongoing treatment of neutropenia with tachycardia in addition to Levaquin we've added cefepime. Dr. Zamudio is following and is continuing patient's dose of Granix. My Appreciation for his input. Patient appears euvolemic this time and would consider discontinuing continuous infusion or at least reducing to maintenance to keep the an open. Continuing nystatin swish and swallow, as her throat reportedly feels improvement. Albuterol nebulizers breathing treatments PRN symptoms 01/20 noting the platelets continue to fall and she will be into threshold for platelet transfusion tomorrow on this current trajectory. Continuing cefepime and Levaquin as well as oral nystatin. Patient continues to complain of dysgeusia since chemo treatment. Patient remains on granulocyte colony stimulating factors. Patient remains in reverse isolation for immunosuppression 01/21 patient's absolute neutrophil count has climbed to 720 and I will discuss with Dr. Zamudio if he would like her removed from reverse isolation due to her improving neutropenia. Platelets have fallen to 15 and I've ordered a bag of irradiated platelets to be given. Ongoing antibiotics this time. 01/22 patient's absolute neutrophil count is now at 3000. Removing her from reverse isolation. Up platelet count has been low but holding steady in not requiring transfusion at this point. 01/23 Headaches: MRI brain w/ & w/o contrast as recommended by Dr. Zamudio. Granix dc'd. ANC >3000. WBC 7.7. Hgb 8.3, plt 37. K 3.1; will give IV bolus since pt c/o nausea. Zofran PRN. Check mg level. Abx: DC IV Levaquin, Cefepime and instead start PO Levaquin. Afebrile. Poor oral intake, nausea = may need to restart IVF if nausea is uncontrolled with Zofran
[2018-01-24] MEDS: GUAIFENESIN/DM 5ml ORAL LIQUID PO PRN (01:40)
[2018-01-24] MEDS: PROMETHAZINE VC PO PRN ×2 (04:32→16:24)
[2018-01-24] MEDS: CODEINE PO PRN ×2 (04:32→16:24)
[2018-01-24] MEDS ORDERED: LEVOFLOXACIN 750 MG TABLET PO SCH (06:30)
--- NOTE | 2018-01-24 06:41 | Progress Note ---
Oncology Subjective Patient feeling better today. Platelets still low. Continues with cough. Review of systems: Gen.: Negative for fever or chills, positive for malaise Eyes: Negative eye discharge, eye pain ENT: Negative for nosebleeds, mouth sores Lymph: Negative enlarged lymph nodes, no night sweats Respiratory: Positive for cough, negative for shortness of breath, hemoptysis, Cardiac: Negative for chest pain, palpitations, or swelling GI: Negative for nausea, negative for vomiting, negative for diarrhea Genitourinary: No urgency, no dysuria, no hematuria Musculoskeletal: Positive for weakness, no joint pain Neurologic: Positive for headache, negative for focal weakness, negative for numbness Exam Vital signs: Temperature 96.6 F L 01/24/18 00:00 Pulse Rate 91 01/24/18 00:00 Respiratory Rate 16 01/24/18 00:00 Blood Pressure 118/68 01/24/18 00:00 Pulse Oximetry 95 01/24/18 00:00 - Constitutional no acute distress - Routine HEENT Exam Head: Present: normocephalic ENT: Present: mucous membranes moist - Routine Neck Exam Present: supple. Absent: lymphadenopathy - Routine Respiratory Exam Present: CTA bilaterally. Absent: accessory muscle use - Routine Cardiovascular Exam Present: RRR, no murmur - Routine Abdominal Exam Present: soft, non distended, non tender - Routine Extremities Exam Absent: cyanosis, clubbing, edema - Routine Skin Exam Present: dry, warm - Routine Neurological Exam Present: alert, oriented X3, CN II-XII intact - Routine Psychiatric Exam Present: normal affect Oncology Results - Labs CBC & Chem 7: 01/24/18 04:28 01/24/18 04:28 Labs: Short CBC 01/23/18 01/24/18 Range/Units 09:43 04:28 WBC 7.7 6.1 (4.5-11.0) T/MM3 Hgb 8.3 L 8.2 L (12-16) GM/DL Hct 24.5 L 24.7 L (36-46) % Plt Count 37 L 39 L (130-400) T/MM3 BMP 01/23/18 01/24/18 09:43 04:28 Sodium 141 143 Potassium 3.1 L 3.8 D Chloride 104 104 Carbon Dioxide 26 28 BUN 8.0 13.0 D Creatinine 0.6 L 0.6 L Glucose 122 H 93 Calcium 9.2 9.5 Liver Function 01/24/18 Range/Units 04:28 Total Bilirubin 0.50 (0.20-1.30) MG/DL AST 15 (14-36) U/L ALT 20 (9-52) U/L Alkaline Phosphatase 60 (38-126) U/L Albumin 3.7 (3.5-5.0) g/dL Laboratory Tests 01/23/18 01/23/18 01/24/18 09:43 09:43 04:28 WBC 7.7 6.1 Hgb 8.3 L 8.2 L Plt Count 37 L 39 L Neutrophils % (Manual) 34.0 Band Neutrophils % 14.0 H Neutrophils # (Manual) 5.5 2.1 Potassium 3.1 L Creatinine 0.6 L Calcium 9.2 01/24/18 04:28 WBC Hgb Plt Count Neutrophils % (Manual) Band Neutrophils % Neutrophils # (Manual) Potassium Creatinine 0.6 L Calcium Assessment and Plan Assessment and Plan: .1. 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 SVC syndrome resolved. Currently with pancytopenia from treatment 2. Pancytopenia/severe neutropenia and thrombocytopenia due to chemotherapy. Neutropenia is improving with G CSF but dropped today after stopping G CSF Laboratory Tests 01/21/18 01/22/18 01/23/18 11:03 10:54 09:43 WBC 1.8 L* D 6.1 D 7.7 Hgb 8.3 L 8.0 L 8.3 L Plt Count 33 L 37 L Neutrophils # (Manual) 3.2 5.5 01/24/18 04:28 WBC 6.1 Hgb 8.2 L Plt Count 39 L Neutrophils # (Manual) 2.1 Will give another dose of G CSF today. 3. Neutropenic fever, cultures negative. No further fevers. 4. Chronic headaches; increased frequency past 2 days. MRI brain repeated today, 01/23/18 which was negative. Recommendation and plan Continue supportive care. Continue to follow CBC. G CSF today - Time Spent With Patient Total time spent is greater than 50% in coordination of care (as documented) at patient's floor/unit and/or counseling patient: less than 15 minutes
[2018-01-24] MEDS: SUCRALFATE 1gm/10ml ORAL LIQUID PO SCH ×4 (06:48→20:13)
[2018-01-24] MEDS: ALBUTEROL 2.5mg/3ml (0.083%) NEB AEROSOL SCH (10:45)
[2018-01-24] MEDS: NYSTATIN 500,000 units/5 ml ORAL LIQUID PO SCH ×4 (10:58→20:13)
--- NOTE | 2018-01-24 12:53 | Progress Note ---
- Date 01/24/18 Subjective: 72 YO F presents to ED on 01/18 with generalized weakness and decreased appetite. Patient states that she is undergoing radiation and chemotherapy for lung cancer. Reports feeling weak and run down after treatments. Did not go to her scheduled radiation appointment on due to weakness. Patient reports feeling like she has something in her throat that started Friday or friday. It makes "my food taste bad and is difficult to swallow". Says that she has had thrush in the past. Patient says she was told that what ever "this is in her throat" will go down. Patient has been able to take her oral medications. She has been able to drink liquids but not much solid food. She says she finished her latest round of chemotherapy last week, most the time she gets quite fatigued because of the radiation chemo in conjunction. She's been having some chills and had a temperature of 99 for in the hospital room. She denies recently being on antibiotics. She has a chronic, occasionally productive cough. The production has been worse lately. She is also mildly short of breath she's been unable to sleep because of a hacking cough. She does have some chest and back pain when she coughs deeply. She does state that her last bowel movement was the day prior to admission and was formed. She denies any skin breakdown bustos or any peripheral edema. Patient denies, nausea , vomiting, abdominal pain or dysuria. Dr. Zamudio was consulted to assist in her care. Today, she is resting comfortably. SHe is coughing and does have sputum production. No hemoptysis. She denies fever or chills. She denies orthopnea. She is a little SOA but denies any worsening than usual. She reports walking to the BR without much VAZQUEZ. She denies CP or palp. She denies N/V/D/C/H/M. She reports no BM since friday. No symptoms. No edema. She is weak but that has improved. Objective Vital signs: Temperature 98.3 F 01/24/18 08:22 Pulse Rate 95 01/24/18 08:22 Respiratory Rate 01/24/18 10:45 Blood Pressure 112/68 01/24/18 08:22 Pulse Oximetry 100 01/24/18 10:45 Height/Weight/BMI: Weight 49.7 kg Comments: Gen: alert and oriented. NAD. Conversive. Skin: warm and dry. HEENT: NC/AT PERRL, EOMI, Sclera,lids and conjunctiva wnl. MMM. OP clear. Neck: supple. No JVD. Carotids 2+ without bruits Lungs: Diminished and coarse R>L. Exp wheezes CV: regular rate and rhythm. No murmur, rub or gallop No edema. Pedal pulses are intact Abd: soft. +BS. NT/ND MS: Good strength and ROM. Neuro: no focal deficit. Results - Labs CBC & Chem 7: 01/24/18 04:28 01/24/18 04:28 Assessment and Plan (1) Dehydration Current visit: No Status: Acute (2) Viral syndrome Current visit: No Status: Acute (3) Abnormal finding on lung imaging Current visit: No Status: Acute (4) Small cell lung cancer Current visit: Yes Status: Acute (5) COPD (chronic obstructive pulmonary disease) Current visit: No Status: Acute (6) Pancytopenia Current visit: Yes Status: Acute (7) Generalized weakness Current visit: Yes Status: Acute (8) Dysphagia Current visit: Yes Status: Acute Assessment and Plan: Assessment and Plan (1) Generalized weakness -Particularly after chemo and radiation -PT eval and treat -No evidence of infection at this time. Will dc antibiotics (2) Dysphagia -speech eval for swallowing -Nystatin (3) Pancytopenia -Dr. Zamudio consulted -Has been given Granix and will get another dose today -Levels are improving. (4) Small cell lung cancer -On chemo and radiation therapy -Dr. Zamudio consulted (5) COPD (chronic obstructive pulmonary disease) -Resp therapy (6) Dehydration-improved -IVF (7) Viral syndrome (8) HTN -Good control not on meds (9) prophylaxis -PPI and SCDs. - Physician Narrative Narrative: Date: 01/24/18 Time: 1248 Hospital Course Summary Disclaimer: The visit summary below is not to be considered part of the above Progress Note. Hospital Course: 01/17: Admit 1. pancytopenia d/t chemotherapy with low grade temp. 2. Dysphagia 3. Small cell lung cancer with recent chemo and radiation 4. Relative dehydration 5. Relative malnutrition 6. COPD 7. Hypertension Plans 1. observation 2. Granix 3. Dr. Zamudio consult 4. blood urine cx, resp panel, IV levaquin while pancytpenic, 5. PT eval 6. nystatin swish swallow 01/18: In-house hospitalist addendum: Seen and examined patient on same day as the above note. Agree with history, physical, assessment and plan. Comprehensive physical findings correlate to the above note. HPI: patient on consolidative chemo and radiotherapy developed steadily worsening weakness and fatigue with sense malaise. No new medications and brought herself into the emergency room ROS: agree with the greater than 10 system review performed Past medical, surgical, social, family history: as stated above. No additional information to supply Physical exam: appears moderately ill. May have a right posterior crackle to auscultation of lung Labs in imaging: chest x-ray does not corroborate to pneumonia however. Patient has pancytopenia and absolute neutrophil count qualifies patient is neutropenic Assessment and plan. Reverse isolation added to the nystatin and Levaquin have added cefepime as patient is not have a true allergy to penicillins and crossover is not likely with modern cephalosporins. Awaiting blood culture 01/19 converting to Inpatient for ongoing treatment of neutropenia with tachycardia in addition to Levaquin we've added cefepime. Dr. Zamudio is following and is continuing patient's dose of Granix. My Appreciation for his input. Patient appears euvolemic this time and would consider discontinuing continuous infusion or at least reducing to maintenance to keep the an open. Continuing nystatin swish and swallow, as her throat reportedly feels improvement. Albuterol nebulizers breathing treatments PRN symptoms 01/20 noting the platelets continue to fall and she will be into threshold for platelet transfusion tomorrow on this current trajectory. Continuing cefepime and Levaquin as well as oral nystatin. Patient continues to complain of dysgeusia since chemo treatment. Patient remains on granulocyte colony stimulating factors. Patient remains in reverse isolation for immunosuppression 01/21 patient's absolute neutrophil count has climbed to 720 and I will discuss with Dr. Zamudio if he would like her removed from reverse isolation due to her improving neutropenia. Platelets have fallen to 15 and I've ordered a bag of irradiated platelets to be given. Ongoing antibiotics this time. 01/22 patient's absolute neutrophil count is now at 3000. Removing her from reverse isolation. Up platelet count has been low but holding steady in not requiring transfusion at this point. 01/23 Headaches: MRI brain w/ & w/o contrast as recommended by Dr. Zamudio. Yobany dc'd. ANC >3000. WBC 7.7. Hgb 8.3, plt 37. K 3.1; will give IV bolus since pt c/o nausea. Zofran PRN. Check mg level. Abx: DC IV Levaquin, Cefepime and instead start PO Levaquin. Afebrile. Poor oral intake, nausea = may need to restart IVF if nausea is uncontrolled with Zofran
[2018-01-24] MEDS: ONDANSETRON 4 MG/2 ML INJECTION IVP PRN (18:33)
[2018-01-24] MEDS: ACETAMINOPHEN 325 MG TABLET PO PRN (20:14)
[2018-01-24] MEDS: SALINE FLUSH 10ml SYRINGE IV PRN (20:14)
[2018-01-25] MEDS: ALBUTEROL 2.5mg/3ml (0.083%) NEB AEROSOL SCH ×3 (03:12→19:01)
[2018-01-25] MEDS: CODEINE PO PRN ×2 (04:01→17:35)
[2018-01-25] MEDS: PROMETHAZINE VC PO PRN ×2 (04:01→17:35)
[2018-01-25] MEDS: SUCRALFATE 1gm/10ml ORAL LIQUID PO SCH ×4 (06:33→20:33)
[2018-01-25] MEDS: NYSTATIN 500,000 units/5 ml ORAL LIQUID PO SCH ×4 (09:31→20:33)
--- NOTE | 2018-01-25 12:22 | Progress Note ---
- Date 01/25/18 Subjective: 72 YO F presents to ED on 01/18 with generalized weakness and decreased appetite. Patient states that she is undergoing radiation and chemotherapy for lung cancer. Reports feeling weak and run down after treatments. Did not go to her scheduled radiation appointment on due to weakness. Patient reports feeling like she has something in her throat that started Friday or friday. It makes "my food taste bad and is difficult to swallow". Says that she has had thrush in the past. Patient says she was told that what ever "this is in her throat" will go down. Patient has been able to take her oral medications. She has been able to drink liquids but not much solid food. She says she finished her latest round of chemotherapy last week, most the time she gets quite fatigued because of the radiation chemo in conjunction. She's been having some chills and had a temperature of 99 for in the hospital room. She denies recently being on antibiotics. She has a chronic, occasionally productive cough. The production has been worse lately. She is also mildly short of breath she's been unable to sleep because of a hacking cough. She does have some chest and back pain when she coughs deeply. She does state that her last bowel movement was the day prior to admission and was formed. She denies any skin breakdown bustos or any peripheral edema. Patient denies, nausea , vomiting, abdominal pain or dysuria. Dr. Zamudio was consulted to assist in her care. Today, she is resting comfortably. She reports she tired. She continues to have some coughing with sputum production. This seems to have improved a bit today. No hemoptysis. She denies fever or chills. She denies orthopnea. She is a little SOA but denies any worsening than usual. No significant VAZQUEZ. She denies CP or palp. She did have some Nausea last evening with emesis. She reports no BM since friday. No symptoms. No edema. She is weak but that has improved. The Granix has appeared to kick in. She is on RA Objective Vital signs: Temperature 98.8 F 01/25/18 07:30 Pulse Rate 91 01/25/18 08:02 Respiratory Rate 16 01/25/18 08:19 Blood Pressure 109/65 01/25/18 07:30 Pulse Oximetry 90 01/25/18 08:19 Height/Weight/BMI: Weight 50 kg Comments: Gen: alert and oriented. NAD. Conversive. Skin: warm and dry. HEENT: NC/AT PERRL, EOMI, Sclera,lids and conjunctiva wnl. MMM. OP clear. Neck: supple. No JVD. Carotids 2+ without bruits Lungs: Diminished and coarse R>L. soft wheezes (improved from yesterday) CV: regular rate and rhythm. No murmur, rub or gallop No edema. Pedal pulses are intact Abd: soft. +BS. NT/ND MS: Good strength and ROM. Neuro: no focal deficit. Results - Labs CBC & Chem 7: 01/25/18 03:48 01/25/18 03:48 Assessment and Plan (1) Dehydration Current visit: No Status: Acute (2) Viral syndrome Current visit: No Status: Acute (3) Abnormal finding on lung imaging Current visit: No Status: Acute (4) Small cell lung cancer Current visit: Yes Status: Acute (5) COPD (chronic obstructive pulmonary disease) Current visit: No Status: Acute (6) Pancytopenia Current visit: Yes Status: Acute (7) Generalized weakness Current visit: Yes Status: Acute (8) Dysphagia Current visit: Yes Status: Acute Assessment and Plan: Assessment and Plan (1) Generalized weakness -Particularly after chemo and radiation -PT eval and treat -No evidence of infection at this time. Will dc antibiotics (2) Dysphagia -Nystatin (3) Pancytopenia -Dr. Zamudio consulted -Has been given Granix, last dose 01/24/18 -Levels are much better today. (4) Small cell lung cancer -On chemo and radiation therapy -Dr. Zamudio consulted (5) COPD (chronic obstructive pulmonary disease) -Resp therap -On RA (6) Dehydration-improved -IVF (7) Viral syndrome (8) HTN -Good control not on meds (9) prophylaxis -PPI and SCDs. I suspect she will be able to go home tomorrow if she remains this stable. - Physician Narrative Narrative: Date: 01/25/18 Time: 1219 Hospital Course Summary Disclaimer: The visit summary below is not to be considered part of the above Progress Note. Hospital Course: 01/17: Admit 1. pancytopenia d/t chemotherapy with low grade temp. 2. Dysphagia 3. Small cell lung cancer with recent chemo and radiation 4. Relative dehydration 5. Relative malnutrition 6. COPD 7. Hypertension Plans 1. observation 2. Granix 3. Dr. Zamudio consult 4. blood urine cx, resp panel, IV levaquin while pancytpenic, 5. PT eval 6. nystatin swish swallow 01/18: In-house hospitalist addendum: Seen and examined patient on same day as the above note. Agree with history, physical, assessment and plan. Comprehensive physical findings correlate to the above note. HPI: patient on consolidative chemo and radiotherapy developed steadily worsening weakness and fatigue with sense malaise. No new medications and brought herself into the emergency room ROS: agree with the greater than 10 system review performed Past medical, surgical, social, family history: as stated above. No additional information to supply Physical exam: appears moderately ill. May have a right posterior crackle to auscultation of lung Labs in imaging: chest x-ray does not corroborate to pneumonia however. Patient has pancytopenia and absolute neutrophil count qualifies patient is neutropenic Assessment and plan. Reverse isolation added to the nystatin and Levaquin have added cefepime as patient is not have a true allergy to penicillins and crossover is not likely with modern cephalosporins. Awaiting blood culture 01/19 converting to Inpatient for ongoing treatment of neutropenia with tachycardia in addition to Levaquin we've added cefepime. Dr. Zamudio is following and is continuing patient's dose of Granix. My Appreciation for his input. Patient appears euvolemic this time and would consider discontinuing continuous infusion or at least reducing to maintenance to keep the an open. Continuing nystatin swish and swallow, as her throat reportedly feels improvement. Albuterol nebulizers breathing treatments PRN symptoms 01/20 noting the platelets continue to fall and she will be into threshold for platelet transfusion tomorrow on this current trajectory. Continuing cefepime and Levaquin as well as oral nystatin. Patient continues to complain of dysgeusia since chemo treatment. Patient remains on granulocyte colony stimulating factors. Patient remains in reverse isolation for immunosuppression 01/21 patient's absolute neutrophil count has climbed to 720 and I will discuss with Dr. Zamudio if he would like her removed from reverse isolation due to her improving neutropenia. Platelets have fallen to 15 and I've ordered a bag of irradiated platelets to be given. Ongoing antibiotics this time. 01/22 patient's absolute neutrophil count is now at 3000. Removing her from reverse isolation. Up platelet count has been low but holding steady in not requiring transfusion at this point. 01/23 Headaches: MRI brain w/ & w/o contrast as recommended by Dr. Zamudio. Yobany dc'd. ANC >3000. WBC 7.7. Hgb 8.3, plt 37. K 3.1; will give IV bolus since pt c/o nausea. Zofran PRN. Check mg level. Abx: DC IV Levaquin, Cefepime and instead start PO Levaquin. Afebrile. Poor oral intake, nausea = may need to restart IVF if nausea is uncontrolled with Zofran
[2018-01-25] MEDS: POLYETHYL GLYCOL 3350 17gm PACKET PO SCH (12:26)
--- NOTE | 2018-01-25 14:37 | Progress Note ---
Oncology Subjective Nausea Vomitted last PM Cough better. No problem with swallowing. Exam Vital signs: Temperature 98.8 F 01/25/18 07:30 Pulse Rate 91 01/25/18 08:02 Respiratory Rate 16 01/25/18 08:19 Blood Pressure 109/65 01/25/18 07:30 Pulse Oximetry 90 01/25/18 08:19 - Constitutional no acute distress, thin - Routine HEENT Exam Head: Present: normocephalic ENT: Present: mucous membranes dry, oropharynx clear - Routine Neck Exam Present: supple. Absent: lymphadenopathy - Routine Chest/Breast/Axilla Exam Axillae: Absent: lymphadenopathy - Routine Respiratory Exam Present: decreased breath sounds, wheezes (few). Absent: accessory muscle use - Routine Cardiovascular Exam Present: RRR, no murmur - Routine Abdominal Exam Present: soft, tenderness (mild epigastric), non distended - Routine Extremities Exam Present: no edema. Absent: cyanosis, clubbing - Routine Neurological Exam Present: alert, CN II-XII intact - Routine Psychiatric Exam Present: normal affect Oncology Results - Labs CBC & Chem 7: 01/25/18 03:48 01/25/18 03:48 Labs: Short CBC 01/25/18 Range/Units 03:48 WBC 16.1 H D (4.5-11.0) T/MM3 Hgb 8.4 L (12-16) GM/DL Hct 25.8 L (36-46) % Plt Count 60 L D (130-400) T/MM3 BMP 01/25/18 03:48 Sodium 144 Potassium 4.1 Chloride 105 Carbon Dioxide 28 BUN 13.0 Creatinine 0.6 L Glucose 91 Calcium 9.7 Laboratory Tests 01/25/18 03:48 WBC 16.1 H D Hgb 8.4 L Plt Count 60 L D Neutrophils % (Manual) 61.0 Band Neutrophils % 15.0 H Lymphocytes % (Manual) 12.0 L Metamyelocytes % 3.0 H Myelocytes % 2.0 H Assessment and Plan Assessment and Plan: .1. 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 SVC syndrome resolved. Currently with pancytopenia from treatment 2. Pancytopenia/severe neutropenia and thrombocytopenia due to chemotherapy. Neutropenia is improving with G CSF but dropped today after stopping G CSF Laboratory Tests 01/21/18 01/22/18 01/23/18 11:03 10:54 09:43 WBC 1.8 L* D 6.1 D 7.7 Hgb 8.3 L 8.0 L 8.3 L Plt Count 33 L 37 L Neutrophils # (Manual) 3.2 5.5 01/24/18 04:28 WBC 6.1 Hgb 8.2 L Plt Count 39 L Neutrophils # (Manual) 2.1 Given another dose of G CSF on 01/24 WBC and platelets improved significantly on 01/25. Will follow. 3. Neutropenic fever, cultures negative. No further fevers. 4. Chronic headaches; increased frequency past 2 days. MRI brain repeated today, 01/23/18 which was negative. 5. N/V. Worse last 24 hours. Will add pepcid 20 bid and follow. Possible gastritis exacerbating the symptoms. Recommendation and plan Continue supportive care. Continue to follow CBC. Pepcid - Time Spent With Patient Total time spent is greater than 50% in coordination of care (as documented) at patient's floor/unit and/or counseling patient: less than 15 minutes
[2018-01-25] MEDS: FAMOTIDINE 20 MG TABLET PO SCH ×2 (14:47→20:30)
[2018-01-25] MEDS: ACETAMINOPHEN 325 MG TABLET PO PRN (20:33)
[2018-01-25] MEDS ORDERED: SENNA + DOCUSATE TABLET PO SCH (21:00)
[2018-01-26] MEDS: CODEINE PO PRN ×2 (00:03→15:57)
[2018-01-26] MEDS: PROMETHAZINE VC PO PRN ×2 (00:03→15:57)
[2018-01-26] MEDS: SUCRALFATE 1gm/10ml ORAL LIQUID PO SCH ×2 (06:21→11:32)
[2018-01-26] MEDS: ALBUTEROL 2.5mg/3ml (0.083%) NEB AEROSOL SCH (07:35)
[2018-01-26 07:42] VITALS: BP 139/71; RESP 18; TEMP 98.7; O2SAT 92
[2018-01-26] MEDS: FAMOTIDINE 20 MG TABLET PO SCH (08:28)
[2018-01-26] MEDS: POLYETHYL GLYCOL 3350 17gm PACKET PO SCH (08:28)
[2018-01-26] MEDS: NYSTATIN 500,000 units/5 ml ORAL LIQUID PO SCH ×2 (09:30→13:29)
[2018-01-26] MEDS: SALINE FLUSH 10ml SYRINGE IV PRN ×2 (09:31→16:06)
[2018-01-26 10:14] VITALS: PULSE 104
--- NOTE | 2018-01-26 15:29 | Progress Note ---
- Date 01/26/18 Subjective: F/U: Pancytopenia d/t chemotherapy with low grade temp and persistent tachycardia, Dysphagia Doing well today. Appetite improving (not liking food here). Able to eat and swallow better. No nausea or ab pain. Bowels stable. Breathing well-not SOA, but notes not occasional cough. Feels weak, but reports it's from being in the hospital. Able to get around in room well. No f/c. Feels ready to go home. Objective Vital signs: Temperature 98.7 F 01/26/18 07:38 Pulse Rate 104 H 01/26/18 08:10 Respiratory Rate 18 01/26/18 07:38 Blood Pressure 139/71 01/26/18 07:38 Pulse Oximetry 92 01/26/18 07:38 Height/Weight/BMI: Weight 50.3 kg - Constitutional Present: no acute distress, well nourished, well developed, thin - Routine HEENT Exam Head: Present: normocephalic, atraumatic Eye: Present: EOMI, PERRL ENT: Present: mucous membranes moist - Routine Respiratory Exam Present: decreased breath sounds. Absent: rales, respiratory distress, rhonchi , stridor, wheezes, crackles - Routine Cardiovascular Exam Present: RRR, no murmur - Routine Abdominal Exam Present: soft, normoactive bowel sounds, non distended, non tender - Routine Extremities Exam Present: no edema, pulses intact. Absent: cyanosis, clubbing - Routine Musculoskeletal Exam Musculoskeletal: Present: no clubbing or cyanosis, normal strength - Routine Skin Exam Present: dry, warm - Routine Neurological Exam Present: alert, CN II-XII intact, moving all extremities, vision grossly intact , hearing grossly intact, normal speech. Absent: motor deficit, altered mental status - Routine Psychiatric Exam Present: normal affect, normal thought process, cooperative Results - Labs CBC & Chem 7: 01/26/18 04:27 01/26/18 04:27 Assessment and Plan (1) Pancytopenia Current visit: Yes Status: Acute (2) Small cell lung cancer Current visit: Yes Status: Acute (3) Dehydration Current visit: No Status: Acute (4) Viral syndrome Current visit: No Status: Acute (5) Abnormal finding on lung imaging Current visit: No Status: Acute (6) COPD (chronic obstructive pulmonary disease) Current visit: No Status: Acute (7) Generalized weakness Current visit: Yes Status: Acute (8) Dysphagia Current visit: Yes Status: Acute Assessment and Plan: Assessment Pancytopenia d/t chemotherapy with low grade temp and persistent tachycardia - improved . Hypokalemia (not POA) Headache Dysphagia Thrombocytopenia - Platelets increased to 78 Small cell lung cancer with recent chemo and radiation Relative dehydration - resolved Relative malnutrition ongoing COPD Dysgeusia Hypertension within normal limits Plan Blood counts stable. Oral drive improving. Breathing well. Strength improving. Will discharge to home in stable condition. Diet as tolerated. Increase strength and activities as able. F/U with Dr Blackwood next week - tentatively scheduled for Chemo on 02/04 but may need to postpone depending on how her blood counts are. May follow up with Dr Kulkarni as needed for general medical care. Case discussed with Dr Blackwood. Time spent with patient care and discharge greater than 30 minutes. DVT Prophylaxis: SCD's Resuscitation Status: Full Code - Physician Narrative Physician: Nahum Capps MD Narrative: Date: 01/26/18 Time: 1525 Hospital Course Summary Disclaimer: The visit summary below is not to be considered part of the above Progress Note. Hospital Course: 01/17: Admit 1. Pancytopenia d/t chemotherapy with low grade temp. 2. Dysphagia 3. Small cell lung cancer with recent chemo and radiation 4. Relative dehydration 5. Relative malnutrition 6. COPD 7. Hypertension Plans 1. observation 2. Granix 3. Dr. Zamudio consult 4. blood urine cx, resp panel, IV levaquin while pancytpenic, 5. PT eval 6. nystatin swish swallow 01/18 Reverse isolation added to the nystatin and Levaquin have added cefepime as patient is not have a true allergy to penicillins and crossover is not likely with modern cephalosporins. Awaiting blood culture 01/19 Converting to Inpatient for ongoing treatment of neutropenia with tachycardia in addition to Levaquin we've added cefepime. Dr. Zamudio is following and is continuing patient's dose of Granix. My Appreciation for his input. Patient appears euvolemic this time and would consider discontinuing continuous infusion or at least reducing to maintenance to keep the an open. Continuing nystatin swish and swallow, as her throat reportedly feels improvement. Albuterol nebulizers breathing treatments PRN symptoms 01/20 Noting the platelets continue to fall and she will be into threshold for platelet transfusion tomorrow on this current trajectory. Continuing cefepime and Levaquin as well as oral nystatin. Patient continues to complain of dysgeusia since chemo treatment. Patient remains on granulocyte colony stimulating factors. Patient remains in reverse isolation for immunosuppression 01/21 Patient's absolute neutrophil count has climbed to 720 and I will discuss with Dr. Zamudio if he would like her removed from reverse isolation due to her improving neutropenia. Platelets have fallen to 15 and I've ordered a bag of irradiated platelets to be given. Ongoing antibiotics this time. 01/22 Patient's absolute neutrophil count is now at 3000. Removing her from reverse isolation. Up platelet count has been low but holding steady in not requiring transfusion at this point. 01/23 Headaches: MRI brain w/ & w/o contrast as recommended by Dr. Zamudio. Granix dc'd. ANC >3000. WBC 7.7. Hgb 8.3, plt 37. K 3.1; will give IV bolus since pt c/o nausea. Zofran PRN. Check mg level. Abx: DC IV Levaquin, Cefepime and instead start PO Levaquin. Afebrile. Poor oral intake, nausea = may need to restart IVF if nausea is uncontrolled with Zofran 01/24 No evidence of infection at this time. Will dc antibiotics 01/25 WBC 16.1, HGB 8.4, Platelets 60. Monitor off of antibiotics. 01/26 Discharge WBC 8.8, HGB 8.1, Platelets 78. Blood counts stable. Oral drive improving. Breathing well. Strength improving. Will discharge to home in stable condition. Diet as tolerated. Increase strength and activities as able. F/U with Dr Blackwood next week - tentatively scheduled for Chemo on 02/04 but may need to postpone depending on how her blood counts are. May follow up with Dr Kulkarni as needed for general medical care.
--- NOTE | 2018-01-26 16:17 | Progress Note ---
<Noy Hand - Last Filed: 01/26/18 16:37> Oncology Subjective Alone in room at time of intake. Alert and oriented. Denies pain currently. Complains of feeling lightheaded; " I have not eaten since breakfast, 1 want to go home and eat." Anxious to eat at home. Encouraged to have a snack or protein drink now. Will have nursing check vital signs. General: No fever, no night sweats Eyes: No redness, no pain, no diplopia ENT: No mouth sores, no trouble swallowing Cardiac: No chest pain no palpitations Pulmonary: Infrequent, nonproductive cough Abdomen: No pain, no nausea vomiting, no diarrhea or constipation : No urgency, frequency, dysuria, or hematuria Musculoskeletal: No arthritis, no myalgias Neurological: no focal weakness. Complains of mild lightheadedness. No vision changes or headaches Skin: No rash, no sores Psychiatric: No anxiety, no depression Exam Vital signs: Temperature 98.7 F 01/26/18 07:38 Pulse Rate 104 H 01/26/18 08:10 Respiratory Rate 18 01/26/18 07:38 Blood Pressure 139/71 01/26/18 07:38 Pulse Oximetry 92 01/26/18 07:38 - Constitutional no acute distress, well developed, thin - Routine HEENT Exam Head: Present: normocephalic - Routine Neck Exam Present: supple. Absent: lymphadenopathy - Routine Respiratory Exam Present: decreased breath sounds. Absent: wheezes, crackles - Routine Cardiovascular Exam Present: RRR, no murmur - Routine Abdominal Exam Present: soft, normoactive bowel sounds, non distended - Routine Extremities Exam Present: no edema, full ROM - Routine Skin Exam Present: intact, dry, pallor - Routine Neurological Exam Present: alert, oriented X3 - Routine Psychiatric Exam Present: normal affect, cooperative Oncology Results - Labs CBC & Chem 7: 01/26/18 04:27 01/26/18 04:27 Labs: Short CBC 01/26/18 Range/Units 04:27 WBC 8.8 D (4.5-11.0) T/MM3 Hgb 8.1 L (12-16) GM/DL Hct 24.9 L (36-46) % Plt Count 78 L (130-400) T/MM3 [facility] 01/26/18 04:27 Sodium 144 Potassium 3.8 Chloride 104 Carbon Dioxide 27 BUN 14.0 Creatinine 0.6 L Glucose 101 Calcium 9.2 Assessment and Plan Assessment and Plan: .1. 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 SVC syndrome resolved. Currently with pancytopenia from treatment 2. Pancytopenia/severe neutropenia and thrombocytopenia due to chemotherapy. Neutropenia is improving with G CSF but dropped today after stopping G CSF Laboratory Tests 01/21/18 01/22/18 01/23/18 11:03 10:54 09:43 WBC 1.8 L* D 6.1 D 7.7 Hgb 8.3 L 8.0 L 8.3 L Plt Count 33 L 37 L Neutrophils # (Manual) 3.2 5.5 01/24/18 04:28 WBC 6.1 Hgb 8.2 L Plt Count 39 L Neutrophils # (Manual) 2.1 Given another dose of G CSF on 01/24 WBC and platelets improved significantly on 01/25. Stable today, 01/26/18, hemoglobin 8.1. Platelets 78K 3. Neutropenic fever, cultures negative. No further fevers. 4. Chronic headaches; MRI brain repeated 01/23/18 which was negative. No headache today. 5. N/V. Added pepcid 20 bid. Recommendation and plan Oncology okay with dismissal. Reviewed importance of adequate nutrition; reinforced 3 meals, to protein snacks each day. Safety precautions, slow position change, stop activity dizzy. RTC to see Dr. Blackwood tomorrow, 01/27/18 with labs before appointment. Patient acknowledges instructions, has no questions. - Time Spent With Patient Total time spent is greater than 50% in coordination of care (as documented) at patient's floor/unit and/or counseling patient: less than 15 minutes <Pato Zamudio - Last Filed: 01/26/18 22:35> Exam Vital signs: Temperature 98.7 F 01/26/18 07:38 Pulse Rate 104 H 01/26/18 08:10 Respiratory Rate 18 01/26/18 07:38 Blood Pressure 139/71 01/26/18 07:38 Pulse Oximetry 92 01/26/18 07:38 Oncology Results - Labs CBC & Chem 7: 01/26/18 04:27 01/26/18 04:27 Labs: Short CBC 01/26/18 Range/Units 04:27 WBC 8.8 D (4.5-11.0) T/MM3 Hgb 8.1 L (12-16) GM/DL Hct 24.9 L (36-46) % Plt Count 78 L (130-400) T/MM3 [facility] 01/26/18 04:27 Sodium 144 Potassium 3.8 Chloride 104 Carbon Dioxide 27 BUN 14.0 Creatinine 0.6 L Glucose 101 Calcium 9.2 Assessment and Plan Assessment and Plan: Patient examined. chart reviewed. Scheduled appointment with Dr. Blackwood tomorrow at 11:30 with lab prior. I participated in the development of the plan of care in this patient. - Time Spent With Patient Total time spent is greater than 50% in coordination of care (as documented) at patient's floor/unit and/or counseling patient:
--- NOTE | 2018-01-26 16:42 | Discharge Summary ---
Discharge Information Date of admission: 01/19/18 14:20 Anticipated date of discharge: 01/26/18 Attending Physician: Nahum Capps MD Primary care physician: Gabriele Kulkarni II, MD Consults: Dr Blackwood/Lizz PT - Discharge Diagnosis (1) Pancytopenia Status: Acute (2) Small cell lung cancer Status: Acute (3) Dehydration Status: Acute (4) Viral syndrome Status: Acute (5) Abnormal finding on lung imaging Status: Acute (6) COPD (chronic obstructive pulmonary disease) Status: Acute (7) Generalized weakness Status: Acute (8) Dysphagia Status: Acute Discharge diagnosis Pancytopenia d/t chemotherapy with low grade temp and persistent tachycardia - improved Associated conditions and complications Small cell lung cancer with recent chemo and radiation Hypokalemia (not POA) -resolved Headache Dysphagia Thrombocytopenia - Platelets increased to 78 Relative dehydration - resolved Relative malnutrition ongoing COPD Dysgeusia Hypertension - Procedures Procedures: TRANSFUSIONS 01/18/18: 1 unit pRBC 01/21/18: 1 platelet pack - Laboratory Labs: Admit Lab 01/19/18 04:11 WBC 0.7 L* Hgb 7.9 L Hct 23.4 L D MCV 88.3 Plt Count 29 L* D Neutrophils % (Manual) 44.0 Band Neutrophils % 4.0 Lymphocytes % (Manual) 24.0 Reactive Lymphs % 4.0 H Monocytes % (Manual) 16.0 H Basophils % (Manual) 8.0 H Admit Lab 01/17/18 21:35 Sodium 137 Potassium 3.9 Chloride 101 Carbon Dioxide 24 Anion Gap 12 BUN 18.0 H Creatinine 0.8 GFR Calculation 71 BUN/Creatinine Ratio 23 Glucose 99 Calculated Osmolality 266 Calcium 9.3 Total Bilirubin 1.00 AST 16 ALT 23 Alkaline Phosphatase 65 Total Protein 7.2 Albumin 4.1 Globulin 3.1 Albumin/Globulin Ratio 1.3 Anemia Labo 01/19/18 01/19/18 04:11 04:11 Iron 109 TIBC 231 L % Saturation 47 Erythropoietin 293 H Ferritin 830 H Vitamin B12 673 Methylmalonic Acid 0.15 Folate 11.0 Homocysteine 6.3 01/26/18 04:27 01/26/18 04:27 - Radiology Radiology: Date of Exam: 01/23/18 PROCEDURE: MR head/brain wo/w con FINDINGS: Motion artifact degrades some of the sequences. Mild generalized atrophy. The ventricles are of normal size, shape, and contour for the patient' s age. There are small nonspecific punctate areas of T2-weighted and T2 FLAIR weighted signal abnormality in the deep frontoparietal white matter that most likely represent small vessel ischemic disease. This is of a degree that is considered to be normal for the patient's age. The brainstem, cerebellum, and cerebral hemispheres otherwise have a normal morphologic appearance as well as MR signal intensity on all pulse sequences. Following intravenous administration of contrast, no areas of abnormal enhancement are evident. There are no areas of restricted diffusion to suggest an acute infarct. There is no evidence of an intracranial mass lesion, intracranial hemorrhage, or hydrocephalus. The visualized portions of the orbits, calvarium, paranasal sinuses, and skull base demonstrate no significant abnormality. IMPRESSION: Stable exam without evidence of acute intracranial abnormality. No evidence of intracranial metastatic disease. History of Present Illness HPI: 72 YO F presents to ED with generalized weakness and decreased appetite. Patient states that she is undergoing radiation and chemotherapy for lung cancer. Reports feeling weak and run down after treatments. Did not go to her scheduled radiation appointment on due to weakness. Patient reports having something in her throat Starting maybe Friday or Friday. that is enlarged which makes "my food taste bad and it difficulty to swallow". Says that she has had thrush in the past. Patient says she was told that what ever "this is in her throat" will go down. Patient has been able to take her oral medications. She has been able to drink liquids but not much solid food. She says she finished her latest round of chemotherapy last week, most the time she gets quite fatigued because of the radiation chemo in conjunction. She's been having some chills and had a temperature of 99 for in the hospital room. She denies recently being on antibiotics. Admits chronic sometimes productive cough. She is also mildly short of breath she's been unable to sleep because of a hacking cough. She does have some chest and back pain when she coughs deeply. She does state that her last bowel movement was yesterday and formed. She denies any skin breakdown bustos or any peripheral edema. Patient denies, nausea, vomiting, abdominal pain or dysuria. For complete details of the H&P refer to that document. Objective Vital signs: Temperature 98.7 F 01/26/18 07:38 Pulse Rate 104 H 01/26/18 08:10 Respiratory Rate 18 01/26/18 07:38 Blood Pressure 139/71 01/26/18 07:38 Pulse Oximetry 92 01/26/18 07:38 Height/Weight/BMI: Weight 50.3 kg Hospital Course This is a general summary of the patient's hospital course. For more details refer to the complete medical record. Hospital course: 01/17: Admit 1. Pancytopenia d/t chemotherapy with low grade temp. 2. Dysphagia 3. Small cell lung cancer with recent chemo and radiation 4. Relative dehydration 5. Relative malnutrition 6. COPD 7. Hypertension Plans 1. observation 2. Granix 3. Dr. Zamudio consult 4. blood urine cx, resp panel, IV levaquin while pancytpenic, 5. PT eval 6. nystatin swish swallow 01/18 Reverse isolation added to the nystatin and Levaquin have added cefepime as patient is not have a true allergy to penicillins and crossover is not likely with modern cephalosporins. Awaiting blood culture 01/19 Converting to Inpatient for ongoing treatment of neutropenia with tachycardia in addition to Levaquin we've added cefepime. Dr. Zamudio is following and is continuing patient's dose of Granix. My Appreciation for his input. Patient appears euvolemic this time and would consider discontinuing continuous infusion or at least reducing to maintenance to keep the an open. Continuing nystatin swish and swallow, as her throat reportedly feels improvement. Albuterol nebulizers breathing treatments PRN symptoms 01/20 Noting the platelets continue to fall and she will be into threshold for platelet transfusion tomorrow on this current trajectory. Continuing cefepime and Levaquin as well as oral nystatin. Patient continues to complain of dysgeusia since chemo treatment. Patient remains on granulocyte colony stimulating factors. Patient remains in reverse isolation for immunosuppression 01/21 Patient's absolute neutrophil count has climbed to 720 and I will discuss with Dr. Zamudio if he would like her removed from reverse isolation due to her improving neutropenia. Platelets have fallen to 15 and I've ordered a bag of irradiated platelets to be given. Ongoing antibiotics this time. 01/22 Patient's absolute neutrophil count is now at 3000. Removing her from reverse isolation. Up platelet count has been low but holding steady in not requiring transfusion at this point. 01/23 Headaches: MRI brain w/ & w/o contrast as recommended by Dr. Zamudio. Granix dc'd. ANC >3000. WBC 7.7. Hgb 8.3, plt 37. K 3.1; will give IV bolus since pt c/o nausea. Zofran PRN. Check mg level. Abx: DC IV Levaquin, Cefepime and instead start PO Levaquin. Afebrile. Poor oral intake, nausea = may need to restart IVF if nausea is uncontrolled with Zofran 01/24 No evidence of infection at this time. Will dc antibiotics 01/25 WBC 16.1, HGB 8.4, Platelets 60. Monitor off of antibiotics. 01/26 Discharge WBC 8.8, HGB 8.1, Platelets 78. Blood counts stable. Oral drive improving. Breathing well. Strength improving. Will discharge to home in stable condition. Diet as tolerated. Increase strength and activities as able. F/U with Dr Blackwood next week - tentatively scheduled for Chemo on 02/04 but may need to postpone depending on how her blood counts are. May follow up with Dr Kulkarni as needed for general medical care. Time spent with patient: discharge greater than 30 minutes Resuscitation Status: Full Code Discharge Plan - Discharge Disposition Discharge Date: 01/26/18 Disposition: Discharged Home, Self-Care *Condition: Stable Reason For Visit (Visit label in EMR): weakness, pancytopenia - Discharge Medications *Discharge Medications: New Famotidine [Pepcid] 20 mg PO BID #20 tab Nystatin Oral Liq. [Mycostatin] 5 ml PO QID PRN #150 ml PRN Reason: Thrush Senna + Docusate [Senna Plus Tablet] 2 tab PO HS PRN tab PRN Reason: Constipation Continue Hydrocodone/APAP 5/325 [[place] 5/325] 1 tab PO Q6H PRN #15 tab PRN Reason: Pain DiphenhydrAMINE [Benadryl] 25 mg PO Q4H PRN cap PRN Reason: Itching Ipratropium [place] 1 dose AEROSOL Q4HR PRN #60 tube PRN Reason: Shortness Of Air/Wheezing PEG 3350 17gm PACKET [Miralax] 17 gm PO DAILY Benzonatate [Tessalon Perles] 100 mg PO TID PRN PRN Reason: Cough Sucralfate [Carafate] 1 g PO [id number] Umeclidinium Brm/Vilanterol Tr [Anoro Ellipta 62.5-25 Mcg INH] 1 puff IH DAILY Ondansetron Tab [Zofran Po] 4 mg PO QID PRN #30 tab PRN Reason: Nausea Acetaminophen [Tylenol] 325 - 650 mg PO Q6HR PRN PRN Reason: Discomfort Fluticasone Nasal [place] [Flonase] 2 spray EA NOSTRIL DAILY bottle Codeine Phosphate/Guaifenesin [Guaifenesin-Codeine Syrup] 10 ml PO Q6H PRN PRN Reason: Cough - Discharge Packet/Instructions *Diet: As tolerated *Activity: Increase as able *Pain Management/Treatment: Continue prior home pain medications *Wound Care: N/A Additional Instructions: May use Nystatin swish and swollow 4 times a day as needed for thrush. Pepcid 20mg twice a day may help dyspepsia. *Expected Signs/Symptoms: Improvement of appetite and swallow ability. Improvement of strength. *Notify Physician if: Temp >100.4. Intractable nausea/vomiting. Increased difficulty breathing. *During Business Hours Contact: Dr Blackwood *After Business Hours Contact: Call [facility] [place] and have your care provider contacted. *Pending Lab/Results: No Pending Lab - Referrals/Follow Up *Referrals/Follow Up: Romain Blackwood MD [Physician] - (Will call for schedule for next week reguarding lab and possible chemo (Chemo scheduled for 02/04, but may be pushed back depending on how your blood counts look).) Gabriele Kulkarni II, MD [Family Provider] - (As needed for medical care and concerns.) - Patient Handouts Patient Handouts: Weakness (GEN), Pancytopenia (GEN) - Dismissal Complete Discharge Instructions are:: Complete Physician Narrative - Narrative Physician: Nahum Capps MD Attestation Narrative: Date: 01/26/18 Time: 1636 I have independently interviewed and examined patient prior to discharge. See my progress note from today for details. Medically stable for discharge to home.
== END 2018-01-26 16:55 | disposition home or self-care (01) | DRG 809 ==
LOC: ED 20:13 → MED 20:13 → SUATTDRO 01-19 14:20
PROVIDERS: ADMIT Pediatrics; ATTEND Hospitalist